=== PATIENT | male | born 1975 | race Caucasian/White ===

== ENCOUNTER → 2022-02-22 | Outpatient (CLI) | payer OTHER ==
--- NOTE | 2022-02-22 12:00 | US ---
EXAMINATION TYPE: US carotid duplex BILAT DATE OF EXAM: 02/22/2022 COMPARISON: NONE CLINICAL HISTORY: R09.89 SYMPTOMS AND SIGNS INV. no h/o stroke, bruit TECHNIQUE: Carotid duplex ultrasound examination. Indirect Doppler criteria was utilized. FINDINGS: EXAM MEASUREMENTS: RIGHT: Peak Systolic Velocity (PSV) cm/sec ----- Right CCA: 70.7 ----- Right ICA: 49.4 ----- Right ECA: 69.6 ICA/CCA ratio: 0.7 RIGHT: End Diastole cm/sec ----- Right CCA: 24.3 ----- Right ICA: 21.2 ----- Right ECA: 19.6 LEFT: Peak Systolic Velocity (PSV) cm/sec ----- Left CCA: 87.6 ----- Left ICA: 43.3 ----- Left ECA: 60.2 ICA/CCA ratio: 0.5 LEFT: End Diastole cm/sec ----- Left CCA: 28.2 ----- Left ICA: 17.3 ----- Left ECA: 16.6 VERTEBRALS (direction of flow): Right Vertebral: Antegrade Left Vertebral: Antegrade Rhythm: Normal SECURITIES UNDERWRITER NOTES: Mild homogeneous plaque with no significant stenosis seen IMPRESSION: No evidence for hemodynamically significant stenosis. Criteria for Assigning % of Stenosis / Diameter reduction (Estimation based on the indirect measurements of the internal carotid artery velocities (ICA PSV). 1. Normal (no stenosis)=ICA PSV < 125 cm/s: ratio < 2.0: ICA EDV<40 cm/s. 2. Less than 50% stenosis=ICA PSV < 125 cm/s: ratio < 2.0: ICA EDV<40 cm/s. 3. 50 to 69% stenosis=ICA PSV of 125 to 230 cm/s: ration 2.0 ? 4.0: ICA EDV 40-100 cm/s. 4. Greater than 70% stenosis to near occlusion= ICA PSV > 230 cm/s: ratio > 4.0: ICA EDV > 100 cm/s. 5. Near occlusion= ICA PSV velocities may be low or undetectable: variable ratio and ICA EDV. 6. Total occlusion=unable to detect flow.
[2022-02-22 19:39] LABS: ALT 30 U/L (10-49); AST 22 U/L (14-35); African American GFR (CKD) 126.5 (60.0-200.0); Albumin 4.7 g/dL (3.8-4.9); Albumin/Globulin Ratio 1.99 (1.60-3.17); Alkaline Phosphatase 98 U/L (41-126); BUN/Creat Ratio 16.07 Ratio (12.00-20.00); Blood Urea Nitrogen 12.5 mg/dL (9.0-27.0); Calcium 9.4 mg/dL (8.7-10.3); Carbon Dioxide 21.3 mmol/L (20.0-27.5); Chloride 102 mmol/L (96-109); Chol/HDL Ratio 3.45 Ratio; Globulin 2.3 g/dL (1.6-3.3); Glucose 91 mg/dL (70-110); LDL Cholesterol,Calculated 90.4 mg/dL (0.0-131.0); Non-African American GFR(CKD) 109.1 (60.0-200.0); Potassium 4.5 mmol/L (3.5-5.5); Sodium 137 mmol/L (135-145); VLDL Calculation 18.96 mg/dL (5.00-40.00)
[2022-02-22 19:52] LABS: Basophils # (A) 0.06 X 10*3/uL (0.00-0.10); Basophils % (A) 0.9 %; Eosinophils # (A) 0.11 X 10*3/uL (0.04-0.35); Eosinophils % (A) 1.7 %; HCT 42.4 % (39.6-50.0); HGB 14.8 g/dL (13.0-17.0); Immature Grans, Automated 0.3 %; Lymphocytes # (A) 2.36 X 10*3/uL (0.90-5.00); Lymphocytes % (A) 36.3 %; MCH 29.8 pg (27.0-32.0); MCHC 34.9 g/dL (32.0-37.0); MCV 85.3 fL (80.0-97.0); Mean Platelet Volume 10.7 fL (9.5-12.2); Monocytes % (A) 7.7 %; NRBC Per 100 WBC 0 /100 WBCS (0.0-0.0); Neutrophils # (A) 3.46 X 10*3/uL (1.80-7.70); Neutrophils % (A) 53.1 %; Platelet Count 238 X 10*3/uL (140-440); RBC 4.97 X 10*6/uL (4.40-5.60); RDW 12.5 % (11.5-14.5); WBC 6.51 X 10*3/uL (4.50-10.00)
== END | disposition home or self-care (01) ==
LOC: RADUSWWP 10:54
PROVIDERS: ATTEND Family Medicine
DX: R09.89 Other specified symptoms and signs involving the circulatory and respiratory systems (principal)
CPT/HCPCS: 80053; 80061; 82306; 83036; 83880; 84153; 84439; 84443; 85025; 93880

== ENCOUNTER → 2022-11-19 | Outpatient (CLI) | payer BC ==
[2022-11-19 23:03] LABS: HCT 42.1 % (39.6-50.0); HGB 14.3 d/dL (12.0-15.0); MCH 29.9 pg (27.0-32.0); MCV 87.9 FL (80.0-97.0); NRBC Per 100 WBC 0 X 10*3/uL (0.00-0.01); Platelet Count 217 X 10*3/uL (140-440); RBC 4.79 X 10*6/uL (4.40-5.60); RDW 12.2 % (11.5-14.5); WBC 6.06 X 10*3/uL (4.50-10.00)
[2022-11-19 23:10] LABS: Blood Urea Nitrogen 16.8 mg/dL (9.0-27.0); Carbon Dioxide 23.3 mmol/L (21.6-31.8); Chloride 104 mmol/L (96-109); Potassium 4.2 mmol/L (3.5-5.5); Sodium 138 mmol/L (135-145)
== END | disposition home or self-care (01) ==
LOC: LABWHC1 11:16
PROVIDERS: ATTEND Internal Medicine Interventional Cardiology
DX: Z01.812 Encounter for preprocedural laboratory examination (principal); R06.02 Shortness of breath
CPT/HCPCS: 36415; 80051; 82565; 84520; 85027

== ENCOUNTER 2022-12-07 07:32 | Day surgery (SDC) | payer BC, OTHER ==
[2022-12-02 14:53] VITALS: BMI 36.2
[~2022-12-07 07:32] MED LIST: ALPRAZolam 0.25 MG TAB PO PRN; ALPRAZolam 0.5 MG TAB PO PRN; ASPIRIN 325 MG TAB PO STA; NITROGLYCERIN SL TABS 0.4 MG TAB SUBLINGUAL PRN; SODIUM CHLORIDE 0.9% 1,000 ML in EMPTY BAG 1 BAG IV SCH
[2022-12-07 08:16] VITALS: RESP 18
[2022-12-07] MEDS ORDERED: fentaNYL (PF) 50 MCG/ML 2 ML AMP ONE (09:04)
[2022-12-07] MEDS ORDERED: VERAPAMIL 2.5 MG/ML 2 ML AMP ONE (09:04)
[2022-12-07] MEDS ORDERED: HEPARIN SODIUM 1,000 UN/ML (10ML VL) ONE (09:05)
[2022-12-07] MEDS ORDERED: fentaNYL (PF) 50 MCG/ML 2 ML AMP IVP ONE (09:54)
[2022-12-07] MEDS ORDERED: LIDOCAINE 1% INJ 10MG/ML (5 ML VIAL-PF) SQ ONE (09:55)
[2022-12-07] MEDS ORDERED: VERAPAMIL SYRINGE (5 MG/10 ML) INTRAARTER ONE (09:56)
[2022-12-07] MEDS ORDERED: MIDAZOLAM 2 MG/2 ML VIAL IVP ONE (09:56)
[2022-12-07] MEDS ORDERED: HEPARIN SODIUM 1,000 UN/ML (10ML VL) IVP ONE (10:07)
[2022-12-07] MEDS ORDERED: IOPAMIDOL-370 100ML BTL INJ ONE (10:16)
[2022-12-07] MEDS ORDERED: RX INFO: IV CONTRAST WAS GIVEN 1 EACH MISC MISCELLANE PRN (10:33)
--- NOTE | 2022-12-07 10:40 | P.CARDCATH ---
Date of Procedure: 12/07/22 Description of Procedure: Cardiac Catheterization: The patient is a 47-year-old male with known history of hypertension, hyperlipidemia, abnormal calcium score and abnormal MPI. Recommendations were made regarding cardiac catheterization, the risks and the complications were discussed with the patient who is in full understanding and agreement. Procedure Description: Patient was brought to slab inspector in fasting semi-sedated state after receiving Fentanyl and Benadryl achieiving moderate conscious sedated state. Using Xylocaine Anesthesia and Seldinger technique, a 6-Macanese sheath was introduced in the right radial artery . Subsequently, selective coronary angiography was performed using a 5-Macanese 3.5 bend left Alfonso and 5 bend right Alfonso catheter. Multiple views of the coronary artery including hemiaxial views were obtained. The 5-Macanese pigtail catheter was used to cross the aortic valve and LVEDP was calculated. Following that, catheter and sheath were removed. Hemostasis was obtained with deployment of TR band . There was no immediate complication. Patient was returned to room in stable condition. Of note, the patient received a total of 5000 units of intravenous heparin as well as intra-arterial verapamil. Findings: The aortic valve is calcified Left main: This is a large size vessel bifurcating into LAD and left circumflex, left main has no high-grade stenosis LAD: This is a large size vessel, reaching to the apex, giving rise to a large diagonal branch, the mid LAD has a 20% eccentric plaque with no high-grade stenosis Left circumflex: This is a nondominant vessel, large in caliber, giving rise to 3 obtuse marginal branch, the left circumflex has no obstructive disease RCA: This is a large dominant vessel, bifurcating into PDA and PLV. The proximal right coronary artery has 20-30% plaque no high-grade stenosis Left Ventriculogram: Not performed Hemodynamics: There was a 49 mmHg peak gradient across the aortic valve with a mean of 35 mmHg , LVEDP was 15-18 mmHg Conclusion: 1. Mild obstructive disease in the LAD and RCA 2. Moderate aortic stenosis 3. Calcified aortic valve 4. Right dominance Recommendations: The patient continue on medical therapy, he will undergo an echocardiogram to further evaluate his aortic valve, it is likely that he has a bicuspid aortic valve. The findings and the recommendations were discussed with the patient and the family and they were in full understanding and agreement. Duration of sedation is 27 minutes.
[2022-12-07] MEDS ORDERED: SODIUM CHLORIDE 0.9% 1,000 ML IV SCH (10:45)
[2022-12-07 13:29] VITALS: BP 109/65; PULSE 77
[2022-12-07] MEDS ORDERED: ATORVASTATIN 40 MG TAB PO SCH (21:00)
[2022-12-08] MEDS ORDERED: ASPIRIN 81 MG PO SCH (09:00)
[2022-12-08] MEDS ORDERED: ESCITALOPRAM 20 MG TAB PO SCH (09:00)
[2022-12-08] MEDS ORDERED: lisinopriL 10 MG TAB PO SCH (09:00)
== END 2022-12-07 13:55 | disposition home or self-care (01) ==
LOC: CATHCVL 07:32
PROVIDERS: ATTEND Internal Medicine Interventional Cardiology
DX: I25.10 Atherosclerotic heart disease of native coronary artery without angina pectoris (principal); I35.0 Nonrheumatic aortic (valve) stenosis; I10 Essential (primary) hypertension; E78.2 Mixed hyperlipidemia; G47.33 Obstructive sleep apnea (adult) (pediatric); I42.8 Other cardiomyopathies; Z79.82 Long term (current) use of aspirin; Z79.899 Other long term (current) drug therapy
CPT/HCPCS: 93458; C1769 ×2; C1894; J2250; J2001; J3010; J1644; Q9967

== ENCOUNTER 2023-12-04 13:47 | Inpatient (IN) | payer BC, OTHER ==
[2023-12-04 14:41] LABS: Basophils # (A) 0.1 k/uL (0-0.2); Basophils % (A) 1 %; Eosinophils # (A) 0.2 k/uL (0-0.7); Eosinophils % (A) 3 %; HCT 40.6 % (39.0-53.0); HGB 13.4 gm/dL (13.0-17.5); Lymphocytes # (A) 1.6 k/uL (1.0-4.8); Lymphocytes % (A) 25 %; MCH 29.6 pg (25.0-35.0); MCV 89.8 fL (80.0-100.0); Mean Platelet Volume 7.6; Monocytes # (A) 0.4 k/uL (0-1.0); Monocytes % (A) 6 %; Neutrophils % (A) 64 %; Platelet Count 197 k/uL (150-450); RBC 4.52 m/uL (4.30-5.90); RDW 13.6 % (11.5-15.5); WBC 6.3 k/uL (3.8-10.6)
[2023-12-04 14:55] LABS: ALT 51 U/L (4-49); AST 56 U/L (17-59); African American GFR (CKD) >90 (>60 ml/min/1.73 sqM); Alkaline Phosphatase 73 U/L (38-126); Anion Gap 7 mmol/L; Blood Urea Nitrogen 16 mg/dL (9-20); Carbon Dioxide 24 mmol/L (22-30); Chloride 106 mmol/L (98-107); Glucose 119 mg/dL (74-99); Magnesium 1.9 mg/dL (1.6-2.3); Non-African American GFR(CKD) >90 (>60 ml/min/1.73 sqM); Sodium 137 mmol/L (137-145); Total Bilirubin 0.8 mg/dL (0.2-1.3); Total Protein 6.4 g/dL (6.3-8.2)
--- NOTE | 2023-12-04 14:56 | XR ---
EXAMINATION TYPE: XR chest 2V DATE OF EXAM: 12/04/2023 2:39 PM CLINICAL INDICATION:Male, 48 years old with history of difficulty breathing; PHH COMPARISON: None TECHNIQUE: XR chest 2V Frontal and lateral views of the chest. FINDINGS: Lungs/Pleura: There is no evidence of pleural effusion, focal consolidation, or pneumothorax. Pulmonary vascularity: Unremarkable. Heart/mediastinum: Cardiomediastinal silhouette is unremarkable. Musculoskeletal: No acute osseous pathology. IMPRESSION: Low lung volumes with a generalized hazy appearance which could represent atelectasis.
[2023-12-04 15:02] LABS: NT-Pro-B-Type Natriuretic Pept 490 pg/mL
--- NOTE | 2023-12-04 15:12 | ED ---
General Adult HPI - General Chief complaint: Shortness of Breath Stated complaint: leg swelling,palpitations Time Seen by Provider: 12/04/23 14:52 Source: patient, family, RN notes reviewed Mode of arrival: ambulatory Limitations: no limitations - History of Present Illness Initial comments: Patient is a 48-year-old male present to the emergency department with leg edema and dyspnea. Symptoms have progressed over the past few weeks. Patient has orthopnea and exertional dyspnea. Patient does have some mild chest discomfort associated. No history of similar symptoms previously. Patient does have known cardiac history does see Dr. Lentz for this. - Related Data Home Medications Medication Instructions Recorded Confirmed Aspirin EC [Ecotrin Low Dose] 81 mg PO DAILY 04/06/22 12/07/22 Atorvastatin [Lipitor] 40 mg PO HS 04/06/22 12/07/22 Escitalopram [Lexapro] 20 mg PO DAILY 04/06/22 12/07/22 lisinopriL [Zestril] 10 mg PO DAILY 04/06/22 12/07/22 Allergies Allergy/AdvReac Type Severity Reaction Status Date / Time No Known Allergies Allergy Verified 12/04/23 14:12 Review of Systems ROS Statement: Those systems with pertinent positive or pertinent negative responses have been documented in the HPI. ROS Other: All systems not noted in ROS Statement are negative. Constitutional: Denies: fever Eyes: Denies: eye pain ENT: Denies: ear pain Respiratory: Reports: as per HPI Cardiovascular: Reports: as per HPI, chest pain, dyspnea on exertion, orthopnea, edema Endocrine: Reports: fatigue Gastrointestinal: Denies: abdominal pain Genitourinary: Denies: dysuria Musculoskeletal: Denies: back pain Past Medical History Past Medical History: Hyperlipidemia, Hypertension Additional Past Medical History / Comment(s): leaky heart valve, History of Any Multi-Drug Resistant Organisms: None Reported Past Surgical History: Heart Catheterization Past Anesthesia/Blood Transfusion Reactions: No Reported Reaction Past Psychological History: Anxiety Smoking Status: Never smoker Past Alcohol Use History: Occasional Past Drug Use History: None Reported - Past Family History Father Family Medical History: Cancer, Myocardial Infarction ([place]) General Exam Limitations: no limitations General appearance: alert, in no apparent distress Head exam: Present: normocephalic Eye exam: Present: normal appearance Neck exam: Present: normal inspection Respiratory exam: Present: normal lung sounds bilaterally Cardiovascular Exam: Present: regular rate, normal rhythm, systolic murmur Expanded Peripheral pulses: 2+: Radial (R), Radial (L), Dorsalis Pedis (R), Dorsalis Ped is (L) GI/Abdominal exam: Present: soft. Absent: tenderness Extremities exam: Present: pedal edema. Absent: calf tenderness Neurological exam: Present: alert Psychiatric exam: Present: normal affect, normal mood Skin exam: Present: normal color Course Vital Signs 12/04/23 12/04/23 12/04/23 14:08 15:06 19:04 Temperature 98.1 F Pulse Rate 72 72 Respiratory 18 18 18 Rate Blood Pressure 131/80 O2 Sat by Pulse 97 97 Oximetry EKG Findings - EKG Results: EKG: interpreted by ERMD (Left axis. Nonspecific T waves.), sinus rhythm, norm al QRS Medical Decision Making - Medical Decision Making Was pt. sent in by a medical professional or institution (, PA, HYDROGEOLOGIST, urgent care, hospital, or [facility]...) When possible be specific @ -No Did you speak to anyone other than the patient for history (EMS, parent, family, police, friend...)? What history was obtained from this source @ - is present helps provide history including previous cardiac history Did you review nursing and triage notes (agree or disagree)? Why? @ -I reviewed and agree with nursing and triage notes Were old charts reviewed (outside hosp., previous admission, EMS record, old EKG, old radiological studies, urgent care reports/EKG's, [facility] records)? Report findings @ -No old charts were reviewed Differential Diagnosis (chest pain, altered mental status, abdominal pain women, abdominal pain men, vaginal bleeding, weakness, fever, dyspnea, syncope, headache, dizziness, GI bleed, back pain, seizure, CVA, palpatations, mental health, musculoskeletal)? @ -Differential Chest Pain: Stable Angina, Unstable Angina, STEMI, NSTEMI Aortic Dissection, Pneumothorax, Musculoskeletal, Esophageal Spasm GERD, Cholecystitis, Pancreatitis, Zoster, this is not meant to be an all-inclusive list. EKG interpreted by me (3pts min.). @ -As above X-rays interpreted by me (1pt min.). @ -Chest x-ray shows no acute process CT interpreted by me (1pt min.). @ -CT scan of the chest reveals no acute abnormality U/S interpreted by me (1pt. min.). @ -None done What testing was considered but not performed or refused? (CT, X-rays, U/S, labs)? Why? @ -None What meds were considered but not given or refused? Why? @ -None Did you discuss the management of the patient with other professionals (pro fessionals i.e. , PA, HYDROGEOLOGIST, lab, RT, psych nurse, psych social worker, core fitter, teacher, staff air defense officer, continuous pillowcase cutter)? Give summary @ -Case was discussed with Dr. Garcia who will admit covering Dr. Nash Was smoking cessation discussed for >3mins.? @ -No Was critical care preformed (if so, how long)? @ -No Were there social determinants of health that impacted care today? How? (Homelessness, low income, unemployed, alcoholism, drug addiction, transportation, low edu. Level, literacy, decrease access to med. care, usp, rehab)? @ -No Was there de-escalation of care discussed even if they declined (Discuss DNR or withdrawal of care, Hospice)? DNR status @ -No What co-morbidities impacted this encounter? (DM, HTN, Smoking, COPD, CAD, Cancer, CVA, ARF, Chemo, Hep., AIDS, mental health diagnosis, sleep apnea, morbid obesity)? @ -None Was patient admitted / discharged? Hospital course, mention meds given and route, prescriptions, significant lab abnormalities, going to OR and other pertinent info. @ -Patient reevaluated and updated. Patient will be admitted with cardiac consult. Patient does feel somewhat better with Lasix. Admission orders written Undiagnosed new problem with uncertain prognosis? @ -No Drug Therapy requiring intensive monitoring for toxicity (Heparin, Nitro, In sulin, Cardizem)? @ -No Were any procedures done? @ -No Diagnosis/symptom? @ -Chest pain, edema Acute, or Chronic, or Acute on Chronic? @ -Acute, acute Uncomplicated (without systemic symptoms) or Complicated (systemic symptoms)? @ -Default Side effects of treatment? @ -No Exacerbation, Progression, or Severe Exacerbation? @ -No Poses a threat to life or bodily function? How? (Chest pain, [place], [place], pneumonia, PE, COPD, DKA, ARF, appy, cholecystitis, CVA, Diverticulitis, Homicidal, Suicidal, threat to staff... and all critical care pts) @ -Potential for threat for cardiac function - Lab Data Result diagrams: 12/04/23 14:23 12/04/23 14:23 Lab Results 12/04/23 12/04/23 12/04/23 Range/Units 14:23 14:23 14:23 WBC 6.3 (3.8-10.6) k/uL RBC 4.52 (4.30-5.90) m/uL Hgb 13.4 (13.0-17.5) gm/dL Hct 40.6 (39.0-53.0) % MCV 89.8 (80.0-100.0) fL MCH 29.6 (25.0-35.0) pg MCHC 33.0 (31.0-37.0) g/dL RDW 13.6 (11.5-15.5) % Plt Count 197 (150-450) k/uL MPV 7.6 Neutrophils % 64 % Lymphocytes % 25 % Monocytes % 6 % Eosinophils % 3 % Basophils % 1 % Neutrophils # 4.0 (1.3-7.7) k/uL Lymphocytes # 1.6 (1.0-4.8) k/uL Monocytes # 0.4 (0-1.0) k/uL Eosinophils # 0.2 (0-0.7) k/uL Basophils # 0.1 (0-0.2) k/uL PT 10.6 (10.0-12.5) sec INR 1.0 (<1.2) APTT 24.6 (22.0-30.0) sec D-Dimer (<0.60) mg/L FEU Sodium 137 (137-145) mmol/L Potassium 4.0 (3.5-5.1) mmol/L Chloride 106 (98-107) mmol/L Carbon Dioxide 24 (22-30) mmol/L Anion Gap 7 mmol/L BUN 16 (9-20) mg/dL Creatinine 0.79 (0.66-1.25) mg/dL Est GFR (CKD-EPI)AfAm >90 (>60 ml/min/1.73 sqM) Est GFR (CKD-EPI)NonAf >90 (>60 ml/min/1.73 sqM) Glucose 119 H (74-99) mg/dL Calcium 9.0 (8.4-10.2) mg/dL Magnesium 1.9 (1.6-2.3) mg/dL Total Bilirubin 0.8 (0.2-1.3) mg/dL AST 56 (17-59) U/L ALT 51 H (4-49) U/L Alkaline Phosphatase 73 (38-126) U/L Troponin I (0.000-0.034) ng/mL NT-Pro-B Natriuret Pep 490 pg/mL Total Protein 6.4 (6.3-8.2) g/dL Albumin 4.0 (3.5-5.0) g/dL 12/04/23 12/04/23 Range/Units 14:23 14:23 WBC (3.8-10.6) k/uL RBC (4.30-5.90) m/uL Hgb (13.0-17.5) gm/dL Hct (39.0-53.0) % MCV (80.0-100.0) fL MCH (25.0-35.0) pg MCHC (31.0-37.0) g/dL RDW (11.5-15.5) % Plt Count (150-450) k/uL MPV Neutrophils % % Lymphocytes % % Monocytes % % Eosinophils % % Basophils % % Neutrophils # (1.3-7.7) k/uL Lymphocytes # (1.0-4.8) k/uL Monocytes # (0-1.0) k/uL Eosinophils # (0-0.7) k/uL Basophils # (0-0.2) k/uL PT (10.0-12.5) sec INR (<1.2) APTT (22.0-30.0) sec D-Dimer 0.67 H (<0.60) mg/L FEU Sodium (137-145) mmol/L Potassium (3.5-5.1) mmol/L Chloride (98-107) mmol/L Carbon Dioxide (22-30) mmol/L Anion Gap mmol/L BUN (9-20) mg/dL Creatinine (0.66-1.25) mg/dL Est GFR (CKD-EPI)AfAm (>60 ml/min/1.73 sqM) Est GFR (CKD-EPI)NonAf (>60 ml/min/1.73 sqM) Glucose (74-99) mg/dL Calcium (8.4-10.2) mg/dL Magnesium (1.6-2.3) mg/dL Total Bilirubin (0.2-1.3) mg/dL AST (17-59) U/L ALT (4-49) U/L Alkaline Phosphatase (38-126) U/L Troponin I 0.037 H* (0.000-0.034) ng/mL NT-Pro-B Natriuret Pep pg/mL Total Protein (6.3-8.2) g/dL Albumin (3.5-5.0) g/dL Disposition Clinical Impression: Chest pain, Edema Disposition: ADMITTED IP TO THIS HOSP Is patient prescribed a controlled substance at d/c from ED?: No Referrals: Tone Borja MD [Primary Care Provider] - 1-2 days Time of Disposition: 19:48
[2023-12-04 15:26] LABS: Partial Thromboplastin Time 24.6 sec (22.0-30.0); Prothrombin Time 10.6 sec (10.0-12.5)
[2023-12-04] MEDS: FUROSEMIDE 10 MG/ML 4 ML VIAL IV STA (15:29)
[2023-12-04] MEDS: LORazepam 2 MG/ML INJ IV STA (18:27)
--- NOTE | 2023-12-04 19:43 | CT ---
CTA CHEST EXAMINATION TYPE: CT angio chest DATE OF EXAM: 12/04/2023 INDICATION: swelling to bilateral legs, increased dyspnea CT DLP: Combined dlp 2781 mGycm, Automated exposure control for dose reduction was used. CONTRAST: Patient injected with 190 mL of Isovue 370. COMPARISON: TECHNIQUE: CT of the chest is performed on a spiral scan at 2 mm thick sections. Study is performed with intravenous contrast timed for evaluation for pulmonary embolism. This will limit additional po rtions of the evaluation. 3-D MIP images reconstructed by the technologist are reviewed on the compu ter in the coronal and sagittal planes. FINDINGS: No persistent filling defects are evident to suggest an acute pulmonary embolism. No mediastinal or hilar adenopathy enlarged by CT criteria is evident. The ascending aorta diameter at the level of the main pulmonary artery is 3.9 cm. The main pulmonary artery diameter at the bifurcation is 3.3 cm. Lung windows are clear. Limited CT sections were through the upper abdomen. Upper abdomen appears unremarkable. IMPRESSION: 1. No acute pulmonary embolism. 2. No acute pulmonary process.
[2023-12-04] MEDS ORDERED: NITROGLYCERIN SL TABS 0.4 MG TAB SUBLINGUAL PRN (19:48)
--- NOTE | 2023-12-04 22:00 | P.HPIM ---
History of Present Illness H&P Date: 12/04/23 Chief Complaint: SOB and leg edema Patient is a 48-year-old male past medical history of hypertension and valvular abnormality presents to ER with complaint of shortness of breath and heart palpitation. Patient reports that he felt his heart was beating very fast associated with diaphoresis that started 1 to 2 hours before presenting to the ER. He also reports that he has worsening bilateral lower leg edema since 1 week. Patient reports that he has exertional dyspnea since 2 months which gets worse with physical activity such as walking and climbing 2-3 flights of stairs and resolves with rest. Patient also reports intermittent substernal chest "tightness" since 2 months with pain radiating between his both shoulders and to the left jaw. Patient underwent extensive cardiology assessment a year ago and was found to have valvular abnormality. Patient also resports pain in both calfs since yesterday. 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 Chest x-ray done in the ER shows low lung volumes with generalized hazy appearance which could represent atelectasis. Otherwise, no evidence of pleural effusion, focal consolidation or pneumothorax. CT angiogram of the chest done in the ER shows no acute pulmonary embolism or other acute pulmonary process. EKG shows heart rate of [address] deviation and moderate T wave abnormality in lead I, aVL, V5, V6. QTc is 419 ms. Vitals: Tmax 98.1 F, pulse rate 76, respiratory 20, blood pressure 141/84, O2 saturation 98% on room air. Review of systems: Pertinent positives and negatives as discussed in HPI, a complete review of systems was performed and all other systems are negative. 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 Mother has CAD status post stent; alive. Grandparents has history of coronary artery disease. Physical examination: Vital signs reviewed General: non toxic, no distress, appears at stated age, overweight Derm: no unusual rashes/lesions, warm Head: atraumatic, normocephalic, symmetric Eyes: EOMI, no lid lag, anicteric sclera, pupils equal round reactive to light ENT: Nose and ears atraumatic Neck: No cervical lymphadenopathy, trachea midline, supple, no JVP Mouth: no lip lesion, mucus membranes moist Cardiovascular: S1S2 reg, grade 3 diastolic murmur, positive dorsalis pedis pulse bilateral, bilateral lower extremity grade 2 pitting edema Lungs: CTA bilateral, no rhonchi, no rales, no accessory muscle use Abdominal: soft, nontender to palpation, no guarding Ext: muscle strength 5 out of 5 in all 4 extremities grossly, no gross muscle atrophy, no contractures, calf tenderness upon palpation bilaterally Neuro: CN II-XI grossly intact, no gross focal neuro deficits Psych: Alert, oriented, appropriate affect Assessment/Plan: 48-year-old male with past medical history of hypertension and valvular abnormality presents to the ER with worsening shortness of breath and heart palpitation associated with the mild chest discomfort, bilateral lower extremity edema. 1. Congestive heart failure Continue with Aspirin 325 mg po qd Consider Lasix if LE edema worsens Continues with nitroglycerine Sublingual tabs prn for chest pain Started on beta vazquez for anti-ischemic effect Continue monitoring O2 saturation Continue with cardiac monitoring Order echocardiogram to r/o structural valvular abnormalities Consult cardiology Continue with Tropnonin I series for trending Q3H 2. 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 Wells' Criteria: 3.0 points - moderate risk 3. Hyperglycemia Continue with low carbohydrate diet Continue monitoring serum glucose level Will consider starting him on sliding scale short acting insulin DVT prophylaxis: On IV Heparin Drip The patient is admitted with an anticipated more than 2 midnight stay for evaluation of CHF CODE STATUS: Full Discussed with: Patient Anticipated discharge place: Home Past Medical History Past Medical History: Hyperlipidemia, Hypertension Additional Past Medical History / Comment(s): leaky heart valve, History of Any Multi-Drug Resistant Organisms: None Reported Past Surgical History: Heart Catheterization Past Anesthesia/Blood Transfusion Reactions: No Reported Reaction Past Psychological History: Anxiety Smoking Status: Never smoker Past Alcohol Use History: Occasional Past Drug Use History: None Reported - Past Family History Father Family Medical History: Cancer, Myocardial Infarction ([place]) Medications and Allergies Home Medications Medication Instructions Recorded Confirmed Type Atorvastatin [Lipitor] 40 mg PO HS 04/06/22 12/04/23 History Escitalopram [Lexapro] 20 mg PO DAILY 04/06/22 12/04/23 History Ezetimibe [Zetia] 10 mg PO HS 12/04/23 12/04/23 History Losartan Potassium 50 mg PO DAILY 12/04/23 12/04/23 History Pantoprazole [Protonix] 40 mg PO DAILY PRN 12/04/23 12/04/23 History Allergies Allergy/AdvReac Type Severity Reaction Status Date / Time No Known Allergies Allergy Verified 12/04/23 20:06 Physical Exam Vitals: Vital Signs Temp Pulse Resp BP Pulse Ox 12/04/23 20:00 76 20 141/84 98 12/04/23 19:04 72 18 97 12/04/23 15:06 18 12/04/23 14:08 98.1 F 72 18 131/80 97 Intake and Output 12/04/23 12/04/23 12/04/23 06:59 14:59 22:59 Other: Weight 154.221 kg Results CBC & Chem 7: 12/04/23 22:28 12/04/23 14:23 Labs: Abnormal Lab Results - Last 24 Hours (Table) 12/04/23 12/04/23 12/04/23 Range/Units 14:23 14:23 14:23 D-Dimer 0.67 H (<0.60) mg/L FEU Glucose 119 H (74-99) mg/dL ALT 51 H (4-49) U/L Troponin I 0.037 H* (0.000-0.034) ng/mL Assessment and Plan Assessment: I have seen and evaluated the patient today 12/04/2023 I discussed the case with the resident and agree with the resident history of present illness and physical exam findings. Assessment and plan would be as follows 48-year-old male with hypertension hyperlipidemia coming in with few week history of progressive exertional dyspnea bilateral leg edema orthopnea and episodes of chest pain I discussed the case with ED doctor and accepted the admission for NSTEMI with possible underlying acute CHF with anticipated length of stay more than 2 midnights NSTEMI EKG showing T wave inversion in lead I and aVL with some degree of ST depression in aVL Troponins elevated 0.037, continue to trend Aspirin 325 mg daily Atorvastatin 40 mg nightly Heparin drip for ACS protocol Cardiology consult Supplemental oxygen as needed teletypesetter monitor Monitor vital signs Nitro as needed for chest pain Low-dose metoprolol 25 mg p.o. 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 daily
[2023-12-04] MEDS ORDERED: HEPARIN SODIUM 1,000 UN/ML (10ML VL) IV PRN (22:19)
[2023-12-04 22:42] LABS: Basophils # (A) 0.1 k/uL (0-0.2); Basophils % (A) 1 %; Eosinophils # (A) 0.2 k/uL (0-0.7); Eosinophils % (A) 3 %; HCT 38.8 % (39.0-53.0); HGB 13.3 gm/dL (13.0-17.5); Lymphocytes # (A) 1.7 k/uL (1.0-4.8); Lymphocytes % (A) 27 %; MCH 30.5 pg (25.0-35.0); MCHC 34.4 g/dL (31.0-37.0); MCV 88.5 fL (80.0-100.0); Mean Platelet Volume 8.9; Monocytes # (A) 0.4 k/uL (0-1.0); Monocytes % (A) 7 %; Neutrophils # (A) 3.8 k/uL (1.3-7.7); Neutrophils % (A) 60 %; Platelet Count 186 k/uL (150-450); RBC 4.38 m/uL (4.30-5.90); WBC 6.3 k/uL (3.8-10.6)
[2023-12-04 23:04] LABS: Partial Thromboplastin Time 24.6 sec (22.0-30.0); Prothrombin Time 10.9 sec (10.0-12.5)
[2023-12-04] MEDS: ASPIRIN 81 MG PO STA (23:49)
[2023-12-05] MEDS: NITROGLYCERIN OINT 1 INCH/GM PACKET TOPICAL SCH (00:04)
[2023-12-05] MEDS: HEPARIN SODIUM 1,000 UN/ML (10ML VL) IV ONE (01:00)
[2023-12-05 01:39] LABS: Basophils # (A) 0.1 k/uL (0-0.2); Basophils % (A) 1 %; Eosinophils # (A) 0.2 k/uL (0-0.7); Eosinophils % (A) 3 %; HCT 39.8 % (39.0-53.0); Lymphocytes % (A) 28 %; MCH 29.5 pg (25.0-35.0); MCHC 32.6 g/dL (31.0-37.0); MCV 90.7 fL (80.0-100.0); Mean Platelet Volume 8.1; Monocytes # (A) 0.5 k/uL (0-1.0); Monocytes % (A) 7 %; Neutrophils # (A) 4.1 k/uL (1.3-7.7); Neutrophils % (A) 59 %; Platelet Count 205 k/uL (150-450); RBC 4.39 m/uL (4.30-5.90); RDW 13.7 % (11.5-15.5)
--- NOTE | 2023-12-05 03:45 | US ---
EXAM: US Duplex Bilateral Lower Extremities Veins CLINICAL HISTORY: ITS.REASON US Reason: bilateral calf pain, SOB TECHNIQUE: Real-time duplex ultrasound scan of the bilateral lower extremity veins integrating B-mode two-dimensional vascular structure, Doppler spectral analysis, color flow Doppler imaging and compression. COMPARISON: No relevant prior studies available. FINDINGS: Right deep veins: Unremarkable. No DVT in the right common femoral, femoral, proximal deep femoral or popliteal veins. The veins demonstrate normal color flow, are normally compressible, with normal phasic flow and/or augmentation response. Right superficial veins: Unremarkable. No thrombus in the visualized right great saphenous vein. Left deep veins: Unremarkable. No DVT in the left common femoral, femoral, proximal deep femoral or popliteal veins. The veins demonstrate normal color flow, are normally compressible, with normal phasic flow and/or augmentation response. Left superficial veins: Unremarkable. No thrombus in the visualized left great saphenous vein. Soft tissues: No acute findings. No popliteal cyst. IMPRESSION: Normal bilateral lower extremity duplex venous ultrasound.
[2023-12-05] MEDS: HEPARIN SOD,PORK IN 0.45% NACL 25,000 UNIT in 0.45% NACL 1 250ML.BAG IV SCH (04:43)
[2023-12-05 05:00] LABS: INR 0.9 (<1.2); Partial Thromboplastin Time 23.1 sec (22.0-30.0); Prothrombin Time 10.4 sec (10.0-12.5)
[2023-12-05] MEDS: ATORVASTATIN 40 MG TAB PO SCH (08:03)
[2023-12-05] MEDS: FUROSEMIDE 10 MG/ML 4 ML VIAL IV SCH (08:03)
[2023-12-05] MEDS: PANTOPRAZOLE 40 MG TABLET PO SCH (08:03)
[2023-12-05] MEDS: METOPROLOL TARTRATE 25 MG TAB PO SCH ×2 (08:03→20:57)
[2023-12-05] MEDS: ASPIRIN 325 MG TAB PO SCH (08:03)
[2023-12-05] MEDS: ASPIRIN 81 MG PO SCH (08:12)
[2023-12-05 08:51] LABS: Chol/HDL Ratio 4.16 Ratio; LDL Cholesterol,Calculated 41.2 mg/dL (0.0-131.0)
[2023-12-05] MEDS: HEPARIN SODIUM,PORCINE 5,000 UNIT/ML 1 ML VIAL SQ SCH (09:09)
[2023-12-05] MEDS ORDERED: NITROGLYCERIN SL TABS 0.4 MG TAB SUBLINGUAL PRN (09:26)
[2023-12-05] MEDS ORDERED: ALPRAZolam 0.25 MG TAB PO PRN (09:26)
--- NOTE | 2023-12-05 10:05 | P.CRDCN ---
History of Present Illness History of present illness: HISTORY OF PRESENT ILLNESS: This is a 48-year-old male with a past medical history significant for nonobstructive CAD, bicuspid aortic valve, hypertension, hyperlipidemia, and obesity. Patient follows in the office with Dr. Lentz. We have been asked to see the patient in consultation for shortness of breath. Patient examined at the bedside in the emergency room. Patient states he has been having increased lower extremity edema for the past 2 months. He also reports he has been having shortness of breath over the past 2-3 weeks it has gotten worse over the past couple days along with associated chest pain. He states his insisted he come to the ER for further evaluation. The patient was started on IV Lasix and reports improvement in his shortness of breath this morning. He currently denies any chest pain or pressure. He is a non-smoker. He reports a family history of CAD in both his mother and his father. DIAGNOSTICS: - EKG reveals sinus mechanism with nonspecific ST-T wave changes - Chest xray low lung volumes with generalized hazy appearance which could repr esent atelectasis. - Chest CTA: Negative for pulmonary embolism. No acute pulmonary process. - Venous Doppler: Negative for DVT bilaterally - Laboratory data: WBC 7.0. Hemoglobin 13.0. Platelet count 205. D-dimer 0.67. Sodium 137. Potassium 4.0. BUN 16. Creatinine 0.79. Troponin 0.037. 0.047. 0.061. 0.058. - Current home cardiac medications include Lipitor 40 mg at night, Zetia 10 mg a t night, losartan 50 mg daily. - Most recent echocardiogram obtained in November 2022 revealed normal EF, bicuspid aortic valve, moderate to severe , mild TR, mild MR, aortic valve peak 59 mmHg and aortic valve mean 31 mmHg - Cardiac catheterization history: November 2022 revealing mild nonobstructive dis ease in the LAD and RCA, moderate aortic stenosis, calcified aortic valve, right dominant system. REVIEW OF SYSTEMS: At the time of my exam: CONSTITUTIONAL: Denies fever or chills. HEENT: Denies blurred vision, vision changes, or eye pain. Denies hemoptysis CARDIOVASCULAR: Denies chest pain. Denies orthopnea. Denies PND. Denies palpitations RESPIRATORY: Denies shortness of breath. GASTROINTESTINAL: Denies abdominal pain. Denies nausea or vomiting. HEMATOLOGIC: Denies bleeding disorders. GENITOURINARY: Denies any blood in urine. SKIN: Denies pruitis. Denies rash. PHYSICAL EXAM: VITAL SIGNS: Reviewed. GENERAL: Well-developed in no acute distress. HEENT: Head is normocephalic. Pupils are equal, round. Sclerae anicteric. Mucous membranes of the mouth are moist. Neck supple. No JVD or thyromegaly LUNGS: Respirations even and unlabored. Lungs essentially clear to auscultation bilaterally. HEART: Regular rate and rhythm. S1 and S2 heard. + systolic murmur ABDOMEN: Soft. Nondistended. Nontender. EXTREMITIES: Normal range of motion. No clubbing or cyanosis. Peripheral pulses intact. 1-2+ bilateral lower extremity edema NEUROLOGIC: Awake and alert. Oriented x 3. ASSESSMENT: New onset congestive heart failure with preserved EF Elevated troponins, flat, likely type II PR secondary to oxygen supply/demand mismatch Elevated d-dimer, CTA negative for pulmonary embolism History of bicuspid aortic valve with moderate to severe aortic stenosis Mild nonobstructive disease of LAD and RCA, per cardiac catheterization November 2022 Hypertension Hyperlipidemia Morbid obesity: BMI 43.7 Family history of CAD PLAN: Obtain 2D echo to assess cardiac structure and function Resume home cardiac medications Continue IV diuretics Daily weights, accurate intake and output, and monitoring of kidney function Discontinue IV heparin. Begin subcu heparin Patient to undergo ASIM and cardiac catheterization tomorrow with Dr. Lentz Further recommendations pending patient course Nurse practitioner note has been reviewed by physician. Signing provider agrees with the documented findings, assessment, and plan of care documented by PRODUCT CONTROL AND LOGISTICS ANALYST as a scribe. Past Medical History Past Medical History: Hyperlipidemia, Hypertension Additional Past Medical History / Comment(s): leaky heart valve, History of Any Multi-Drug Resistant Organisms: None Reported Past Surgical History: Heart Catheterization Past Anesthesia/Blood Transfusion Reactions: No Reported Reaction Past Psychological History: Anxiety Smoking Status: Never smoker Past Alcohol Use History: Occasional Past Drug Use History: None Reported - Past Family History Father Family Medical History: Cancer, Myocardial Infarction (PR) Medications and Allergies Home Medications Medication Instructions Recorded Confirmed Type Atorvastatin [Lipitor] 40 mg PO HS 04/06/22 12/04/23 History Escitalopram [Lexapro] 20 mg PO DAILY 04/06/22 12/04/23 History Ezetimibe [Zetia] 10 mg PO HS 12/04/23 12/04/23 History Losartan Potassium 50 mg PO DAILY 12/04/23 12/04/23 History Pantoprazole [Protonix] 40 mg PO DAILY PRN 12/04/23 12/04/23 History Allergies Allergy/AdvReac Type Severity Reaction Status Date / Time No Known Allergies Allergy Verified 12/04/23 20:06 Physical Exam Vitals: Vital Signs Temp Pulse Pulse Resp BP Pulse Ox 12/05/23 08:02 98.9 F 66 18 126/77 97 12/05/23 06:00 70 18 140/90 98 12/05/23 04:00 69 18 96 12/05/23 02:00 70 18 128/93 98 12/05/23 00:00 67 18 126/83 98 12/04/23 23:26 70 12/04/23 23:00 80 20 128/78 98 12/04/23 20:00 76 20 141/84 98 12/04/23 19:04 72 18 97 12/04/23 15:06 18 12/04/23 14:08 98.1 F 72 18 131/80 97 Results 12/05/23 01:04 12/04/23 14:23 Cardiac Enzymes 12/04/23 12/04/23 12/04/23 Range/Units 14:23 14:23 20:36 AST 56 (17-59) U/L Troponin I 0.037 H* 0.047 H* (0.000-0.034) ng/mL 12/05/23 12/05/23 Range/Units 01:04 04:32 AST (17-59) U/L Troponin I 0.061 H* 0.058 H* (0.000-0.034) ng/mL Coagulation 12/04/23 12/04/23 12/05/23 Range/Units 14:23 22:28 04:28 PT 10.6 10.9 10.4 (10.0-12.5) sec APTT 24.6 24.6 23.1 (22.0-30.0) sec CBC 12/04/23 12/04/23 12/05/23 Range/Units 14:23 22:28 01:04 WBC 6.3 6.3 7.0 (3.8-10.6) k/uL RBC 4.52 4.38 4.39 (4.30-5.90) m/uL Hgb 13.4 13.3 13.0 (13.0-17.5) gm/dL Hct 40.6 38.8 L 39.8 (39.0-53.0) % Plt Count 197 186 205 (150-450) k/uL Comprehensive Metabolic Panel 12/04/23 Range/Units 14:23 Sodium 137 (137-145) mmol/L Potassium 4.0 (3.5-5.1) mmol/L Chloride 106 (98-107) mmol/L Carbon Dioxide 24 (22-30) mmol/L BUN 16 (9-20) mg/dL Creatinine 0.79 (0.66-1.25) mg/dL Glucose 119 H (74-99) mg/dL Calcium 9.0 (8.4-10.2) mg/dL AST 56 (17-59) U/L ALT 51 H (4-49) U/L Alkaline Phosphatase 73 (38-126) U/L Total Protein 6.4 (6.3-8.2) g/dL Albumin 4.0 (3.5-5.0) g/dL Current Medications Generic Name Dose Route Start Last Admin Trade Name Freq PRN Reason Stop Dose Admin Aspirin 81 mg 12/05/23 09:00 12/05/23 08:12 Aspirin 81 Mg PO Not Given DAILY [facility] Atorvastatin Calcium 40 mg 12/05/23 09:00 12/05/23 08:03 Atorvastatin 40 Mg Tab PO 40 mg DAILY JERRY Administration Furosemide 40 mg 12/05/23 09:00 12/05/23 08:03 Furosemide 10 Mg/Ml 4 Ml Vial IV 40 mg DAILY [facility] Administration Heparin Sodium (Porcine) 0 unit 12/04/23 22:19 Heparin Sodium 1,000 Un/Ml (10ml Vl) IV PER PROTOCOL PRN Low PTT Protocol Heparin Sodium/Sodium Chloride 250 mls @ 10 mls/hr 12/04/23 22:30 12/05/23 04:43 25,000 unit/ Sodium Chloride IV 6.484 units/kg/hr .Q24H JERRY 10 mls/hr Administration Protocol 6.484 UNITS/KG/HR Metoprolol Tartrate 25 mg 12/05/23 09:00 12/05/23 08:03 Metoprolol Tartrate 25 Mg Tab PO 25 mg DAILY [facility] Administration Nitroglycerin 0.4 mg 12/04/23 19:48 Nitroglycerin Sl Tabs 0.4 Mg Tab SUBLINGUAL Q5M PRN Chest Pain Nitroglycerin 1 inch 12/05/23 00:00 12/05/23 07:08 Nitroglycerin Oint 1 Inch/Gm Packet TOPICAL Not Given Q6HR [facility] Pantoprazole Sodium 40 mg 12/05/23 07:30 12/05/23 08:03 Pantoprazole 40 Mg Tablet PO 40 mg [id number] [facility] Administration 12/05/23 01:04 12/04/23 14:23
--- NOTE | 2023-12-05 11:13 | P.PN ---
Subjective Progress Note Date: 12/05/23 No new complaints today. Swelling coming down in legs. Cardiology is planning ASIM and LHC. Echo pending. Gen: In NAD, non-toxic HEENT: normocephalic, atraumatic, hearing acuity is intant, mucous membranes moist CVS: perfusing all extremities well, bilateral pitting edema, Respiratory: symmetric chest expansion, no accessory muscle use, GI: soft, NTTP, ND, : no suprapubic tenderness, no CVA tenderness MSK/Derm: no rashes, cyanosis Neuro: CN II-XII intact, no motor weakness, Psych: cooperative, euthymic mood, judgment and insight is intact Hospital course: Patient is a 48-year-old male past medical history of hypertension and valvular abnormality presented to ER with complaint of shortness of breath and heart palpitation. Chest x-ray done in the ER shows low lung volumes with generalized hazy appearance which could represent atelectasis. CT angiogram of the chest done in the ER shows no acute pulmonary embolism or other acute pulmonary process. EKG shows heart rate of [address] deviation and moderate T wave abnormality in lead I, aVL, V5, V6. Assessment/Plan: 48-year-old male with past medical history of hypertension and valvular abnormality presents to the ER with worsening shortness of breath and heart palpitation associated with the mild chest discomfort, bilateral lower extremity edema. Acute Congestive heart failure, unspecified ejection fraction Non-obstructive CAD Aortic Stenosis, bicuspid valve, severe -ASA 81mg, atorvastatin 40mg daily -Continue Lasix 40mg IV daily, fluid restriction 2L/day -Nitroglycerine Sublingual tabs prn for chest pain -Metoprolol 25mg BID -Order echocardiogram to evaluate severity of -Consult cardiology -Plan is for ASIM/LHC tomorrow -Obtain TSH, Lipid Panel Hyperglycemia -Continue with low carbohydrate diet -Continue monitoring serum glucose level -obtain A1c DVT prophylaxis: On IV Heparin Drip, defer to cardiology, ACS ruled out in my opinion CODE STATUS: Full Discussed with: Patient Anticipated discharge place: Home Objective - Vital Signs Vital signs: Vital Signs Temp 98.7 F 12/05/23 10:05 Pulse 68 12/05/23 10:05 Resp 17 12/05/23 10:05 BP 110/77 12/05/23 10:05 Pulse Ox 98 12/05/23 10:05 FiO2 Intake & Output 07/08/24 07/09/24 07/09/24 18:59 06:59 18:59 Weight 154.221 kg - Labs CBC & Chem 7: 12/05/23 01:04 12/04/23 14:23 Labs: Abnormal Lab Results - Last 24 Hours (Table) 12/04/23 12/04/23 12/04/23 Range/Units 14:23 14:23 14:23 Hct (39.0-53.0) % D-Dimer 0.67 H (<0.60) mg/L FEU Glucose 119 H (74-99) mg/dL ALT 51 H (4-49) U/L Troponin I 0.037 H* (0.000-0.034) ng/mL Triglycerides (0.00-149.00) mg/dL VLDL Cholesterol, Calc (5.00-40.00) mg/dL HDL Cholesterol (40.00-60.00) mg/dL 12/04/23 12/04/23 12/05/23 Range/Units 20:36 22:28 01:04 Hct 38.8 L (39.0-53.0) % D-Dimer (<0.60) mg/L FEU Glucose (74-99) mg/dL ALT (4-49) U/L Troponin I 0.047 H* 0.061 H* (0.000-0.034) ng/mL Triglycerides (0.00-149.00) mg/dL VLDL Cholesterol, Calc (5.00-40.00) mg/dL HDL Cholesterol (40.00-60.00) mg/dL 12/05/23 12/05/23 Range/Units 04:28 04:32 Hct (39.0-53.0) % D-Dimer (<0.60) mg/L FEU Glucose (74-99) mg/dL ALT (4-49) U/L Troponin I 0.058 H* (0.000-0.034) ng/mL Triglycerides 375.00 H (0.00-149.00) mg/dL VLDL Cholesterol, Calc 75.00 H (5.00-40.00) mg/dL HDL Cholesterol 36.80 L (40.00-60.00) mg/dL
[2023-12-05] MEDS: ALPRAZolam 0.5 MG TAB PO PRN (20:57)
[2023-12-06] MEDS: SODIUM CHLORIDE 0.9% 1,000 ML in EMPTY BAG 1 BAG IV SCH (04:21)
[2023-12-06] MEDS: ASPIRIN 325 MG TAB PO ONE (06:04)
[2023-12-06] MEDS: ATORVASTATIN 80 MG TAB PO ONE (06:04)
[2023-12-06] MEDS ORDERED: HEPARIN SODIUM,PORCINE 10,000 UNIT in SODIUM CHLORIDE 0.9% 1,000 ML IRRIGATION PRN (07:00)
[2023-12-06] MEDS ORDERED: HEPARIN SODIUM,PORCINE (1 ML) 2,500 UNIT in SODIUM CHLORIDE 0.9% 250 ML IRRIGATION PRN (07:00)
--- NOTE | 2023-12-06 07:55 | CA ---
Transthoracic Echo Report Name: Sabino Bautista Age: 48 Gender: M : 1975 Exam Date: 12/05/2023 14:49 Exam Location: [facility] Ht (in): 74 Wt (lb): 340 Ordering Physician: Xavier Walker DO Attending/Referring Phys: Furniture Assembly Supervisor Pamela Llanos RDCS Procedure CPT: Indications: Chest Pain Cardiac Hx: Technical Quality: Very technically difficult study Contrast 1: Definity Total Dose (mL): 2 Contrast 2: Total Dose (mL): MEASUREMENTS (Male / Female) Normal Values 2D ECHO LVOT Diameter 2.4 cm LV Diastolic Volume MOD BP 178.2 cm??? 67 - 155 / 56 - 104 cm??? LV Systolic Volume MOD BP 68.2 cm??? 22 - 58 / 19 - 49 cm??? LV Ejection Fraction MOD BP 61.7 % >= 55 % LV Cardiac Index MOD BP 2385.6 cm???/min???m??? LV Diastolic Volume MOD 4C 201.0 cm??? LV Systolic Volume MOD 4C 66.9 cm??? LV Ejection Fraction MOD 4C 66.7 % LV Cardiac Index MOD 4C 2907.1 cm???/min???m??? LV Diastolic Length 4C 10.3 cm LV Systolic Length 4C 8.6 cm LV Diastolic Volume MOD 2C 153.7 cm??? LV Systolic Volume MOD 2C 66.1 cm??? LV Ejection Fraction MOD 2C 57.0 % LV Cardiac Index MOD 2C 1900.5 cm???/min???m??? LV Diastolic Length 2C 9.9 cm LV Systolic Length 2C 8.1 cm DOPPLER AV Peak Velocity 433.2 cm/s AV Peak Gradient 75.1 mmHg AV Mean Velocity 320.1 cm/s AV Mean Gradient 45.9 mmHg AV Velocity Time Integral 97.2 cm LVOT Peak Velocity 120.9 cm/s LVOT Peak Gradient 5.9 mmHg LVOT Velocity Time Integral 23.6 cm LVOT Stroke Volume 108.3 cm??? LVOT Stroke Volume Index 39.8 ml/m??? LVOT Cardiac Index 2348.6 cm???/min???m??? AV Area Cont Eq vti 1.1 cm??? AV Area Cont Eq pk 1.3 cm??? MV Area PHT 4.7 cm??? Mitral E Point Velocity 80.3 cm/s Mitral A Point Velocity 72.8 cm/s Mitral E to A Ratio 1.1 MV Deceleration Time 160.2 ms PV Peak Velocity 95.4 cm/s PV Peak Gradient 3.6 mmHg FINDINGS Left Ventricle Left ventricular ejection fraction is estimated at 60-65%. Mildly increased left ventricular diastolic volume. Mildly increased left ventricular systolic volume. Left ventricular wall thickness normal. No obvious regional wall motion abnormalities. Right Ventricle Right ventricle not well visualized. Unable to estimate the right ventricular systolic pressure. Right Atrium Right atrium not well visualized. Left Atrium Mildly increased left atrial area. Mitral Valve Structurally normal mitral valve. No mitral stenosis, regurgitation or prolapse. Aortic Valve Aortic valve not well visualized. Severe aortic stenosis with a mean gradient of 47mmHg. No aortic regurgitation. Tricuspid Valve Structurally normal tricuspid valve. No tricuspid stenosis, regurgitation or prolapse. Pulmonic Valve Pulmonic valve not well visualized. Pericardium No pericardial effusion. Aorta Aortic annulus normal. Ascending aorta not well visualized. CONCLUSIONS Left ventricular ejection fraction 60-65% Severe aortic stenosis with mean gradient 47 mmHg. No mitral regurgitation No pericardial effusion Previewed by: Dr. Bjorn Okeefe DO (Electronically Signed) Final Date: 06 December 2023 07:54
[2023-12-06] MEDS: DAPAGLIFLOZIN PROPANEDIOL 10 MG TABLET PO SCH (08:59)
[2023-12-06 09:45] LABS: Basophils # (A) 0.1 k/uL (0-0.2); Basophils % (A) 1 %; Eosinophils # (A) 0.2 k/uL (0-0.7); Eosinophils % (A) 3 %; HCT 41.5 % (39.0-53.0); HGB 13.5 gm/dL (13.0-17.5); Lymphocytes # (A) 1.3 k/uL (1.0-4.8); Lymphocytes % (A) 23 %; MCH 29.3 pg (25.0-35.0); MCHC 32.4 g/dL (31.0-37.0); MCV 90.5 fL (80.0-100.0); Mean Platelet Volume 8.1; Monocytes # (A) 0.4 k/uL (0-1.0); Monocytes % (A) 6 %; Neutrophils # (A) 3.6 k/uL (1.3-7.7); Neutrophils % (A) 64 %; Platelet Count 186 k/uL (150-450); RBC 4.59 m/uL (4.30-5.90); RDW 13.6 % (11.5-15.5); WBC 5.5 k/uL (3.8-10.6)
--- NOTE | 2023-12-06 09:45 | P.PN ---
Subjective Progress Note Date: 12/06/23 No new complaints today. Swelling coming down in legs. Cardiology is planning ASIM and LHC. Echo demonstrated findings of severe aortic stenosis with a gradient of 47 mmHg, preserved ejection fraction. Gen: In NAD, non-toxic HEENT: normocephalic, atraumatic, hearing acuity is intant, mucous membranes moist CVS: perfusing all extremities well, bilateral pitting edema, Respiratory: symmetric chest expansion, no accessory muscle use, GI: soft, NTTP, ND, : no suprapubic tenderness, no CVA tenderness MSK/Derm: no rashes, cyanosis Neuro: CN II-XII intact, no motor weakness, Psych: cooperative, euthymic mood, judgment and insight is intact Hospital course: Patient is a 48-year-old male past medical history of hypertension and valvular abnormality presented to ER with complaint of shortness of breath and heart palpitation. Chest x-ray done in the ER shows low lung volumes with generalized hazy appearance which could represent atelectasis. CT angiogram of the chest done in the ER shows no acute pulmonary embolism or other acute pulmonary process. EKG shows heart rate of [address] deviation and moderate T wave abnormality in lead I, aVL, V5, V6. Assessment/Plan: 48-year-old male with past medical history of hypertension and valvular abnormality presents to the ER with worsening shortness of breath and heart palpitation associated with the mild chest discomfort, bilateral lower extremity edema. Acute Congestive heart failure, unspecified ejection fraction Non-obstructive CAD Aortic Stenosis, bicuspid valve, severe -ASA 81mg, atorvastatin 40mg daily -Continue Lasix 40mg IV daily, fluid restriction 2L/day -Nitroglycerine Sublingual tabs prn for chest pain -Metoprolol 25mg BID -Order echocardiogram to evaluate severity of -Consult cardiology -Plan is for ASIM/LHC -Obtain TSH equals 1.17, Lipid Panel, reviewed Hyperglycemia -Continue with low carbohydrate diet -Continue monitoring serum glucose level -obtain A1c, pending DVT prophylaxis: Heparin subcu 3 times daily CODE STATUS: Full Discussed with: Patient Anticipated discharge place: Home Objective - Vital Signs Vital signs: Vital Signs Temp 98 F 12/06/23 00:00 Pulse 63 12/06/23 08:57 Resp 18 12/06/23 08:57 BP 119/81 12/06/23 08:57 Pulse Ox 97 12/06/23 08:57 FiO2 Intake & Output 12/05/23 12/06/23 12/06/23 18:59 06:59 18:59 Intake Total 1040 Output Total 200 Balance 840 Weight 154.5 kg Intake: Oral 1040 Output: Urine 200 Other: Voiding Method Toilet - Labs CBC & Chem 7: 12/05/23 01:04 12/04/23 14:23
[2023-12-06 09:56] LABS: African American GFR (CKD) >90 (>60 ml/min/1.73 sqM); Anion Gap 6 mmol/L; Blood Urea Nitrogen 21 mg/dL (9-20); Calcium 8.9 mg/dL (8.4-10.2); Carbon Dioxide 25 mmol/L (22-30); Chloride 106 mmol/L (98-107); Glucose 117 mg/dL (74-99); Magnesium 2.1 mg/dL (1.6-2.3); Non-African American GFR(CKD) >90 (>60 ml/min/1.73 sqM); Potassium 4.5 mmol/L (3.5-5.1); Sodium 137 mmol/L (137-145)
[2023-12-06] MEDS: MIDAZOLAM 2 MG/2 ML VIAL IVP ONE (12:17)
[2023-12-06] MEDS: fentaNYL (PF) 50 MCG/ML 2 ML AMP IVP ONE (12:17)
[2023-12-06] MEDS: BENZOCAINE SPRAY 1 CAN TOPICAL ONE (12:17)
--- NOTE | 2023-12-06 12:37 | P.PCN ---
Date of Procedure: 12/06/23 Description of Procedure: Indication: Aortic valve evaluation Procedure Description: After explaining the procedure to the patient, it's risk and complications, blood pressure, heart rate and O2 saturation were monitored. The throat was sprayed with Cetacaine. Patient received 2 mg intravenous Versed, 50 mcg intravenous fentanyl. The probe was introduced into the esophagus without difficulty. Images were obtained. Following that, the probe was removed. There was no immediate complication. Findings: Left atrial size is mildly dilated, left ventricle size and systolic function are normal. Evidence of left ventricular hypertrophy was noted. The aortic valve is heavily calcified appears to be bicuspid. By planimetry the valve area was measured at 1.1 cm. The mitral valve, tricuspid valve and pulmonic valve appears to be normal. Descending thoracic aorta appears to be normal. Contrast bubble study revealed no shunting across the interatrial septum. No pericardial fusion was noted. Doppler: Pulse wave and color Doppler were obtained, and revealed mild to moderate mitral and tricuspid regurgitation. The mean gradient across the aortic valve was 42 mmHg with a peak of 62 mmHg. There was no shunting across the interatrial septum. Conclusion: 1. Normal ventricle size and systolic function 2. Heavily calcified aortic valve, bicuspid with severe aortic stenosis and a mean gradient of 42 mmHg 3. Mild to moderate mitral and tricuspid regurgitation 4. No pericardial effusion 5. No shunting across the interatrial septum Duration of sedation 14 minutes
[2023-12-06] MEDS: LIDOCAINE 1% INJ 10MG/ML (20 ML MDV) SQ ONE (12:43)
[2023-12-06] MEDS: VERAPAMIL SYRINGE (5 MG/10 ML) INTRAARTER ONE (12:44)
[2023-12-06] MEDS: HEPARIN SODIUM 1,000 UN/ML (10ML VL) IVP ONE (12:54)
[2023-12-06] MEDS: SODIUM CHLORIDE 0.9% 1,000 ML IV ONE (12:54)
[2023-12-06] MEDS: IOPAMIDOL-370 100ML BTL INJ ONE (13:09)
[2023-12-06] MEDS ORDERED: RX INFO: IV CONTRAST WAS GIVEN 1 EACH MISC MISCELLANE PRN (13:24)
--- NOTE | 2023-12-06 13:31 | P.CARDCATH ---
Date of Procedure: 12/06/23 Description of Procedure: Cardiac Catheterization: The patient is a 48-year-old male with a known history of bicuspid aortic valve with prior history of moderate aortic stenosis who presented with symptoms of progressive dyspnea and evidence of CHF and elevation of the troponin. Recommendations were made regarding cardiac catheterization, the risks and the complications were discussed with the patient who is in full understanding and agreement. Procedure Description: Patient was brought to chemical laboratory scientist in fasting semi-sedated state after receiving Fentanyl and Benadryl achieiving moderate conscious sedated state. Using Xylocaine Anesthesia and modified Seldinger technique, a 6-Micronesian sheath was introduced in the right radial artery . Subsequently, selective coronary angiography was performed using a 5-Micronesian 3.5 bend left Alfonso and 5 bend right Alfonso catheter. Multiple views of the coronary artery including hemiaxial views were obtained. The left Alfonso catheter was used to cross the aortic valve and LVEDP was calculated. A 5 Micronesian pigtail was introduced and an PORTUGUESE view of the ascending aorta was performed. Following that, catheter and sheath were removed. Hemostasis was obtained with deployment of vascular band . There was no immediate complication. Patient was returned to room in stable condition. Of note, the patient received a total of 5000 units of intravenous heparin as well as intra-arterial verapamil. Findings: Fluoroscopy: Severe calcification of the aortic valve was noted Left main: This is a large size vessel, bifurcating into LAD and left circumflex, left main has no obstructive disease LAD: This is a large size vessel, reaching to the apex, giving rise to 2 diagonal branch. The LAD and its branches have no obstructive disease Left circumflex: This is a large nondominant vessel giving rise to 3 obtuse marginal branch. The left circumflex has mild intimal disease proximally with no high-grade stenosis RCA: This is a large dominant vessel, bifurcating to PDA and PLV. The right coronary artery in the proximal segment has 30 to 40% stenosis with no high- grade stenosis in the rest of the vessel Left Ventriculogram: Not performed. Aortogram: Performed in the PORTUGUESE view and revealed dilated ascending aorta with heavily calcified aortic valve and 1+ aortic regurgitation Hemodynamics: The peak gradient across aortic valve was 71 mmHg with a mean of 56 mmHg, LVEDP was 25-30 mmHg Conclusion: 1. Severe aortic stenosis with a mean gradient of 56 mmHg 2. Mild disease in the proximal RCA 3. Dilated ascending aorta 4. Elevated LVEDP Recommendations: I have recommended to proceed with surgical evaluation for aortic valve replacement in view of the symptoms and the findings. The findings and the recommendations were discussed with the patient and the family and they were in full understanding and agreement. Duration of sedation is 30 minutes.
--- NOTE | 2023-12-06 14:58 | P.GSCN ---
History of Present Illness Consult date: 12/06/23 Reason for Consult: Bicuspid symptomatic severe aortic valve stenosis Requesting physician: Henri Lentz History of present illness: This is a 48-year-old gentleman who follows outpatient with Dr. Oliver for internal medicine and Dr. Lentz for cardiology. He has a previous medical history of hypertension, hyperlipidemia, morbid obesity, obstructive sleep apnea without home CPAP use, lifelong non-smoker, and family history of premature coronary artery disease with father having myocardial infarction at 50 years old. He presented to [facility] emergency room with complaints of progressive shortness of breath over the last month, along with pain between his shoulder blades and lower extremity edema. He had a known history of bicuspid aortic valve stenosis and has been followed outpatient for quite some time. In the emergency room his chest x-ray unremarkable, CTA of the chest revealed no pulmonary embolism. EKG demonstrated sinus rhythm with T wave inversions in lead I, aVL. Lab work was unremarkable except AST of 51, and positive troponins 0.037 trending up to 0.061. This gentleman was admitted for evaluation and treatment with consultation placed to cardiology. Transthoracic echocardiogram was completed yesterday demonstrating normal left ventricular systolic function with EF 60 to 65%, severe aortic stenosis with peak/mean gradient 75/46 mmHg, and peak velocity 4.33 m/s. The patient was recommended to undergo heart catheterization and ASIM which was completed today by Dr. Lentz. ASIM revealed heavily calcified aortic valve which was bicuspid, valve area 1.1 cm with mean gradient 42 mmHg, and mild to moderate mitral and tricuspid regurgitation. Heart catheterization revealed no significant coronary artery disease, however the aortic valve was again noted to be heavily calcified, peak/mean gradient 71/56 mmHg. Due to these findings consultation was placed to Dr. Banks from cardiothoracic surgery for aortic valve replacement. Review of Systems Review of systems was completed and was negative except as noted - Cardiovascular Reports as per HPI, Reports chest pain, Reports dyspnea on exertion, Reports leg edema, Reports shortness of breath Past Medical History Past Medical History: Hyperlipidemia, Hypertension, Sleep Apnea/CPAP/BIPAP Additional Past Medical History / Comment(s): Bicuspid aortic stenosis; patient does not use home CPAP History of Any Multi-Drug Resistant Organisms: None Reported Past Surgical History: Heart Catheterization Past Anesthesia/Blood Transfusion Reactions: No Reported Reaction Past Psychological History: Anxiety Smoking Status: Never smoker Past Alcohol Use History: Occasional Past Drug Use History: None Reported - Past Family History Father Family Medical History: Cancer, Myocardial Infarction ([place]) Additional Family Medical History / Comment(s): Father had myocardial infarction at 50 years old Medications and Allergies Home Medications Medication Instructions Recorded Confirmed Type Atorvastatin [Lipitor] 40 mg PO HS 04/06/22 12/04/23 History Escitalopram [Lexapro] 20 mg PO DAILY 04/06/22 12/04/23 History Ezetimibe [Zetia] 10 mg PO HS 12/04/23 12/04/23 History Losartan Potassium 50 mg PO DAILY 12/04/23 12/04/23 History Pantoprazole [Protonix] 40 mg PO DAILY PRN 12/04/23 12/04/23 History Allergies Allergy/AdvReac Type Severity Reaction Status Date / Time No Known Allergies Allergy Verified 12/04/23 20:06 Surgical - Exam Vital Signs Temp Pulse Resp BP Pulse Ox 98.1 F 72 18 131/80 97 12/04/23 14:08 12/04/23 14:08 12/04/23 14:08 12/04/23 14:08 12/04/23 14:08 CONSTITUTIONAL: Awake and alert, appears comfortable, cooperative, well- developed, well-nourished, obese, no pain, no acute distress EYES: Pupils equal, round, reactive to light, normal ocular movement ENT: Moist mucous membranes without oral lesions present NECK: No masses, no bruits, trachea midline RESPIRATORY: Lungs sounds clear to auscultation bilaterally. Respirations even, nonlabored. Currently on room air with oxygen saturation 99%. Strong cough. No chest wall deformities. No clubbing or cyanosis present CARDIOVASCULAR: S1, present, barely audible S2, loud systolic murmur present. Regular rate and rhythm, sinus rhythm on telemetry. Palpable peripheral pulses bilaterally. Bilateral lower extremity edema present. No calf pain or tenderness noted. No significant lower extremity varicosities noted GASTROINTESTINAL: Abdomen soft, nontender, nondistended without masses or organomegaly noted. There is no rebound or guarding present. Active bowel sounds present 4 quadrants. GENITOURINARY: Deferred INTEGUMENTARY: Skin is warm and dry with evidence of good perfusion. NEUROLOGIC: Cranial nerves II through XII intact, normal coordination, no obvious motor or sensory deficits, speech is normal MUSKULOSKELETAL: Able to move all extremities, strength equal bilaterally, nor mal posture PSYCHIATRIC: Alert and oriented to person place and time, appropriate affect, intact judgment and insight CLINICAL FRAILTY SCORE 2 Results - Labs 12/06/23 09:03 12/06/23 09:03 Abnormal Lab Results - Last 24 Hours (Table) 12/06/23 Range/Units 09:03 BUN 21 H (9-20) mg/dL Glucose 117 H (74-99) mg/dL Diabetes panel 12/04/23 12/06/23 Range/Units 14:23 09:03 Sodium 137 (137-145) mmol/L Potassium 4.5 (3.5-5.1) mmol/L Chloride 106 (98-107) mmol/L Carbon Dioxide 25 (22-30) mmol/L BUN 21 H (9-20) mg/dL Creatinine 0.76 (0.66-1.25) mg/dL Glucose 117 H (74-99) mg/dL Hemoglobin A1c 5.5 (<=6.0) % Calcium 8.9 (8.4-10.2) mg/dL Calcium panel 12/06/23 Range/Units 09:03 Calcium 8.9 (8.4-10.2) mg/dL Pituitary panel 12/06/23 Range/Units 09:03 Sodium 137 (137-145) mmol/L Potassium 4.5 (3.5-5.1) mmol/L Chloride 106 (98-107) mmol/L Carbon Dioxide 25 (22-30) mmol/L BUN 21 H (9-20) mg/dL Creatinine 0.76 (0.66-1.25) mg/dL Glucose 117 H (74-99) mg/dL Calcium 8.9 (8.4-10.2) mg/dL Adrenal panel 12/06/23 Range/Units 09:03 Sodium 137 (137-145) mmol/L Potassium 4.5 (3.5-5.1) mmol/L Chloride 106 (98-107) mmol/L Carbon Dioxide 25 (22-30) mmol/L BUN 21 H (9-20) mg/dL Creatinine 0.76 (0.66-1.25) mg/dL Glucose 117 H (74-99) mg/dL Calcium 8.9 (8.4-10.2) mg/dL - Imaging Chest x-ray: report reviewed, image reviewed CT scan - chest: report reviewed, image reviewed EKG: image reviewed Additional studies: Heart catheterization and echocardiogram films reviewed Assessment and Plan Assessment: Known bicuspid aortic valve stenosis, progressed to severe and symptomatic History of hypertension Hyperlipidemia, treated, cholesterol 153, LDL 41, triglycerides 375 Morbid obesity Obstructive sleep apnea without home CPAP use Lifelong non-smoker Family history of premature coronary artery disease with father having myocardial infarction at 50 years old Plan: The patient was seen and examined sitting up at the bedside on the cardiac stepdown unit with multiple family members present. Chart/diagnostics reviewed. The case to be discussed in detail with Dr. Banks. The usual perioperative course of surgical aortic valve replacement was discussed, risks and benefits were reviewed, all questions were answered. Preoperative testing was initiated, once completed we will calculate STS risk score and discussed with the patient and his . 5 m walk test will be completed. More recommendations to follow once patient has been seen by Dr. Banks. Continue medical management per internal medicine, cardiology. Thank you Dr. Lentz for this consult. We look forward to working with you in the care of your patient. I have personally seen and examined the patient, performed the documentation and the assessment and plan as written. Number of minutes spent on the visit: 30. LYNDA Berrios
[2023-12-06] MEDS: SODIUM CHLORIDE 0.9% 1,000 ML IV SCH (15:18)
--- NOTE | 2023-12-06 15:36 | US ---
EXAMINATION TYPE: US carotid duplex BILAT DATE OF EXAM: 12/06/2023 COMPARISON: NONE CLINICAL INDICATION: Male, 48 years old with history of preop cardiac surgery; open heart TECHNIQUE: Carotid duplex ultrasound examination. Indirect Doppler criteria was utilized. FINDINGS: EXAM MEASUREMENTS: RIGHT: Peak Systolic Velocity (PSV) cm/sec ----- Right CCA: 66.1 ----- Right ICA: 77.4 ----- Right ECA: 69.3 ICA/CCA ratio: 1.2 RIGHT: End Diastole cm/sec ----- Right CCA: 12.8 ----- Right ICA: 27.3 ----- Right ECA: 11.1 LEFT: Peak Systolic Velocity (PSV) cm/sec ----- Left CCA: 85.4 ----- Left ICA: 87.1 ----- Left ECA: 38.6 ICA/CCA ratio: 1.0 LEFT: End Diastole cm/sec ----- Left CCA: 20.8 ----- Left ICA: 32.1 ----- Left ECA: 0 VERTEBRALS (direction of flow): Right Vertebral: Antegrade Left Vertebral: Antegrade Rhythm: Normal HUMID SYSTEM OPERATOR NOTES: No significant stenosis seen IMPRESSION: No hemodynamically significant internal carotid artery stenosis on either side. Criteria for Assigning % of Stenosis / Diameter reduction (Estimation based on the indirect measurements of the internal carotid artery velocities (ICA PSV). 1. Normal (no stenosis)=ICA PSV < 125 cm/s: ratio < 2.0: ICA EDV<40 cm/s. 2. Less than 50% stenosis=ICA PSV < 125 cm/s: ratio < 2.0: ICA EDV<40 cm/s. 3. 50 to 69% stenosis=ICA PSV of 125 to 230 cm/s: ration 2.0 ? 4.0: ICA EDV 40-100 cm/s. 4. Greater than 70% stenosis to near occlusion= ICA PSV > 230 cm/s: ratio > 4.0: ICA EDV > 100 cm/s. 5. Near occlusion= ICA PSV velocities may be low or undetectable: variable ratio and ICA EDV. 6. Total occlusion=unable to detect flow.
--- NOTE | 2023-12-06 16:00 | US ---
EXAMINATION TYPE: US vein mapping BIL DATE OF EXAM: 12/06/2023 3:16 PM COMPARISON: NONE CLINICAL INDICATION: Male, 48 years old with history of preop cardiac surgery; open heart SIDE PERFORMED: Bilateral TECHNIQUE: Lower extremity saphenous vein is examined and measured utilizing real time linear array sonography. Patient History: Smoker: No Heart Disease: No Previous DVT: No Vascular Surgery: No Discoloration: No Hypertension: Yes Diabetes: No Paralysis: No Varicosities: No Edema: Yes DUPLEX FINDINGS: Greater Saphenous: Color flow seen Lesser Saphenous: Color flow seen Measurements in mm: Right Greater Saphenous: Groin: 8.4 x 7.3 mm High Thigh: 3.6 x 3.8 mm Mid Thigh: 4.6 x 3.8 mm Above Knee: 5.0 x 3.8 mm Knee: 5.3 x 3.7 mm Below Knee: 4.7 x 3.7 mm Mid Calf: 3.7 x 2.3 mm At Ankle: 4.0 x 2.7 mm Left Greater Saphenous: Groin: 11.5 x 7.3 mm High Thigh: 5.8 x 3.2 mm Mid Thigh: 5.3 x 4.8 mm Above Knee: 3.9 x 4.2 mm Knee: 4.1 x 3.7 mm Below Knee: 5.7 x 4.2 mm Mid Calf: 3.5 x 2.7 mm At Ankle: 4.0 x 2.9 mm IMPRESSION: 1. Bilateral GSV measurements listed above. 2. Performing surgeon to determine viability as conduit.
[2023-12-07] MEDS: FUROSEMIDE 40 MG TAB PO SCH (08:48)
[2023-12-07 09:13] LABS: HCT 40.7 % (39.0-53.0); HGB 13.5 gm/dL (13.0-17.5); MCH 29.7 pg (25.0-35.0); MCHC 33.3 g/dL (31.0-37.0); MCV 89.2 fL (80.0-100.0); Mean Platelet Volume 8.7; Platelet Count 179 k/uL (150-450); RBC 4.56 m/uL (4.30-5.90); RDW 13.8 % (11.5-15.5); WBC 5.8 k/uL (3.8-10.6)
[2023-12-07 09:31] LABS: African American GFR (CKD) >90 (>60 ml/min/1.73 sqM); Anion Gap 8 mmol/L; Blood Urea Nitrogen 19 mg/dL (9-20); Carbon Dioxide 22 mmol/L (22-30); Chloride 107 mmol/L (98-107); Glucose 110 mg/dL (74-99); Non-African American GFR(CKD) >90 (>60 ml/min/1.73 sqM); Potassium 4.4 mmol/L (3.5-5.1); Sodium 137 mmol/L (137-145)
[2023-12-07 09:44] VITALS: BP 118/76; PULSE 68; RESP 20; TEMP 97.5
--- NOTE | 2023-12-07 09:58 | P.PN ---
Subjective Progress Note Date: 12/07/23 Principal diagnosis: Severe symptomatic bicuspid aortic valve stenosis. History of hypertension, hyperlipidemia, morbid obesity, obstructive sleep apnea without home CPAP use, lifelong non-smoker, family history of premature coronary artery disease with father having myocardial infarction at 50 years old The patient was seen and examined this morning sitting up in a chair on the cardiac stepdown unit eating breakfast in no acute distress. Remains in sinus rhythm, hemodynamically stable, currently on room air. He was seen yesterday by Dr. Banks who recommended surgical aortic valve replacement. Patient and his were in agreement. The patient does have a dental cleaning scheduled for this afternoon, we did give him a dental clearance letter to present to his de ntist. Once we have his dental clearance we will schedule the patient for SAVR in the next 1 to 2 weeks. STS risk score was calculated to be 1.45%, considered low risk and this was discussed with the patient. 5 m walk test was completed this morning, 4.43 sec, 4.17 sec, 4.17 sec. Patient is stable for discharge to home from our standpoint. Objective - Vital Signs Vital signs: Vital Signs Temp 97.7 F 12/07/23 04:00 Pulse 63 12/07/23 04:00 Resp 16 12/07/23 04:00 BP 115/69 12/07/23 04:00 Pulse Ox 97 12/07/23 04:00 FiO2 Intake & Output 12/06/23 12/07/23 12/07/23 18:59 06:59 18:59 Intake Total 218 Output Total 1100 1000 Balance -882 -1000 Weight 155.3 kg Intake: IV 100 Oral 118 Output: Urine 1100 1000 Other: Voiding Method Toilet Toilet # Voids 1 - Exam CONSTITUTIONAL: Appears comfortable, cooperative, no acute distress RESPIRATORY: Lungs sounds clear bilaterally. Respirations even, nonlabored. Currently on room air with oxygen saturation 97%. Able to achieve 3000 mL on incentive spirometry. Strong cough. CARDIOVASCULAR: S1, S2 present. Regular rate and rhythm, sinus rhythm on telemetry. Palpable peripheral pulses bilaterally. Trace lower extremity edema present. No calf pain or tenderness noted GASTROINTESTINAL: Abdomen soft, nontender, nondistended. Active bowel sounds present 4 quadrants. Tolerating diet GENITOURINARY: Continues to void INTEGUMENTARY: Skin is warm and dry NEUROLOGIC: Cranial nerves II through XII intact MUSKULOSKELETAL: Able to move all extremities, strength equal bilaterally, gait normal PSYCHIATRIC: Alert and oriented to person place and time, appropriate affect, intact judgment and insight - Labs CBC & Chem 7: 12/07/23 08:44 12/07/23 08:46 Labs: Abnormal Lab Results - Last 24 Hours (Table) 12/06/23 12/07/23 Range/Units 09:03 08:46 BUN 21 H (9-20) mg/dL Glucose 117 H 110 H (74-99) mg/dL - Imaging and Cardiology All preoperative films reviewed with Dr. Banks yesterday Assessment and Plan Assessment: Known bicuspid aortic valve stenosis, progressed to severe and symptomatic History of hypertension Hyperlipidemia, treated, cholesterol 153, LDL 41, triglycerides 375 Morbid obesity Obstructive sleep apnea without home CPAP use Lifelong non-smoker, preoperative FEV1 59% of predicted Family history of premature coronary artery disease with father having myocardia l infarction at 50 years old Plan: Patient is to obtain dental clearance, hopefully today at his dentist appointment. Once cleared we will schedule patient for surgical aortic valve replacement by Dr. Banks Continue current medication regimen Increase activity as tolerated Patient was given our contact information Patient is cleared for discharge from our standpoint
--- NOTE | 2023-12-07 12:50 | P.DS ---
Providers Date of admission: 12/04/23 19:51 Expected date of discharge: 12/07/23 Attending physician: Anibal Parks MD Consults: 12/04/23 19:48 Consult Physician Urgent Consulting Provider: Henri Lentz Consult Reason/Comments: Chest pain, edema Do you want consulting provider notified?: Yes 12/06/23 13:25 Consult Physician Routine Consulting Provider: Man Banks Consult Reason/Comments: avr Do you want consulting provider notified?: Yes Primary care physician: [place] Hospital Course: Patient is a 48-year-old male past medical history of hypertension and valvular abnormality presented to ER with complaint of shortness of breath and heart palpitation. Chest x-ray done in the ER shows low lung volumes with generalized hazy appearance which could represent atelectasis. CT angiogram of the chest done in the ER shows no acute pulmonary embolism or other acute pulmonary process. EKG shows heart rate of [address] deviation and moderate T wave ab normality in lead I, aVL, V5, V6. Troponins 0.037, 0.047, 0.061, 0.058. Started on Lasix IV and fluid restriction. Cardiology consulted, underwent Echo which showed EF 60-65% with severe mean gradient 47 mmHg. Underwent cath which showed mild RCA disease. CT surgery consulted, recommended following up with dental appointment on 12/06 for clearance with plans for AV replacement to be scheduled in the near future. 12/06 Patient was seen and examined. Breathing improved. No dizziness, chest pain or palpitations. Plans for discharge home today. Prescriptions sent for ASA, Farxiga, Lasix and Metoprolol. Patient advised to be non exertional until he can undergo his surgery with CT surgery. He will need to follow up with his PCP for further workup regarding his sleep apnea and obtaining a CPAP. Discussed with patient and at bedside. General: non toxic, no distress, appears at stated age Derm: warm, dry Head: atraumatic, normocephalic, symmetric Eyes: EOMI, no lid lag, anicteric sclera Mouth: no lip lesion, mucus membranes moist Cardiovascular: S1S2 reg, systolic murmur Ext: no gross muscle atrophy, no edema, no contractures Neuro: no focal neuro deficits Psych: Alert, oriented, appropriate affect Discharge Diagnosis: Acute Congestive heart failure Non-obstructive CAD Aortic Stenosis, bicuspid valve, severe Hyperglycemia Obstructive sleep apnea This complex discharge took 35 minutes to complete. Patient Condition at Discharge: Stable Plan - Discharge Summary New Discharge Prescriptions: New Aspirin 81 mg PO DAILY #30 tab Dapagliflozin Propanediol [Farxiga] 10 mg PO DAILY #30 tab Furosemide [Lasix] 40 mg PO DAILY #30 tab Metoprolol Tartrate [Lopressor] 25 mg PO BID #60 tab Continue Atorvastatin [Lipitor] 40 mg PO HS Escitalopram [Lexapro] 20 mg PO DAILY Pantoprazole [Protonix] 40 mg PO DAILY PRN PRN Reason: Heartburn Ezetimibe [Zetia] 10 mg PO HS Discontinued Losartan Potassium 50 mg PO DAILY Discharge Medication List Atorvastatin [Lipitor] 40 mg PO HS 04/06/22 [History] Escitalopram [Lexapro] 20 mg PO DAILY 04/06/22 [History] Ezetimibe [Zetia] 10 mg PO HS 12/04/23 [History] Pantoprazole [Protonix] 40 mg PO DAILY PRN 12/04/23 [History] Aspirin 81 mg PO DAILY #30 tab 12/07/23 [Rx] Dapagliflozin Propanediol [Farxiga] 10 mg PO DAILY #30 tab 12/07/23 [Rx] Furosemide [Lasix] 40 mg PO DAILY #30 tab 12/07/23 [Rx] Metoprolol Tartrate [Lopressor] 25 mg PO BID #60 tab 12/07/23 [Rx] Follow up Appointment(s)/Referral(s): Man Banks MD [STAFF PHYSICIAN] - As Needed (We will schedule for surgery after patient obtains dental clearance, patient has dental appointment 12/07/23) Tone Borja MD [Primary Care Provider] - 12/12/23 11:00 am Patient Instructions/Handouts: *Surgery [facility] - After Heart Catheterization - [facility] Instructions Discharge Disposition: HOME SELF-CARE
--- NOTE | 2023-12-07 13:34 | P.PN ---
Subjective HISTORY OF PRESENT ILLNESS: This is a 48-year-old male with a past medical history significant for nonobstructive CAD, bicuspid aortic valve, hypertension, hyperlipidemia, and obesity. Patient follows in the office with Dr. Lentz. We have been asked to see the patient in consultation for shortness of breath. Patient examined at the bedside in the emergency room. Patient states he has been having increased lower extremity edema for the past 2 months. He also reports he has been having shortness of breath over the past 2-3 weeks it has gotten worse over the past couple days along with associated chest pain. He states his insisted he come to the ER for further evaluation. The patient was started on IV Lasix and reports improvement in his shortness of breath this morning. He currently denies any chest pain or pressure. He is a non-smoker. He reports a family history of CAD in both his mother and his father. DIAGNOSTICS: - EKG reveals sinus mechanism with nonspecific ST-T wave changes - Chest xray low lung volumes with generalized hazy appearance which could represent atelectasis. - Chest CTA: Negative for pulmonary embolism. No acute pulmonary process. - Venous Doppler: Negative for DVT bilaterally - Laboratory data: WBC 7.0. Hemoglobin 13.0. Platelet count 205. D-dimer 0.67. Sodium 137. Potassium 4.0. BUN 16. Creatinine 0.79. Troponin 0.037. 0.047. 0.061. 0.058. - Current home cardiac medications include Lipitor 40 mg at night, Zetia 10 mg at night, losartan 50 mg daily. - Most recent echocardiogram obtained in November 2022 revealed normal EF, bicuspid aortic valve, moderate to severe , mild TR, mild MR, aortic valve peak 59 mmHg and aortic valve mean 31 mmHg - Cardiac catheterization history: November 2022 revealing mild nonobstructive disease in the LAD and RCA, moderate aortic stenosis, calcified aortic valve, right dominant system. 12/07/2023 Patient is status post cardiac catheterization revealing mild disease in the proximal RCA, dilated ascending aorta, elevated LVEDP, and severe aortic stenosis with a mean gradient of 56 mmHg. He also underwent ASIM revealing mild to moderate mitral and tricuspid regurgitation and heavily calcified aortic valve, bicuspid with severe aortic stenosis. Patient was evaluated by CT surgery with plans to return back next week for aortic valve replacement. Patient currently denies chest pain or pressure. He denies shortness of breath. Vital signs are stable. PHYSICAL EXAM: VITAL SIGNS: Reviewed. GENERAL: Well-developed in no acute distress. HEENT: Head is normocephalic. Pupils are equal, round. Sclerae anicteric. Mucous membranes of the mouth are moist. Neck supple. No JVD or thyromegaly LUNGS: Respirations even and unlabored. Lungs essentially clear to auscultation bilaterally. HEART: Regular rate and rhythm. S1 and S2 heard. + systolic murmur ABDOMEN: Soft. Nondistended. Nontender. EXTREMITIES: Normal range of motion. No clubbing or cyanosis. Peripheral pulses intact. Trace LE edema. NEUROLOGIC: Awake and alert. Oriented x 3. ASSESSMENT: New onset congestive heart failure with preserved EF Elevated troponins, flat, likely type II NE secondary to oxygen supply/demand mismatch Elevated d-dimer, CTA negative for pulmonary embolism Bicuspid aortic valve with severe aortic stenosis Mild nonobstructive disease of LAD and RCA, per cardiac catheterization November 2022 Hypertension Hyperlipidemia Morbid obesity: BMI 43.7 Family history of CAD PLAN: Continue current cardiac medications Patient may be discharged home today as he has a dentist appointment this afternoon for dental clearance Patient will return back in 1-2 weeks for aortic valve replacement with CT surgery Nurse practitioner note has been reviewed by physician. Signing provider agrees with the documented findings, assessment, and plan of care documented by [employer] DERRICK[employer]GER as a scribe. Objective - Vital Signs Vital signs: Vital Signs Temp 97.5 F L 12/07/23 08:00 Pulse 68 12/07/23 08:00 Resp 20 12/07/23 08:00 BP 118/76 12/07/23 08:00 Pulse Ox 99 12/07/23 08:00 FiO2 Intake & Output 12/06/23 12/07/23 12/07/23 18:59 06:59 18:59 Intake Total 218 Output Total 1100 1000 Balance -882 -1000 Weight 155.3 kg Intake: IV 100 Oral 118 Output: Urine 1100 1000 Other: Voiding Method Toilet Toilet # Voids 1 - Labs CBC & Chem 7: 12/07/23 08:44 12/07/23 08:46 Labs: Abnormal Lab Results - Last 24 Hours (Table) 12/07/23 Range/Units 08:46 Glucose 110 H (74-99) mg/dL
[2023-12-07 15:32] LABS: Hepatitis A Antibody IgM Nonreactive (Nonreactive); Hepatitis B Core IgM Nonreactive (Nonreactive); Hepatitis B Surface Antigen Nonreactive (Nonreactive); Hepatitis C IgG Antibody Nonreactive (Nonreactive)
== END 2023-12-07 11:22 | disposition home or self-care (01) | DRG 280 ==
LOC: EC 13:47 → 3SCARD 19:50 → OBSVTOIN 19:51 → 3SCARD 20:46
PROVIDERS: ADMIT Student in an Organized Health Care Education/Training Program; ATTEND Student in an Organized Health Care Education/Training Program
PROC: B3101ZZ Fluoroscopy of Thoracic Aorta using Low Osmolar Contrast (ICD-10-PCS; 2023-12-06)
PROC: B246ZZ4 Ultrasonography of Right and Left Heart, Transesophageal (ICD-10-PCS; principal; 2023-12-06 12:00)
PROC: 4A023N7 Measurement of Cardiac Sampling and Pressure, Left Heart, Percutaneous Approach (ICD-10-PCS; principal; 2023-12-06 12:00)
PROC: B2111ZZ Fluoroscopy of Multiple Coronary Arteries using Low Osmolar Contrast (ICD-10-PCS; 2023-12-06 12:00)
DX: I11.0 Hypertensive heart disease with heart failure (principal); I71.00 Dissection of unspecified site of aorta; I21.A1 Myocardial infarction type 2; Z68.41 Body mass index [BMI] 40.0-44.9, adult; Q23.1 Congenital insufficiency of aortic valve; I25.10 Atherosclerotic heart disease of native coronary artery without angina pectoris; I50.30 Unspecified diastolic (congestive) heart failure; E66.01 Morbid (severe) obesity due to excess calories; E78.5 Hyperlipidemia, unspecified; F41.9 Anxiety disorder, unspecified; G47.33 Obstructive sleep apnea (adult) (pediatric); K21.9 Gastro-esophageal reflux disease without esophagitis; Z79.82 Long term (current) use of aspirin; Z79.899 Other long term (current) drug therapy; Z82.49 Family history of ischemic heart disease and other diseases of the circulatory system; Z95.2 Presence of prosthetic heart valve
CPT/HCPCS: 36415; 71046; 71275; 80048; 80053; 80061; 80074; 83036; 83735; 83880; 84443; 84484; 85025; 85027; 85379; 85610; 85730; 87070; 93005; 93306; 93312; 93320; 93325; 93458; 93567; 93880; 93970; 94150; 96365; 96366; 96372; 96375; 96376; 99285

== ENCOUNTER 2023-12-14 05:37 | Inpatient (IN) | payer OTHER ==
[~2023-12-14 05:37] MED LIST changes: -ALPRAZolam 0.25 MG TAB PO PRN; -ALPRAZolam 0.5 MG TAB PO PRN; -ASPIRIN 325 MG TAB PO STA; -NITROGLYCERIN SL TABS 0.4 MG TAB SUBLINGUAL PRN; -SODIUM CHLORIDE 0.9% 1,000 ML in EMPTY BAG 1 BAG IV SCH; +ceFAZolin 3 GM in SODIUM CHLORIDE 0.9% 100 ML IVPB PRN
[2023-12-14] MEDS ORDERED: HYDROmorphone 0.5 MG/0.5 ML SYRINGE IVP PRN (05:41)
[2023-12-14] MEDS ORDERED: LIDOCAINE 1% (10MG/ML) FOR IV START INTRADERMA PRN (05:41)
[2023-12-14] MEDS: IV FLUID CONTINUATION 1,000 ML IV ONE (05:51)
[2023-12-14 06:08] LABS: Glucose,Whole Blood 124 mg/dL (70-110)
[2023-12-14] MEDS: METOPROLOL TARTRATE 12.5 MG TAB PO ONE (06:26)
[2023-12-14] MEDS: ATORVASTATIN 10 MG TAB PO ONE (06:26)
[2023-12-14] MEDS: LACTATED RINGERS 1,000 ML IV SCH (06:28)
[2023-12-14] MEDS ORDERED: fentaNYL (PF) 50 MCG/ML 50 ML VIAL ONE (07:10)
[2023-12-14] MEDS ORDERED: WATER FOR INJECTION, STERILE 10 ML VIAL IV ONE (07:10)
[2023-12-14] MEDS ORDERED: PHENYLEPHRINE 10 MG/ML VIAL ONE (07:10)
[2023-12-14] MEDS ORDERED: MIDAZOLAM HCL 10 MG/10 ML VIAL ONE (07:10)
[2023-12-14] MEDS ORDERED: PROPOFOL 10 MG/ML 20 ML VIAL IV ONE (07:10)
[2023-12-14] MEDS ORDERED: VECURONIUM 10 MG VIAL IV ONE (07:10)
[2023-12-14] MEDS ORDERED: PROTAMINE SULFATE 10 MG/ML 25 ML VIAL IV ONE (07:10)
[2023-12-14 08:38] LABS: ABG Base Excess 0.3 mmol/L; ABG Glucose Whole Blood 120 mg/dL (75-99); ABG HCO3 26 mmol/L (21-25); ABG Hematocrit 38 % (34.0-46.0); ABG Ionized Calcium 4.7 mg/dL (4.5-5.3); ABG Lactic Acid Whole Blood 1.6 mmol/L (0.5-1.6); ABG Oxygen Saturation 99.4 % (94-97); ABG PCO2 45 mmHg (35-45); ABG PH 7.37 (7.35-7.45); ABG PO2 347 mmHg (83-108); ABG Potassium Whole Blood 4.5 mmol/L (3.4-4.5); ABG Sodium Whole Blood 139 mmol/L (135-146); ABG TCO2 24 mmol/L (19-24)
[2023-12-14] MEDS: ceFAZolin 1,000 MG in SODIUM CHLORIDE 0.9% 1,000 ML IRRIGATION ONE (09:19)
[2023-12-14] MEDS: SODIUM CHLORIDE 0.9% 500 ML 500 ML with HEPARIN SODIUM,PORCINE (1 ML) 5,000 UNIT IV ONE (09:19)
[2023-12-14 09:21] LABS: ABG Base Excess -0.3 mmol/L; ABG Glucose Whole Blood 131 mg/dL (75-99); ABG HCO3 24 mmol/L (21-25); ABG Hematocrit 38 % (34.0-46.0); ABG Ionized Calcium 4.6 mg/dL (4.5-5.3); ABG Lactic Acid Whole Blood 1.6 mmol/L (0.5-1.6); ABG Oxygen Saturation 99.3 % (94-97); ABG PCO2 35 mmHg (35-45); ABG PH 7.44 (7.35-7.45); ABG PO2 292 mmHg (83-108); ABG Potassium Whole Blood 4.3 mmol/L (3.4-4.5); ABG Sodium Whole Blood 139 mmol/L (135-146); ABG TCO2 21 mmol/L (19-24)
--- NOTE | 2023-12-14 09:21 | P.ANPRN ---
Procedure Note - Anesthesia - Invasive Line Right Arterial Line Time Out Performed: Yes Date of Procedure: 12/14/23 Time of Procedure: 07:10 Location of Patient: PreOp Preparation: Sterile Prep Arterial Line Location: Radial Ultrasound Used: No Needle Guage: 20 Narrative: Invasive line placement per sterile protocol utilized. Line by AGRICULTURAL RESEARCHER Right Central Line Time Out Performed: Yes Date of Procedure: 12/14/23 Time of Procedure: 07:15 Location of Patient: PreOp Preparation: Sterile Prep, Sterile Dressing Central Line Location: Internal Jugular Ultrasound Used: Yes Purpose - Visualization and Identification of Vasculature: Yes Needle Guage: 18 Image Stored and Saved: Yes Narrative: Invasive line placement per sterile protocol utilized. Seldinger technique w/ u/s guidance Right Premium Yaritza Time Out Performed: Yes Date of Procedure: 12/14/23 Time of Procedure: 07:30 Location of Patient: PreOp Preparation: Sterile Prep, Sterile Dressing Ultrasound Used: No Narrative: Ports flushed and balloon tested. Line advanced until RV and then PA waveforms obtained. Balloon deflated and line secured at 45 cm
[2023-12-14 09:55] LABS: ABG Base Excess -2.4 mmol/L; ABG Glucose Whole Blood 143 mg/dL (75-99); ABG HCO3 23 mmol/L (21-25); ABG Hematocrit 32 % (34.0-46.0); ABG Ionized Calcium 3.9 mg/dL (4.5-5.3); ABG Oxygen Saturation >99.4 % (94-97); ABG PCO2 40 mmHg (35-45); ABG PH 7.36 (7.35-7.45); ABG PO2 415 mmHg (83-108); ABG Potassium Whole Blood 4.4 mmol/L (3.4-4.5); ABG Sodium Whole Blood 135 mmol/L (135-146)
[2023-12-14 10:30] LABS: ABG Base Excess -3.4 mmol/L; ABG Glucose Whole Blood 144 mg/dL (75-99); ABG HCO3 25 mmol/L (21-25); ABG Hematocrit 33 % (34.0-46.0); ABG Ionized Calcium 4.6 mg/dL (4.5-5.3); ABG Oxygen Saturation 98.8 % (94-97); ABG PCO2 59 mmHg (35-45); ABG PH 7.23 (7.35-7.45); ABG PO2 210 mmHg (83-108); ABG Potassium Whole Blood 4.5 mmol/L (3.4-4.5); ABG Sodium Whole Blood 138 mmol/L (135-146); ABG TCO2 24 mmol/L (19-24)
[2023-12-14 10:55] LABS: ABG Glucose Whole Blood 166 mg/dL (75-99); ABG HCO3 25 mmol/L (21-25); ABG Hematocrit 32 % (34.0-46.0); ABG Ionized Calcium 4.6 mg/dL (4.5-5.3); ABG Lactic Acid Whole Blood 1.9 mmol/L (0.5-1.6); ABG Oxygen Saturation 99.2 % (94-97); ABG PCO2 66 mmHg (35-45); ABG PO2 372 mmHg (83-108); ABG Potassium Whole Blood 4.8 mmol/L (3.4-4.5); ABG Sodium Whole Blood 138 mmol/L (135-146); ABG TCO2 24 mmol/L (19-24)
[2023-12-14 11:10] LABS: ABG Glucose Whole Blood 157 mg/dL (75-99); ABG HCO3 24 mmol/L (21-25); ABG Hematocrit 31 % (34.0-46.0); ABG Ionized Calcium 4.5 mg/dL (4.5-5.3); ABG Oxygen Saturation 99.2 % (94-97); ABG PCO2 59 mmHg (35-45); ABG PH 7.22 (7.35-7.45); ABG PO2 360 mmHg (83-108); ABG Potassium Whole Blood 4.8 mmol/L (3.4-4.5); ABG Sodium Whole Blood 138 mmol/L (135-146); ABG TCO2 23 mmol/L (19-24)
[2023-12-14 11:28] LABS: ABG Base Excess -3.5 mmol/L; ABG Glucose Whole Blood 142 mg/dL (75-99); ABG HCO3 24 mmol/L (21-25); ABG Hematocrit 31 % (34.0-46.0); ABG Ionized Calcium 4.4 mg/dL (4.5-5.3); ABG Oxygen Saturation 99.4 % (94-97); ABG PCO2 52 mmHg (35-45); ABG PH 7.27 (7.35-7.45); ABG PO2 368 mmHg (83-108); ABG Potassium Whole Blood 4.5 mmol/L (3.4-4.5); ABG Sodium Whole Blood 138 mmol/L (135-146); ABG TCO2 23 mmol/L (19-24)
[2023-12-14 11:38] LABS: ABG Base Excess -3.2 mmol/L; ABG Glucose Whole Blood 137 mg/dL (75-99); ABG HCO3 24 mmol/L (21-25); ABG Hematocrit 31 % (34.0-46.0); ABG Ionized Calcium 4.4 mg/dL (4.5-5.3); ABG Oxygen Saturation 99.2 % (94-97); ABG PCO2 53 mmHg (35-45); ABG PH 7.27 (7.35-7.45); ABG PO2 290 mmHg (83-108); ABG Potassium Whole Blood 4.6 mmol/L (3.4-4.5); ABG Sodium Whole Blood 138 mmol/L (135-146); ABG TCO2 23 mmol/L (19-24)
[2023-12-14 12:05] LABS: ABG Base Excess -2.9 mmol/L; ABG Glucose Whole Blood 128 mg/dL (75-99); ABG HCO3 23 mmol/L (21-25); ABG Hematocrit 30 % (34.0-46.0); ABG Ionized Calcium 4.3 mg/dL (4.5-5.3); ABG Oxygen Saturation >99.4 % (94-97); ABG PCO2 41 mmHg (35-45); ABG PH 7.35 (7.35-7.45); ABG Potassium Whole Blood 4.9 mmol/L (3.4-4.5); ABG Sodium Whole Blood 138 mmol/L (135-146)
[2023-12-14 12:45] LABS: ABG HCO3 23 mmol/L (21-25); ABG PCO2 41 mmHg (35-45); ABG PH 7.36 (7.35-7.45); ABG PO2 269 mmHg (83-108); ABG TCO2 22 mmol/L (19-24)
[2023-12-14 12:45] LABS: ABG PH 7.19 (7.35-7.45)
[2023-12-14 12:46] LABS: ABG Base Excess -2.4 mmol/L; ABG Glucose Whole Blood 122 mg/dL (75-99); ABG Hematocrit 32 % (34.0-46.0); ABG Ionized Calcium 4.6 mg/dL (4.5-5.3); ABG Potassium Whole Blood 4.7 mmol/L (3.4-4.5); ABG Sodium Whole Blood 138 mmol/L (135-146)
[2023-12-14 12:47] LABS: ABG Lactic Acid Whole Blood 2.8 mmol/L (0.5-1.6); ABG PO2 >420 mmHg (83-108)
[2023-12-14 12:53] LABS: ABG Lactic Acid Whole Blood 2.2 mmol/L (0.5-1.6)
--- NOTE | 2023-12-14 13:29 | P.OP ---
Date of Procedure: 12/14/23 Preoperative Diagnosis: Severe symptomatic bicuspid aortic stenosis Postoperative Diagnosis: Same Procedure(s) Performed: Aortic valve replacement with 25 mm On-X mechanical valve, root enlargement with Hemashield patch (Manougian), ligate left atrial appendage with 35mm AtriCure clip. Implants: 25 mm On-X valve, 35 mm AtriCure clip Anesthesia: GETA Surgeon: Man Banks Card Writer Hand #1: Noah Cartagena Estimated Blood Loss (ml): 250 Pathology: other (Aortic valve) Condition: stable Disposition: ICU Indications for Procedure: 48-year-old male who is morbidly obese with severe aortic stenosis of a congenitally bicuspid aortic valve. Operative Findings: Heavily calcified bicuspid valve with fusion of the left and right cusps. Initially we only able to place a 23 sizer and we performed a [place]ougian root enlargement which allows us to put a 25 sizer in. Despite this, when we placed the valve we really could not seated completely in the noncoronary side and had to tilt the valve slightly in order to get it to seal. Completion ASIM demonstrated trivial paravalvular leak, good function of the valve with both leaflets moving well without any obstruction, mild gradient across the aortic valve with excellent cardiac output. Description of Procedure: Patient was brought to the operating room and placed supine on the operating table. Preoperative monitoring lines have been placed in the preop holding area. Anterior torso bilateral lower extremities were sterilely prepped and draped following induction of general anesthesia and placement of a ASIM probe. Midline sternotomy was performed. Both pleural spaces were opened. Bilateral 32 Portuguese chest tubes were placed in the pleural spaces. Pericardium was opened in the midline the heart was exposed with pericardial sutures. Patient was systemically heparinized and cannulated for cardiopulmonary bypass with a 8 mm soft flow cannula in the distal ascending aorta, two-stage venous cannula through the right atrial appendage into the inferior vena cava, antegrade and retrograde cardioplegia lines were placed in standard fashion. Patient was placed on cardiopulmonary bypass and stabilized. Pursestring suture was placed in the right superior pulmonary vein. 35 mm AtriCure clip was placed at the base of the left atrial appendage. The aorta was crossclamped and the heart was arrested with cold crystalloid antegrade cardioplegia followed by retrograde cardioplegia. Intermittent doses of cardioplegia were given at appropriate intervals throughout the case. The aorta was opened transversely and it ex tended down toward the noncoronary cusp. Aortic valve was visualized and excised. The annulus was decalcified. Copious irrigation was performed during this process. 3 valve sutures were placed at the commissures with the pledgets on the ventricular side. The annulus was sized. It sized to a 23. This was felt to be too small. It was decided to enlarge the root with a [place] root enlargement. Incision was carried down through the noncoronary sinus of Valsalva onto the anterior leaflet of the mitral valve. Left atrium was not entered. Patch of Hemashield was brought up onto the field and appropriately fashioned and sewn in place with 5-0 Prolene suture. Circumferential valve sutures were now placed. The annulus was resized and a 25 mm On-X valve was brought up onto the field. Valve sutures were placed through the sewing ring of the valve. We were able to seat the valve on the left and right coronary cusp with really had difficulty seeding it on the noncoronary side. Valve sutures were tied and then we placed additional sutures through the sewing ring of the valve and out through the cusp and the aorta and the noncoronary cusp to assure hemostasis across the annulus. Again, copious irrigation was performed during the seating of the valve. Once the valve was seated it was examined. Both leaflets was noted to the open and close well. Coronary ostia were clearly free of any obstruction. We then completed the closure using a portion of patch as well as running 4-0 Prolene suture. This was reinforced with some CoSeal. Left atrial vent was removed. The patient was placed in Trendelenburg and the cross- clamp was removed. Retrograde cardioplegia line was removed. Atrial and ventricular pacing wires were placed and the patient was initially paced but ret urned to a normal sinus rhythm and was just placed on a backup pacer prior to from cardiopulmonary bypass. Aorta was de-aired through the aortic vent as well as through the apex of the left ventricle with a 16-gauge Angiocath. De-airing was monitored on ASIM. Aortic vent line was removed and the site reinforced with a 4 oh pledgeted Prolene suture. Patient was weaned from cardiopulmonary bypass without the use of inotropic support. Hemodynamics were excellent. The valve was examined under ASIM with findings as noted above. Heparin was reversed with protamine. Patient was decannulated in standard fashion. Aortic cannulation site was reinforced with a 4 oh pledgeted suture in the venous cannulation site was reinforced with silk tie. Once good hemostasis had been assured throughout, mediastinum was drained with 236 Portuguese chest tubes. It was irrigated with antibiotic solution. Sternum was closed with 4 sternal wires and 3 plates. Fascia was closed with a 0 Ethibond. Subcutaneous and subcuticular layers were closed with layers of Vicryl suture. Dry sterile dressings were applied and the patient was transferred to the ICU in stable condition. No blood products and no inotropic support was required.
[2023-12-14] MEDS ORDERED: AMIODARONE 450 MG in DEXTROSE 5% IN WATER 250 ML IV PRN (13:36)
[2023-12-14] MEDS ORDERED: METOCLOPRAMIDE 5 MG/ML 2 ML VIAL IVP PRN (13:36)
[2023-12-14] MEDS ORDERED: AMIODARONE 360 MG in DEXTROSE 5% IN WATER 200 ML IV PRN (13:36)
[2023-12-14] MEDS ORDERED: DEXTROSE 50% SYRINGE 50 ML IVP PRN ×2 (13:36)
[2023-12-14] MEDS ORDERED: BENZOCAINE/MENTHOL LOZENG 1 EACH LOZENGE MUCOUS MEM PRN (13:36)
[2023-12-14] MEDS ORDERED: IPRATROPIUM-ALBUTEROL 3 ML NEB INHALATION PRN (13:36)
[2023-12-14] MEDS ORDERED: Potassium Replacement Protocol 1 EACH MISC MISCELLANE PRN (13:36)
[2023-12-14] MEDS ORDERED: CALCIUM GLUCONATE IN NACL 2 GM in SALINE 1 100ML.BAG IVPB PRN (13:36)
[2023-12-14] MEDS ORDERED: DEXTROSE 5% IN WATER 100 ML with AMIODARONE 150 MG IV PRN (13:36)
[2023-12-14] MEDS ORDERED: ONDANSETRON 4 MG/2 ML VIAL IVP PRN (13:36)
[2023-12-14] MEDS ORDERED: Magnesium Replacement Protocol 1 EACH MISC MISCELLANE PRN (13:36)
--- NOTE | 2023-12-14 13:53 | P.ANPRN ---
Procedure Note - Anesthesia - ASIM Intraop Pre Bypass ASIM Intraop - Anesthesia Indication: Aortic stenosis Date of Procedure: 12/14/23 Pre-operative Diagnosis: Post-operative Diagnosis: Same Surgeon: Man Banks Left Ventricle: EF 60% Ejection Fraction: Normal Regional Wall Motion Abnormalities: None Left Ventricle Hypertrophy: Yes R. Ventricle Function: Normal Anatomy: Other (Bicuspid w/ R & L fusion) Aortic Stenosis: Severe (Peak 67 mmHg, Mean 45 mmHg) Aortic Regurgitation: None Mitral Stenosis: None Mitral Regurgitation: Trace Tricuspid Stenosis: None Tricuspid Regurgitation: None Pulmonic Stenosis: None Pulmonic Regurgitation: None R. Atrial Dilation: No R. Atrial PFO: No L. Atrial Dilation: No Aortic Dissection: No Aortic Calcification: None Plural Effusion: None - ASIM Intraop Post Bypass ASIM Intraop Post Bypass Procedure Performed: AVR Left Ventricle: 40 Regional Wall Motion Abnormalities: None R. Ventricle Function: Hypokinesis Mild Aortic Valve: 25 mm Biologic AV Peak 31 mmHg, Mean 14 mmHg. Mild perivalvular leak at LCC Mitral Valve: Moderate MR Tricuspid: Unchanged Pulmonic: Unchanged Aortic Dissection: No
[2023-12-14 14:04] LABS: Glucose,Whole Blood 111 mg/dL (70-110)
--- NOTE | 2023-12-14 14:16 | P.CNPUL ---
History of Present Illness Consult date: 12/14/23 Requesting physician: Man Banks Reason for consult: other Chief complaint: Ventilator management. History of present illness: Pulmonary/critical care consult dated December 14, 2023. 48-year-old male with history of bicuspid aortic valve and aortic stenosis. The patient is postop day #0, status post aortic valve replacement. The patient also had a root enlargement procedure. The patient is back in the intensive care unit, in room 266. He remains on the ventilator. Current ventilator settings of volume assist-control, rate 16, tidal volume 500, FiO2 100%, PEEP of 10. Cardiac output is 7.3 and index is 2.7. The patient has a right-sided chest tube and 2 mediastinal chest tubes. Pacer wires are noted. The patient is on propofol at 25 mcg/kg/min and nitroglycerin at 5 mcg/min. The patient is also getting saline at 50 cc an hour. Blood gases have not yet been done. Chest x-ray has not yet been done. The patient has a history of hyperlipidemia, hypertension, and sleep apnea syndrome. He is a lifelong non-smoker. Labs today include a blood gas, in the operating room with a pO2 of 269, pCO2 of 41, pH of 7.36. Blood glucose is 111. Review of Systems REVIEW OF SYSTEMS: Review of systems cannot be obtained. CONSTITUTIONAL: [Negative.] NEUROLOGIC: [ Negative.] HEENT: [ Negative.] CARDIAC: [Negative.] PULMONARY: [Negative.] GI: [Negative.] : [Negative.] RHEUMATOLOGIC: [ Negative.] IMMUNOLOGIC: [ Negative.] ENDOCRINE: [Negative. ] DERMATOLOGIC: [Negative.] Past Medical History Past Medical History: Heart Failure, GERD/Reflux, Hyperlipidemia, Hypertension, Sleep Apnea/CPAP/BIPAP Additional Past Medical History / Comment(s): Bicuspid aortic stenosis; patient does not use home CPAP,covid infection x2(2020,2022) History of Any Multi-Drug Resistant Organisms: None Reported Past Surgical History: Heart Catheterization Past Anesthesia/Blood Transfusion Reactions: No Reported Reaction Additional Past Anesthesia/Blood Transfusion Reaction / Comment(s): no hx blood transfusion Smoking Status: Never smoker - Past Family History Father Family Medical History: Cancer, Myocardial Infarction ([place]) Additional Family Medical History / Comment(s): Father had myocardial infarction at 50 years old Medications and Allergies Home Medications Medication Instructions Recorded Confirmed Type Atorvastatin [Lipitor] 40 mg PO HS 04/06/22 12/14/23 History Escitalopram [Lexapro] 20 mg PO DAILY 04/06/22 12/14/23 History Ezetimibe [Zetia] 10 mg PO HS 12/04/23 12/14/23 History Pantoprazole [Protonix] 40 mg PO DAILY PRN 12/04/23 12/14/23 History Aspirin 81 mg PO DAILY #30 tab 12/07/23 12/14/23 Rx Dapagliflozin Propanediol [Farxiga] 10 mg PO DAILY #30 tab 12/07/23 12/14/23 Rx Furosemide [Lasix] 40 mg PO DAILY #30 tab 12/07/23 12/14/23 Rx Metoprolol Tartrate [Lopressor] 25 mg PO BID #60 tab 12/07/23 12/14/23 Rx Allergies Allergy/AdvReac Type Severity Reaction Status Date / Time No Known Allergies Allergy Verified 12/14/23 05:52 Physical Exam Osteopathic Statement: *. No significant issues noted on an osteopathic structural exam other than those noted in the History and Physical/Consult. Vitals: Vital Signs Temp Pulse Resp BP BP Pulse Ox FiO2 12/14/23 13:59 100 12/14/23 13:58 100 12/14/23 05:56 98.1 F 63 16 122/68 111/61 96 Intake and Output 12/13/23 12/14/23 12/14/23 22:59 06:59 14:59 Intake Total 100 2 Output Total 3000 Balance 100 -2998 Intake: IV 100 2 Output: Urine 500 Estimated Blood Loss 2500 Other: Weight 151.8 kg No acute distress, seated, with an orally placed endotracheal tube. HEENT examination is grossly unremarkable. Neck supple. Full range of motion. No adenopathy thyromegaly or neck vein distention. Cardiovascular examination reveals regular rhythm rate. S1-S2 normal. No S3 or S4. No discernible murmur noted. Heart rate is 63 bpm. Heart sounds are distant. Lungs reveal clear breath sounds. Breath sounds are equal bilaterally. No adventitious lung sounds including wheezes rhonchi or crackles. Saturations are 100% on the ventilator. Abdomen soft, but obese. No bowel sounds. No masses. Extremities are intact. No cyanosis clubbing or edema. Skin is without rash or lesion. Neurologic examination cannot be evaluated at this time. Results - Laboratory Findings ABG ABG pH 7.36 (7.35-7.45) 12/14/23 12:48 ABG pCO2 41 mmHg (35-45) 12/14/23 12:48 ABG pO2 269 mmHg (83-108) H 12/14/23 12:48 ABG O2 Saturation 99.0 % (94-97) H 12/14/23 12:48 Abnormal lab findings: Abnormal Labs 12/12/23 12/14/23 12/14/23 11:49 06:07 08:41 ABG pH ABG pCO2 ABG pO2 347 H ABG HCO3 26 H ABG O2 Saturation 99.4 H ABG Hematocrit ABG Potassium ABG Ionized Calcium ABG Glucose 120 H ABG Lactic Acid Hemoglobin 12.4 L POC Glucose (mg/dL) 124 H Arterial Blood Potassium Arterial Blood Glucose 120 H Crossmatch See Detail 12/14/23 12/14/23 12/14/23 09:24 09:57 10:32 ABG pH 7.23 L ABG pCO2 59 H ABG pO2 292 H 415 H 210 H ABG HCO3 ABG O2 Saturation 99.3 H >99.4 H 98.8 H ABG Hematocrit 32 L 33 L ABG Potassium ABG Ionized Calcium 3.9 L ABG Glucose 131 H 143 H 144 H ABG Lactic Acid 2.0 H 2.0 H Hemoglobin 12.3 L 10.5 L 10.7 L POC Glucose (mg/dL) Arterial Blood Potassium Arterial Blood Glucose 131 H 143 H 144 H Crossmatch 12/14/23 12/14/23 12/14/23 10:57 11:12 11:31 ABG pH 7.19 L* 7.22 L 7.27 L ABG pCO2 66 H 59 H 52 H ABG pO2 372 H 360 H 368 H ABG HCO3 ABG O2 Saturation 99.2 H 99.2 H 99.4 H ABG Hematocrit 32 L 31 L 31 L ABG Potassium 4.8 H 4.8 H ABG Ionized Calcium 4.4 L ABG Glucose 166 H 157 H 142 H ABG Lactic Acid 1.9 H 2.0 H 2.0 H Hemoglobin 10.4 L 10.2 L 10.1 L POC Glucose (mg/dL) Arterial Blood Potassium 4.8 H 4.8 H Arterial Blood Glucose 166 H 157 H 142 H Crossmatch 12/14/23 12/14/23 12/14/23 11:41 12:07 12:48 ABG pH 7.27 L ABG pCO2 53 H ABG pO2 290 H >420 H 269 H ABG HCO3 ABG O2 Saturation 99.2 H >99.4 H 99.0 H ABG Hematocrit 31 L 30 L 32 L ABG Potassium 4.6 H 4.9 H 4.7 H ABG Ionized Calcium 4.4 L 4.3 L ABG Glucose 137 H 128 H 122 H ABG Lactic Acid 2.0 H 2.8 H* 2.2 H* Hemoglobin 10.0 L 9.7 L 10.6 L POC Glucose (mg/dL) Arterial Blood Potassium 4.6 H 4.9 H 4.7 H Arterial Blood Glucose 137 H 128 H 122 H Crossmatch 12/14/23 14:03 ABG pH ABG pCO2 ABG pO2 ABG HCO3 ABG O2 Saturation ABG Hematocrit ABG Potassium ABG Ionized Calcium ABG Glucose ABG Lactic Acid Hemoglobin POC Glucose (mg/dL) 111 H Arterial Blood Potassium Arterial Blood Glucose Crossmatch Assessment and Plan Assessment: Postop day #0, status post aortic valve replacement, for severe aortic stenosis, secondary to bicuspid aortic valve. Routine postoperative ventilator management. Hypertension. Hyperlipidemia. Obstructive sleep apnea syndrome. Obesity. Plan: Plan dated December 14, 2023. The patient is seen in the intensive care unit, room 266. The patient is currently on the mechanical ventilator. Chest x-ray blood gases have not yet been done. The patient is on volume assist-control, rate 16, tidal volume 500, FiO2 100%, and PEEP of 10. The patient is getting propofol at 25 mcg/kg/min, nitroglycerin at 5 mcg/min, and saline at 50 cc an hour. As mentioned, we will await the chest x-ray and blood gases. Additional recommendations and suggestions are forthcoming. Time with Patient: Greater than 30
[2023-12-14 14:21] LABS: ABG Base Excess -3.2 mmol/L; ABG HCO3 23 mmol/L (21-25); ABG Oxygen Saturation 100.4 % (94-97); ABG PCO2 47 mmHg (35-45); ABG PO2 311 mmHg (83-108); ABG TCO2 25 mmol/L (19-24); Allen Test Performed? Yes
[2023-12-14 14:27] LABS: Basophils % (A) 1 %; Eosinophils % (A) 0 %; HCT 37.1 % (39.0-53.0); HGB 12.4 gm/dL (13.0-17.5); Lymphocytes % (A) 11 %; MCH 30.3 pg (25.0-35.0); MCHC 33.6 g/dL (31.0-37.0); MCV 90.1 fL (80.0-100.0); Mean Platelet Volume 8.3; Monocytes # (A) 0.8 k/uL (0-1.0); Monocytes % (A) 9 %; Neutrophils # (A) 6.8 k/uL (1.3-7.7); Neutrophils % (A) 78 %; Platelet Count 147 k/uL (150-450); RBC 4.11 m/uL (4.30-5.90); RDW 13.4 % (11.5-15.5); WBC 8.7 k/uL (3.8-10.6)
[2023-12-14] MEDS: CLEVIDIPINE BUTYRATE 25 MG in EMPTY BAG 1 BAG IV SCH (14:30)
[2023-12-14 14:35] LABS: INR 1.2 (<1.2); Prothrombin Time 12.6 sec (10.0-12.5)
--- NOTE | 2023-12-14 14:45 | XR ---
EXAMINATION TYPE: XR chest 1V portable DATE OF EXAM: 12/14/2023 Comparison: 12/04/2023 Clinical History: 48-year-old male Post Operative Cardiac Surgery Findings: Median sternotomy wires. Right IJ [place] catheter tip at the distal aspect of the main pulmonary o utflow tract. ET tube tip at the level of the medial clavicular heads. There is motion limiting visua lization of the NG tube. Bilateral chest tubes in place. No appreciable pneumothorax allowing for exa m limitations. This is an excretory view further limiting assessment. Interstitial and hazy densities are present. No sizable pleural effusion seen. Heart mildly enlarged. Impression: 1. Limited due to expiratory exposure. Hazy interstitial densities likely due to the low lung volumes . There may be some underlying pulmonary vascular congestion. 2. Motion limits visualization of the NG tube.
[2023-12-14 14:46] LABS: Ionized Calcium 4.5 mg/dL (4.5-5.3)
[2023-12-14 14:59] LABS: ALT 35 U/L (4-49); AST 46 U/L (17-59); African American GFR (CKD) >90 (>60 ml/min/1.73 sqM); Alkaline Phosphatase 57 U/L (38-126); Anion Gap 4 mmol/L; Blood Urea Nitrogen 16 mg/dL (9-20); Calcium 7.7 mg/dL (8.4-10.2); Carbon Dioxide 22 mmol/L (22-30); Chloride 111 mmol/L (98-107); Glucose 107 mg/dL (74-99); Magnesium 3.2 mg/dL (1.6-2.3); Non-African American GFR(CKD) >90 (>60 ml/min/1.73 sqM); Sodium 137 mmol/L (137-145); Total Bilirubin 0.8 mg/dL (0.2-1.3); Total Protein 4.8 g/dL (6.3-8.2)
[2023-12-14 15:02] LABS: Glucose,Whole Blood 124 mg/dL (70-110)
[2023-12-14] MEDS: INSULIN REGULAR 100 UNIT in SODIUM CHLORIDE 0.9% 100 ML IV SCH (15:02)
[2023-12-14] MEDS: NITROGLYCERIN-D5W PMX 50 MG in DEXTROSE/WATER 1 250ML.BAG IV SCH (15:12)
[2023-12-14] MEDS: SODIUM CHLORIDE 0.9% 1,000 ML IV SCH (15:12)
[2023-12-14] MEDS: ceFAZolin 1,000 MG in SODIUM CHLORIDE 0.9% IRRIGATIO 1,000 ML IRRIGATION ONE (15:16)
[2023-12-14] MEDS: ALBUMIN HUMAN 25% 50 ML IV ONE (15:17)
[2023-12-14] MEDS: CARDIOPLEGIC SOLN (K+ 16 MEQ/L 1,000 ML with SODIUM BICARB (1 MEQ/ML) 20 ML, LIDOCAINE ... PERFUSION ONE (15:17)
[2023-12-14] MEDS: ALBUMIN HUMAN 5% 500 ML IVPB ONE (15:17)
[2023-12-14] MEDS: DEXMEDETOMIDINE/0.9% NACL(PMX) 400 MCG in EMPTY BAG 1 BAG IV SCH (15:42)
[2023-12-14 16:01] LABS: Glucose,Whole Blood 142 mg/dL (70-110)
[2023-12-14 16:38] LABS: ABG Base Excess -5.3 mmol/L; ABG HCO3 23 mmol/L (21-25); ABG Oxygen Saturation 95.4 % (94-97); ABG PCO2 56 mmHg (35-45); ABG PH 7.22 (7.35-7.45); ABG PO2 86 mmHg (83-108); ABG TCO2 25 mmol/L (19-24); Allen Test Performed? Yes
[2023-12-14 16:48] LABS: Basophils % (A) 0 %; Eosinophils % (A) 0 %; HCT 41.1 % (39.0-53.0); HGB 13.8 gm/dL (13.0-17.5); Lymphocytes # (A) 0.9 k/uL (1.0-4.8); Lymphocytes % (A) 7 %; MCH 30.6 pg (25.0-35.0); MCHC 33.6 g/dL (31.0-37.0); Mean Platelet Volume 7.7; Monocytes # (A) 0.9 k/uL (0-1.0); Monocytes % (A) 7 %; Neutrophils # (A) 9.9 k/uL (1.3-7.7); Neutrophils % (A) 84 %; Platelet Count 208 k/uL (150-450); RBC 4.52 m/uL (4.30-5.90); RDW 13.6 % (11.5-15.5); WBC 11.8 k/uL (3.8-10.6)
[2023-12-14] MEDS: IPRATROPIUM-ALBUTEROL 3 ML NEB INHALATION SCH ×2 (16:54→20:57)
[2023-12-14 17:03] LABS: Glucose,Whole Blood 145 mg/dL (70-110)
[2023-12-14] MEDS: ceFAZolin 3 GM in SODIUM CHLORIDE 0.9% 100 ML IVPB SCH (17:07)
[2023-12-14] MEDS: HEPARIN SODIUM,PORCINE 5,000 UNIT/ML 1 ML VIAL SQ SCH (17:28)
[2023-12-14] MEDS: ACETAMINOPHEN IV (For NPO) 1,000 MG in EMPTY BAG 1 BAG IVPB SCH (17:28)
[2023-12-14] MEDS: ALBUMIN HUMAN 5% 250 ML in EMPTY BAG 1 BAG IVPB PRN (17:29)
[2023-12-14 18:06] LABS: Glucose,Whole Blood 142 mg/dL (70-110)
[2023-12-14] MEDS: MAGNESIUM SULFATE 16.24 MEQ in EMPTY SYRINGE 1 SYR IV ONE (18:23)
[2023-12-14] MEDS: LACTATED RINGERS 1,000 ML IV ONE (18:23)
[2023-12-14] MEDS: HEPARIN SODIUM,PORCINE (1 ML) 5,000 UNIT in SODIUM CHLORIDE 0.9% 500 ML 500 ML IV ONE (18:23)
[2023-12-14] MEDS: INSULIN REGULAR 100 UNIT in SODIUM CHLORIDE 0.9% 100 ML IV ONE (18:23)
[2023-12-14] MEDS: CLEVIDIPINE BUTYRATE 25 MG in EMPTY BAG 1 BAG IV ONE (18:23)
[2023-12-14] MEDS: NITROGLYCERIN-D5W PMX 50 MG in DEXTROSE/WATER 1 250ML.BAG IV ONE (18:24)
[2023-12-14] MEDS: NOREPINEPHRINE 4 MG in SODIUM CHLORIDE 0.9% 250 ML IV ONE (18:24)
[2023-12-14] MEDS: propofoL 1,000 MG/100 ML VIAL IV ONE (18:24)
[2023-12-14] MEDS: PHENYLEPHRINE 40 MG in SODIUM CHLORIDE 0.9% 250 ML IV ONE (18:24)
[2023-12-14] MEDS: PROTAMINE SULFATE 250 MG in EMPTY BAG 1 BAG IV ONE (18:24)
[2023-12-14] MEDS: SODIUM CHLORIDE 0.9% 1,000 ML IV ONE (18:24)
[2023-12-14] MEDS: TRANEXAMIC ACID 2,000 MG in SODIUM CHLORIDE 0.9% 80 ML IV ONE (18:25)
[2023-12-14] MEDS: fentaNYL (PF) 50 MCG/ML 2 ML AMP IVP PRN (18:41)
[2023-12-14 19:02] LABS: Glucose,Whole Blood 138 mg/dL (70-110)
[2023-12-14 20:03] LABS: Glucose,Whole Blood 129 mg/dL (70-110)
[2023-12-14 20:11] LABS: Basophils % (A) 0 %; Eosinophils % (A) 0 %; HCT 39.1 % (39.0-53.0); Lymphocytes # (A) 0.4 k/uL (1.0-4.8); Lymphocytes % (A) 5 %; MCH 30.2 pg (25.0-35.0); MCHC 33.3 g/dL (31.0-37.0); MCV 90.6 fL (80.0-100.0); Mean Platelet Volume 8.5; Monocytes # (A) 0.7 k/uL (0-1.0); Monocytes % (A) 8 %; Neutrophils # (A) 7.8 k/uL (1.3-7.7); Neutrophils % (A) 87 %; Platelet Count 173 k/uL (150-450); RBC 4.31 m/uL (4.30-5.90); RDW 13.5 % (11.5-15.5)
[2023-12-14] MEDS: SENNOSIDES-DOCUSATE SODIUM 1 EACH TAB PO SCH (20:58)
[2023-12-14 21:06] LABS: Glucose,Whole Blood 137 mg/dL (70-110)
[2023-12-14 22:00] LABS: Glucose,Whole Blood 133 mg/dL (70-110)
[2023-12-14 22:57] LABS: Glucose,Whole Blood 137 mg/dL (70-110)
[2023-12-14 23:54] LABS: Glucose,Whole Blood 136 mg/dL (70-110)
[2023-12-15 00:58] LABS: Glucose,Whole Blood 140 mg/dL (70-110)
[2023-12-15 02:02] LABS: Glucose,Whole Blood 147 mg/dL (70-110)
[2023-12-15] MEDS: hydrALAZINE HCL 20 MG/ML 1 ML VIAL IVP PRN (02:52)
[2023-12-15 03:15] LABS: Glucose,Whole Blood 153 mg/dL (70-110)
[2023-12-15 03:58] LABS: Glucose,Whole Blood 158 mg/dL (70-110)
[2023-12-15 04:21] LABS: Basophils % (A) 0 %; Eosinophils % (A) 0 %; HCT 36.6 % (39.0-53.0); HGB 12.1 gm/dL (13.0-17.5); Lymphocytes # (A) 0.5 k/uL (1.0-4.8); Lymphocytes % (A) 6 %; MCH 29.8 pg (25.0-35.0); MCHC 33.1 g/dL (31.0-37.0); MCV 90.3 fL (80.0-100.0); Mean Platelet Volume 8.5; Monocytes # (A) 0.7 k/uL (0-1.0); Monocytes % (A) 8 %; Neutrophils # (A) 7.4 k/uL (1.3-7.7); Neutrophils % (A) 84 %; Platelet Count 177 k/uL (150-450); RBC 4.05 m/uL (4.30-5.90); RDW 13.6 % (11.5-15.5); WBC 8.8 k/uL (3.8-10.6)
--- NOTE | 2023-12-15 04:24 | P.CONS ---
History of Present Illness - Reason for Consult Consult date: 12/15/23 - History of Present Illness Patient is a 48-year-old male with a PMH of bicuspid aortic valve with aortic stenosis, hypertension, hyperlipidemia, ELKE, heart failure with preserved ejection fraction, who was admitted for scheduled aortic valve replacement with root enlargement procedure. The patient underwent the procedure yesterday and was seen postoperatively in the ICU. He reported minimal chest achiness at the time of interview but otherwise felt well and had no additional complaints. Denied experiencing fever, chills, cough, nausea, vomiting, abdominal pain, sore throat, or diarrhea. Review of systems: Pertinent positives and negatives as discussed in HPI, a complete review of systems was performed and all other systems are negative. Physical examination: Vital signs reviewed General: non toxic, no distress, appears at stated age, normal weight Derm: no unusual rashes/lesions, warm Head: atraumatic, normocephalic, symmetric Eyes: EOMI, no lid lag, anicteric sclera, pupils equal round reactive to light ENT: Nose and ears atraumatic Neck: No cervical lymphadenopathy, trachea midline, supple Mouth: no lip lesion, mucus membranes moist Cardiovascular: S1S2 reg, no murmur, positive dorsalis pedis pulse bilateral, no edema, chest binder in place with sternotomy dressing clean and dry Lungs: CTA bilateral, no rhonchi, no rales, no accessory muscle use Abdominal: soft, nontender to palpation, no guarding Ext: Strength grossly intact and equal in all extremities, no gross muscle atrophy, no contractures, Neuro: CN II-XI grossly intact, no gross focal neuro deficits Psych: Alert, oriented, appropriate affect Assessment: Status post aortic valve replacement with root enlargement Chronic conditions: Hypertension, hyperlipidemia, obstructive sleep apnea Imaging: Postoperative chest x-ray revealed findings of possible pulmonary vascular congestion. Data Review: Laboratory evaluation was reviewed with WBC count 9.0, hemoglobin 13.0, sodium 137, potassium 5.0, chloride 111, BUN 16, creatinine 0.76. Plan: Resume patient's home Lipitor, Lexapro, and Zetia Continue patient on Protonix IV 40 mg daily Patient currently on amiodarone, Precedex, nitroglycerin, and insulin infusions Defer pain control, resumption of aspirin home dose, and DVT prophylaxis to the primary surgery service Past Medical History Past Medical History: Heart Failure, GERD/Reflux, Hyperlipidemia, Hypertension, Sleep Apnea/CPAP/BIPAP Additional Past Medical History / Comment(s): Bicuspid aortic stenosis; patient does not use home CPAP,covid infection x2(2020,2022) History of Any Multi-Drug Resistant Organisms: None Reported Past Surgical History: Heart Catheterization Past Anesthesia/Blood Transfusion Reactions: No Reported Reaction Additional Past Anesthesia/Blood Transfusion Reaction / Comm: no hx blood transfusion Smoking Status: Never smoker - Past Family History Father Family Medical History: Cancer, Myocardial Infarction ([place]) Additional Family Medical History / Comment(s): Father had myocardial infarction at 50 years old Medications and Allergies Home Medications Medication Instructions Recorded Confirmed Type Atorvastatin [Lipitor] 40 mg PO HS 04/06/22 12/14/23 History Escitalopram [Lexapro] 20 mg PO DAILY 04/06/22 12/14/23 History Ezetimibe [Zetia] 10 mg PO HS 12/04/23 12/14/23 History Pantoprazole [Protonix] 40 mg PO DAILY PRN 12/04/23 12/14/23 History Aspirin 81 mg PO DAILY #30 tab 12/07/23 12/14/23 Rx Dapagliflozin Propanediol [Farxiga] 10 mg PO DAILY #30 tab 12/07/23 12/14/23 Rx Furosemide [Lasix] 40 mg PO DAILY #30 tab 12/07/23 12/14/23 Rx Metoprolol Tartrate [Lopressor] 25 mg PO BID #60 tab 12/07/23 12/14/23 Rx Allergies Allergy/AdvReac Type Severity Reaction Status Date / Time No Known Allergies Allergy Verified 12/14/23 05:52 Physical Exam Vitals: Vital Signs Temp Pulse Pulse Resp BP BP BP 12/15/23 03:15 82 22 12/15/23 03:00 94 16 12/15/23 02:45 75 26 H 12/15/23 02:30 73 25 H 12/15/23 02:15 74 12/15/23 02:00 73 12/15/23 01:45 73 12/15/23 01:30 72 12/15/23 01:15 74 18 12/15/23 01:00 68 12/15/23 00:45 79 19 12/15/23 00:30 74 12/15/23 00:15 75 12/15/23 00:00 73 19 12/14/23 23:45 73 18 12/14/23 23:30 74 12 12/14/23 23:15 73 20 12/14/23 23:00 74 20 12/14/23 22:45 74 20 12/14/23 22:30 73 23 12/14/23 22:15 72 21 12/14/23 22:00 74 23 12/14/23 21:45 74 19 12/14/23 21:30 74 19 12/14/23 21:15 70 17 12/14/23 21:04 68 18 12/14/23 21:00 63 17 12/14/23 20:58 64 18 12/14/23 20:45 72 12 12/14/23 20:30 78 16 12/14/23 20:15 76 23 12/14/23 20:00 72 25 H 12/14/23 19:45 71 14 12/14/23 19:30 72 22 12/14/23 19:15 74 17 12/14/23 19:00 78 21 122/96 12/14/23 18:45 75 26 H 12/14/23 18:30 74 24 12/14/23 18:15 70 22 106/72 12/14/23 18:00 79 21 106/72 12/14/23 17:45 66 19 12/14/23 17:30 67 20 12/14/23 17:15 71 13 100/54 12/14/23 17:06 68 12/14/23 17:00 70 28 H 12/14/23 16:58 73 12/14/23 16:47 12/14/23 16:45 73 13 12/14/23 16:30 79 13 12/14/23 16:15 72 12 12/14/23 16:12 12/14/23 16:10 12/14/23 16:00 78 20 12/14/23 15:45 78 19 12/14/23 15:30 78 17 12/14/23 15:15 76 19 12/14/23 15:00 75 18 119/65 12/14/23 14:45 79 16 12/14/23 14:30 75 16 12/14/23 14:22 12/14/23 14:15 69 16 12/14/23 14:00 68 18 12/14/23 13:59 12/14/23 13:58 12/14/23 13:54 71 16 12/14/23 05:56 98.1 F 63 16 122/68 111/61 Pulse Ox FiO2 12/15/23 03:15 95 12/15/23 03:00 97 12/15/23 02:45 95 12/15/23 02:30 96 12/15/23 02:15 97 12/15/23 02:00 96 12/15/23 01:45 96 12/15/23 01:30 94 L 12/15/23 01:15 95 12/15/23 01:00 97 12/15/23 00:45 95 12/15/23 00:30 95 12/15/23 00:15 95 12/15/23 00:00 94 L 12/14/23 23:45 95 12/14/23 23:30 96 12/14/23 23:15 96 12/14/23 23:00 95 12/14/23 22:45 96 12/14/23 22:30 96 12/14/23 22:15 95 12/14/23 22:00 96 12/14/23 21:45 95 12/14/23 21:30 95 12/14/23 21:15 94 L 12/14/23 21:04 12/14/23 21:00 95 12/14/23 20:58 12/14/23 20:45 95 12/14/23 20:30 95 12/14/23 20:15 96 12/14/23 20:00 96 12/14/23 19:45 97 12/14/23 19:30 96 12/14/23 19:15 93 L 12/14/23 19:00 95 12/14/23 18:45 97 12/14/23 18:30 95 12/14/23 18:15 95 12/14/23 18:00 93 L 4 12/14/23 17:45 91 L 12/14/23 17:30 93 L 12/14/23 17:15 93 L 12/14/23 17:06 12/14/23 17:00 98 12/14/23 16:58 12/14/23 16:47 95 12/14/23 16:45 95 12/14/23 16:30 93 L 12/14/23 16:15 98 50 12/14/23 16:12 50 12/14/23 16:10 40 12/14/23 16:00 99 60 12/14/23 15:45 97 12/14/23 15:30 96 12/14/23 15:15 100 12/14/23 15:00 100 60 12/14/23 14:45 100 12/14/23 14:30 100 12/14/23 14:22 60 12/14/23 14:15 100 100 12/14/23 14:00 12/14/23 13:59 100 12/14/23 13:58 100 12/14/23 13:54 12/14/23 05:56 96 Intake and Output 12/14/23 12/14/23 12/15/23 14:59 22:59 06:59 Intake Total 81 1794.110 356.309 Output Total 3183 1085 527 Balance -3102 709.110 -170.691 Intake: IV 81 1711 326 ACETAMINOPHEN IV (For NPO 100 ) 1,000 mg In Empty Bag 1 bag @ 400 mls/hr IVPB Q6HR [facility] Rx#:[id number] Albumin Human 5% 250 ml 750 In Empty Bag 1 bag @ 250 mls/hr IVPB Q1HR PRN Rx#: [id number] CO/CI 20 230 90 Pressure Bags 9 81 36 Sodium Chloride 0.9% 1, 50 450 200 000 ml @ 50 mls/hr IV . Q20H [facility] Rx#:[id number] ceFAZolin 3 gm In Sodium 100 Chloride 0.9% 100 ml @ 100 mls/hr IVPB Q8HR [facility] Rx#:[id number] Intake, IV Titration 83.110 30.309 Amount Clevidipine Butyrate 25 2.5 mg In Empty Bag 1 bag @ 1 MG/HR 2 mls/hr IV .Q24H [facility] Rx#:[id number] Dexmedetomidine/0.9% NaCl 20.177 (Pmx) 400 mcg In Empty Bag 1 bag @ Titrate IV . Q0M [facility] Rx#:[id number] Insulin Regular 100 unit 13.375 18.609 In Sodium Chloride 0.9% 100 ml @ Per Protocol IV .Q0M [facility] Rx#:[id number] Nitroglycerin-D5w Pmx 50 11.7 mg In Dextrose/Water 1 250ml.bag @ 5 MCG/MIN 1.5 mls/hr IV .Q24H [facility] Rx#: [id number] propofoL 1,000 mg In 47.058 Empty Bag 1 bag @ Titrate IV .Q0M [facility] Rx#: [id number] Output: Chest Tube Drainage 58 330 222 Chest Tube Left 0 68 31 Chest Tube Mediastinal 58 232 160 Chest Tube Right 0 30 31 Urine 625 755 305 Estimated Blood Loss 2500 Other: Voiding Method Indwelling Catheter Indwelling Catheter ABP, PAP, CO, CI - Last 8 Hours Arterial Blood Pressure 156/61 Arterial Blood Pressure 169/66 Arterial Blood Pressure 161/62 Arterial Blood Pressure 154/58 Arterial Blood Pressure 146/60 Arterial Blood Pressure 136/60 Arterial Blood Pressure 147/56 Arterial Blood Pressure 141/58 Arterial Blood Pressure 125/58 Arterial Blood Pressure 123/57 Arterial Blood Pressure 148/59 Arterial Blood Pressure 147/57 Arterial Blood Pressure 145/55 Arterial Blood Pressure 136/56 Arterial Blood Pressure 133/57 Arterial Blood Pressure 141/56 Arterial Blood Pressure 145/58 Arterial Blood Pressure 152/60 Arterial Blood Pressure 143/59 Arterial Blood Pressure 132/55 Arterial Blood Pressure 132/55 Arterial Blood Pressure 137/60 Arterial Blood Pressure 119/54 Arterial Blood Pressure 116/54 Arterial Blood Pressure 107/53 Arterial Blood Pressure 108/52 Arterial Blood Pressure 110/56 Arterial Blood Pressure 106/55 Arterial Blood Pressure 102/61 Arterial Blood Pressure 122/59 Pulmonary Artery Pressure 43/21 Pulmonary Artery Pressure 57/24 Pulmonary Artery Pressure 31/17 Pulmonary Artery Pressure 37/11 Pulmonary Artery Pressure 41/9 Pulmonary Artery Pressure 34/18 Pulmonary Artery Pressure 36/8 Pulmonary Artery Pressure 32/16 Pulmonary Artery Pressure 36/18 Pulmonary Artery Pressure 30/15 Pulmonary Artery Pressure 33/16 Pulmonary Artery Pressure 35/13 Pulmonary Artery Pressure 32/11 Pulmonary Artery Pressure 36/13 Pulmonary Artery Pressure 36/14 Pulmonary Artery Pressure 37/19 Pulmonary Artery Pressure 35/14 Pulmonary Artery Pressure 42/15 Pulmonary Artery Pressure 32/13 Pulmonary Artery Pressure 37/16 Pulmonary Artery Pressure 35/18 Pulmonary Artery Pressure 33/12 Pulmonary Artery Pressure 30/13 Pulmonary Artery Pressure 30/12 Pulmonary Artery Pressure 23/9 Pulmonary Artery Pressure 27/14 Pulmonary Artery Pressure 25/12 Pulmonary Artery Pressure 38/9 Pulmonary Artery Pressure 49/10 Cardiac Output 7.9 Cardiac Output 7.9 Cardiac Output 7.9 Cardiac Output 7.9 Cardiac Output 5.6 Cardiac Output 6.7 Cardiac Output 7.7 Cardiac Output 5.8 Cardiac Output 5.2 Cardiac Output 5.2 Cardiac Output 6.0 Cardiac Index 2.9 Cardiac Index 2.9 Cardiac Index 2.9 Cardiac Index 2.9 Cardiac Index 2.1 Cardiac Index 2.5 Cardiac Index 2.8 Cardiac Index 2.1 Cardiac Index 1.9 Cardiac Index 1.9 Cardiac Index 2.2 Results CBC & Chem 7: 12/15/23 04:00 12/14/23 14:00 Labs: Abnormal Lab Results - Last 24 Hours (Table) 12/12/23 12/14/23 12/14/23 Range/Units 11:49 06:07 08:41 WBC (3.8-10.6) k/uL RBC (4.30-5.90) m/uL Hgb (13.0-17.5) gm/dL Hct (39.0-53.0) % Plt Count (150-450) k/uL Neutrophils # (1.3-7.7) k/uL Lymphocytes # (1.0-4.8) k/uL PT (10.0-12.5) sec INR (<1.2) ABG pH (7.35-7.45) ABG pCO2 (35-45) mmHg ABG pO2 347 H (83-108) mmHg ABG HCO3 26 H (21-25) mmol/L ABG Total CO2 (19-24) mmol/L ABG O2 Saturation 99.4 H (94-97) % ABG Hematocrit (34.0-46.0) % ABG Potassium (3.4-4.5) mmol/L ABG Ionized Calcium (4.5-5.3) mg/dL ABG Glucose 120 H (75-99) mg/dL ABG Lactic Acid (0.5-1.6) mmol/L Hemoglobin 12.4 L (13.0-17.5) gm/dL Chloride (98-107) mmol/L Glucose (74-99) mg/dL POC Glucose (mg/dL) 124 H (70-110) mg/dL Calcium (8.4-10.2) mg/dL Magnesium (1.6-2.3) mg/dL Total Protein (6.3-8.2) g/dL Albumin (3.5-5.0) g/dL Arterial Blood Potassium (3.4-4.5) mmol/L Arterial Blood Glucose 120 H (75-99) mg/dL Crossmatch See Detail 12/14/23 12/14/23 12/14/23 Range/Units 09:24 09:57 10:32 WBC (3.8-10.6) k/uL RBC (4.30-5.90) m/uL Hgb (13.0-17.5) gm/dL Hct (39.0-53.0) % Plt Count (150-450) k/uL Neutrophils # (1.3-7.7) k/uL Lymphocytes # (1.0-4.8) k/uL PT (10.0-12.5) sec INR (<1.2) ABG pH 7.23 L (7.35-7.45) ABG pCO2 59 H (35-45) mmHg ABG pO2 292 H 415 H 210 H (83-108) mmHg ABG HCO3 (21-25) mmol/L ABG Total CO2 (19-24) mmol/L ABG O2 Saturation 99.3 H >99.4 H 98.8 H (94-97) % ABG Hematocrit 32 L 33 L (34.0-46.0) % ABG Potassium (3.4-4.5) mmol/L ABG Ionized Calcium 3.9 L (4.5-5.3) mg/dL ABG Glucose 131 H 143 H 144 H (75-99) mg/dL ABG Lactic Acid 2.0 H 2.0 H (0.5-1.6) mmol/L Hemoglobin 12.3 L 10.5 L 10.7 L (13.0-17.5) gm/dL Chloride (98-107) mmol/L Glucose (74-99) mg/dL POC Glucose (mg/dL) (70-110) mg/dL Calcium (8.4-10.2) mg/dL Magnesium (1.6-2.3) mg/dL Total Protein (6.3-8.2) g/dL Albumin (3.5-5.0) g/dL Arterial Blood Potassium (3.4-4.5) mmol/L Arterial Blood Glucose 131 H 143 H 144 H (75-99) mg/dL Crossmatch 12/14/23 12/14/23 12/14/23 Range/Units 10:57 11:12 11:31 WBC (3.8-10.6) k/uL RBC (4.30-5.90) m/uL Hgb (13.0-17.5) gm/dL Hct (39.0-53.0) % Plt Count (150-450) k/uL Neutrophils # (1.3-7.7) k/uL Lymphocytes # (1.0-4.8) k/uL PT (10.0-12.5) sec INR (<1.2) ABG pH 7.19 L* 7.22 L 7.27 L (7.35-7.45) ABG pCO2 66 H 59 H 52 H (35-45) mmHg ABG pO2 372 H 360 H 368 H (83-108) mmHg ABG HCO3 (21-25) mmol/L ABG Total CO2 (19-24) mmol/L ABG O2 Saturation 99.2 H 99.2 H 99.4 H (94-97) % ABG Hematocrit 32 L 31 L 31 L (34.0-46.0) % ABG Potassium 4.8 H 4.8 H (3.4-4.5) mmol/L ABG Ionized Calcium 4.4 L (4.5-5.3) mg/dL ABG Glucose 166 H 157 H 142 H (75-99) mg/dL ABG Lactic Acid 1.9 H 2.0 H 2.0 H (0.5-1.6) mmol/L Hemoglobin 10.4 L 10.2 L 10.1 L (13.0-17.5) gm/dL Chloride (98-107) mmol/L Glucose (74-99) mg/dL POC Glucose (mg/dL) (70-110) mg/dL Calcium (8.4-10.2) mg/dL Magnesium (1.6-2.3) mg/dL Total Protein (6.3-8.2) g/dL Albumin (3.5-5.0) g/dL Arterial Blood Potassium 4.8 H 4.8 H (3.4-4.5) mmol/L Arterial Blood Glucose 166 H 157 H 142 H (75-99) mg/dL Crossmatch 12/14/23 12/14/23 12/14/23 Range/Units 11:41 12:07 12:48 WBC (3.8-10.6) k/uL RBC (4.30-5.90) m/uL Hgb (13.0-17.5) gm/dL Hct (39.0-53.0) % Plt Count (150-450) k/uL Neutrophils # (1.3-7.7) k/uL Lymphocytes # (1.0-4.8) k/uL PT (10.0-12.5) sec INR (<1.2) ABG pH 7.27 L (7.35-7.45) ABG pCO2 53 H (35-45) mmHg ABG pO2 290 H >420 H 269 H (83-108) mmHg ABG HCO3 (21-25) mmol/L ABG Total CO2 (19-24) mmol/L ABG O2 Saturation 99.2 H >99.4 H 99.0 H (94-97) % ABG Hematocrit 31 L 30 L 32 L (34.0-46.0) % ABG Potassium 4.6 H 4.9 H 4.7 H (3.4-4.5) mmol/L ABG Ionized Calcium 4.4 L 4.3 L (4.5-5.3) mg/dL ABG Glucose 137 H 128 H 122 H (75-99) mg/dL ABG Lactic Acid 2.0 H 2.8 H* 2.2 H* (0.5-1.6) mmol/L Hemoglobin 10.0 L 9.7 L 10.6 L (13.0-17.5) gm/dL Chloride (98-107) mmol/L Glucose (74-99) mg/dL POC Glucose (mg/dL) (70-110) mg/dL Calcium (8.4-10.2) mg/dL Magnesium (1.6-2.3) mg/dL Total Protein (6.3-8.2) g/dL Albumin (3.5-5.0) g/dL Arterial Blood Potassium 4.6 H 4.9 H 4.7 H (3.4-4.5) mmol/L Arterial Blood Glucose 137 H 128 H 122 H (75-99) mg/dL Crossmatch 12/14/23 12/14/23 12/14/23 Range/Units 14:00 14:00 14:00 WBC (3.8-10.6) k/uL RBC 4.11 L (4.30-5.90) m/uL Hgb 12.4 L (13.0-17.5) gm/dL Hct 37.1 L (39.0-53.0) % Plt Count 147 L (150-450) k/uL Neutrophils # (1.3-7.7) k/uL Lymphocytes # (1.0-4.8) k/uL PT 12.6 H (10.0-12.5) sec INR 1.2 H (<1.2) ABG pH (7.35-7.45) ABG pCO2 (35-45) mmHg ABG pO2 (83-108) mmHg ABG HCO3 (21-25) mmol/L ABG Total CO2 (19-24) mmol/L ABG O2 Saturation (94-97) % ABG Hematocrit (34.0-46.0) % ABG Potassium (3.4-4.5) mmol/L ABG Ionized Calcium (4.5-5.3) mg/dL ABG Glucose (75-99) mg/dL ABG Lactic Acid (0.5-1.6) mmol/L Hemoglobin (13.0-17.5) gm/dL Chloride 111 H (98-107) mmol/L Glucose 107 H (74-99) mg/dL POC Glucose (mg/dL) (70-110) mg/dL Calcium 7.7 L (8.4-10.2) mg/dL Magnesium 3.2 H (1.6-2.3) mg/dL Total Protein 4.8 L (6.3-8.2) g/dL Albumin 3.0 L (3.5-5.0) g/dL Arterial Blood Potassium (3.4-4.5) mmol/L Arterial Blood Glucose (75-99) mg/dL Crossmatch 12/14/23 12/14/23 12/14/23 Range/Units 14:03 14:13 15:01 WBC (3.8-10.6) k/uL RBC (4.30-5.90) m/uL Hgb (13.0-17.5) gm/dL Hct (39.0-53.0) % Plt Count (150-450) k/uL Neutrophils # (1.3-7.7) k/uL Lymphocytes # (1.0-4.8) k/uL PT (10.0-12.5) sec INR (<1.2) ABG pH 7.30 L (7.35-7.45) ABG pCO2 47 H (35-45) mmHg ABG pO2 311 H (83-108) mmHg ABG HCO3 (21-25) mmol/L ABG Total CO2 25 H (19-24) mmol/L ABG O2 Saturation 100.4 H (94-97) % ABG Hematocrit (34.0-46.0) % ABG Potassium (3.4-4.5) mmol/L ABG Ionized Calcium (4.5-5.3) mg/dL ABG Glucose (75-99) mg/dL ABG Lactic Acid (0.5-1.6) mmol/L Hemoglobin (13.0-17.5) gm/dL Chloride (98-107) mmol/L Glucose (74-99) mg/dL POC Glucose (mg/dL) 111 H 124 H (70-110) mg/dL Calcium (8.4-10.2) mg/dL Magnesium (1.6-2.3) mg/dL Total Protein (6.3-8.2) g/dL Albumin (3.5-5.0) g/dL Arterial Blood Potassium (3.4-4.5) mmol/L Arterial Blood Glucose (75-99) mg/dL Crossmatch 12/14/23 12/14/23 12/14/23 Range/Units 15:59 16:36 16:45 WBC 11.8 H (3.8-10.6) k/uL RBC (4.30-5.90) m/uL Hgb (13.0-17.5) gm/dL Hct (39.0-53.0) % Plt Count (150-450) k/uL Neutrophils # 9.9 H (1.3-7.7) k/uL Lymphocytes # 0.9 L (1.0-4.8) k/uL PT (10.0-12.5) sec INR (<1.2) ABG pH 7.22 L (7.35-7.45) ABG pCO2 56 H (35-45) mmHg ABG pO2 (83-108) mmHg ABG HCO3 (21-25) mmol/L ABG Total CO2 25 H (19-24) mmol/L ABG O2 Saturation (94-97) % ABG Hematocrit (34.0-46.0) % ABG Potassium (3.4-4.5) mmol/L ABG Ionized Calcium (4.5-5.3) mg/dL ABG Glucose (75-99) mg/dL ABG Lactic Acid (0.5-1.6) mmol/L Hemoglobin (13.0-17.5) gm/dL Chloride (98-107) mmol/L Glucose (74-99) mg/dL POC Glucose (mg/dL) 142 H (70-110) mg/dL Calcium (8.4-10.2) mg/dL Magnesium (1.6-2.3) mg/dL Total Protein (6.3-8.2) g/dL Albumin (3.5-5.0) g/dL Arterial Blood Potassium (3.4-4.5) mmol/L Arterial Blood Glucose (75-99) mg/dL Crossmatch 12/14/23 12/14/23 12/14/23 Range/Units 17:01 18:05 19:01 WBC (3.8-10.6) k/uL RBC (4.30-5.90) m/uL Hgb (13.0-17.5) gm/dL Hct (39.0-53.0) % Plt Count (150-450) k/uL Neutrophils # (1.3-7.7) k/uL Lymphocytes # (1.0-4.8) k/uL PT (10.0-12.5) sec INR (<1.2) ABG pH (7.35-7.45) ABG pCO2 (35-45) mmHg ABG pO2 (83-108) mmHg ABG HCO3 (21-25) mmol/L ABG Total CO2 (19-24) mmol/L ABG O2 Saturation (94-97) % ABG Hematocrit (34.0-46.0) % ABG Potassium (3.4-4.5) mmol/L ABG Ionized Calcium (4.5-5.3) mg/dL ABG Glucose (75-99) mg/dL ABG Lactic Acid (0.5-1.6) mmol/L Hemoglobin (13.0-17.5) gm/dL Chloride (98-107) mmol/L Glucose (74-99) mg/dL POC Glucose (mg/dL) 145 H 142 H 138 H (70-110) mg/dL Calcium (8.4-10.2) mg/dL Magnesium (1.6-2.3) mg/dL Total Protein (6.3-8.2) g/dL Albumin (3.5-5.0) g/dL Arterial Blood Potassium (3.4-4.5) mmol/L Arterial Blood Glucose (75-99) mg/dL Crossmatch 12/14/23 12/14/23 12/14/23 Range/Units 20:00 20:01 21:05 WBC (3.8-10.6) k/uL RBC (4.30-5.90) m/uL Hgb (13.0-17.5) gm/dL Hct (39.0-53.0) % Plt Count (150-450) k/uL Neutrophils # 7.8 H (1.3-7.7) k/uL Lymphocytes # 0.4 L (1.0-4.8) k/uL PT (10.0-12.5) sec INR (<1.2) ABG pH (7.35-7.45) ABG pCO2 (35-45) mmHg ABG pO2 (83-108) mmHg ABG HCO3 (21-25) mmol/L ABG Total CO2 (19-24) mmol/L ABG O2 Saturation (94-97) % ABG Hematocrit (34.0-46.0) % ABG Potassium (3.4-4.5) mmol/L ABG Ionized Calcium (4.5-5.3) mg/dL ABG Glucose (75-99) mg/dL ABG Lactic Acid (0.5-1.6) mmol/L Hemoglobin (13.0-17.5) gm/dL Chloride (98-107) mmol/L Glucose (74-99) mg/dL POC Glucose (mg/dL) 129 H 137 H (70-110) mg/dL Calcium (8.4-10.2) mg/dL Magnesium (1.6-2.3) mg/dL Total Protein (6.3-8.2) g/dL Albumin (3.5-5.0) g/dL Arterial Blood Potassium (3.4-4.5) mmol/L Arterial Blood Glucose (75-99) mg/dL Crossmatch 12/14/23 12/14/23 12/14/23 Range/Units 21:58 22:56 23:53 WBC (3.8-10.6) k/uL RBC (4.30-5.90) m/uL Hgb (13.0-17.5) gm/dL Hct (39.0-53.0) % Plt Count (150-450) k/uL Neutrophils # (1.3-7.7) k/uL Lymphocytes # (1.0-4.8) k/uL PT (10.0-12.5) sec INR (<1.2) ABG pH (7.35-7.45) ABG pCO2 (35-45) mmHg ABG pO2 (83-108) mmHg ABG HCO3 (21-25) mmol/L ABG Total CO2 (19-24) mmol/L ABG O2 Saturation (94-97) % ABG Hematocrit (34.0-46.0) % ABG Potassium (3.4-4.5) mmol/L ABG Ionized Calcium (4.5-5.3) mg/dL ABG Glucose (75-99) mg/dL ABG Lactic Acid (0.5-1.6) mmol/L Hemoglobin (13.0-17.5) gm/dL Chloride (98-107) mmol/L Glucose (74-99) mg/dL POC Glucose (mg/dL) 133 H 137 H 136 H (70-110) mg/dL Calcium (8.4-10.2) mg/dL Magnesium (1.6-2.3) mg/dL Total Protein (6.3-8.2) g/dL Albumin (3.5-5.0) g/dL Arterial Blood Potassium (3.4-4.5) mmol/L Arterial Blood Glucose (75-99) mg/dL Crossmatch 12/15/23 12/15/23 12/15/23 Range/Units 00:57 01:59 03:13 WBC (3.8-10.6) k/uL RBC (4.30-5.90) m/uL Hgb (13.0-17.5) gm/dL Hct (39.0-53.0) % Plt Count (150-450) k/uL Neutrophils # (1.3-7.7) k/uL Lymphocytes # (1.0-4.8) k/uL PT (10.0-12.5) sec INR (<1.2) ABG pH (7.35-7.45) ABG pCO2 (35-45) mmHg ABG pO2 (83-108) mmHg ABG HCO3 (21-25) mmol/L ABG Total CO2 (19-24) mmol/L ABG O2 Saturation (94-97) % ABG Hematocrit (34.0-46.0) % ABG Potassium (3.4-4.5) mmol/L ABG Ionized Calcium (4.5-5.3) mg/dL ABG Glucose (75-99) mg/dL ABG Lactic Acid (0.5-1.6) mmol/L Hemoglobin (13.0-17.5) gm/dL Chloride (98-107) mmol/L Glucose (74-99) mg/dL POC Glucose (mg/dL) 140 H 147 H 153 H (70-110) mg/dL Calcium (8.4-10.2) mg/dL Magnesium (1.6-2.3) mg/dL Total Protein (6.3-8.2) g/dL Albumin (3.5-5.0) g/dL Arterial Blood Potassium (3.4-4.5) mmol/L Arterial Blood Glucose (75-99) mg/dL Crossmatch 12/15/23 Range/Units 03:57 WBC (3.8-10.6) k/uL RBC (4.30-5.90) m/uL Hgb (13.0-17.5) gm/dL Hct (39.0-53.0) % Plt Count (150-450) k/uL Neutrophils # (1.3-7.7) k/uL Lymphocytes # (1.0-4.8) k/uL PT (10.0-12.5) sec INR (<1.2) ABG pH (7.35-7.45) ABG pCO2 (35-45) mmHg ABG pO2 (83-108) mmHg ABG HCO3 (21-25) mmol/L ABG Total CO2 (19-24) mmol/L ABG O2 Saturation (94-97) % ABG Hematocrit (34.0-46.0) % ABG Potassium (3.4-4.5) mmol/L ABG Ionized Calcium (4.5-5.3) mg/dL ABG Glucose (75-99) mg/dL ABG Lactic Acid (0.5-1.6) mmol/L Hemoglobin (13.0-17.5) gm/dL Chloride (98-107) mmol/L Glucose (74-99) mg/dL POC Glucose (mg/dL) 158 H (70-110) mg/dL Calcium (8.4-10.2) mg/dL Magnesium (1.6-2.3) mg/dL Total Protein (6.3-8.2) g/dL Albumin (3.5-5.0) g/dL Arterial Blood Potassium (3.4-4.5) mmol/L Arterial Blood Glucose (75-99) mg/dL Crossmatch
[2023-12-15 04:51] LABS: Ionized Calcium 4.5 mg/dL (4.5-5.3)
[2023-12-15 04:59] LABS: ALT 33 U/L (4-49); AST 63 U/L (17-59); African American GFR (CKD) >90 (>60 ml/min/1.73 sqM); Albumin 3.8 g/dL (3.5-5.0); Alkaline Phosphatase 52 U/L (38-126); Anion Gap 8 mmol/L; Blood Urea Nitrogen 19 mg/dL (9-20); Carbon Dioxide 19 mmol/L (22-30); Chloride 109 mmol/L (98-107); Glucose 146 mg/dL (74-99); Magnesium 2.4 mg/dL (1.6-2.3); Non-African American GFR(CKD) >90 (>60 ml/min/1.73 sqM); Potassium 4.3 mmol/L (3.5-5.1); Sodium 136 mmol/L (137-145); Total Bilirubin 0.6 mg/dL (0.2-1.3); Total Protein 5.5 g/dL (6.3-8.2)
[2023-12-15 05:04] LABS: Glucose,Whole Blood 141 mg/dL (70-110)
[2023-12-15 06:04] LABS: Glucose,Whole Blood 154 mg/dL (70-110)
[2023-12-15 06:53] LABS: Glucose,Whole Blood 169 mg/dL (70-110)
[2023-12-15 08:08] LABS: Glucose,Whole Blood 145 mg/dL (70-110)
[2023-12-15] MEDS: KETOROLAC 15 MG/ML 1 ML VIAL IVP SCH (08:16)
[2023-12-15] MEDS: ASPIRIN 325 MG TAB PO SCH (08:19)
[2023-12-15] MEDS: METOPROLOL TARTRATE 25 MG TAB PO SCH (08:19)
[2023-12-15] MEDS: PANTOPRAZOLE 40 MG/10 ML VIAL IVP SCH (08:19)
[2023-12-15] MEDS: ESCITALOPRAM 20 MG TAB PO SCH (08:19)
--- NOTE | 2023-12-15 08:38 | XR ---
EXAMINATION TYPE: XR chest 1V portable DATE OF EXAM: 12/15/2023 4:47 AM CLINICAL INDICATION:Male, 48 years old with history of Post Operative Cardiac Surgery; [facility] COMPARISON: Chest radiographs from 12/14/2023 TECHNIQUE: XR chest 1V portable Frontal view of the chest. FINDINGS: Lungs/Pleura: Low lung volumes are present. There is no evidence of pleural effusion, focal consolida tion, or pneumothorax. Pulmonary vascularity: Unremarkable. Heart/mediastinum: Cardiomediastinal silhouette is enlarged and stable. Atherosclerotic calcificatio ns are seen in the aorta. Musculoskeletal: No acute osseous pathology. Other findings: None Lines/Tubes: Bilateral thoracotomy tubes are present without evidence of pneumothorax. IMPRESSION: 1. Low lung volumes with possible atelectasis versus pulmonary edema. Attention follow-up imaging. 2. Thoracotomy tubes without evidence for pneumothorax.
[2023-12-15] MEDS ORDERED: bisacodyL 10 MG SUPP RECTAL PRN (09:00)
[2023-12-15] MEDS ORDERED: METOPROLOL TARTRATE 12.5 MG TAB PO SCH (09:00)
[2023-12-15 09:19] LABS: Glucose,Whole Blood 159 mg/dL (70-110)
--- NOTE | 2023-12-15 09:49 | P.CRDCN ---
History of Present Illness Consult date: 12/15/23 Consult reason: known to you History of present illness: patient is a 48-year-old male who follows in the office with Dr. Lentz. The patient has a history of bicuspid aortic valve and therefore underwent aortic valve replacement yesterday with Dr. Banks. Overall procedure was unremarkable. Patient was brought back to the ICU and successfully weaned of all drips. He was extubated and is now up sitting in the recliner chair. DIAGNOSTICS: Chest x-ray shows low lung volumes with possible atelectasis versus pulmonary edema. Thoracotomy tubes without evidence of pneumothorax lab data: WBC 8.8, hemoglobin 12.1, hematocrit 36.6, sodium 136, potassium 4.3, BUN 19, creatinine 0.72, magnesium 2.4, AST 63, ALT 33 telemetry: Sinus rhythm overnight. No arrhythmias REVIEW OF SYSTEMS: No fever or chills. No cough or expectoration. No diapho resis. Patient denies headache, dizziness, blurred vision, double vision. Patient denies any stomach discomfort. No nausea, vomiting. No hematochezia. No hematemesis. Denies any black stools or blood in his stools. Denies dysuria or hematuria. No muscle weakness or numbness. positive for sternal chest discomfort. No difficulty breathing. No dizziness or lightheadedness upon standing PHYSICAL EXAMINATION: This is a 48-year-old obese male in no apparent distress at the time of my examination. HEENT: Head is atraumatic, normocephalic. Pupils are equal, round. There is no jugular venous distention. No carotid bruit is heard. CHEST EXAMINATION: Lungs are clear to auscultation. No chest wall tenderness is noted on palpation or with deep breathing. HEART EXAMINATION: Heart regular rate and rhythm. S1, S2 heard. No murmurs, gallops or rub.heart hugger in place. ABDOMEN: Soft, nontender. Bowel sounds are heard. No organomegaly noted. EXTREMITIES: 2+ peripheral pulses with no evidence of peripheral edema and no calf tenderness noted. bilateral compression socks NEUROLOGIC EXAMINATION: Patient is awake, alert and oriented x3. FINAL ASSESSMENT AND PLAN: bicuspid aortic valve with severe aortic stenosis Status post On-X mechanical valve replacement Hypertension Hyperlipidemia Obstructive sleep apnea Obesity, BMI 44 PLAN: continue supportive treatment Aggressive pulmonary hygiene and early ambulation Further recommendations to be based on clinical course I am dictating on behalf of Dr Thaddeus Peraza's history/physical and assessment/plan. Past Medical History Past Medical History: Heart Failure, GERD/Reflux, Hyperlipidemia, Hypertension, Sleep Apnea/CPAP/BIPAP Additional Past Medical History / Comment(s): Bicuspid aortic stenosis; patient does not use home CPAP,covid infection x2(2020,2022) History of Any Multi-Drug Resistant Organisms: None Reported Past Surgical History: Heart Catheterization Past Anesthesia/Blood Transfusion Reactions: No Reported Reaction Additional Past Anesthesia/Blood Transfusion Reaction / Comment(s): no hx blood transfusion Smoking Status: Never smoker - Past Family History Father Family Medical History: Cancer, Myocardial Infarction ([place]) Additional Family Medical History / Comment(s): Father had myocardial infarction at 50 years old Medications and Allergies Home Medications Medication Instructions Recorded Confirmed Type Atorvastatin [Lipitor] 40 mg PO HS 04/06/22 12/14/23 History Escitalopram [Lexapro] 20 mg PO DAILY 04/06/22 12/14/23 History Ezetimibe [Zetia] 10 mg PO HS 12/04/23 12/14/23 History Pantoprazole [Protonix] 40 mg PO DAILY PRN 12/04/23 12/14/23 History Aspirin 81 mg PO DAILY #30 tab 12/07/23 12/14/23 Rx Dapagliflozin Propanediol [Farxiga] 10 mg PO DAILY #30 tab 12/07/23 12/14/23 Rx Furosemide [Lasix] 40 mg PO DAILY #30 tab 12/07/23 12/14/23 Rx Metoprolol Tartrate [Lopressor] 25 mg PO BID #60 tab 12/07/23 12/14/23 Rx Allergies Allergy/AdvReac Type Severity Reaction Status Date / Time No Known Allergies Allergy Verified 12/14/23 05:52 Physical Exam Vitals: Vital Signs Pulse Resp BP Pulse Ox FiO2 12/15/23 09:31 86 12/15/23 09:23 95 12/15/23 09:21 84 12/15/23 07:00 87 22 94 L 12/15/23 06:45 87 24 93 L 12/15/23 06:30 84 24 95 12/15/23 06:15 85 20 94 L 12/15/23 06:00 87 20 93 L 12/15/23 05:45 91 13 94 L 12/15/23 05:30 88 15 95 12/15/23 05:15 84 33 H 95 12/15/23 05:00 78 26 H 94 L 12/15/23 04:45 80 12 94 L 12/15/23 04:30 80 27 H 94 L 12/15/23 04:15 80 22 94 L 12/15/23 04:00 80 24 95 12/15/23 03:45 79 24 94 L 12/15/23 03:30 80 24 94 L 12/15/23 03:15 82 22 95 12/15/23 03:00 94 16 97 12/15/23 02:45 75 26 H 95 12/15/23 02:30 73 25 H 96 12/15/23 02:15 74 21 97 12/15/23 02:00 73 22 96 12/15/23 01:45 73 24 96 12/15/23 01:30 72 22 94 L 12/15/23 01:15 74 18 95 12/15/23 01:00 68 19 97 12/15/23 00:45 79 19 95 12/15/23 00:30 74 18 95 12/15/23 00:15 75 19 95 12/15/23 00:00 73 19 94 L 12/14/23 23:45 73 18 95 12/14/23 23:30 74 12 96 12/14/23 23:15 73 20 96 12/14/23 23:00 74 20 95 12/14/23 22:45 74 20 96 12/14/23 22:30 73 23 96 12/14/23 22:15 72 21 95 12/14/23 22:00 74 23 96 12/14/23 21:45 74 19 95 12/14/23 21:30 74 19 95 12/14/23 21:15 70 17 94 L 12/14/23 21:04 68 18 12/14/23 21:00 63 17 95 12/14/23 20:58 64 18 12/14/23 20:45 72 12 95 12/14/23 20:30 78 16 95 12/14/23 20:15 76 23 96 12/14/23 20:00 72 25 H 96 12/14/23 19:45 71 14 97 12/14/23 19:30 72 22 96 12/14/23 19:15 74 17 93 L 12/14/23 19:00 78 21 122/96 95 12/14/23 18:45 75 26 H 97 12/14/23 18:30 74 24 95 12/14/23 18:15 70 22 106/72 95 12/14/23 18:00 79 21 106/72 93 L 4 12/14/23 17:45 66 19 91 L 12/14/23 17:30 67 20 93 L 12/14/23 17:15 71 13 100/54 93 L 12/14/23 17:06 68 12/14/23 17:00 70 28 H 98 12/14/23 16:58 73 12/14/23 16:47 95 12/14/23 16:45 73 13 95 12/14/23 16:30 79 13 93 L 12/14/23 16:15 72 12 98 50 12/14/23 16:12 50 12/14/23 16:10 40 12/14/23 16:00 78 20 99 60 12/14/23 15:45 78 19 97 12/14/23 15:30 78 17 96 12/14/23 15:15 76 19 100 12/14/23 15:00 75 18 119/65 100 60 12/14/23 14:45 79 16 100 12/14/23 14:30 75 16 100 12/14/23 14:22 60 12/14/23 14:15 69 16 100 100 12/14/23 14:00 68 18 12/14/23 13:59 100 12/14/23 13:58 100 12/14/23 13:54 71 16 Intake and Output 12/14/23 12/15/23 12/15/23 22:59 06:59 14:59 Intake Total 1794.110 580.538 104.445 Output Total 1085 897 105 Balance 709.110 -316.462 -0.555 Intake: IV 1711 533 89 ACETAMINOPHEN IV (For NPO 100 ) 1,000 mg In Empty Bag 1 bag @ 400 mls/hr IVPB Q6HR JERRY Rx#:[id number] Albumin Human 5% 250 ml 750 In Empty Bag 1 bag @ 250 mls/hr IVPB Q1HR PRN Rx#: [id number] CO/CI 230 120 30 Pressure Bags 81 63 9 Sodium Chloride 0.9% 1, 450 350 50 000 ml @ 20 mls/hr IV . Q24H JERRY Rx#:[id number] ceFAZolin 3 gm In Sodium 100 Chloride 0.9% 100 ml @ 100 mls/hr IVPB Q8HR JERRY Rx#:[id number] Intake, IV Titration 83.110 47.538 15.445 Amount Clevidipine Butyrate 25 2.5 mg In Empty Bag 1 bag @ 1 MG/HR 2 mls/hr IV .Q24H JERRY Rx#:[id number] Dexmedetomidine/0.9% NaCl 20.177 (Pmx) 400 mcg In Empty Bag 1 bag @ Titrate IV . Q0M JERRY Rx#:[id number] Insulin Regular 100 unit 13.375 35.838 15.445 In Sodium Chloride 0.9% 100 ml @ Per Protocol IV .Q0M JERRY Rx#:[id number] Nitroglycerin-D5w Pmx 50 11.7 mg In Dextrose/Water 1 250ml.bag @ 5 MCG/MIN 1.5 mls/hr IV .Q24H JERRY Rx#: [id number] propofoL 1,000 mg In 47.058 Empty Bag 1 bag @ Titrate IV .Q0M JERRY Rx#: [id number] Output: Chest Tube Drainage 330 407 45 Chest Tube Left 68 71 10 Chest Tube Mediastinal 232 270 30 Chest Tube Right 30 66 5 Urine 755 490 60 Other: Voiding Method Indwelling Catheter Indwelling Catheter Weight 155.7 kg ABP, PAP, CO, CI - Last 8 Hours Arterial Blood Pressure 114/53 Arterial Blood Pressure 153/53 Arterial Blood Pressure 154/56 Arterial Blood Pressure 148/52 Arterial Blood Pressure 140/51 Arterial Blood Pressure 134/74 Arterial Blood Pressure 159/54 Arterial Blood Pressure 151/54 Arterial Blood Pressure 154/51 Arterial Blood Pressure 130/52 Arterial Blood Pressure 150/52 Arterial Blood Pressure 143/51 Arterial Blood Pressure 146/50 Arterial Blood Pressure 138/52 Arterial Blood Pressure 143/54 Arterial Blood Pressure 156/61 Arterial Blood Pressure 169/66 Arterial Blood Pressure 161/62 Arterial Blood Pressure 154/58 Arterial Blood Pressure 146/60 Arterial Blood Pressure 136/60 Pulmonary Artery Pressure 27/6 Pulmonary Artery Pressure 31/9 Pulmonary Artery Pressure 32/8 Pulmonary Artery Pressure 23/9 Pulmonary Artery Pressure 28/6 Pulmonary Artery Pressure 55/25 Pulmonary Artery Pressure 29/6 Pulmonary Artery Pressure 31/16 Pulmonary Artery Pressure 30/12 Pulmonary Artery Pressure 32/14 Pulmonary Artery Pressure 30/10 Pulmonary Artery Pressure 29/9 Pulmonary Artery Pressure 31/12 Pulmonary Artery Pressure 34/13 Pulmonary Artery Pressure 36/12 Pulmonary Artery Pressure 43/21 Pulmonary Artery Pressure 57/24 Pulmonary Artery Pressure 31/17 Pulmonary Artery Pressure 37/11 Pulmonary Artery Pressure 41/9 Pulmonary Artery Pressure 34/18 Cardiac Output 7.2 Cardiac Output 9 Cardiac Output 7.9 Cardiac Output 7.9 Cardiac Output 7.9 Cardiac Output 7.9 Cardiac Index 2.7 Cardiac Index 3.3 Cardiac Index 2.9 Cardiac Index 2.9 Cardiac Index 2.9 Cardiac Index 2.9 Results 12/15/23 04:00 12/15/23 04:00 Cardiac Enzymes 12/14/23 12/15/23 Range/Units 14:00 04:00 AST 46 63 H (17-59) U/L Coagulation 12/14/23 Range/Units 14:00 PT 12.6 H (10.0-12.5) sec APTT 26.0 (22.0-30.0) sec CBC 12/14/23 12/14/23 12/14/23 Range/Units 14:00 16:45 20:00 WBC 8.7 11.8 H 9.0 (3.8-10.6) k/uL RBC 4.11 L 4.52 4.31 (4.30-5.90) m/uL Hgb 12.4 L 13.8 13.0 (13.0-17.5) gm/dL Hct 37.1 L 41.1 39.1 (39.0-53.0) % Plt Count 147 L 208 173 (150-450) k/uL 12/15/23 Range/Units 04:00 WBC 8.8 (3.8-10.6) k/uL RBC 4.05 L (4.30-5.90) m/uL Hgb 12.1 L (13.0-17.5) gm/dL Hct 36.6 L (39.0-53.0) % Plt Count 177 (150-450) k/uL Comprehensive Metabolic Panel 12/14/23 12/15/23 Range/Units 14:00 04:00 Sodium 137 136 L (137-145) mmol/L Potassium 5.0 4.3 (3.5-5.1) mmol/L Chloride 111 H 109 H (98-107) mmol/L Carbon Dioxide 22 19 L (22-30) mmol/L BUN 16 19 (9-20) mg/dL Creatinine 0.76 0.72 (0.66-1.25) mg/dL Glucose 107 H 146 H (74-99) mg/dL Calcium 7.7 L 8.0 L (8.4-10.2) mg/dL AST 46 63 H (17-59) U/L ALT 35 33 (4-49) U/L Alkaline Phosphatase 57 52 (38-126) U/L Total Protein 4.8 L 5.5 L (6.3-8.2) g/dL Albumin 3.0 L 3.8 (3.5-5.0) g/dL Current Medications Generic Name Dose Route Start Last Admin Trade Name Freq PRN Reason Stop Dose Admin Acetaminophen 1,000 mg 12/15/23 07:09 Acetaminophen Tab 500 Mg Tab PO Q6HR PRN Fever and/ or Pain Albuterol/Ipratropium 3 ml 12/14/23 13:36 Ipratropium-Albuterol 3 Ml Neb INHALATION RT-Q2H PRN Shortness Of Breath Or Wheezing Albuterol/Ipratropium 3 ml 12/14/23 20:00 12/15/23 09:20 Ipratropium-Albuterol 3 Ml Neb INHALATION 3 ml RT-QID JERRY Administration Aspirin 325 mg 12/15/23 09:00 12/15/23 08:19 Aspirin 325 Mg Tab PO 325 mg DAILY JERRY Administration Atorvastatin Calcium 40 mg 12/15/23 21:00 Atorvastatin 40 Mg Tab PO HS JERRY Benzocaine/Menthol 1 each 12/14/23 13:36 Benzocaine/Menthol Lozeng 1 Each Lozenge MUCOUS MEM Q2H PRN Sore Throat Bisacodyl 10 mg 12/15/23 09:00 Bisacodyl 10 Mg Supp RECTAL DAILY PRN Constipation Dextrose/Water 25 ml 12/14/23 13:36 Dextrose 50% Syringe 50 Ml IVP PER PROTOCOL PRN Hypoglycemia Protocol Dextrose/Water 50 ml 12/14/23 13:36 Dextrose 50% Syringe 50 Ml IVP PER PROTOCOL PRN Hypoglycemia Protocol Ezetimibe 10 mg 12/15/23 21:00 Ezetimibe 10 Mg Tab PO HS [facility] Escitalopram Oxalate 20 mg 12/15/23 09:00 12/15/23 08:19 Escitalopram 20 Mg Tab PO 20 mg DAILY JERRY Administration Fentanyl Citrate 25 mcg 12/14/23 18:20 12/15/23 06:21 Fentanyl (Pf) 50 Mcg/Ml 2 Ml Amp IVP 25 mcg Q4HR PRN Administration Severe Breakthrough Pain Heparin Sodium (Porcine) 5,000 unit 12/14/23 16:00 12/15/23 08:19 Heparin Sodium,Porcine 5,000 Unit/Ml 1 Ml Vial SQ 5,000 unit Q8HR JERRY Administration Hydralazine HCl 10 mg 12/14/23 13:36 12/15/23 02:52 Hydralazine Hcl 20 Mg/Ml 1 Ml Vial IVP 10 mg Q1H PRN Administration Blood Pressure - High Clevidipine 25 mg/ IV Solution 50 mls @ 2 mls/hr 12/14/23 13:36 12/14/23 15:45 IV 0 mg/hr .Q24H JERRY 0 mls/hr Titration Protocol 1 MG/HR Amiodarone HCl 150 mg/ 103 mls @ 618 mls/hr 12/14/23 13:36 Dextrose/Water IV .Q10M PRN A.FIB/FLUTTER Protocol Amiodarone HCl 360 mg/ 207.2 mls @ 34.533 mls/hr 12/14/23 13:36 Dextrose/Water IV .Q6H PRN A.FIB/FLUTTER Protocol 1 MG/MIN Amiodarone HCl 450 mg/ 250 mls @ 16.667 mls/hr 12/14/23 13:36 Dextrose/Water IV .Q15H PRN A.FIB/FLUTTER Protocol 0.5 MG/MIN Albumin Human 250 ml/ IV 250 mls @ 250 mls/hr 12/14/23 13:36 12/14/23 21:59 Solution IVPB 12/16/23 13:35 250 mls/hr Q1HR PRN Administration For Volume Protocol Calcium Gluconate/Sodium 100 mls @ 100 mls/hr 12/14/23 13:36 Chloride 2 gm/ IV Solution IVPB 12/21/23 13:35 ONCE PRN Ionized Calcium less than 4.4 Insulin Human Regular 100 unit 101 mls @ 0 mls/hr 12/14/23 13:36 12/15/23 09:19 / Sodium Chloride IV 6 units/hr .Q0M JERRY 6.06 mls/hr Titration Protocol Per Protocol Sodium Chloride 1,000 mls @ 20 mls/hr 12/14/23 13:36 12/14/23 15:12 Saline 0.9% IV 50 mls/hr .Q24H JERRY Administration Ketorolac Tromethamine 15 mg 12/15/23 07:15 12/15/23 08:16 Ketorolac 15 Mg/Ml 1 Ml Vial IVP 12/20/23 07:08 15 mg Q6HR JERRY Administration Magnesium Hydroxide 2,400 mg 12/15/23 09:00 Magnesium Hydroxide 2,400 Mg/30 Ml Cup PO BID PRN Constipation Metoclopramide HCl 10 mg 12/14/23 13:36 Metoclopramide 5 Mg/Ml 2 Ml Vial IVP Q4H PRN Nausea And Vomiting Metoprolol Tartrate 25 mg 12/15/23 09:00 12/15/23 08:19 Metoprolol Tartrate 25 Mg Tab PO 25 mg BID JERRY Administration Miscellaneous Information 1 each 12/14/23 13:36 Potassium Replacement Protocol 1 Each Misc MISCELLANE DAILY PRN Per Protocol Protocol Miscellaneous Information 1 each 12/14/23 13:36 Magnesium Replacement Protocol 1 Each Misc MISCELLANE DAILY PRN Per Protocol Protocol Ondansetron HCl 4 mg 12/14/23 13:36 Ondansetron 4 Mg/2 Ml Vial IVP Q6HR PRN Nausea And Vomiting Oxycodone HCl 5 mg 12/14/23 13:36 Oxycodone Hcl 5 Mg Tab PO Q4HR PRN Moderate Pain (Scale 4 to 6) Oxycodone HCl 10 mg 12/14/23 13:36 12/15/23 05:00 Oxycodone Hcl 5 Mg Tab PO 10 mg Q4HR PRN Administration Severe Pain (Scale 7 to 10) Pantoprazole Sodium 40 mg 12/15/23 09:00 12/15/23 08:19 Pantoprazole 40 Mg/10 Ml Vial IVP 12/15/23 10:00 40 mg DAILY JERRY Administration Pantoprazole Sodium 40 mg 12/16/23 07:30 Pantoprazole 40 Mg Tablet PO [id number] JERRY Senna/Docusate Sodium 2 each 12/14/23 21:00 12/14/23 20:58 Sennosides-Docusate Sodium 1 Each Tab PO 2 each HS JERRY Administration Sodium Chloride 10 ml 12/14/23 21:00 12/14/23 20:59 Sodium Chloride 0.9% Flush 10 Ml Syringe IV 10 ml BID JERRY Administration Intake and Output 12/14/23 12/15/23 12/15/23 22:59 06:59 14:59 Intake Total 1794.110 580.538 104.445 Output Total 1085 897 105 Balance 709.110 -316.462 -0.555 Intake: IV 1711 533 89 ACETAMINOPHEN IV (For NPO 100 ) 1,000 mg In Empty Bag 1 bag @ 400 mls/hr IVPB Q6HR JERRY Rx#:[id number] Albumin Human 5% 250 ml 750 In Empty Bag 1 bag @ 250 mls/hr IVPB Q1HR PRN Rx#: [id number] CO/CI 230 120 30 Pressure Bags 81 63 9 Sodium Chloride 0.9% 1, 450 350 50 000 ml @ 20 mls/hr IV . Q24H JERRY Rx#:[id number] ceFAZolin 3 gm In Sodium 100 Chloride 0.9% 100 ml @ 100 mls/hr IVPB Q8HR JERRY Rx#:[id number] Intake, IV Titration 83.110 47.538 15.445 Amount Clevidipine Butyrate 25 2.5 mg In Empty Bag 1 bag @ 1 MG/HR 2 mls/hr IV .Q24H JERRY Rx#:[id number] Dexmedetomidine/0.9% NaCl 20.177 (Pmx) 400 mcg In Empty Bag 1 bag @ Titrate IV . Q0M JERRY Rx#:[id number] Insulin Regular 100 unit 13.375 35.838 15.445 In Sodium Chloride 0.9% 100 ml @ Per Protocol IV .Q0M JERRY Rx#:[id number] Nitroglycerin-D5w Pmx 50 11.7 mg In Dextrose/Water 1 250ml.bag @ 5 MCG/MIN 1.5 mls/hr IV .Q24H JERRY Rx#: [id number] propofoL 1,000 mg In 47.058 Empty Bag 1 bag @ Titrate IV .Q0M JERRY Rx#: [id number] Output: Chest Tube Drainage 330 407 45 Chest Tube Left 68 71 10 Chest Tube Mediastinal 232 270 30 Chest Tube Right 30 66 5 Urine 755 490 60 Other: Voiding Method Indwelling Catheter Indwelling Catheter Weight 155.7 kg 12/15/23 04:00 12/15/23 04:00
--- NOTE | 2023-12-15 10:20 | P.PN ---
Subjective Progress Note Date: 12/15/23 Principal diagnosis: Severe symptomatic bicuspid aortic stenosis. History of hypertension, hyperlipidemia, morbid obesity, obstructive sleep apnea without home CPAP use, moderate restrictive lung disease, lifelong non-smoker, family history of premature coronary artery disease with father having myocardial infarction at 50 years old POD #1 Aortic valve replacement with 25 mm On-X mechanical valve, root enlargement with Hemashield patch ([place]), ligate left atrial appendage with 35mm AtriCure clip The patient was seen and examined sitting up in a recliner in the intensive care unit in no acute distress.He was successfully extubated yesterday 16:47. Remains in sinus rhythm, hemodynamically stable on no inotropes or pressors. Currently on 4 L nasal cannula with oxygen saturation in the mid 90s. Able to achieve 1000 mL on his incentive spirometry. Does complain of expected post surgical pain which is controlled on current medication regimen. Right internal jugular Cas[place]/Cordis, right radial arterial line, mediastinal/right/left pleural chest tubes all remaining. No other new concerns. Objective - Vital Signs Vital signs: Vital Signs Temp 98.1 F 12/14/23 05:56 Pulse 86 12/15/23 09:31 Resp 22 12/15/23 07:00 BP 122/96 12/14/23 19:00 Pulse Ox 95 12/15/23 09:23 FiO2 4 12/14/23 18:00 Intake & Output 12/14/23 12/15/23 12/15/23 18:59 06:59 18:59 Intake Total 277.199 3163.721 409.445 Output Total 3756 1409 340 Balance -2785.073 75.721 69.445 Weight 155.7 kg Intake: IV 897 1428 274 ACETAMINOPHEN IV (For NPO 100 ) 1,000 mg In Empty Bag 1 bag @ 400 mls/hr IVPB Q6HR JERRY Rx#:[id number] Albumin Human 5% 250 ml 250 500 In Empty Bag 1 bag @ 250 mls/hr IVPB Q1HR PRN Rx#: [id number] CO/CI 150 220 30 Pressure Bags 45 108 24 Sodium Chloride 0.9% 1, 250 600 120 000 ml @ 20 mls/hr IV . Q24H JERRY Rx#:[id number] ceFAZolin 3 gm In Sodium 100 100 Chloride 0.9% 100 ml @ 100 mls/hr IVPB Q8HR JERRY Rx#:[id number] Intake, IV Titration 73.927 56.721 15.445 Amount Clevidipine Butyrate 25 2.5 mg In Empty Bag 1 bag @ 1 MG/HR 2 mls/hr IV .Q24H JERRY Rx#:[id number] Dexmedetomidine/0.9% NaCl 20.177 (Pmx) 400 mcg In Empty Bag 1 bag @ Titrate IV . Q0M JERRY Rx#:[id number] Insulin Regular 100 unit 4.192 45.021 15.445 In Sodium Chloride 0.9% 100 ml @ Per Protocol IV .Q0M JERRY Rx#:[id number] Nitroglycerin-D5w Pmx 50 11.7 mg In Dextrose/Water 1 250ml.bag @ 5 MCG/MIN 1.5 mls/hr IV .Q24H JERRY Rx#: [id number] propofoL 1,000 mg In 47.058 Empty Bag 1 bag @ Titrate IV .Q0M JERRY Rx#: [id number] Oral 120 Output: Chest Tube Drainage 261 534 105 Chest Tube Left 43 96 30 Chest Tube Mediastinal 192 368 70 Chest Tube Right 26 70 5 Urine 995 875 235 Estimated Blood Loss 2500 Other: Voiding Method Indwelling Catheter Indwelling Catheter ABP, PAP, CO, CI - Last Documented Arterial Blood Pressure 114/53 Pulmonary Artery Pressure 27/6 Cardiac Output 7.2 Cardiac Index 2.7 - Exam CONSTITUTIONAL: Appears comfortable, cooperative, no acute distress RESPIRATORY: Lungs sounds diminished bilaterally. Respirations even, nonlabored. Currently on 4 L nasal cannula with oxygen saturation 96%. Able to achieve 1000 mL on incentive spirometry. Strong cough. CARDIOVASCULAR: S1, S2 present. Regular rate and rhythm, sinus rhythm on telemetry. Sternum stable. Palpable peripheral pulses bilaterally. Trace generalized edema present. No calf pain or tenderness noted. Heart hugger in place with patient demonstrating appropriate use. Antiembolism stockings, SCDs present. GASTROINTESTINAL: Abdomen soft, nontender, nondistended, obese. Hypoactive bowel sounds present 4 quadrants. Tolerating clear liquids. Denies flatus GENITOURINARY: Goncalves present draining clear, yellow urine. Output overnight 50-85 mL per hour INTEGUMENTARY: Skin is warm and dry with evidence of good perfusion. Anterior chest incision well approximated and covered with dry intact dressing NEUROLOGIC: Cranial nerves II through XII intact MUSKULOSKELETAL: Able to move all extremities, strength equal bilaterally, gait normal PSYCHIATRIC: Alert and oriented to person place and time, appropriate affect, intact judgment and insight INVASIVE LINES AND TUBES: Mediastinal/left/right pleural chest tubes present and connected to wall suction, no air leaks present. Mediastinal tube with 290 mL serosanguineous drainage overnight, 600 mL since surgery. Left pleural chest tube with 80 mL serosanguineous drainage overnight, 150 mL since surgery. Right pleural chest tube with 66 mL serosanguineous drainage overnight, 100 mL since surgery. A/V epicardial pacemaker wires present, connected to generator, backup rate 50 bpm. Right internal jugular Cas[place]/Cordis, right radial arterial line present. Last CO/CI 7.2/2.7, PA 25/6, CVP 7. - Allied health notes Allied health notes reviewed: nursing - Labs CBC & Chem 7: 12/15/23 04:00 12/15/23 04:00 Labs: Abnormal Lab Results - Last 24 Hours (Table) 12/12/23 12/14/23 12/14/23 Range/Units 11:49 08:41 09:24 WBC (3.8-10.6) k/uL RBC (4.30-5.90) m/uL Hgb (13.0-17.5) gm/dL Hct (39.0-53.0) % Plt Count (150-450) k/uL Neutrophils # (1.3-7.7) k/uL Lymphocytes # (1.0-4.8) k/uL PT (10.0-12.5) sec INR (<1.2) ABG pH (7.35-7.45) ABG pCO2 (35-45) mmHg ABG pO2 347 H 292 H (83-108) mmHg ABG HCO3 26 H (21-25) mmol/L ABG Total CO2 (19-24) mmol/L ABG O2 Saturation 99.4 H 99.3 H (94-97) % ABG Hematocrit (34.0-46.0) % ABG Potassium (3.4-4.5) mmol/L ABG Ionized Calcium (4.5-5.3) mg/dL ABG Glucose 120 H 131 H (75-99) mg/dL ABG Lactic Acid (0.5-1.6) mmol/L Hemoglobin 12.4 L 12.3 L (13.0-17.5) gm/dL Sodium (137-145) mmol/L Chloride (98-107) mmol/L Carbon Dioxide (22-30) mmol/L Glucose (74-99) mg/dL POC Glucose (mg/dL) (70-110) mg/dL Calcium (8.4-10.2) mg/dL Magnesium (1.6-2.3) mg/dL AST (17-59) U/L Total Protein (6.3-8.2) g/dL Albumin (3.5-5.0) g/dL Arterial Blood Potassium (3.4-4.5) mmol/L Arterial Blood Glucose 120 H 131 H (75-99) mg/dL Crossmatch See Detail 12/14/23 12/14/23 12/14/23 Range/Units 09:57 10:32 10:57 WBC (3.8-10.6) k/uL RBC (4.30-5.90) m/uL Hgb (13.0-17.5) gm/dL Hct (39.0-53.0) % Plt Count (150-450) k/uL Neutrophils # (1.3-7.7) k/uL Lymphocytes # (1.0-4.8) k/uL PT (10.0-12.5) sec INR (<1.2) ABG pH 7.23 L 7.19 L* (7.35-7.45) ABG pCO2 59 H 66 H (35-45) mmHg ABG pO2 415 H 210 H 372 H (83-108) mmHg ABG HCO3 (21-25) mmol/L ABG Total CO2 (19-24) mmol/L ABG O2 Saturation >99.4 H 98.8 H 99.2 H (94-97) % ABG Hematocrit 32 L 33 L 32 L (34.0-46.0) % ABG Potassium 4.8 H (3.4-4.5) mmol/L ABG Ionized Calcium 3.9 L (4.5-5.3) mg/dL ABG Glucose 143 H 144 H 166 H (75-99) mg/dL ABG Lactic Acid 2.0 H 2.0 H 1.9 H (0.5-1.6) mmol/L Hemoglobin 10.5 L 10.7 L 10.4 L (13.0-17.5) gm/dL Sodium (137-145) mmol/L Chloride (98-107) mmol/L Carbon Dioxide (22-30) mmol/L Glucose (74-99) mg/dL POC Glucose (mg/dL) (70-110) mg/dL Calcium (8.4-10.2) mg/dL Magnesium (1.6-2.3) mg/dL AST (17-59) U/L Total Protein (6.3-8.2) g/dL Albumin (3.5-5.0) g/dL Arterial Blood Potassium 4.8 H (3.4-4.5) mmol/L Arterial Blood Glucose 143 H 144 H 166 H (75-99) mg/dL Crossmatch 12/14/23 12/14/23 12/14/23 Range/Units 11:12 11:31 11:41 WBC (3.8-10.6) k/uL RBC (4.30-5.90) m/uL Hgb (13.0-17.5) gm/dL Hct (39.0-53.0) % Plt Count (150-450) k/uL Neutrophils # (1.3-7.7) k/uL Lymphocytes # (1.0-4.8) k/uL PT (10.0-12.5) sec INR (<1.2) ABG pH 7.22 L 7.27 L 7.27 L (7.35-7.45) ABG pCO2 59 H 52 H 53 H (35-45) mmHg ABG pO2 360 H 368 H 290 H (83-108) mmHg ABG HCO3 (21-25) mmol/L ABG Total CO2 (19-24) mmol/L ABG O2 Saturation 99.2 H 99.4 H 99.2 H (94-97) % ABG Hematocrit 31 L 31 L 31 L (34.0-46.0) % ABG Potassium 4.8 H 4.6 H (3.4-4.5) mmol/L ABG Ionized Calcium 4.4 L 4.4 L (4.5-5.3) mg/dL ABG Glucose 157 H 142 H 137 H (75-99) mg/dL ABG Lactic Acid 2.0 H 2.0 H 2.0 H (0.5-1.6) mmol/L Hemoglobin 10.2 L 10.1 L 10.0 L (13.0-17.5) gm/dL Sodium (137-145) mmol/L Chloride (98-107) mmol/L Carbon Dioxide (22-30) mmol/L Glucose (74-99) mg/dL POC Glucose (mg/dL) (70-110) mg/dL Calcium (8.4-10.2) mg/dL Magnesium (1.6-2.3) mg/dL AST (17-59) U/L Total Protein (6.3-8.2) g/dL Albumin (3.5-5.0) g/dL Arterial Blood Potassium 4.8 H 4.6 H (3.4-4.5) mmol/L Arterial Blood Glucose 157 H 142 H 137 H (75-99) mg/dL Crossmatch 12/14/23 12/14/23 12/14/23 Range/Units 12:07 12:48 14:00 WBC (3.8-10.6) k/uL RBC 4.11 L (4.30-5.90) m/uL Hgb 12.4 L (13.0-17.5) gm/dL Hct 37.1 L (39.0-53.0) % Plt Count 147 L (150-450) k/uL Neutrophils # (1.3-7.7) k/uL Lymphocytes # (1.0-4.8) k/uL PT (10.0-12.5) sec INR (<1.2) ABG pH (7.35-7.45) ABG pCO2 (35-45) mmHg ABG pO2 >420 H 269 H (83-108) mmHg ABG HCO3 (21-25) mmol/L ABG Total CO2 (19-24) mmol/L ABG O2 Saturation >99.4 H 99.0 H (94-97) % ABG Hematocrit 30 L 32 L (34.0-46.0) % ABG Potassium 4.9 H 4.7 H (3.4-4.5) mmol/L ABG Ionized Calcium 4.3 L (4.5-5.3) mg/dL ABG Glucose 128 H 122 H (75-99) mg/dL ABG Lactic Acid 2.8 H* 2.2 H* (0.5-1.6) mmol/L Hemoglobin 9.7 L 10.6 L (13.0-17.5) gm/dL Sodium (137-145) mmol/L Chloride (98-107) mmol/L Carbon Dioxide (22-30) mmol/L Glucose (74-99) mg/dL POC Glucose (mg/dL) (70-110) mg/dL Calcium (8.4-10.2) mg/dL Magnesium (1.6-2.3) mg/dL AST (17-59) U/L Total Protein (6.3-8.2) g/dL Albumin (3.5-5.0) g/dL Arterial Blood Potassium 4.9 H 4.7 H (3.4-4.5) mmol/L Arterial Blood Glucose 128 H 122 H (75-99) mg/dL Crossmatch 12/14/23 12/14/23 12/14/23 Range/Units 14:00 14:00 14:03 WBC (3.8-10.6) k/uL RBC (4.30-5.90) m/uL Hgb (13.0-17.5) gm/dL Hct (39.0-53.0) % Plt Count (150-450) k/uL Neutrophils # (1.3-7.7) k/uL Lymphocytes # (1.0-4.8) k/uL PT 12.6 H (10.0-12.5) sec INR 1.2 H (<1.2) ABG pH (7.35-7.45) ABG pCO2 (35-45) mmHg ABG pO2 (83-108) mmHg ABG HCO3 (21-25) mmol/L ABG Total CO2 (19-24) mmol/L ABG O2 Saturation (94-97) % ABG Hematocrit (34.0-46.0) % ABG Potassium (3.4-4.5) mmol/L ABG Ionized Calcium (4.5-5.3) mg/dL ABG Glucose (75-99) mg/dL ABG Lactic Acid (0.5-1.6) mmol/L Hemoglobin (13.0-17.5) gm/dL Sodium (137-145) mmol/L Chloride 111 H (98-107) mmol/L Carbon Dioxide (22-30) mmol/L Glucose 107 H (74-99) mg/dL POC Glucose (mg/dL) 111 H (70-110) mg/dL Calcium 7.7 L (8.4-10.2) mg/dL Magnesium 3.2 H (1.6-2.3) mg/dL AST (17-59) U/L Total Protein 4.8 L (6.3-8.2) g/dL Albumin 3.0 L (3.5-5.0) g/dL Arterial Blood Potassium (3.4-4.5) mmol/L Arterial Blood Glucose (75-99) mg/dL Crossmatch 12/14/23 12/14/23 12/14/23 Range/Units 14:13 15:01 15:59 WBC (3.8-10.6) k/uL RBC (4.30-5.90) m/uL Hgb (13.0-17.5) gm/dL Hct (39.0-53.0) % Plt Count (150-450) k/uL Neutrophils # (1.3-7.7) k/uL Lymphocytes # (1.0-4.8) k/uL PT (10.0-12.5) sec INR (<1.2) ABG pH 7.30 L (7.35-7.45) ABG pCO2 47 H (35-45) mmHg ABG pO2 311 H (83-108) mmHg ABG HCO3 (21-25) mmol/L ABG Total CO2 25 H (19-24) mmol/L ABG O2 Saturation 100.4 H (94-97) % ABG Hematocrit (34.0-46.0) % ABG Potassium (3.4-4.5) mmol/L ABG Ionized Calcium (4.5-5.3) mg/dL ABG Glucose (75-99) mg/dL ABG Lactic Acid (0.5-1.6) mmol/L Hemoglobin (13.0-17.5) gm/dL Sodium (137-145) mmol/L Chloride (98-107) mmol/L Carbon Dioxide (22-30) mmol/L Glucose (74-99) mg/dL POC Glucose (mg/dL) 124 H 142 H (70-110) mg/dL Calcium (8.4-10.2) mg/dL Magnesium (1.6-2.3) mg/dL AST (17-59) U/L Total Protein (6.3-8.2) g/dL Albumin (3.5-5.0) g/dL Arterial Blood Potassium (3.4-4.5) mmol/L Arterial Blood Glucose (75-99) mg/dL Crossmatch 12/14/23 12/14/23 12/14/23 Range/Units 16:36 16:45 17:01 WBC 11.8 H (3.8-10.6) k/uL RBC (4.30-5.90) m/uL Hgb (13.0-17.5) gm/dL Hct (39.0-53.0) % Plt Count (150-450) k/uL Neutrophils # 9.9 H (1.3-7.7) k/uL Lymphocytes # 0.9 L (1.0-4.8) k/uL PT (10.0-12.5) sec INR (<1.2) ABG pH 7.22 L (7.35-7.45) ABG pCO2 56 H (35-45) mmHg ABG pO2 (83-108) mmHg ABG HCO3 (21-25) mmol/L ABG Total CO2 25 H (19-24) mmol/L ABG O2 Saturation (94-97) % ABG Hematocrit (34.0-46.0) % ABG Potassium (3.4-4.5) mmol/L ABG Ionized Calcium (4.5-5.3) mg/dL ABG Glucose (75-99) mg/dL ABG Lactic Acid (0.5-1.6) mmol/L Hemoglobin (13.0-17.5) gm/dL Sodium (137-145) mmol/L Chloride (98-107) mmol/L Carbon Dioxide (22-30) mmol/L Glucose (74-99) mg/dL POC Glucose (mg/dL) 145 H (70-110) mg/dL Calcium (8.4-10.2) mg/dL Magnesium (1.6-2.3) mg/dL AST (17-59) U/L Total Protein (6.3-8.2) g/dL Albumin (3.5-5.0) g/dL Arterial Blood Potassium (3.4-4.5) mmol/L Arterial Blood Glucose (75-99) mg/dL Crossmatch 12/14/23 12/14/23 12/14/23 Range/Units 18:05 19:01 20:00 WBC (3.8-10.6) k/uL RBC (4.30-5.90) m/uL Hgb (13.0-17.5) gm/dL Hct (39.0-53.0) % Plt Count (150-450) k/uL Neutrophils # 7.8 H (1.3-7.7) k/uL Lymphocytes # 0.4 L (1.0-4.8) k/uL PT (10.0-12.5) sec INR (<1.2) ABG pH (7.35-7.45) ABG pCO2 (35-45) mmHg ABG pO2 (83-108) mmHg ABG HCO3 (21-25) mmol/L ABG Total CO2 (19-24) mmol/L ABG O2 Saturation (94-97) % ABG Hematocrit (34.0-46.0) % ABG Potassium (3.4-4.5) mmol/L ABG Ionized Calcium (4.5-5.3) mg/dL ABG Glucose (75-99) mg/dL ABG Lactic Acid (0.5-1.6) mmol/L Hemoglobin (13.0-17.5) gm/dL Sodium (137-145) mmol/L Chloride (98-107) mmol/L Carbon Dioxide (22-30) mmol/L Glucose (74-99) mg/dL POC Glucose (mg/dL) 142 H 138 H (70-110) mg/dL Calcium (8.4-10.2) mg/dL Magnesium (1.6-2.3) mg/dL AST (17-59) U/L Total Protein (6.3-8.2) g/dL Albumin (3.5-5.0) g/dL Arterial Blood Potassium (3.4-4.5) mmol/L Arterial Blood Glucose (75-99) mg/dL Crossmatch 12/14/23 12/14/23 12/14/23 Range/Units 20:01 21:05 21:58 WBC (3.8-10.6) k/uL RBC (4.30-5.90) m/uL Hgb (13.0-17.5) gm/dL Hct (39.0-53.0) % Plt Count (150-450) k/uL Neutrophils # (1.3-7.7) k/uL Lymphocytes # (1.0-4.8) k/uL PT (10.0-12.5) sec INR (<1.2) ABG pH (7.35-7.45) ABG pCO2 (35-45) mmHg ABG pO2 (83-108) mmHg ABG HCO3 (21-25) mmol/L ABG Total CO2 (19-24) mmol/L ABG O2 Saturation (94-97) % ABG Hematocrit (34.0-46.0) % ABG Potassium (3.4-4.5) mmol/L ABG Ionized Calcium (4.5-5.3) mg/dL ABG Glucose (75-99) mg/dL ABG Lactic Acid (0.5-1.6) mmol/L Hemoglobin (13.0-17.5) gm/dL Sodium (137-145) mmol/L Chloride (98-107) mmol/L Carbon Dioxide (22-30) mmol/L Glucose (74-99) mg/dL POC Glucose (mg/dL) 129 H 137 H 133 H (70-110) mg/dL Calcium (8.4-10.2) mg/dL Magnesium (1.6-2.3) mg/dL AST (17-59) U/L Total Protein (6.3-8.2) g/dL Albumin (3.5-5.0) g/dL Arterial Blood Potassium (3.4-4.5) mmol/L Arterial Blood Glucose (75-99) mg/dL Crossmatch 12/14/23 12/14/23 12/15/23 Range/Units 22:56 23:53 00:57 WBC (3.8-10.6) k/uL RBC (4.30-5.90) m/uL Hgb (13.0-17.5) gm/dL Hct (39.0-53.0) % Plt Count (150-450) k/uL Neutrophils # (1.3-7.7) k/uL Lymphocytes # (1.0-4.8) k/uL PT (10.0-12.5) sec INR (<1.2) ABG pH (7.35-7.45) ABG pCO2 (35-45) mmHg ABG pO2 (83-108) mmHg ABG HCO3 (21-25) mmol/L ABG Total CO2 (19-24) mmol/L ABG O2 Saturation (94-97) % ABG Hematocrit (34.0-46.0) % ABG Potassium (3.4-4.5) mmol/L ABG Ionized Calcium (4.5-5.3) mg/dL ABG Glucose (75-99) mg/dL ABG Lactic Acid (0.5-1.6) mmol/L Hemoglobin (13.0-17.5) gm/dL Sodium (137-145) mmol/L Chloride (98-107) mmol/L Carbon Dioxide (22-30) mmol/L Glucose (74-99) mg/dL POC Glucose (mg/dL) 137 H 136 H 140 H (70-110) mg/dL Calcium (8.4-10.2) mg/dL Magnesium (1.6-2.3) mg/dL AST (17-59) U/L Total Protein (6.3-8.2) g/dL Albumin (3.5-5.0) g/dL Arterial Blood Potassium (3.4-4.5) mmol/L Arterial Blood Glucose (75-99) mg/dL Crossmatch 12/15/23 12/15/23 12/15/23 Range/Units 01:59 03:13 03:57 WBC (3.8-10.6) k/uL RBC (4.30-5.90) m/uL Hgb (13.0-17.5) gm/dL Hct (39.0-53.0) % Plt Count (150-450) k/uL Neutrophils # (1.3-7.7) k/uL Lymphocytes # (1.0-4.8) k/uL PT (10.0-12.5) sec INR (<1.2) ABG pH (7.35-7.45) ABG pCO2 (35-45) mmHg ABG pO2 (83-108) mmHg ABG HCO3 (21-25) mmol/L ABG Total CO2 (19-24) mmol/L ABG O2 Saturation (94-97) % ABG Hematocrit (34.0-46.0) % ABG Potassium (3.4-4.5) mmol/L ABG Ionized Calcium (4.5-5.3) mg/dL ABG Glucose (75-99) mg/dL ABG Lactic Acid (0.5-1.6) mmol/L Hemoglobin (13.0-17.5) gm/dL Sodium (137-145) mmol/L Chloride (98-107) mmol/L Carbon Dioxide (22-30) mmol/L Glucose (74-99) mg/dL POC Glucose (mg/dL) 147 H 153 H 158 H (70-110) mg/dL Calcium (8.4-10.2) mg/dL Magnesium (1.6-2.3) mg/dL AST (17-59) U/L Total Protein (6.3-8.2) g/dL Albumin (3.5-5.0) g/dL Arterial Blood Potassium (3.4-4.5) mmol/L Arterial Blood Glucose (75-99) mg/dL Crossmatch 12/15/23 12/15/23 12/15/23 Range/Units 04:00 04:00 05:03 WBC (3.8-10.6) k/uL RBC 4.05 L (4.30-5.90) m/uL Hgb 12.1 L (13.0-17.5) gm/dL Hct 36.6 L (39.0-53.0) % Plt Count (150-450) k/uL Neutrophils # (1.3-7.7) k/uL Lymphocytes # 0.5 L (1.0-4.8) k/uL PT (10.0-12.5) sec INR (<1.2) ABG pH (7.35-7.45) ABG pCO2 (35-45) mmHg ABG pO2 (83-108) mmHg ABG HCO3 (21-25) mmol/L ABG Total CO2 (19-24) mmol/L ABG O2 Saturation (94-97) % ABG Hematocrit (34.0-46.0) % ABG Potassium (3.4-4.5) mmol/L ABG Ionized Calcium (4.5-5.3) mg/dL ABG Glucose (75-99) mg/dL ABG Lactic Acid (0.5-1.6) mmol/L Hemoglobin (13.0-17.5) gm/dL Sodium 136 L (137-145) mmol/L Chloride 109 H (98-107) mmol/L Carbon Dioxide 19 L (22-30) mmol/L Glucose 146 H (74-99) mg/dL POC Glucose (mg/dL) 141 H (70-110) mg/dL Calcium 8.0 L (8.4-10.2) mg/dL Magnesium 2.4 H (1.6-2.3) mg/dL AST 63 H (17-59) U/L Total Protein 5.5 L (6.3-8.2) g/dL Albumin (3.5-5.0) g/dL Arterial Blood Potassium (3.4-4.5) mmol/L Arterial Blood Glucose (75-99) mg/dL Crossmatch 12/15/23 12/15/23 12/15/23 Range/Units 06:03 06:52 08:07 WBC (3.8-10.6) k/uL RBC (4.30-5.90) m/uL Hgb (13.0-17.5) gm/dL Hct (39.0-53.0) % Plt Count (150-450) k/uL Neutrophils # (1.3-7.7) k/uL Lymphocytes # (1.0-4.8) k/uL PT (10.0-12.5) sec INR (<1.2) ABG pH (7.35-7.45) ABG pCO2 (35-45) mmHg ABG pO2 (83-108) mmHg ABG HCO3 (21-25) mmol/L ABG Total CO2 (19-24) mmol/L ABG O2 Saturation (94-97) % ABG Hematocrit (34.0-46.0) % ABG Potassium (3.4-4.5) mmol/L ABG Ionized Calcium (4.5-5.3) mg/dL ABG Glucose (75-99) mg/dL ABG Lactic Acid (0.5-1.6) mmol/L Hemoglobin (13.0-17.5) gm/dL Sodium (137-145) mmol/L Chloride (98-107) mmol/L Carbon Dioxide (22-30) mmol/L Glucose (74-99) mg/dL POC Glucose (mg/dL) 154 H 169 H 145 H (70-110) mg/dL Calcium (8.4-10.2) mg/dL Magnesium (1.6-2.3) mg/dL AST (17-59) U/L Total Protein (6.3-8.2) g/dL Albumin (3.5-5.0) g/dL Arterial Blood Potassium (3.4-4.5) mmol/L Arterial Blood Glucose (75-99) mg/dL Crossmatch 12/15/23 Range/Units 09:18 WBC (3.8-10.6) k/uL RBC (4.30-5.90) m/uL Hgb (13.0-17.5) gm/dL Hct (39.0-53.0) % Plt Count (150-450) k/uL Neutrophils # (1.3-7.7) k/uL Lymphocytes # (1.0-4.8) k/uL PT (10.0-12.5) sec INR (<1.2) ABG pH (7.35-7.45) ABG pCO2 (35-45) mmHg ABG pO2 (83-108) mmHg ABG HCO3 (21-25) mmol/L ABG Total CO2 (19-24) mmol/L ABG O2 Saturation (94-97) % ABG Hematocrit (34.0-46.0) % ABG Potassium (3.4-4.5) mmol/L ABG Ionized Calcium (4.5-5.3) mg/dL ABG Glucose (75-99) mg/dL ABG Lactic Acid (0.5-1.6) mmol/L Hemoglobin (13.0-17.5) gm/dL Sodium (137-145) mmol/L Chloride (98-107) mmol/L Carbon Dioxide (22-30) mmol/L Glucose (74-99) mg/dL POC Glucose (mg/dL) 159 H (70-110) mg/dL Calcium (8.4-10.2) mg/dL Magnesium (1.6-2.3) mg/dL AST (17-59) U/L Total Protein (6.3-8.2) g/dL Albumin (3.5-5.0) g/dL Arterial Blood Potassium (3.4-4.5) mmol/L Arterial Blood Glucose (75-99) mg/dL Crossmatch - Imaging and Cardiology Chest x-ray: report reviewed, image reviewed Assessment and Plan Assessment: Severe symptomatic bicuspid aortic stenosis, status post mechanical aortic valve replacement History of hypertension Hyperlipidemia, treated, cholesterol 153, LDL 41, triglycerides 375 Morbid obesity Obstructive sleep apnea without home CPAP use Moderate restrictive lung disease, preoperative FEV1 59% of predicted Lifelong non-smoker Family history of premature coronary artery disease with father having myocardial infarction at 50 years old Plan: Continue to maximize medical therapy with aspirin, statin, beta vazquez. Will increase beta vazquez therapy as tolerated Wean O2 as tolerated, encourage incentive spirometry use 10 times every hour while awake, bronchodilators per pulmonology Increase activity, ambulate as tolerated. PT/OT/cardiac rehab consulted Will monitor daily labs and x-rays. Electrolyte replacement per protocol GI/DVT prophylaxis Insulin management per internal medicine, patient should remain on IV insulin for 48 hours and then may transition to subcutaneous per protocol. Patient is not diabetic, preoperative hemoglobin A1c 5.5% Pain control per current medication regimen, Toradol added for better pain control Discontinue [place]. Connect Cordis to continuous CVP monitoring Will discontinue right and left pleural chest tubes, continue mediastinal chest tube another 24 hours, monitor output Continue Goncalves catheter for another 24 hours, continue to monitor and record strict accurate intake and output Daily weights More recommendations to follow based on patient's progress
[2023-12-15 10:45] LABS: Glucose,Whole Blood 152 mg/dL (70-110)
[2023-12-15 11:07] VITALS: BMI 44.0
--- NOTE | 2023-12-15 11:52 | P.PN ---
Subjective Progress Note Date: 12/15/23 Principal diagnosis: Aortic stenosis. Pulmonary/critical care consult dated December 14, 2023. 48-year-old male with history of bicuspid aortic valve and aortic stenosis. The patient is postop day #0, status post aortic valve replacement. The patient also had a root enlargement procedure. The patient is back in the intensive care unit, in room 266. He remains on the ventilator. Current ventilator settings of volume assist-control, rate 16, tidal volume 500, FiO2 100%, PEEP of 10. Cardiac output is 7.3 and index is 2.7. The patient has a right-sided chest tube and 2 mediastinal chest tubes. Pacer wires are noted. The patient is on propofol at 25 mcg/kg/min and nitroglycerin at 5 mcg/min. The patient is also getting saline at 50 cc an hour. Blood gases have not yet been done. Chest x-ray has not yet been done. The patient has a history of hyperlipidemia, hypertension, and sleep apnea syndrome. He is a lifelong non-smoker. Labs today include a blood gas, in the operating room with a pO2 of 269, pCO2 of 41, pH of 7.36. Blood glucose is 111. Progress note dated 12/15/2023. 48-year-old male postop day #1, status post aortic valve replacement for aortic stenosis secondary to bicuspid aortic valve. The patient is seen today in room 266. The patient is doing well. He is on 4 L of oxygen. Is getting saline at 30 mL an hour, and an insulin drip at 5.5 units an hour. He has no specific complaints, and continues to work on incentive spirometer.Current labs include a white count 8.8, hemoglobin 12.1, hematocrit 36.6, normal platelet count. Sodiu m 136, potassium 4.3, chlorides 109, CO2 19, BUN 19, creatinine 0.72. Calcium is 8. Magnesium 2.4 AST 63.Chest x-ray showed low lung volumes, bibasilar atelectasis. Objective - Vital Signs Vital signs: Vital Signs Temp 99.9 F H 12/15/23 08:00 Pulse 79 12/15/23 11:00 Resp 20 12/15/23 11:00 BP 122/96 12/14/23 19:00 Pulse Ox 95 12/15/23 11:00 FiO2 4 12/14/23 18:00 Intake & Output 12/14/23 12/15/23 12/15/23 18:59 06:59 18:59 Intake Total 377.606 9995.721 461.445 Output Total 3756 1409 475 Balance -2785.073 75.721 -13.555 Weight 155.7 kg 155.7 kg Intake: IV 897 1428 326 ACETAMINOPHEN IV (For NPO 100 ) 1,000 mg In Empty Bag 1 bag @ 400 mls/hr IVPB Q6HR JERRY Rx#:[id number] Albumin Human 5% 250 ml 250 500 In Empty Bag 1 bag @ 250 mls/hr IVPB Q1HR PRN Rx#: [id number] CO/CI 150 220 30 Pressure Bags 45 108 36 Sodium Chloride 0.9% 1, 250 600 160 000 ml @ 20 mls/hr IV . Q24H JERRY Rx#:[id number] ceFAZolin 3 gm In Sodium 100 100 Chloride 0.9% 100 ml @ 100 mls/hr IVPB Q8HR JERRY Rx#:[id number] Intake, IV Titration 73.927 56.721 15.445 Amount Clevidipine Butyrate 25 2.5 mg In Empty Bag 1 bag @ 1 MG/HR 2 mls/hr IV .Q24H JERRY Rx#:[id number] Dexmedetomidine/0.9% NaCl 20.177 (Pmx) 400 mcg In Empty Bag 1 bag @ Titrate IV . Q0M JERRY Rx#:[id number] Insulin Regular 100 unit 4.192 45.021 15.445 In Sodium Chloride 0.9% 100 ml @ Per Protocol IV .Q0M JERRY Rx#:[id number] Nitroglycerin-D5w Pmx 50 11.7 mg In Dextrose/Water 1 250ml.bag @ 5 MCG/MIN 1.5 mls/hr IV .Q24H JERRY Rx#: [id number] propofoL 1,000 mg In 47.058 Empty Bag 1 bag @ Titrate IV .Q0M JERRY Rx#: [id number] Oral 120 Output: Chest Tube Drainage 261 534 165 Chest Tube Left 43 96 40 Chest Tube Mediastinal 192 368 100 Chest Tube Right 26 70 25 Urine 995 875 310 Estimated Blood Loss 2500 Other: Voiding Method Indwelling Catheter Indwelling Catheter ABP, PAP, CO, CI - Last Documented Arterial Blood Pressure 116/47 Pulmonary Artery Pressure 21/3 Cardiac Output 7.2 Cardiac Index 2.7 - Exam No acute distress, oriented 3. Currently on 4 L. HEENT examination is grossly unremarkable. Mucous membranes are moist. No oral lesions. Neck supple. Full range of motion. No adenopathy thyromegaly or neck vein distention. Cardiovascular examination reveals regular rhythm rate. S1-S2 normal. No S3 or S4. No discernible murmur noted. Lungs reveal scattered bilateral rhonchi. No wheezes or crackles. Breath sounds are equal bilaterally. Abdomen soft bowel sounds are heard. No masses or tenderness. Extremities are intact. No cyanosis clubbing or edema. Skin is without rash or lesion. Neurologic examination is brief but nonfocal. - Labs CBC & Chem 7: 12/15/23 04:00 12/15/23 04:00 Labs: Abnormal Lab Results - Last 24 Hours (Table) 12/12/23 12/14/23 12/14/23 Range/Units 11:49 08:41 09:24 WBC (3.8-10.6) k/uL RBC (4.30-5.90) m/uL Hgb (13.0-17.5) gm/dL Hct (39.0-53.0) % Plt Count (150-450) k/uL Neutrophils # (1.3-7.7) k/uL Lymphocytes # (1.0-4.8) k/uL PT (10.0-12.5) sec INR (<1.2) ABG pH (7.35-7.45) ABG pCO2 (35-45) mmHg ABG pO2 347 H 292 H (83-108) mmHg ABG HCO3 26 H (21-25) mmol/L ABG Total CO2 (19-24) mmol/L ABG O2 Saturation 99.4 H 99.3 H (94-97) % ABG Hematocrit (34.0-46.0) % ABG Potassium (3.4-4.5) mmol/L ABG Ionized Calcium (4.5-5.3) mg/dL ABG Glucose 120 H 131 H (75-99) mg/dL ABG Lactic Acid (0.5-1.6) mmol/L Hemoglobin 12.4 L 12.3 L (13.0-17.5) gm/dL Sodium (137-145) mmol/L Chloride (98-107) mmol/L Carbon Dioxide (22-30) mmol/L Glucose (74-99) mg/dL POC Glucose (mg/dL) (70-110) mg/dL Calcium (8.4-10.2) mg/dL Magnesium (1.6-2.3) mg/dL AST (17-59) U/L Total Protein (6.3-8.2) g/dL Albumin (3.5-5.0) g/dL Arterial Blood Potassium (3.4-4.5) mmol/L Arterial Blood Glucose 120 H 131 H (75-99) mg/dL Crossmatch See Detail 12/14/23 12/14/23 12/14/23 Range/Units 09:57 10:32 10:57 WBC (3.8-10.6) k/uL RBC (4.30-5.90) m/uL Hgb (13.0-17.5) gm/dL Hct (39.0-53.0) % Plt Count (150-450) k/uL Neutrophils # (1.3-7.7) k/uL Lymphocytes # (1.0-4.8) k/uL PT (10.0-12.5) sec INR (<1.2) ABG pH 7.23 L 7.19 L* (7.35-7.45) ABG pCO2 59 H 66 H (35-45) mmHg ABG pO2 415 H 210 H 372 H (83-108) mmHg ABG HCO3 (21-25) mmol/L ABG Total CO2 (19-24) mmol/L ABG O2 Saturation >99.4 H 98.8 H 99.2 H (94-97) % ABG Hematocrit 32 L 33 L 32 L (34.0-46.0) % ABG Potassium 4.8 H (3.4-4.5) mmol/L ABG Ionized Calcium 3.9 L (4.5-5.3) mg/dL ABG Glucose 143 H 144 H 166 H (75-99) mg/dL ABG Lactic Acid 2.0 H 2.0 H 1.9 H (0.5-1.6) mmol/L Hemoglobin 10.5 L 10.7 L 10.4 L (13.0-17.5) gm/dL Sodium (137-145) mmol/L Chloride (98-107) mmol/L Carbon Dioxide (22-30) mmol/L Glucose (74-99) mg/dL POC Glucose (mg/dL) (70-110) mg/dL Calcium (8.4-10.2) mg/dL Magnesium (1.6-2.3) mg/dL AST (17-59) U/L Total Protein (6.3-8.2) g/dL Albumin (3.5-5.0) g/dL Arterial Blood Potassium 4.8 H (3.4-4.5) mmol/L Arterial Blood Glucose 143 H 144 H 166 H (75-99) mg/dL Crossmatch 12/14/23 12/14/23 12/14/23 Range/Units 11:12 11:31 11:41 WBC (3.8-10.6) k/uL RBC (4.30-5.90) m/uL Hgb (13.0-17.5) gm/dL Hct (39.0-53.0) % Plt Count (150-450) k/uL Neutrophils # (1.3-7.7) k/uL Lymphocytes # (1.0-4.8) k/uL PT (10.0-12.5) sec INR (<1.2) ABG pH 7.22 L 7.27 L 7.27 L (7.35-7.45) ABG pCO2 59 H 52 H 53 H (35-45) mmHg ABG pO2 360 H 368 H 290 H (83-108) mmHg ABG HCO3 (21-25) mmol/L ABG Total CO2 (19-24) mmol/L ABG O2 Saturation 99.2 H 99.4 H 99.2 H (94-97) % ABG Hematocrit 31 L 31 L 31 L (34.0-46.0) % ABG Potassium 4.8 H 4.6 H (3.4-4.5) mmol/L ABG Ionized Calcium 4.4 L 4.4 L (4.5-5.3) mg/dL ABG Glucose 157 H 142 H 137 H (75-99) mg/dL ABG Lactic Acid 2.0 H 2.0 H 2.0 H (0.5-1.6) mmol/L Hemoglobin 10.2 L 10.1 L 10.0 L (13.0-17.5) gm/dL Sodium (137-145) mmol/L Chloride (98-107) mmol/L Carbon Dioxide (22-30) mmol/L Glucose (74-99) mg/dL POC Glucose (mg/dL) (70-110) mg/dL Calcium (8.4-10.2) mg/dL Magnesium (1.6-2.3) mg/dL AST (17-59) U/L Total Protein (6.3-8.2) g/dL Albumin (3.5-5.0) g/dL Arterial Blood Potassium 4.8 H 4.6 H (3.4-4.5) mmol/L Arterial Blood Glucose 157 H 142 H 137 H (75-99) mg/dL Crossmatch 12/14/23 12/14/23 12/14/23 Range/Units 12:07 12:48 14:00 WBC (3.8-10.6) k/uL RBC 4.11 L (4.30-5.90) m/uL Hgb 12.4 L (13.0-17.5) gm/dL Hct 37.1 L (39.0-53.0) % Plt Count 147 L (150-450) k/uL Neutrophils # (1.3-7.7) k/uL Lymphocytes # (1.0-4.8) k/uL PT (10.0-12.5) sec INR (<1.2) ABG pH (7.35-7.45) ABG pCO2 (35-45) mmHg ABG pO2 >420 H 269 H (83-108) mmHg ABG HCO3 (21-25) mmol/L ABG Total CO2 (19-24) mmol/L ABG O2 Saturation >99.4 H 99.0 H (94-97) % ABG Hematocrit 30 L 32 L (34.0-46.0) % ABG Potassium 4.9 H 4.7 H (3.4-4.5) mmol/L ABG Ionized Calcium 4.3 L (4.5-5.3) mg/dL ABG Glucose 128 H 122 H (75-99) mg/dL ABG Lactic Acid 2.8 H* 2.2 H* (0.5-1.6) mmol/L Hemoglobin 9.7 L 10.6 L (13.0-17.5) gm/dL Sodium (137-145) mmol/L Chloride (98-107) mmol/L Carbon Dioxide (22-30) mmol/L Glucose (74-99) mg/dL POC Glucose (mg/dL) (70-110) mg/dL Calcium (8.4-10.2) mg/dL Magnesium (1.6-2.3) mg/dL AST (17-59) U/L Total Protein (6.3-8.2) g/dL Albumin (3.5-5.0) g/dL Arterial Blood Potassium 4.9 H 4.7 H (3.4-4.5) mmol/L Arterial Blood Glucose 128 H 122 H (75-99) mg/dL Crossmatch 12/14/23 12/14/23 12/14/23 Range/Units 14:00 14:00 14:03 WBC (3.8-10.6) k/uL RBC (4.30-5.90) m/uL Hgb (13.0-17.5) gm/dL Hct (39.0-53.0) % Plt Count (150-450) k/uL Neutrophils # (1.3-7.7) k/uL Lymphocytes # (1.0-4.8) k/uL PT 12.6 H (10.0-12.5) sec INR 1.2 H (<1.2) ABG pH (7.35-7.45) ABG pCO2 (35-45) mmHg ABG pO2 (83-108) mmHg ABG HCO3 (21-25) mmol/L ABG Total CO2 (19-24) mmol/L ABG O2 Saturation (94-97) % ABG Hematocrit (34.0-46.0) % ABG Potassium (3.4-4.5) mmol/L ABG Ionized Calcium (4.5-5.3) mg/dL ABG Glucose (75-99) mg/dL ABG Lactic Acid (0.5-1.6) mmol/L Hemoglobin (13.0-17.5) gm/dL Sodium (137-145) mmol/L Chloride 111 H (98-107) mmol/L Carbon Dioxide (22-30) mmol/L Glucose 107 H (74-99) mg/dL POC Glucose (mg/dL) 111 H (70-110) mg/dL Calcium 7.7 L (8.4-10.2) mg/dL Magnesium 3.2 H (1.6-2.3) mg/dL AST (17-59) U/L Total Protein 4.8 L (6.3-8.2) g/dL Albumin 3.0 L (3.5-5.0) g/dL Arterial Blood Potassium (3.4-4.5) mmol/L Arterial Blood Glucose (75-99) mg/dL Crossmatch 12/14/23 12/14/23 12/14/23 Range/Units 14:13 15:01 15:59 WBC (3.8-10.6) k/uL RBC (4.30-5.90) m/uL Hgb (13.0-17.5) gm/dL Hct (39.0-53.0) % Plt Count (150-450) k/uL Neutrophils # (1.3-7.7) k/uL Lymphocytes # (1.0-4.8) k/uL PT (10.0-12.5) sec INR (<1.2) ABG pH 7.30 L (7.35-7.45) ABG pCO2 47 H (35-45) mmHg ABG pO2 311 H (83-108) mmHg ABG HCO3 (21-25) mmol/L ABG Total CO2 25 H (19-24) mmol/L ABG O2 Saturation 100.4 H (94-97) % ABG Hematocrit (34.0-46.0) % ABG Potassium (3.4-4.5) mmol/L ABG Ionized Calcium (4.5-5.3) mg/dL ABG Glucose (75-99) mg/dL ABG Lactic Acid (0.5-1.6) mmol/L Hemoglobin (13.0-17.5) gm/dL Sodium (137-145) mmol/L Chloride (98-107) mmol/L Carbon Dioxide (22-30) mmol/L Glucose (74-99) mg/dL POC Glucose (mg/dL) 124 H 142 H (70-110) mg/dL Calcium (8.4-10.2) mg/dL Magnesium (1.6-2.3) mg/dL AST (17-59) U/L Total Protein (6.3-8.2) g/dL Albumin (3.5-5.0) g/dL Arterial Blood Potassium (3.4-4.5) mmol/L Arterial Blood Glucose (75-99) mg/dL Crossmatch 12/14/23 12/14/23 12/14/23 Range/Units 16:36 16:45 17:01 WBC 11.8 H (3.8-10.6) k/uL RBC (4.30-5.90) m/uL Hgb (13.0-17.5) gm/dL Hct (39.0-53.0) % Plt Count (150-450) k/uL Neutrophils # 9.9 H (1.3-7.7) k/uL Lymphocytes # 0.9 L (1.0-4.8) k/uL PT (10.0-12.5) sec INR (<1.2) ABG pH 7.22 L (7.35-7.45) ABG pCO2 56 H (35-45) mmHg ABG pO2 (83-108) mmHg ABG HCO3 (21-25) mmol/L ABG Total CO2 25 H (19-24) mmol/L ABG O2 Saturation (94-97) % ABG Hematocrit (34.0-46.0) % ABG Potassium (3.4-4.5) mmol/L ABG Ionized Calcium (4.5-5.3) mg/dL ABG Glucose (75-99) mg/dL ABG Lactic Acid (0.5-1.6) mmol/L Hemoglobin (13.0-17.5) gm/dL Sodium (137-145) mmol/L Chloride (98-107) mmol/L Carbon Dioxide (22-30) mmol/L Glucose (74-99) mg/dL POC Glucose (mg/dL) 145 H (70-110) mg/dL Calcium (8.4-10.2) mg/dL Magnesium (1.6-2.3) mg/dL AST (17-59) U/L Total Protein (6.3-8.2) g/dL Albumin (3.5-5.0) g/dL Arterial Blood Potassium (3.4-4.5) mmol/L Arterial Blood Glucose (75-99) mg/dL Crossmatch 12/14/23 12/14/23 12/14/23 Range/Units 18:05 19:01 20:00 WBC (3.8-10.6) k/uL RBC (4.30-5.90) m/uL Hgb (13.0-17.5) gm/dL Hct (39.0-53.0) % Plt Count (150-450) k/uL Neutrophils # 7.8 H (1.3-7.7) k/uL Lymphocytes # 0.4 L (1.0-4.8) k/uL PT (10.0-12.5) sec INR (<1.2) ABG pH (7.35-7.45) ABG pCO2 (35-45) mmHg ABG pO2 (83-108) mmHg ABG HCO3 (21-25) mmol/L ABG Total CO2 (19-24) mmol/L ABG O2 Saturation (94-97) % ABG Hematocrit (34.0-46.0) % ABG Potassium (3.4-4.5) mmol/L ABG Ionized Calcium (4.5-5.3) mg/dL ABG Glucose (75-99) mg/dL ABG Lactic Acid (0.5-1.6) mmol/L Hemoglobin (13.0-17.5) gm/dL Sodium (137-145) mmol/L Chloride (98-107) mmol/L Carbon Dioxide (22-30) mmol/L Glucose (74-99) mg/dL POC Glucose (mg/dL) 142 H 138 H (70-110) mg/dL Calcium (8.4-10.2) mg/dL Magnesium (1.6-2.3) mg/dL AST (17-59) U/L Total Protein (6.3-8.2) g/dL Albumin (3.5-5.0) g/dL Arterial Blood Potassium (3.4-4.5) mmol/L Arterial Blood Glucose (75-99) mg/dL Crossmatch 12/14/23 12/14/23 12/14/23 Range/Units 20:01 21:05 21:58 WBC (3.8-10.6) k/uL RBC (4.30-5.90) m/uL Hgb (13.0-17.5) gm/dL Hct (39.0-53.0) % Plt Count (150-450) k/uL Neutrophils # (1.3-7.7) k/uL Lymphocytes # (1.0-4.8) k/uL PT (10.0-12.5) sec INR (<1.2) ABG pH (7.35-7.45) ABG pCO2 (35-45) mmHg ABG pO2 (83-108) mmHg ABG HCO3 (21-25) mmol/L ABG Total CO2 (19-24) mmol/L ABG O2 Saturation (94-97) % ABG Hematocrit (34.0-46.0) % ABG Potassium (3.4-4.5) mmol/L ABG Ionized Calcium (4.5-5.3) mg/dL ABG Glucose (75-99) mg/dL ABG Lactic Acid (0.5-1.6) mmol/L Hemoglobin (13.0-17.5) gm/dL Sodium (137-145) mmol/L Chloride (98-107) mmol/L Carbon Dioxide (22-30) mmol/L Glucose (74-99) mg/dL POC Glucose (mg/dL) 129 H 137 H 133 H (70-110) mg/dL Calcium (8.4-10.2) mg/dL Magnesium (1.6-2.3) mg/dL AST (17-59) U/L Total Protein (6.3-8.2) g/dL Albumin (3.5-5.0) g/dL Arterial Blood Potassium (3.4-4.5) mmol/L Arterial Blood Glucose (75-99) mg/dL Crossmatch 12/14/23 12/14/23 12/15/23 Range/Units 22:56 23:53 00:57 WBC (3.8-10.6) k/uL RBC (4.30-5.90) m/uL Hgb (13.0-17.5) gm/dL Hct (39.0-53.0) % Plt Count (150-450) k/uL Neutrophils # (1.3-7.7) k/uL Lymphocytes # (1.0-4.8) k/uL PT (10.0-12.5) sec INR (<1.2) ABG pH (7.35-7.45) ABG pCO2 (35-45) mmHg ABG pO2 (83-108) mmHg ABG HCO3 (21-25) mmol/L ABG Total CO2 (19-24) mmol/L ABG O2 Saturation (94-97) % ABG Hematocrit (34.0-46.0) % ABG Potassium (3.4-4.5) mmol/L ABG Ionized Calcium (4.5-5.3) mg/dL ABG Glucose (75-99) mg/dL ABG Lactic Acid (0.5-1.6) mmol/L Hemoglobin (13.0-17.5) gm/dL Sodium (137-145) mmol/L Chloride (98-107) mmol/L Carbon Dioxide (22-30) mmol/L Glucose (74-99) mg/dL POC Glucose (mg/dL) 137 H 136 H 140 H (70-110) mg/dL Calcium (8.4-10.2) mg/dL Magnesium (1.6-2.3) mg/dL AST (17-59) U/L Total Protein (6.3-8.2) g/dL Albumin (3.5-5.0) g/dL Arterial Blood Potassium (3.4-4.5) mmol/L Arterial Blood Glucose (75-99) mg/dL Crossmatch 12/15/23 12/15/23 12/15/23 Range/Units 01:59 03:13 03:57 WBC (3.8-10.6) k/uL RBC (4.30-5.90) m/uL Hgb (13.0-17.5) gm/dL Hct (39.0-53.0) % Plt Count (150-450) k/uL Neutrophils # (1.3-7.7) k/uL Lymphocytes # (1.0-4.8) k/uL PT (10.0-12.5) sec INR (<1.2) ABG pH (7.35-7.45) ABG pCO2 (35-45) mmHg ABG pO2 (83-108) mmHg ABG HCO3 (21-25) mmol/L ABG Total CO2 (19-24) mmol/L ABG O2 Saturation (94-97) % ABG Hematocrit (34.0-46.0) % ABG Potassium (3.4-4.5) mmol/L ABG Ionized Calcium (4.5-5.3) mg/dL ABG Glucose (75-99) mg/dL ABG Lactic Acid (0.5-1.6) mmol/L Hemoglobin (13.0-17.5) gm/dL Sodium (137-145) mmol/L Chloride (98-107) mmol/L Carbon Dioxide (22-30) mmol/L Glucose (74-99) mg/dL POC Glucose (mg/dL) 147 H 153 H 158 H (70-110) mg/dL Calcium (8.4-10.2) mg/dL Magnesium (1.6-2.3) mg/dL AST (17-59) U/L Total Protein (6.3-8.2) g/dL Albumin (3.5-5.0) g/dL Arterial Blood Potassium (3.4-4.5) mmol/L Arterial Blood Glucose (75-99) mg/dL Crossmatch 12/15/23 12/15/23 12/15/23 Range/Units 04:00 04:00 05:03 WBC (3.8-10.6) k/uL RBC 4.05 L (4.30-5.90) m/uL Hgb 12.1 L (13.0-17.5) gm/dL Hct 36.6 L (39.0-53.0) % Plt Count (150-450) k/uL Neutrophils # (1.3-7.7) k/uL Lymphocytes # 0.5 L (1.0-4.8) k/uL PT (10.0-12.5) sec INR (<1.2) ABG pH (7.35-7.45) ABG pCO2 (35-45) mmHg ABG pO2 (83-108) mmHg ABG HCO3 (21-25) mmol/L ABG Total CO2 (19-24) mmol/L ABG O2 Saturation (94-97) % ABG Hematocrit (34.0-46.0) % ABG Potassium (3.4-4.5) mmol/L ABG Ionized Calcium (4.5-5.3) mg/dL ABG Glucose (75-99) mg/dL ABG Lactic Acid (0.5-1.6) mmol/L Hemoglobin (13.0-17.5) gm/dL Sodium 136 L (137-145) mmol/L Chloride 109 H (98-107) mmol/L Carbon Dioxide 19 L (22-30) mmol/L Glucose 146 H (74-99) mg/dL POC Glucose (mg/dL) 141 H (70-110) mg/dL Calcium 8.0 L (8.4-10.2) mg/dL Magnesium 2.4 H (1.6-2.3) mg/dL AST 63 H (17-59) U/L Total Protein 5.5 L (6.3-8.2) g/dL Albumin (3.5-5.0) g/dL Arterial Blood Potassium (3.4-4.5) mmol/L Arterial Blood Glucose (75-99) mg/dL Crossmatch 12/15/23 12/15/23 12/15/23 Range/Units 06:03 06:52 08:07 WBC (3.8-10.6) k/uL RBC (4.30-5.90) m/uL Hgb (13.0-17.5) gm/dL Hct (39.0-53.0) % Plt Count (150-450) k/uL Neutrophils # (1.3-7.7) k/uL Lymphocytes # (1.0-4.8) k/uL PT (10.0-12.5) sec INR (<1.2) ABG pH (7.35-7.45) ABG pCO2 (35-45) mmHg ABG pO2 (83-108) mmHg ABG HCO3 (21-25) mmol/L ABG Total CO2 (19-24) mmol/L ABG O2 Saturation (94-97) % ABG Hematocrit (34.0-46.0) % ABG Potassium (3.4-4.5) mmol/L ABG Ionized Calcium (4.5-5.3) mg/dL ABG Glucose (75-99) mg/dL ABG Lactic Acid (0.5-1.6) mmol/L Hemoglobin (13.0-17.5) gm/dL Sodium (137-145) mmol/L Chloride (98-107) mmol/L Carbon Dioxide (22-30) mmol/L Glucose (74-99) mg/dL POC Glucose (mg/dL) 154 H 169 H 145 H (70-110) mg/dL Calcium (8.4-10.2) mg/dL Magnesium (1.6-2.3) mg/dL AST (17-59) U/L Total Protein (6.3-8.2) g/dL Albumin (3.5-5.0) g/dL Arterial Blood Potassium (3.4-4.5) mmol/L Arterial Blood Glucose (75-99) mg/dL Crossmatch 12/15/23 12/15/23 Range/Units 09:18 10:43 WBC (3.8-10.6) k/uL RBC (4.30-5.90) m/uL Hgb (13.0-17.5) gm/dL Hct (39.0-53.0) % Plt Count (150-450) k/uL Neutrophils # (1.3-7.7) k/uL Lymphocytes # (1.0-4.8) k/uL PT (10.0-12.5) sec INR (<1.2) ABG pH (7.35-7.45) ABG pCO2 (35-45) mmHg ABG pO2 (83-108) mmHg ABG HCO3 (21-25) mmol/L ABG Total CO2 (19-24) mmol/L ABG O2 Saturation (94-97) % ABG Hematocrit (34.0-46.0) % ABG Potassium (3.4-4.5) mmol/L ABG Ionized Calcium (4.5-5.3) mg/dL ABG Glucose (75-99) mg/dL ABG Lactic Acid (0.5-1.6) mmol/L Hemoglobin (13.0-17.5) gm/dL Sodium (137-145) mmol/L Chloride (98-107) mmol/L Carbon Dioxide (22-30) mmol/L Glucose (74-99) mg/dL POC Glucose (mg/dL) 159 H 152 H (70-110) mg/dL Calcium (8.4-10.2) mg/dL Magnesium (1.6-2.3) mg/dL AST (17-59) U/L Total Protein (6.3-8.2) g/dL Albumin (3.5-5.0) g/dL Arterial Blood Potassium (3.4-4.5) mmol/L Arterial Blood Glucose (75-99) mg/dL Crossmatch Assessment and Plan Assessment: Postop day #1, status post aortic valve replacement, for severe aortic stenosis, secondary to bicuspid aortic valve. Routine postoperative ventilator management. Hypertension. Hyperlipidemia. Obstructive sleep apnea syndrome. Obesity. Plan: Plan dated December 14, 2023. The patient is seen in the intensive care unit, room 266. The patient is currently on the mechanical ventilator. Chest x-ray blood gases have not yet been done. The patient is on volume assist-control, rate 16, tidal volume 500, FiO2 100%, and PEEP of 10. The patient is getting propofol at 25 mcg/kg/min, nitroglycerin at 5 mcg/min, and saline at 50 cc an hour. As mentioned, we will await the chest x-ray and blood gases. Additional recommendations and suggestions are forthcoming. Plan dated 12/15/2023. The patient is seen in the intensive care unit, room 266. The patient is currently doing well. The patient's currently on 4 L of oxygen. Is getting saline at 30 mL an hour. Is on an insulin drip of 5.5 units an hour. He is status post aortic valve replacement for aortic stenosis secondary to bicuspid aortic valve. I encouraged the patient continued to improve, cough, clear secretions. We also encourage the patient to continue to using his incentive spirometer, every hour while awake. Time with Patient: Greater than 30
[2023-12-15 12:02] LABS: Glucose,Whole Blood 129 mg/dL (70-110)
[2023-12-15 13:14] LABS: Glucose,Whole Blood 168 mg/dL (70-110)
[2023-12-15 14:19] LABS: Glucose,Whole Blood 134 mg/dL (70-110)
[2023-12-15 15:26] LABS: Glucose,Whole Blood 117 mg/dL (70-110)
[2023-12-15 16:35] LABS: Glucose,Whole Blood 110 mg/dL (70-110)
[2023-12-15 18:10] LABS: Glucose,Whole Blood 171 mg/dL (70-110)
[2023-12-15 19:10] LABS: Glucose,Whole Blood 153 mg/dL (70-110)
[2023-12-15 20:32] LABS: Glucose,Whole Blood 147 mg/dL (70-110)
[2023-12-15] MEDS: ATORVASTATIN 40 MG TAB PO SCH (20:35)
[2023-12-15] MEDS: EZETIMIBE 10 MG TAB PO SCH (20:36)
[2023-12-15 21:12] LABS: Glucose,Whole Blood 123 mg/dL (70-110)
[2023-12-15 22:13] LABS: Glucose,Whole Blood 138 mg/dL (70-110)
[2023-12-15 23:17] LABS: Glucose,Whole Blood 132 mg/dL (70-110)
[2023-12-16 00:05] LABS: Glucose,Whole Blood 110 mg/dL (70-110)
[2023-12-16 01:06] LABS: Glucose,Whole Blood 129 mg/dL (70-110)
[2023-12-16 02:13] LABS: Glucose,Whole Blood 124 mg/dL (70-110)
[2023-12-16 03:00] LABS: Glucose,Whole Blood 130 mg/dL (70-110)
[2023-12-16 04:06] LABS: Glucose,Whole Blood 166 mg/dL (70-110)
[2023-12-16 04:52] LABS: Glucose,Whole Blood 148 mg/dL (70-110)
[2023-12-16 05:03] LABS: Basophils % (A) 0 %; Eosinophils % (A) 0 %; HCT 31.7 % (39.0-53.0); HGB 10.7 gm/dL (13.0-17.5); Lymphocytes % (A) 11 %; MCH 30.9 pg (25.0-35.0); MCHC 33.8 g/dL (31.0-37.0); MCV 91.4 fL (80.0-100.0); Mean Platelet Volume 9.5; Monocytes # (A) 0.8 k/uL (0-1.0); Monocytes % (A) 8 %; Neutrophils # (A) 7.9 k/uL (1.3-7.7); Neutrophils % (A) 79 %; Platelet Count 130 k/uL (150-450); RBC 3.47 m/uL (4.30-5.90); WBC 9.9 k/uL (3.8-10.6)
[2023-12-16 05:23] LABS: Ionized Calcium 4.7 mg/dL (4.5-5.3)
[2023-12-16 05:32] LABS: ALT 25 U/L (4-49); AST 45 U/L (17-59); African American GFR (CKD) >90 (>60 ml/min/1.73 sqM); Albumin 3.2 g/dL (3.5-5.0); Alkaline Phosphatase 43 U/L (38-126); Anion Gap 5 mmol/L; Blood Urea Nitrogen 22 mg/dL (9-20); Calcium 8.2 mg/dL (8.4-10.2); Carbon Dioxide 22 mmol/L (22-30); Chloride 107 mmol/L (98-107); Glucose 136 mg/dL (74-99); Non-African American GFR(CKD) >90 (>60 ml/min/1.73 sqM); Potassium 4.1 mmol/L (3.5-5.1); Sodium 134 mmol/L (137-145); Total Bilirubin 0.7 mg/dL (0.2-1.3); Total Protein 5.1 g/dL (6.3-8.2)
[2023-12-16 06:07] LABS: Glucose,Whole Blood 117 mg/dL (70-110)
[2023-12-16] MEDS: PANTOPRAZOLE 40 MG TABLET PO SCH (06:34)
[2023-12-16 06:53] LABS: Glucose,Whole Blood 137 mg/dL (70-110)
--- NOTE | 2023-12-16 07:30 | XR ---
EXAMINATION TYPE: XR chest 1V portable DATE OF EXAM: 12/16/2023 5:22 AM CLINICAL INDICATION:Male, 48 years old with history of Post Operative Cardiac Surgery; [facility] COMPARISON: Chest radiograph from one day prior. TECHNIQUE: XR chest 1V portable Frontal view of the chest. FINDINGS: Lungs/Pleura: There is no evidence of pleural effusion, focal consolidation, or pneumothorax. Pulmonary vascularity: Unremarkable. Heart/mediastinum: Cardiomediastinal silhouette is unremarkable. Musculoskeletal: No acute osseous pathology. IMPRESSION: Low lung volumes and underpenetration with a generalized hazy appearance which could represent atelec tasis versus pulmonary edema correlate with serum BNP.
--- NOTE | 2023-12-16 08:51 | P.PN ---
Subjective Progress Note Date: 12/16/23 Principal diagnosis: Severe symptomatic bicuspid aortic stenosis. History of hypertension, hyperlipidemia, morbid obesity, obstructive sleep apnea without home CPAP use, moderate restrictive lung disease, lifelong non-smoker, family history of premature coronary artery disease with father having myocardial infarction at 50 years old POD #2 Aortic valve replacement with 25 mm On-X mechanical valve, root enlargement with Hemashield patch ([place]), ligate left atrial appendage with 35mm AtriCure clip The patient was seen and examined sitting up in a recliner in the intensive care unit in no acute distress. Remains in sinus rhythm, hemodynamically stable on no inotropes or pressors. Currently on room air with oxygen saturation in the mid 90s. Able to achieve 1750 mL on his incentive spirometry. Does complain of expected post surgical pain which is controlled on current medication regimen. Right internal jugular cordis, right radial arterial line, mediastinal chest tube remains. Patient has been ambulatory in the hallway without difficulty. No other new concerns. Objective - Vital Signs Vital signs: Vital Signs Temp 99.2 F 12/16/23 04:00 Pulse 74 12/16/23 08:04 Resp 15 12/16/23 07:00 BP 120/48 12/16/23 00:00 Pulse Ox 98 12/16/23 07:51 FiO2 4 12/14/23 18:00 Intake & Output 12/15/23 12/16/23 12/16/23 18:59 06:59 18:59 Intake Total 1279.787 404.467 Output Total 840 640 Balance 439.787 -235.533 Weight 155.7 kg 163.6 kg Intake: IV 508 338 CO/CI 30 Pressure Bags 78 78 Sodium Chloride 0.9% 1, 300 260 000 ml @ 20 mls/hr IV . Q24H [facility] Rx#:[id number] ceFAZolin 3 gm In Sodium 100 Chloride 0.9% 100 ml @ 100 mls/hr IVPB Q8HR [facility] Rx#:[id number] Intake, IV Titration 51.787 66.467 Amount Insulin Regular 100 unit 51.787 66.467 In Sodium Chloride 0.9% 100 ml @ Per Protocol IV .Q0M [facility] Rx#:[id number] Oral 720 Blood Product 0 Output: Chest Tube Drainage 285 150 Chest Tube Left 40 Chest Tube Mediastinal 220 150 Chest Tube Right 25 Urine 555 490 Other: Voiding Method Indwelling Catheter Indwelling Catheter ABP, PAP, CO, CI - Last Documented Arterial Blood Pressure 114/51 Pulmonary Artery Pressure 21/3 Cardiac Output 7.2 Cardiac Index 2.7 - Exam CONSTITUTIONAL: Appears comfortable, cooperative, no acute distress RESPIRATORY: Lungs sounds diminished bilaterally. Respirations even, nonlabored. Currently on room air with oxygen saturation 94%. Able to achieve 1750 mL on incentive spirometry. Strong cough. CARDIOVASCULAR: S1, S2 present. Regular rate and rhythm, sinus rhythm on telemetry. Sternum stable. Palpable peripheral pulses bilaterally. Trace generalized edema present. No calf pain or tenderness noted. Heart hugger in place with patient demonstrating appropriate use. Antiembolism stockings, SCDs present. GASTROINTESTINAL: Abdomen soft, nontender, nondistended. Active bowel sounds present 4 quadrants. Tolerating diet. Positive flatus GENITOURINARY: Goncalves present draining clear, yellow urine. Output overnight 15-75 mL per hour, 1045 mL in the last 24 hours INTEGUMENTARY: Skin is warm and dry with evidence of good perfusion. Anterior chest incision well approximated and covered with dry intact dressing NEUROLOGIC: Cranial nerves II through XII intact MUSKULOSKELETAL: Able to move all extremities, strength equal bilaterally, gait normal PSYCHIATRIC: Alert and oriented to person place and time, appropriate affect, intact judgment and insight INVASIVE LINES AND TUBES: Mediastinal chest tube present and connected to wall suction, no air leaks present. Mediastinal tube with 100 mL serosanguineous drainage overnight, 350 mL in the last 24 hours. A/V epicardial pacemaker wires present, connected to generator, backup rate 50 bpm. Right internal jugular Cordis, right radial arterial line present - Allied health notes Allied health notes reviewed: nursing - Labs CBC & Chem 7: 12/16/23 04:50 12/16/23 04:50 Labs: Abnormal Lab Results - Last 24 Hours (Table) 12/15/23 12/15/23 12/15/23 Range/Units 09:18 10:43 12:01 RBC (4.30-5.90) m/uL Hgb (13.0-17.5) gm/dL Hct (39.0-53.0) % Plt Count (150-450) k/uL Neutrophils # (1.3-7.7) k/uL Sodium (137-145) mmol/L BUN (9-20) mg/dL Glucose (74-99) mg/dL POC Glucose (mg/dL) 159 H 152 H 129 H (70-110) mg/dL Calcium (8.4-10.2) mg/dL Total Protein (6.3-8.2) g/dL Albumin (3.5-5.0) g/dL 12/15/23 12/15/23 12/15/23 Range/Units 13:13 14:18 15:24 RBC (4.30-5.90) m/uL Hgb (13.0-17.5) gm/dL Hct (39.0-53.0) % Plt Count (150-450) k/uL Neutrophils # (1.3-7.7) k/uL Sodium (137-145) mmol/L BUN (9-20) mg/dL Glucose (74-99) mg/dL POC Glucose (mg/dL) 168 H 134 H 117 H (70-110) mg/dL Calcium (8.4-10.2) mg/dL Total Protein (6.3-8.2) g/dL Albumin (3.5-5.0) g/dL 12/15/23 12/15/23 12/15/23 Range/Units 18:08 19:08 20:31 RBC (4.30-5.90) m/uL Hgb (13.0-17.5) gm/dL Hct (39.0-53.0) % Plt Count (150-450) k/uL Neutrophils # (1.3-7.7) k/uL Sodium (137-145) mmol/L BUN (9-20) mg/dL Glucose (74-99) mg/dL POC Glucose (mg/dL) 171 H 153 H 147 H (70-110) mg/dL Calcium (8.4-10.2) mg/dL Total Protein (6.3-8.2) g/dL Albumin (3.5-5.0) g/dL 12/15/23 12/15/23 12/15/23 Range/Units 21:11 22:12 23:16 RBC (4.30-5.90) m/uL Hgb (13.0-17.5) gm/dL Hct (39.0-53.0) % Plt Count (150-450) k/uL Neutrophils # (1.3-7.7) k/uL Sodium (137-145) mmol/L BUN (9-20) mg/dL Glucose (74-99) mg/dL POC Glucose (mg/dL) 123 H 138 H 132 H (70-110) mg/dL Calcium (8.4-10.2) mg/dL Total Protein (6.3-8.2) g/dL Albumin (3.5-5.0) g/dL 12/16/23 12/16/23 12/16/23 Range/Units 01:04 02:11 02:59 RBC (4.30-5.90) m/uL Hgb (13.0-17.5) gm/dL Hct (39.0-53.0) % Plt Count (150-450) k/uL Neutrophils # (1.3-7.7) k/uL Sodium (137-145) mmol/L BUN (9-20) mg/dL Glucose (74-99) mg/dL POC Glucose (mg/dL) 129 H 124 H 130 H (70-110) mg/dL Calcium (8.4-10.2) mg/dL Total Protein (6.3-8.2) g/dL Albumin (3.5-5.0) g/dL 12/16/23 12/16/23 12/16/23 Range/Units 04:04 04:50 04:50 RBC 3.47 L (4.30-5.90) m/uL Hgb 10.7 L (13.0-17.5) gm/dL Hct 31.7 L (39.0-53.0) % Plt Count 130 L (150-450) k/uL Neutrophils # 7.9 H (1.3-7.7) k/uL Sodium 134 L (137-145) mmol/L BUN 22 H (9-20) mg/dL Glucose 136 H (74-99) mg/dL POC Glucose (mg/dL) 166 H (70-110) mg/dL Calcium 8.2 L (8.4-10.2) mg/dL Total Protein 5.1 L (6.3-8.2) g/dL Albumin 3.2 L (3.5-5.0) g/dL 12/16/23 12/16/23 12/16/23 Range/Units 04:51 06:06 06:52 RBC (4.30-5.90) m/uL Hgb (13.0-17.5) gm/dL Hct (39.0-53.0) % Plt Count (150-450) k/uL Neutrophils # (1.3-7.7) k/uL Sodium (137-145) mmol/L BUN (9-20) mg/dL Glucose (74-99) mg/dL POC Glucose (mg/dL) 148 H 117 H 137 H (70-110) mg/dL Calcium (8.4-10.2) mg/dL Total Protein (6.3-8.2) g/dL Albumin (3.5-5.0) g/dL - Imaging and Cardiology Chest x-ray: report reviewed, image reviewed Assessment and Plan Assessment: Severe symptomatic bicuspid aortic stenosis, status post mechanical aortic valve replacement History of hypertension Hyperlipidemia, treated, cholesterol 153, LDL 41, triglycerides 375 Morbid obesity Obstructive sleep apnea without home CPAP use Moderate restrictive lung disease, preoperative FEV1 59% of predicted Lifelong non-smoker Family history of premature coronary artery disease with father having myocardial infarction at 50 years old Plan: Continue to maximize medical therapy with aspirin, statin, beta vazquez. Will increase beta vazquez therapy as tolerated Encourage incentive spirometry use 10 times every hour while awake, bronchodilators per pulmonology Increase activity, ambulate as tolerated. PT/OT/cardiac rehab consulted Will monitor daily labs and x-rays. Electrolyte replacement per protocol GI/DVT prophylaxis Insulin management per internal medicine. Patient is not diabetic, preoperative hemoglobin A1c 5.5% Pain control per current medication regimen Discontinue cordis, arterial line Likely will continue mediastinal chest tube another 24 hours, placed to waterseal, monitor output Discontinue Goncalves catheter, may bladder scan and straight cath for greater than 300 mL residual Continue to monitor and record strict accurate intake and output Daily weights Epicardial pacemaker wires discontinued without incident, patient to remain on bedrest for 1 hour post wire removal Likely will place transfer orders for 3 S. cardiac stepdown unit today, may transfer when bed available Will start Coumadin after all lines and tubes have been discontinued. Therapeutic dosing with On-X valve is INR 2.5-3 for the first 3 months, then 1.8-2 thereafter More recommendations to follow based on patient's progress
[2023-12-16 08:58] LABS: Glucose,Whole Blood 204 mg/dL (70-110)
[2023-12-16 09:12] LABS: INR 1.1 (<1.2); Prothrombin Time 11.7 sec (10.0-12.5)
[2023-12-16] MEDS ORDERED: DEXTROSE 50% SYRINGE 50 ML IVP PRN ×2 (10:33)
[2023-12-16 10:39] LABS: Glucose,Whole Blood 133 mg/dL (70-110)
[2023-12-16] MEDS: FUROSEMIDE 10 MG/ML 2 ML VIAL IV ONE (10:43)
[2023-12-16] MEDS: INSULIN DETEMIR (LEVEMIR) 100 UNIT/ML SYR SQ SCH (11:19)
--- NOTE | 2023-12-16 11:26 | P.PN ---
Subjective Progress Note Date: 12/16/23 Principal diagnosis: Aortic stenosis. Pulmonary/critical care consult dated December 14, 2023. 48-year-old male with history of bicuspid aortic valve and aortic stenosis. The patient is postop day #0, status post aortic valve replacement. The patient also had a root enlargement procedure. The patient is back in the intensive care unit, in room 266. He remains on the ventilator. Current ventilator settings of volume assist-control, rate 16, tidal volume 500, FiO2 100%, PEEP of 10. Cardiac output is 7.3 and index is 2.7. The patient has a right-sided chest tube and 2 mediastinal chest tubes. Pacer wires are noted. The patient is on propofol at 25 mcg/kg/min and nitroglycerin at 5 mcg/min. The patient is also getting saline at 50 cc an hour. Blood gases have not yet been done. Chest x-ray has not yet been done. The patient has a history of hyperlipidemia, hypertension, and sleep apnea syndrome. He is a lifelong non-smoker. Labs today include a blood gas, in the operating room with a pO2 of 269, pCO2 of 41, pH of 7.36. Blood glucose is 111. Progress note dated 12/15/2023. 48-year-old male postop day #1, status post aortic valve replacement for aortic stenosis secondary to bicuspid aortic valve. The patient is seen today in room 266. The patient is doing well. He is on 4 L of oxygen. Is getting saline at 30 mL an hour, and an insulin drip at 5.5 units an hour. He has no specific complaints, and continues to work on incentive spirometer.Current labs include a white count 8.8, hemoglobin 12.1, hematocrit 36.6, normal platelet count. Sodiu m 136, potassium 4.3, chlorides 109, CO2 19, BUN 19, creatinine 0.72. Calcium is 8. Magnesium 2.4 AST 63.Chest x-ray showed low lung volumes, bibasilar atelectasis. Progress note dated December 16, 2023. 48-year-old male postop day #2, status post aortic valve replacement. The patient had a bicuspid aortic valve with aortic stenosis. Currently, the patient is on room air. He is getting saline at 20 cc an hour. He is on an insulin drip at 5 units an hour. Clinically he is doing very well. White count 9.9, hemoglobin 10.7, hematocrit 31.7, platelet count 130,000. Sodium 134, potassium 4.1, chlorides 107, CO2 22, BUN 22, creatinine 0.69. Glucose 133. Calcium 8.2. Albumin 3.2. Chest x-ray shows low lung volumes, and some bibasilar atelectasis. Objective - Vital Signs Vital signs: Vital Signs Temp 98.4 F 12/16/23 08:00 Pulse 70 12/16/23 11:20 Resp 22 12/16/23 11:00 BP 114/63 12/16/23 11:00 Pulse Ox 93 L 12/16/23 11:00 FiO2 4 12/14/23 18:00 Intake & Output 12/15/23 12/16/23 12/16/23 18:59 06:59 18:59 Intake Total 1279.787 404.467 448.353 Output Total 840 640 140 Balance 439.787 -235.533 308.353 Weight 155.7 kg 163.6 kg Intake: IV 508 338 78 CO/CI 30 Pressure Bags 78 78 18 Sodium Chloride 0.9% 1, 300 260 60 000 ml @ 20 mls/hr IV . Q24H [facility] Rx#:[id number] ceFAZolin 3 gm In Sodium 100 Chloride 0.9% 100 ml @ 100 mls/hr IVPB Q8HR [facility] Rx#:[id number] Intake, IV Titration 51.787 66.467 10.353 Amount Insulin Regular 100 unit 51.787 66.467 10.353 In Sodium Chloride 0.9% 100 ml @ Per Protocol IV .Q0M [facility] Rx#:[id number] Oral 720 360 Blood Product 0 Output: Chest Tube Drainage 285 150 30 Chest Tube Left 40 Chest Tube Mediastinal 220 150 30 Chest Tube Right 25 Urine 555 490 110 Other: Voiding Method Indwelling Catheter Indwelling Catheter Indwelling Catheter ABP, PAP, CO, CI - Last Documented Arterial Blood Pressure 120/55 Pulmonary Artery Pressure 21/3 Cardiac Output 7.2 Cardiac Index 2.7 - Exam No acute distress, oriented 3. Currently on room air. HEENT examination is grossly unremarkable. Mucous membranes are moist. No oral lesions. Neck supple. Full range of motion. No adenopathy thyromegaly or neck vein distention. Cardiovascular examination reveals regular rhythm rate. S1-S2 normal. No S3 or S4. No discernible murmur noted. Heart rate 70 bpm. Lungs reveal scattered bilateral rhonchi. No wheezes or crackles. Breath sounds are equal bilaterally. Saturations are 93 to 95% on room air. Abdomen soft bowel sounds are heard. No masses or tenderness. Extremities are intact. No cyanosis clubbing or edema. Skin is without rash or lesion. Neurologic examination is brief but nonfocal. - Labs CBC & Chem 7: 12/16/23 04:50 12/16/23 04:50 Labs: Abnormal Lab Results - Last 24 Hours (Table) 12/15/23 12/15/23 12/15/23 Range/Units 12:01 13:13 14:18 RBC (4.30-5.90) m/uL Hgb (13.0-17.5) gm/dL Hct (39.0-53.0) % Plt Count (150-450) k/uL Neutrophils # (1.3-7.7) k/uL Sodium (137-145) mmol/L BUN (9-20) mg/dL Glucose (74-99) mg/dL POC Glucose (mg/dL) 129 H 168 H 134 H (70-110) mg/dL Calcium (8.4-10.2) mg/dL Total Protein (6.3-8.2) g/dL Albumin (3.5-5.0) g/dL 12/15/23 12/15/23 12/15/23 Range/Units 15:24 18:08 19:08 RBC (4.30-5.90) m/uL Hgb (13.0-17.5) gm/dL Hct (39.0-53.0) % Plt Count (150-450) k/uL Neutrophils # (1.3-7.7) k/uL Sodium (137-145) mmol/L BUN (9-20) mg/dL Glucose (74-99) mg/dL POC Glucose (mg/dL) 117 H 171 H 153 H (70-110) mg/dL Calcium (8.4-10.2) mg/dL Total Protein (6.3-8.2) g/dL Albumin (3.5-5.0) g/dL 12/15/23 12/15/23 12/15/23 Range/Units 20:31 21:11 22:12 RBC (4.30-5.90) m/uL Hgb (13.0-17.5) gm/dL Hct (39.0-53.0) % Plt Count (150-450) k/uL Neutrophils # (1.3-7.7) k/uL Sodium (137-145) mmol/L BUN (9-20) mg/dL Glucose (74-99) mg/dL POC Glucose (mg/dL) 147 H 123 H 138 H (70-110) mg/dL Calcium (8.4-10.2) mg/dL Total Protein (6.3-8.2) g/dL Albumin (3.5-5.0) g/dL 12/15/23 12/16/23 12/16/23 Range/Units 23:16 01:04 02:11 RBC (4.30-5.90) m/uL Hgb (13.0-17.5) gm/dL Hct (39.0-53.0) % Plt Count (150-450) k/uL Neutrophils # (1.3-7.7) k/uL Sodium (137-145) mmol/L BUN (9-20) mg/dL Glucose (74-99) mg/dL POC Glucose (mg/dL) 132 H 129 H 124 H (70-110) mg/dL Calcium (8.4-10.2) mg/dL Total Protein (6.3-8.2) g/dL Albumin (3.5-5.0) g/dL 12/16/23 12/16/23 12/16/23 Range/Units 02:59 04:04 04:50 RBC 3.47 L (4.30-5.90) m/uL Hgb 10.7 L (13.0-17.5) gm/dL Hct 31.7 L (39.0-53.0) % Plt Count 130 L (150-450) k/uL Neutrophils # 7.9 H (1.3-7.7) k/uL Sodium (137-145) mmol/L BUN (9-20) mg/dL Glucose (74-99) mg/dL POC Glucose (mg/dL) 130 H 166 H (70-110) mg/dL Calcium (8.4-10.2) mg/dL Total Protein (6.3-8.2) g/dL Albumin (3.5-5.0) g/dL 12/16/23 12/16/23 12/16/23 Range/Units 04:50 04:51 06:06 RBC (4.30-5.90) m/uL Hgb (13.0-17.5) gm/dL Hct (39.0-53.0) % Plt Count (150-450) k/uL Neutrophils # (1.3-7.7) k/uL Sodium 134 L (137-145) mmol/L BUN 22 H (9-20) mg/dL Glucose 136 H (74-99) mg/dL POC Glucose (mg/dL) 148 H 117 H (70-110) mg/dL Calcium 8.2 L (8.4-10.2) mg/dL Total Protein 5.1 L (6.3-8.2) g/dL Albumin 3.2 L (3.5-5.0) g/dL 12/16/23 12/16/23 12/16/23 Range/Units 06:52 08:56 10:38 RBC (4.30-5.90) m/uL Hgb (13.0-17.5) gm/dL Hct (39.0-53.0) % Plt Count (150-450) k/uL Neutrophils # (1.3-7.7) k/uL Sodium (137-145) mmol/L BUN (9-20) mg/dL Glucose (74-99) mg/dL POC Glucose (mg/dL) 137 H 204 H 133 H (70-110) mg/dL Calcium (8.4-10.2) mg/dL Total Protein (6.3-8.2) g/dL Albumin (3.5-5.0) g/dL Assessment and Plan Assessment: Postop day #2, status post aortic valve replacement, for severe aortic stenosis, secondary to bicuspid aortic valve. Routine postoperative ventilator management. Hypertension. Hyperlipidemia. Obstructive sleep apnea syndrome. Obesity. Plan: Plan dated December 14, 2023. The patient is seen in the intensive care unit, room 266. The patient is currently on the mechanical ventilator. Chest x-ray blood gases have not yet been done. The patient is on volume assist-control, rate 16, tidal volume 500, FiO2 100%, and PEEP of 10. The patient is getting propofol at 25 mcg/kg/min, nitroglycerin at 5 mcg/min, and saline at 50 cc an hour. As mentioned, we will await the chest x-ray and blood gases. Additional recommendations and suggestions are forthcoming. Plan dated 12/15/2023. The patient is seen in the intensive care unit, room 266. The patient is currently doing well. The patient's currently on 4 L of oxygen. Is getting saline at 30 mL an hour. Is on an insulin drip of 5.5 units an hour. He is status post aortic valve replacement for aortic stenosis secondary to bicuspid aortic valve. I encouraged the patient continued to improve, cough, clear secretions. We also encourage the patient to continue to using his incentive spirometer, every hour while awake. Plan dated December 16, 2023. The patient appears to be doing very well. Currently, the patient just on room air. The patient is getting saline at 20 cc an hour, and an insulin drip at 5 units an hour. He denies any shortness of breath, cough, wheezing, chest tightness, or phlegm production. He also denies any chest pain or pressure. The patient is hoping for quick discharge. I have encouraged the patient to deep breathe, cough, clear secretions. We want the patient to continue doing the incentive spirometer, every hour while awake. We will continue to follow make recommendations along the way. Time with Patient: Less than 30
[2023-12-16 11:32] LABS: Glucose,Whole Blood 166 mg/dL (70-110)
[2023-12-16] MEDS: INSULIN ASPART (NovoLOG) 100 UNIT/ML VIAL SQ SCH (11:47)
--- NOTE | 2023-12-16 12:22 | P.PN ---
Subjective Progress Note Date: 12/16/23 the patient is a 48-year-old male with past medical history of bicuspid aortic valve status post mechanical valve replacement. Patient has done well postoperatively. He has been weaned of all drips. Jaun and Valente are DC'd. Chest tube removal will be completed later today. He was interviewed and examined resting in the recliner chair. He denies any dizziness when standing up to ambulate. He has some mild discomfort in his sternum. No difficulty breathing. GENERAL: Well-appearing, well-nourished and in no acute distress. NECK: Supple without JVD or thyromegaly. LUNGS: Breath sounds clear to auscultation bilaterally. Respiration equal and unlabored. No wheezes, rales or rhonchi. HEART: Regular rate and rhythm without murmurs, rubs or gallops. S1 and S2 heard.Heart Hugger. EXTREMITIES: Normal range of motion, no edema. No clubbing or cyanosis. Peripheral pulses intact and strong.compression socks in place TELEMETRY: sinus rhythm overnight IMPRESSION: bicuspid aortic valve with severe aortic stenosis Status post On-X mechanical valve replacement Hypertension Hyperlipidemia Obstructive sleep apnea Obesity, BMI 44 PLAN: start anticoagulation when cleared by CV surgery Continue supportive treatment Further recommendations based on clinical course I am dictating on behalf of Dr Thaddeus Peraza's history/physical and assessment/plan. Objective - Vital Signs Vital signs: Vital Signs Temp 98.4 F 12/16/23 08:00 Pulse 72 12/16/23 11:32 Resp 22 12/16/23 11:00 BP 114/63 12/16/23 11:00 Pulse Ox 94 L 12/16/23 11:16 FiO2 4 12/14/23 18:00 Intake & Output 12/15/23 12/16/23 12/16/23 18:59 06:59 18:59 Intake Total 1279.787 404.467 448.353 Output Total 840 640 140 Balance 439.787 -235.533 308.353 Weight 155.7 kg 163.6 kg Intake: IV 508 338 78 CO/CI 30 Pressure Bags 78 78 18 Sodium Chloride 0.9% 1, 300 260 60 000 ml @ 20 mls/hr IV . Q24H [facility] Rx#:[id number] ceFAZolin 3 gm In Sodium 100 Chloride 0.9% 100 ml @ 100 mls/hr IVPB Q8HR [facility] Rx#:[id number] Intake, IV Titration 51.787 66.467 10.353 Amount Insulin Regular 100 unit 51.787 66.467 10.353 In Sodium Chloride 0.9% 100 ml @ Per Protocol IV .Q0M [facility] Rx#:[id number] Oral 720 360 Blood Product 0 Output: Chest Tube Drainage 285 150 30 Chest Tube Left 40 Chest Tube Mediastinal 220 150 30 Chest Tube Right 25 Urine 555 490 110 Other: Voiding Method Indwelling Catheter Indwelling Catheter Indwelling Catheter ABP, PAP, CO, CI - Last Documented Arterial Blood Pressure 120/55 Pulmonary Artery Pressure 21/3 Cardiac Output 7.2 Cardiac Index 2.7 - Labs CBC & Chem 7: 12/16/23 04:50 12/16/23 04:50 Labs: Abnormal Lab Results - Last 24 Hours (Table) 12/15/23 12/15/23 12/15/23 Range/Units 13:13 14:18 15:24 RBC (4.30-5.90) m/uL Hgb (13.0-17.5) gm/dL Hct (39.0-53.0) % Plt Count (150-450) k/uL Neutrophils # (1.3-7.7) k/uL Sodium (137-145) mmol/L BUN (9-20) mg/dL Glucose (74-99) mg/dL POC Glucose (mg/dL) 168 H 134 H 117 H (70-110) mg/dL Calcium (8.4-10.2) mg/dL Total Protein (6.3-8.2) g/dL Albumin (3.5-5.0) g/dL 12/15/23 12/15/23 12/15/23 Range/Units 18:08 19:08 20:31 RBC (4.30-5.90) m/uL Hgb (13.0-17.5) gm/dL Hct (39.0-53.0) % Plt Count (150-450) k/uL Neutrophils # (1.3-7.7) k/uL Sodium (137-145) mmol/L BUN (9-20) mg/dL Glucose (74-99) mg/dL POC Glucose (mg/dL) 171 H 153 H 147 H (70-110) mg/dL Calcium (8.4-10.2) mg/dL Total Protein (6.3-8.2) g/dL Albumin (3.5-5.0) g/dL 12/15/23 12/15/23 12/15/23 Range/Units 21:11 22:12 23:16 RBC (4.30-5.90) m/uL Hgb (13.0-17.5) gm/dL Hct (39.0-53.0) % Plt Count (150-450) k/uL Neutrophils # (1.3-7.7) k/uL Sodium (137-145) mmol/L BUN (9-20) mg/dL Glucose (74-99) mg/dL POC Glucose (mg/dL) 123 H 138 H 132 H (70-110) mg/dL Calcium (8.4-10.2) mg/dL Total Protein (6.3-8.2) g/dL Albumin (3.5-5.0) g/dL 12/16/23 12/16/23 12/16/23 Range/Units 01:04 02:11 02:59 RBC (4.30-5.90) m/uL Hgb (13.0-17.5) gm/dL Hct (39.0-53.0) % Plt Count (150-450) k/uL Neutrophils # (1.3-7.7) k/uL Sodium (137-145) mmol/L BUN (9-20) mg/dL Glucose (74-99) mg/dL POC Glucose (mg/dL) 129 H 124 H 130 H (70-110) mg/dL Calcium (8.4-10.2) mg/dL Total Protein (6.3-8.2) g/dL Albumin (3.5-5.0) g/dL 12/16/23 12/16/23 12/16/23 Range/Units 04:04 04:50 04:50 RBC 3.47 L (4.30-5.90) m/uL Hgb 10.7 L (13.0-17.5) gm/dL Hct 31.7 L (39.0-53.0) % Plt Count 130 L (150-450) k/uL Neutrophils # 7.9 H (1.3-7.7) k/uL Sodium 134 L (137-145) mmol/L BUN 22 H (9-20) mg/dL Glucose 136 H (74-99) mg/dL POC Glucose (mg/dL) 166 H (70-110) mg/dL Calcium 8.2 L (8.4-10.2) mg/dL Total Protein 5.1 L (6.3-8.2) g/dL Albumin 3.2 L (3.5-5.0) g/dL 12/16/23 12/16/23 12/16/23 Range/Units 04:51 06:06 06:52 RBC (4.30-5.90) m/uL Hgb (13.0-17.5) gm/dL Hct (39.0-53.0) % Plt Count (150-450) k/uL Neutrophils # (1.3-7.7) k/uL Sodium (137-145) mmol/L BUN (9-20) mg/dL Glucose (74-99) mg/dL POC Glucose (mg/dL) 148 H 117 H 137 H (70-110) mg/dL Calcium (8.4-10.2) mg/dL Total Protein (6.3-8.2) g/dL Albumin (3.5-5.0) g/dL 12/16/23 12/16/23 12/16/23 Range/Units 08:56 10:38 11:30 RBC (4.30-5.90) m/uL Hgb (13.0-17.5) gm/dL Hct (39.0-53.0) % Plt Count (150-450) k/uL Neutrophils # (1.3-7.7) k/uL Sodium (137-145) mmol/L BUN (9-20) mg/dL Glucose (74-99) mg/dL POC Glucose (mg/dL) 204 H 133 H 166 H (70-110) mg/dL Calcium (8.4-10.2) mg/dL Total Protein (6.3-8.2) g/dL Albumin (3.5-5.0) g/dL
--- NOTE | 2023-12-16 12:48 | P.PN ---
Subjective Progress Note Date: 12/16/23 Subjective: Patient seen and examined at bedside. No acute events overnight. Ambulating with some assistance. Goncalves catheter and [address]. Tolerating oral diet. Pertinent positives and negatives as discussed above, a complete review of systems was performed and all other systems are negative. Vitals Signs Reviewed. General: Nontoxic, no distress, appears at stated age, morbidly obese Derm: Warm, dry, chest wall dressing clean, dry, intact, chest tube in place Head: Atraumatic, normocephalic, symmetric Eyes: EOMI, no lid lag, anicteric sclera Mouth: No lip lesion, mucus membranes moist Cardiovascular: S1S2 reg, no murmur Lungs: CTA bilateral, no rhonchi, no rales, no accessory muscle use Abdominal: Soft, nontender to palpation, no guarding, no appreciable o rganomegaly Ext: No gross muscle atrophy, no edema, no contractures Neuro: CN II-XI grossly intact, no focal neuro deficits Psych: Alert, oriented, appropriate affect Data Reviewed Today: Pertinent Labs: WBC 9.9, hemoglobin 10.7, platelet 130, sodium 134, bicarb 22, creatinine 0.69, blood sugars range between 1 30-1 66 Imaging: Chest x-ray independently interpreted, poor inspiratory effort, card iomegaly, postoperative changes noted, interstitial opacities Assessment and Plan: Severe symptomatic bicuspid aortic stenosis, status post mechanical aortic valve replacement Hypertension Dyslipidemia Pulmonary edema ELKE Hyperglycemia, A1c 5.5 Mild normocytic anemia, anticipated outcome of surgery Mild thrombocytopenia, anticipated outcome of surgery Mild hyponatremia -Cardiothoracic surgery note reviewed, continue aspirin 81 mg, atorvastatin 40 mg, metoprolol 25 mg twice daily, ezetimibe 10 mg nightly, given 20 mg IV Lasix once, started on Coumadin, INR goal 2.5-3, continue mediastinal chest tube for another 24 hours, discontinue Goncalves catheter -Pain control per cardiothoracic surgery -Insulin drip discontinued -Started on Levemir 30 units daily, sliding scale insulin, monitor for hypo glycemia -May need to come down on Levemir as hyperglycemia likely from acute stress from surgery -Pulmonology note reviewed, continue current therapy -Cardiology note reviewed, continue current therapy -Repeat CBC and CMP tomorrow Thank you for allowing us to participate in the care of this pleasant patient. Do not hesitate to contact us with questions. Someone can be reached from the [facility] hospitalist group all hours of the day at [phone] or via perfect serve. Objective - Vital Signs Vital signs: Vital Signs Temp 99 F 12/16/23 12:00 Pulse 74 12/16/23 12:00 Resp 20 12/16/23 12:00 BP 120/76 12/16/23 12:00 Pulse Ox 94 L 12/16/23 12:00 FiO2 4 12/14/23 18:00 Intake & Output 12/15/23 12/16/23 12/16/23 18:59 06:59 18:59 Intake Total 1279.787 404.467 568.353 Output Total 840 640 415 Balance 439.787 -235.533 153.353 Weight 155.7 kg 163.6 kg Intake: IV 508 338 78 CO/CI 30 Pressure Bags 78 78 18 Sodium Chloride 0.9% 1, 300 260 60 000 ml @ 20 mls/hr IV . Q24H JERRY Rx#:[id number] ceFAZolin 3 gm In Sodium 100 Chloride 0.9% 100 ml @ 100 mls/hr IVPB Q8HR JERRY Rx#:[id number] Intake, IV Titration 51.787 66.467 10.353 Amount Insulin Regular 100 unit 51.787 66.467 10.353 In Sodium Chloride 0.9% 100 ml @ Per Protocol IV .Q0M JERRY Rx#:[id number] Oral 720 480 Blood Product 0 Output: Chest Tube Drainage 285 150 30 Chest Tube Left 40 Chest Tube Mediastinal 220 150 30 Chest Tube Right 25 Urine 555 490 385 Other: Voiding Method Indwelling Catheter Indwelling Catheter Indwelling Catheter ABP, PAP, CO, CI - Last Documented Arterial Blood Pressure 120/55 Pulmonary Artery Pressure 21/3 Cardiac Output 7.2 Cardiac Index 2.7 - Labs CBC & Chem 7: 12/16/23 04:50 12/16/23 04:50 Labs: Abnormal Lab Results - Last 24 Hours (Table) 12/15/23 12/15/23 12/15/23 Range/Units 13:13 14:18 15:24 RBC (4.30-5.90) m/uL Hgb (13.0-17.5) gm/dL Hct (39.0-53.0) % Plt Count (150-450) k/uL Neutrophils # (1.3-7.7) k/uL Sodium (137-145) mmol/L BUN (9-20) mg/dL Glucose (74-99) mg/dL POC Glucose (mg/dL) 168 H 134 H 117 H (70-110) mg/dL Calcium (8.4-10.2) mg/dL Total Protein (6.3-8.2) g/dL Albumin (3.5-5.0) g/dL 12/15/23 12/15/23 12/15/23 Range/Units 18:08 19:08 20:31 RBC (4.30-5.90) m/uL Hgb (13.0-17.5) gm/dL Hct (39.0-53.0) % Plt Count (150-450) k/uL Neutrophils # (1.3-7.7) k/uL Sodium (137-145) mmol/L BUN (9-20) mg/dL Glucose (74-99) mg/dL POC Glucose (mg/dL) 171 H 153 H 147 H (70-110) mg/dL Calcium (8.4-10.2) mg/dL Total Protein (6.3-8.2) g/dL Albumin (3.5-5.0) g/dL 12/15/23 12/15/23 12/15/23 Range/Units 21:11 22:12 23:16 RBC (4.30-5.90) m/uL Hgb (13.0-17.5) gm/dL Hct (39.0-53.0) % Plt Count (150-450) k/uL Neutrophils # (1.3-7.7) k/uL Sodium (137-145) mmol/L BUN (9-20) mg/dL Glucose (74-99) mg/dL POC Glucose (mg/dL) 123 H 138 H 132 H (70-110) mg/dL Calcium (8.4-10.2) mg/dL Total Protein (6.3-8.2) g/dL Albumin (3.5-5.0) g/dL 12/16/23 12/16/23 12/16/23 Range/Units 01:04 02:11 02:59 RBC (4.30-5.90) m/uL Hgb (13.0-17.5) gm/dL Hct (39.0-53.0) % Plt Count (150-450) k/uL Neutrophils # (1.3-7.7) k/uL Sodium (137-145) mmol/L BUN (9-20) mg/dL Glucose (74-99) mg/dL POC Glucose (mg/dL) 129 H 124 H 130 H (70-110) mg/dL Calcium (8.4-10.2) mg/dL Total Protein (6.3-8.2) g/dL Albumin (3.5-5.0) g/dL 12/16/23 12/16/23 12/16/23 Range/Units 04:04 04:50 04:50 RBC 3.47 L (4.30-5.90) m/uL Hgb 10.7 L (13.0-17.5) gm/dL Hct 31.7 L (39.0-53.0) % Plt Count 130 L (150-450) k/uL Neutrophils # 7.9 H (1.3-7.7) k/uL Sodium 134 L (137-145) mmol/L BUN 22 H (9-20) mg/dL Glucose 136 H (74-99) mg/dL POC Glucose (mg/dL) 166 H (70-110) mg/dL Calcium 8.2 L (8.4-10.2) mg/dL Total Protein 5.1 L (6.3-8.2) g/dL Albumin 3.2 L (3.5-5.0) g/dL 12/16/23 12/16/23 12/16/23 Range/Units 04:51 06:06 06:52 RBC (4.30-5.90) m/uL Hgb (13.0-17.5) gm/dL Hct (39.0-53.0) % Plt Count (150-450) k/uL Neutrophils # (1.3-7.7) k/uL Sodium (137-145) mmol/L BUN (9-20) mg/dL Glucose (74-99) mg/dL POC Glucose (mg/dL) 148 H 117 H 137 H (70-110) mg/dL Calcium (8.4-10.2) mg/dL Total Protein (6.3-8.2) g/dL Albumin (3.5-5.0) g/dL 12/16/23 12/16/23 12/16/23 Range/Units 08:56 10:38 11:30 RBC (4.30-5.90) m/uL Hgb (13.0-17.5) gm/dL Hct (39.0-53.0) % Plt Count (150-450) k/uL Neutrophils # (1.3-7.7) k/uL Sodium (137-145) mmol/L BUN (9-20) mg/dL Glucose (74-99) mg/dL POC Glucose (mg/dL) 204 H 133 H 166 H (70-110) mg/dL Calcium (8.4-10.2) mg/dL Total Protein (6.3-8.2) g/dL Albumin (3.5-5.0) g/dL
[2023-12-16 16:31] LABS: Glucose,Whole Blood 149 mg/dL (70-110)
[2023-12-16] MEDS: WARFARIN 7.5 MG TAB PO ONE (17:04)
[2023-12-16 20:23] LABS: Glucose,Whole Blood 159 mg/dL (70-110)
[2023-12-17 06:00] LABS: Glucose,Whole Blood 110 mg/dL (70-110)
[2023-12-17 06:09] LABS: Basophils # (A) 0.1 k/uL (0-0.2); Basophils % (A) 1 %; Eosinophils # (A) 0.2 k/uL (0-0.7); Eosinophils % (A) 2 %; HCT 31.4 % (39.0-53.0); HGB 10.4 gm/dL (13.0-17.5); Lymphocytes # (A) 1.5 k/uL (1.0-4.8); Lymphocytes % (A) 19 %; MCH 29.7 pg (25.0-35.0); MCHC 33.2 g/dL (31.0-37.0); MCV 89.3 fL (80.0-100.0); Mean Platelet Volume 7.8; Monocytes # (A) 0.6 k/uL (0-1.0); Monocytes % (A) 8 %; Neutrophils # (A) 5.3 k/uL (1.3-7.7); Neutrophils % (A) 68 %; Platelet Count 166 k/uL (150-450); RBC 3.52 m/uL (4.30-5.90); RDW 13.5 % (11.5-15.5); WBC 7.8 k/uL (3.8-10.6)
[2023-12-17 06:20] LABS: Prothrombin Time 11.1 sec (10.0-12.5)
[2023-12-17 06:22] LABS: ALT 31 U/L (4-49); AST 40 U/L (17-59); African American GFR (CKD) >90 (>60 ml/min/1.73 sqM); Albumin 3.2 g/dL (3.5-5.0); Alkaline Phosphatase 49 U/L (38-126); Anion Gap 4 mmol/L; Blood Urea Nitrogen 23 mg/dL (9-20); Calcium 8.4 mg/dL (8.4-10.2); Carbon Dioxide 26 mmol/L (22-30); Chloride 105 mmol/L (98-107); Glucose 118 mg/dL (74-99); Non-African American GFR(CKD) >90 (>60 ml/min/1.73 sqM); Potassium 4.1 mmol/L (3.5-5.1); Sodium 135 mmol/L (137-145); Total Bilirubin 0.6 mg/dL (0.2-1.3); Total Protein 5.5 g/dL (6.3-8.2)
--- NOTE | 2023-12-17 07:18 | XR ---
EXAMINATION TYPE: XR chest 2V DATE OF EXAM: 12/17/2023 6:17 AM CLINICAL INDICATION:Male, 48 years old with history of post cardiac surgery; COMPARISON: Chest radiographs from 12/16/2023 TECHNIQUE: XR chest 2V Frontal view of the chest. FINDINGS: Lungs/Pleura: There is no evidence of pleural effusion, focal consolidation, or pneumothorax. Pulmonary vascularity: Unremarkable. Heart/mediastinum: Cardiomediastinal silhouette is enlarged and stable. Atherosclerotic calcificatio ns are seen in the aorta. Left atrial appendage occlusion device is present. Musculoskeletal: No acute osseous pathology. Midline sternotomy wires are noted. IMPRESSION: Low lung volumes and underpenetration with a generalized hazy appearance which could represent atelec tasis versus pulmonary edema correlate with serum BNP.
[2023-12-17] MEDS: ASPIRIN 81 MG PO SCH (07:31)
--- NOTE | 2023-12-17 07:40 | P.PN ---
Subjective Progress Note Date: 12/17/23 Principal diagnosis: Severe symptomatic bicuspid aortic stenosis. History of hypertension, hyperlipidemia, morbid obesity, obstructive sleep apnea without home CPAP use, moderate restrictive lung disease, lifelong non-smoker, family history of premature coronary artery disease with father having myocardial infarction at 50 years old POD #3 Aortic valve replacement with 25 mm On-X mechanical valve, root enlargement with Hemashield patch ([place]), ligate left atrial appendage with 35mm AtriCure clip The patient was seen and examined sitting up in a recliner on the cardiac stepdown unit in no acute distress. Remains in sinus rhythm, hemodynamically stable. Currently on room air with oxygen saturation in the mid 90s. Able to achieve 1750 mL on his incentive spirometry. Does complain of expected post surgical soreness which is controlled on current medication regimen. Mediastinal chest tube remains to waterseal. Patient has been ambulatory in the hallway without difficulty. Coumadin started yesterday. No other new concerns. Objective - Vital Signs Vital signs: Vital Signs Temp 98.1 F 12/17/23 04:00 Pulse 67 12/17/23 04:00 Resp 20 12/17/23 04:00 BP 110/67 12/17/23 04:00 Pulse Ox 94 L 12/17/23 04:00 FiO2 4 12/14/23 18:00 Intake & Output 12/16/23 12/17/23 12/17/23 18:59 06:59 18:59 Intake Total 686.353 Output Total 565 985 Balance 121.353 -985 Intake: IV 78 Pressure Bags 18 Sodium Chloride 0.9% 1, 60 000 ml @ 20 mls/hr IV . Q24H JERRY Rx#:[id number] Intake, IV Titration 10.353 Amount Insulin Regular 100 unit 10.353 In Sodium Chloride 0.9% 100 ml @ Per Protocol IV .Q0M JERRY Rx#:[id number] Oral 598 Output: Chest Tube Drainage 70 60 Chest Tube Mediastinal 70 60 Urine 495 925 Other: Voiding Method Urinal Urinal ABP, PAP, CO, CI - Last Documented Arterial Blood Pressure 120/55 Pulmonary Artery Pressure 21/3 Cardiac Output 7.2 Cardiac Index 2.7 - Exam CONSTITUTIONAL: Appears comfortable, cooperative, no acute distress RESPIRATORY: Lungs sounds diminished bilaterally. Respirations even, nonlabored. Currently on room air with oxygen saturation 94%. Able to achieve 1750 mL on incentive spirometry. Strong cough. CARDIOVASCULAR: S1, S2 present. Regular rate and rhythm, sinus rhythm on telemetry. Sternum stable. Palpable peripheral pulses bilaterally. Trace generalized edema present. No calf pain or tenderness noted. Heart hugger in place with patient demonstrating appropriate use. Antiembolism stockings, SCDs present. GASTROINTESTINAL: Abdomen soft, nontender, nondistended. Active bowel sounds present 4 quadrants. Tolerating diet. Positive flatus GENITOURINARY: Continues to void clear, yellow urine. Output 1420 mL in the l ast 24 hours INTEGUMENTARY: Skin is warm and dry with evidence of good perfusion. Anterior chest incision well approximated and covered with dry intact dressing NEUROLOGIC: Cranial nerves II through XII intact MUSKULOSKELETAL: Able to move all extremities, strength equal bilaterally, gait normal PSYCHIATRIC: Alert and oriented to person place and time, appropriate affect, intact judgment and insight INVASIVE LINES AND TUBES: Mediastinal chest tube present to waterseal, no air leaks present, 40 mL serosanguineous drainage overnight, 200 mL in the last 24 hours - Allied health notes Allied health notes reviewed: nursing - Labs CBC & Chem 7: 12/17/23 05:44 12/17/23 05:44 Labs: Abnormal Lab Results - Last 24 Hours (Table) 12/16/23 12/16/23 12/16/23 Range/Units 08:56 10:38 11:30 RBC (4.30-5.90) m/uL Hgb (13.0-17.5) gm/dL Hct (39.0-53.0) % Sodium (137-145) mmol/L BUN (9-20) mg/dL Glucose (74-99) mg/dL POC Glucose (mg/dL) 204 H 133 H 166 H (70-110) mg/dL Total Protein (6.3-8.2) g/dL Albumin (3.5-5.0) g/dL 12/16/23 12/16/23 12/17/23 Range/Units 16:28 20:22 05:44 RBC 3.52 L (4.30-5.90) m/uL Hgb 10.4 L (13.0-17.5) gm/dL Hct 31.4 L (39.0-53.0) % Sodium (137-145) mmol/L BUN (9-20) mg/dL Glucose (74-99) mg/dL POC Glucose (mg/dL) 149 H 159 H (70-110) mg/dL Total Protein (6.3-8.2) g/dL Albumin (3.5-5.0) g/dL 12/17/23 Range/Units 05:44 RBC (4.30-5.90) m/uL Hgb (13.0-17.5) gm/dL Hct (39.0-53.0) % Sodium 135 L (137-145) mmol/L BUN 23 H (9-20) mg/dL Glucose 118 H (74-99) mg/dL POC Glucose (mg/dL) (70-110) mg/dL Total Protein 5.5 L (6.3-8.2) g/dL Albumin 3.2 L (3.5-5.0) g/dL - Imaging and Cardiology Chest x-ray: report reviewed, image reviewed Assessment and Plan Assessment: Severe symptomatic bicuspid aortic stenosis, status post mechanical aortic valve replacement History of hypertension Hyperlipidemia, treated, cholesterol 153, LDL 41, triglycerides 375 Morbid obesity Obstructive sleep apnea without home CPAP use Moderate restrictive lung disease, preoperative FEV1 59% of predicted Lifelong non-smoker Family history of premature coronary artery disease with father having myocardia l infarction at 50 years old Plan: Continue to maximize medical therapy with low-dose aspirin, statin, beta vazquez. Will increase beta vazquez therapy as tolerated Encourage incentive spirometry use 10 times every hour while awake, bronchodilators per pulmonology Increase activity, ambulate as tolerated. PT/OT/cardiac rehab consulted Will monitor daily labs and x-rays. Electrolyte replacement per protocol GI/DVT prophylaxis Insulin management per internal medicine. Patient is not diabetic, preoperative hemoglobin A1c 5.5% Pain control per current medication regimen Likely will discontinue mediastinal chest tube Continue to monitor and record strict accurate intake and output Daily weights Continue Coumadin, therapeutic dosing with On-X valve is INR 2-3 for the first 3 months, then 1.5-2 thereafter Will discharge to home with home care once INR is therapeutic, we will continue to dose Coumadin until patient follows up with Dr. Lentz in the office More recommendations to follow based on patient's progress
--- NOTE | 2023-12-17 08:24 | P.PN ---
Subjective Progress Note Date: 12/17/23 Principal diagnosis: Aortic stenosis. Pulmonary/critical care consult dated December 14, 2023. 48-year-old male with history of bicuspid aortic valve and aortic stenosis. The patient is postop day #0, status post aortic valve replacement. The patient also had a root enlargement procedure. The patient is back in the intensive care unit, in room 266. He remains on the ventilator. Current ventilator settings of volume assist-control, rate 16, tidal volume 500, FiO2 100%, PEEP of 10. Cardiac output is 7.3 and index is 2.7. The patient has a right-sided chest tube and 2 mediastinal chest tubes. Pacer wires are noted. The patient is on propofol at 25 mcg/kg/min and nitroglycerin at 5 mcg/min. The patient is also getting saline at 50 cc an hour. Blood gases have not yet been done. Chest x-ray has not yet been done. The patient has a history of hyperlipidemia, hypertension, and sleep apnea syndrome. He is a lifelong non-smoker. Labs today include a blood gas, in the operating room with a pO2 of 269, pCO2 of 41, pH of 7.36. Blood glucose is 111. Progress note dated 12/15/2023. 48-year-old male postop day #1, status post aortic valve replacement for aortic stenosis secondary to bicuspid aortic valve. The patient is seen today in room 266. The patient is doing well. He is on 4 L of oxygen. Is getting saline at 30 mL an hour, and an insulin drip at 5.5 units an hour. He has no specific complaints, and continues to work on incentive spirometer.Current labs include a white count 8.8, hemoglobin 12.1, hematocrit 36.6, normal platelet count. Sodiu m 136, potassium 4.3, chlorides 109, CO2 19, BUN 19, creatinine 0.72. Calcium is 8. Magnesium 2.4 AST 63.Chest x-ray showed low lung volumes, bibasilar atelectasis. Progress note dated December 16, 2023. 48-year-old male postop day #2, status post aortic valve replacement. The patient had a bicuspid aortic valve with aortic stenosis. Currently, the patient is on room air. He is getting saline at 20 cc an hour. He is on an insulin drip at 5 units an hour. Clinically he is doing very well. White count 9.9, hemoglobin 10.7, hematocrit 31.7, platelet count 130,000. Sodium 134, potassium 4.1, chlorides 107, CO2 22, BUN 22, creatinine 0.69. Glucose 133. Calcium 8.2. Albumin 3.2. Chest x-ray shows low lung volumes, and some bibasilar atelectasis. Progress note dated December 17, 2023. 48-year-old male postop day #3, status post aortic valve replacement, for aortic stenosis, secondary to bicuspid aortic valve. The patient is seen today in room 381. He is on room air. No IV fluids. Clinically, the patient looks well and feels well. Current labs include a white count 7.8, hemoglobin 10.4, hematocrit 31.4, and a normal platelet count. Sodium 135, potassium 4.1, chlorides 105, C O2 26, BUN 23, and creatinine 0.78. Chest x-ray shows some generalized haziness and atelectasis, with low lung volumes. Objective - Vital Signs Vital signs: Vital Signs Temp 98.1 F 12/17/23 04:00 Pulse 76 12/17/23 08:10 Resp 20 12/17/23 04:00 BP 110/67 12/17/23 04:00 Pulse Ox 97 12/17/23 08:00 FiO2 4 12/14/23 18:00 Intake & Output 12/16/23 12/17/23 12/17/23 18:59 06:59 18:59 Intake Total 686.353 358 Output Total 565 985 Balance 121.353 -985 358 Weight 158 kg Intake: IV 78 Pressure Bags 18 Sodium Chloride 0.9% 1, 60 000 ml @ 20 mls/hr IV . Q24H JERRY Rx#:[id number] Intake, IV Titration 10.353 Amount Insulin Regular 100 unit 10.353 In Sodium Chloride 0.9% 100 ml @ Per Protocol IV .Q0M JERRY Rx#:[id number] Oral 598 358 Output: Chest Tube Drainage 70 60 Chest Tube Mediastinal 70 60 Urine 495 925 Other: Voiding Method Urinal Urinal ABP, PAP, CO, CI - Last Documented Arterial Blood Pressure 120/55 Pulmonary Artery Pressure 21/3 Cardiac Output 7.2 Cardiac Index 2.7 - Exam No acute distress, oriented 3. Currently on room air. HEENT examination is grossly unremarkable. Mucous membranes are moist. No oral lesions. Neck supple. Full range of motion. No adenopathy thyromegaly or neck vein distention. Cardiovascular examination reveals regular rhythm rate. S1-S2 normal. No S3 or S4. No discernible murmur noted. Heart rate 76 bpm. Lungs reveal scattered bilateral rhonchi. No wheezes or crackles. Breath sounds are equal bilaterally. Saturations are 97% on room air. Abdomen soft bowel sounds are heard. No masses or tenderness. Extremities are intact. No cyanosis clubbing or edema. Skin is without rash or lesion. Neurologic examination is brief but nonfocal. - Labs CBC & Chem 7: 12/17/23 05:44 12/17/23 05:44 Labs: Abnormal Lab Results - Last 24 Hours (Table) 12/16/23 12/16/23 12/16/23 Range/Units 08:56 10:38 11:30 RBC (4.30-5.90) m/uL Hgb (13.0-17.5) gm/dL Hct (39.0-53.0) % Sodium (137-145) mmol/L BUN (9-20) mg/dL Glucose (74-99) mg/dL POC Glucose (mg/dL) 204 H 133 H 166 H (70-110) mg/dL Total Protein (6.3-8.2) g/dL Albumin (3.5-5.0) g/dL 12/16/23 12/16/23 12/17/23 Range/Units 16:28 20:22 05:44 RBC 3.52 L (4.30-5.90) m/uL Hgb 10.4 L (13.0-17.5) gm/dL Hct 31.4 L (39.0-53.0) % Sodium (137-145) mmol/L BUN (9-20) mg/dL Glucose (74-99) mg/dL POC Glucose (mg/dL) 149 H 159 H (70-110) mg/dL Total Protein (6.3-8.2) g/dL Albumin (3.5-5.0) g/dL 12/17/23 Range/Units 05:44 RBC (4.30-5.90) m/uL Hgb (13.0-17.5) gm/dL Hct (39.0-53.0) % Sodium 135 L (137-145) mmol/L BUN 23 H (9-20) mg/dL Glucose 118 H (74-99) mg/dL POC Glucose (mg/dL) (70-110) mg/dL Total Protein 5.5 L (6.3-8.2) g/dL Albumin 3.2 L (3.5-5.0) g/dL Assessment and Plan Assessment: Postop day #3, status post aortic valve replacement, for severe aortic stenosis, secondary to bicuspid aortic valve. Routine postoperative ventilator management. Hypertension. Hyperlipidemia. Obstructive sleep apnea syndrome. Obesity. Plan: Plan dated December 14, 2023. The patient is seen in the intensive care unit, room 266. The patient is curr ently on the mechanical ventilator. Chest x-ray blood gases have not yet been done. The patient is on volume assist-control, rate 16, tidal volume 500, FiO2 100%, and PEEP of 10. The patient is getting propofol at 25 mcg/kg/min, nitroglycerin at 5 mcg/min, and saline at 50 cc an hour. As mentioned, we will await the chest x-ray and blood gases. Additional recommendations and suggestions are forthcoming. Plan dated 12/15/2023. The patient is seen in the intensive care unit, room 266. The patient is currently doing well. The patient's currently on 4 L of oxygen. Is getting saline at 30 mL an hour. Is on an insulin drip of 5.5 units an hour. He is status post aortic valve replacement for aortic stenosis secondary to bicuspid aortic valve. I encouraged the patient continued to improve, cough, clear secretions. We also encourage the patient to continue to using his incentive spirometer, every hour while awake. Plan dated December 16, 2023. The patient appears to be doing very well. Currently, the patient just on room air. The patient is getting saline at 20 cc an hour, and an insulin drip at 5 units an hour. He denies any shortness of breath, cough, wheezing, chest tight ness, or phlegm production. He also denies any chest pain or pressure. The patient is hoping for quick discharge. I have encouraged the patient to deep breathe, cough, clear secretions. We want the patient to continue doing the incentive spirometer, every hour while awake. We will continue to follow make recommendations along the way. Plan dated December 17, 2023. The patient appears to be doing much better. He is on no oxygen. No IV fluids. He is postop day #3. Labs, x-rays, medications are all reviewed. We encourage him to continue to deep breathe, cough, clear secretions, and encouraged him to use the incentive spirometer, every hour while awake. No additional recommendations at this time. Time with Patient: Less than 30
[2023-12-17] MEDS: ASPIRIN 325 MG TAB PO ONE (10:34)
[2023-12-17] MEDS: CALCIUM CHLORIDE 100 MG/ML 10 ML SYRINGE IV ONE (10:35)
[2023-12-17] MEDS: HEPARIN SODIUM 1,000 UN/ML (10ML VL) IV ONE (10:35)
[2023-12-17] MEDS: NITROGLYCERIN-D5W PMX 25 MG/250 ML BTL IV ONE (10:35)
[2023-12-17] MEDS: NITROGLYCERIN SL TABS 0.4 MG TAB SUBLINGUAL ONE (10:35)
[2023-12-17] MEDS: CHLORHEXIDINE GLUCONATE 15 ML CUP MUCOUS MEM ONE (10:35)
[2023-12-17] MEDS: MANNITOL 25% 12.5 GM/50 ML VIAL IV ONE (10:35)
[2023-12-17] MEDS: PROTAMINE SULFATE 10 MG/ML 25 ML VIAL IV ONE (10:36)
[2023-12-17] MEDS: SODIUM BICARB 8.4% 50 ML SYR (1 MEQ/ML) IV ONE (10:36)
[2023-12-17] MEDS: PHENYLEPHRINE 10 MG/ML VIAL IV ONE (10:36)
[2023-12-17] MEDS: MUPIROCIN 2% OINT 22 GM TUBE NASAL ONE (10:36)
--- NOTE | 2023-12-17 10:57 | P.PN ---
Subjective Progress Note Date: 12/17/23 Subjective: Patient seen and examined at bedside. No acute events overnight. Ambulating with some assistance. Goncalves catheter and chest tubes discontinued. Tolerating oral diet. Pertinent positives and negatives as discussed above, a complete review of systems was performed and all other systems are negative. Vitals Signs Reviewed. General: Nontoxic, no distress, appears at stated age, morbidly obese Derm: Warm, dry, chest wall incision clean, dry, intact, Head: Atraumatic, normocephalic, symmetric Eyes: EOMI, no lid lag, anicteric sclera Mouth: No lip lesion, mucus membranes moist Cardiovascular: S1S2 reg, no murmur Lungs: CTA bilateral, no rhonchi, no rales, no accessory muscle use Abdominal: Soft, nontender to palpation, no guarding, no appreciable organomegaly Ext: No gross muscle atrophy, no edema, no contractures Neuro: CN II-XI grossly intact, no focal neuro deficits Psych: Alert, oriented, appropriate affect Data Reviewed Today: Pertinent Labs: WBC 7.8, hemoglobin 10.4, sodium 135, creatinine 0.78, blood sugars range between 1 10-1 59 Imaging: Chest x-ray independently interpreted, poor inspiratory effort, cardiomegaly, postoperative changes noted, interstitial opacities improved, no obvious pneumothorax Assessment and Plan: Severe symptomatic bicuspid aortic stenosis, status post mechanical aortic valve replacement Hypertension Dyslipidemia Pulmonary edema ELKE Hyperglycemia, A1c 5.5 Mild normocytic anemia, anticipated outcome of surgery Mild thrombocytopenia, anticipated outcome of surgery, resolved Mild hyponatremia, resolving -Cardiothoracic surgery note reviewed, continue aspirin 81 mg, atorvastatin 40 mg, metoprolol 25 mg twice daily, ezetimibe 10 mg nightly, given 20 mg IV Lasix once, started on Coumadin, INR goal 2.5-3, likely discharge home tomorrow with home care -Pain control per cardiothoracic surgery -Levemir discontinued, sliding scale insulin, monitor for hypoglycemia -hyperglycemia likely from acute stress from surgery, does not need any antidiabetic medications at the time of discharge, outpatient follow-up with PCP -Pulmonology note reviewed, continue current therapy, encourage IS -Cardiology also following -Repeat CBC and BMP tomorrow Thank you for allowing us to participate in the care of this pleasant patient. Do not hesitate to contact us with questions. Someone can be reached from the [facility] hospitalist group all hours of the day at [phone] or via perfect serve. Objective - Vital Signs Vital signs: Vital Signs Temp 98.4 F 12/17/23 08:00 Pulse 76 12/17/23 08:10 Resp 20 12/17/23 08:00 BP 122/71 12/17/23 08:00 Pulse Ox 96 12/17/23 08:00 FiO2 4 12/14/23 18:00 Intake & Output 12/16/23 12/17/23 12/17/23 18:59 06:59 18:59 Intake Total 686.353 358 Output Total 565 985 80 Balance 121.353 -985 278 Weight 158 kg Intake: IV 78 Pressure Bags 18 Sodium Chloride 0.9% 1, 60 000 ml @ 20 mls/hr IV . Q24H JERRY Rx#:[id number] Intake, IV Titration 10.353 Amount Insulin Regular 100 unit 10.353 In Sodium Chloride 0.9% 100 ml @ Per Protocol IV .Q0M JERRY Rx#:[id number] Oral 598 358 Output: Chest Tube Drainage 70 60 80 Chest Tube Mediastinal 70 60 80 Urine 495 925 Other: Voiding Method Urinal Urinal Urinal ABP, PAP, CO, CI - Last Documented Arterial Blood Pressure 120/55 Pulmonary Artery Pressure 21/3 Cardiac Output 7.2 Cardiac Index 2.7 - Labs CBC & Chem 7: 12/17/23 05:44 12/17/23 05:44 Labs: Abnormal Lab Results - Last 24 Hours (Table) 12/16/23 12/16/23 12/16/23 Range/Units 11:30 16:28 20:22 RBC (4.30-5.90) m/uL Hgb (13.0-17.5) gm/dL Hct (39.0-53.0) % Sodium (137-145) mmol/L BUN (9-20) mg/dL Glucose (74-99) mg/dL POC Glucose (mg/dL) 166 H 149 H 159 H (70-110) mg/dL Total Protein (6.3-8.2) g/dL Albumin (3.5-5.0) g/dL 12/17/23 12/17/23 Range/Units 05:44 05:44 RBC 3.52 L (4.30-5.90) m/uL Hgb 10.4 L (13.0-17.5) gm/dL Hct 31.4 L (39.0-53.0) % Sodium 135 L (137-145) mmol/L BUN 23 H (9-20) mg/dL Glucose 118 H (74-99) mg/dL POC Glucose (mg/dL) (70-110) mg/dL Total Protein 5.5 L (6.3-8.2) g/dL Albumin 3.2 L (3.5-5.0) g/dL
--- NOTE | 2023-12-17 11:17 | P.PN ---
Subjective HISTORY OF PRESENT ILLNESS: Patient is status post aortic valve replacement with On-X mechanical valve. Postop day #3. Patient examined this morning. He is sitting up in the chair. Patient currently denies any chest pain or pressure. Denies any shortness of breath. Chest tube was discontinued this morning. Patient has been up ambulating in the hallway without difficulty. Telemetry reveals sinus mechanism. Vital signs are stable. PHYSICAL EXAM: VITAL SIGNS: Reviewed. GENERAL: Well-developed in no acute distress. NECK: Supple. No JVD or thyromegaly LUNGS: Respirations even and unlabored. Lungs essentially clear to auscultation bilaterally. HEART: Regular rate and rhythm. S1 and S2 heard. EXTREMITIES: Normal range of motion. No clubbing or cyanosis. Peripheral pulses intact. No lower extremity edema ASSESSMENT: Severe bicuspid aortic stenosis, status post mechanical aortic valve replacement with On-X valve Hypertension Hyperlipidemia Obstructive sleep apnea without CPAP use Morbid obesity: BMI 44.7 PLAN: Continue postoperative management per CT surgery Continue Coumadin. Monitor INR. Encourage use of incentive spirometer Increase activity as tolerated Continue telemetry monitoring Further recommendations pending patient course Nurse practitioner note has been reviewed by physician. Signing provider agrees with the documented findings, assessment, and plan of care documented by POLICY AND PLANNING MANAGER as a scribe. Objective - Vital Signs Vital signs: Vital Signs Temp 98.4 F 12/17/23 08:00 Pulse 76 12/17/23 08:10 Resp 20 12/17/23 08:00 BP 122/71 12/17/23 08:00 Pulse Ox 96 12/17/23 08:00 FiO2 4 12/14/23 18:00 Intake & Output 12/16/23 12/17/23 12/17/23 18:59 06:59 18:59 Intake Total 686.353 358 Output Total 565 985 80 Balance 121.353 -985 278 Weight 158 kg Intake: IV 78 Pressure Bags 18 Sodium Chloride 0.9% 1, 60 000 ml @ 20 mls/hr IV . Q24H JERRY Rx#:[id number] Intake, IV Titration 10.353 Amount Insulin Regular 100 unit 10.353 In Sodium Chloride 0.9% 100 ml @ Per Protocol IV .Q0M JERRY Rx#:[id number] Oral 598 358 Output: Chest Tube Drainage 70 60 80 Chest Tube Mediastinal 70 60 80 Urine 495 925 Other: Voiding Method Urinal Urinal Urinal ABP, PAP, CO, CI - Last Documented Arterial Blood Pressure 120/55 Pulmonary Artery Pressure 21/3 Cardiac Output 7.2 Cardiac Index 2.7 - Labs CBC & Chem 7: 12/17/23 05:44 12/17/23 05:44 Labs: Abnormal Lab Results - Last 24 Hours (Table) 12/16/23 12/16/23 12/16/23 Range/Units 11:30 16:28 20:22 RBC (4.30-5.90) m/uL Hgb (13.0-17.5) gm/dL Hct (39.0-53.0) % Sodium (137-145) mmol/L BUN (9-20) mg/dL Glucose (74-99) mg/dL POC Glucose (mg/dL) 166 H 149 H 159 H (70-110) mg/dL Total Protein (6.3-8.2) g/dL Albumin (3.5-5.0) g/dL 12/17/23 12/17/23 Range/Units 05:44 05:44 RBC 3.52 L (4.30-5.90) m/uL Hgb 10.4 L (13.0-17.5) gm/dL Hct 31.4 L (39.0-53.0) % Sodium 135 L (137-145) mmol/L BUN 23 H (9-20) mg/dL Glucose 118 H (74-99) mg/dL POC Glucose (mg/dL) (70-110) mg/dL Total Protein 5.5 L (6.3-8.2) g/dL Albumin 3.2 L (3.5-5.0) g/dL
[2023-12-17 11:31] LABS: Glucose,Whole Blood 138 mg/dL (70-110)
[2023-12-17 16:45] LABS: Glucose,Whole Blood 127 mg/dL (70-110)
[2023-12-17] MEDS: WARFARIN 7.5 MG TAB PO ONE (17:08)
[2023-12-17 19:53] LABS: Glucose,Whole Blood 133 mg/dL (70-110)
[2023-12-18] MEDS: MAGNESIUM HYDROXIDE 2,400 MG/30 ML CUP PO PRN (00:27)
[2023-12-18 05:52] LABS: Glucose,Whole Blood 141 mg/dL (70-110)
[2023-12-18] MEDS ORDERED: INSULIN DETEMIR (LEVEMIR) 100 UNIT/ML SYR SQ SCH (07:00)
--- NOTE | 2023-12-18 07:49 | XR ---
EXAMINATION TYPE: XR chest 2V DATE OF EXAM: 12/18/2023 COMPARISON: 12/17/2019 TECHNIQUE: PA and lateral views submitted. HISTORY: Postop FINDINGS: The heart is enlarged and there is median sternotomy changes. Bibasilar consolidation noted with smal l left pleural effusion. No sizable pneumothorax.. Osseous structures demonstrate hypertrophic and de generative changes of the spine. IMPRESSION: 1. Stable bilateral lower lobe atelectasis or infiltrate with small left pleural effusion.
[2023-12-18 08:10] LABS: HGB 10.4 gm/dL (13.0-17.5); Hypochromasia Slight; MCH 29.2 pg (25.0-35.0); MCHC 32.4 g/dL (31.0-37.0); MCV 90.3 fL (80.0-100.0); Mean Platelet Volume 8.1; Platelet Count 209 k/uL (150-450); RBC 3.55 m/uL (4.30-5.90); RDW 13.6 % (11.5-15.5); WBC 5.9 k/uL (3.8-10.6)
[2023-12-18 08:15] LABS: Prothrombin Time 10.9 sec (10.0-12.5)
[2023-12-18] MEDS: FUROSEMIDE 10 MG/ML 2 ML VIAL IV ONE (08:28)
--- NOTE | 2023-12-18 08:28 | P.PN ---
Subjective Progress Note Date: 12/18/23 Principal diagnosis: Severe symptomatic bicuspid aortic stenosis. History of hypertension, hyperlipidemia, morbid obesity, obstructive sleep apnea without home CPAP use, moderate restrictive lung disease, lifelong non-smoker, family history of premature coronary artery disease with father having myocardial infarction at 50 years old POD #4 Aortic valve replacement with 25 mm On-X mechanical valve, root enlargement with Hemashield patch ([place]), ligate left atrial appendage with 35mm AtriCure clip The patient was seen and examined sitting up in a recliner on the cardiac stepdown unit in no acute distress. Remains in sinus rhythm, hemodynamically stable. Currently on room air with oxygen saturation in the mid 90s. Able to achieve 2000 mL on his incentive spirometry. Does complain of expected post surgical soreness which is controlled on current medication regimen. Patient has been ambulatory in the hallway without difficulty. Coumadin continues to be dosed daily, goal INR 2-3 for the first 3 months, then 1.5-2 thereafter. Patient is anxious to go home, understands need to wait until INR is therapeutic. No other new concerns. Objective - Vital Signs Vital signs: Vital Signs Temp 98.5 F 12/18/23 08:08 Pulse 76 12/18/23 08:08 Resp 18 12/18/23 08:08 BP 145/72 12/18/23 08:08 Pulse Ox 94 L 12/18/23 08:08 FiO2 4 12/14/23 18:00 Intake & Output 12/17/23 12/18/23 12/18/23 18:59 06:59 18:59 Intake Total 1074 0 Output Total 980 Balance 94 0 Weight 160.6 kg Intake: Oral 1074 0 Output: Chest Tube Drainage 80 Chest Tube Mediastinal 80 Urine 900 Other: Voiding Method Urinal Urinal # Voids 2 ABP, PAP, CO, CI - Last Documented Arterial Blood Pressure 120/55 Pulmonary Artery Pressure 21/3 Cardiac Output 7.2 Cardiac Index 2.7 - Exam CONSTITUTIONAL: Appears comfortable, cooperative, no acute distress RESPIRATORY: Lungs sounds diminished bilaterally. Respirations even, nonlabored. Currently on room air with oxygen saturation 94%. Able to achieve 2000 mL on incentive spirometry. Strong cough. CARDIOVASCULAR: S1, S2 present. Regular rate and rhythm, sinus rhythm on telemetry. Sternum stable. Palpable peripheral pulses bilaterally. Bilateral lower extremity edema present. No calf pain or tenderness noted. Heart hugger in place with patient demonstrating appropriate use. Antiembolism stockings, SCDs present. GASTROINTESTINAL: Abdomen soft, nontender, nondistended. Active bowel sounds present 4 quadrants. Tolerating diet. Positive small bowel movement this morning per patient GENITOURINARY: Continues to void clear, yellow urine INTEGUMENTARY: Skin is warm and dry with evidence of good perfusion. Anterior chest incision well approximated NEUROLOGIC: Cranial nerves II through XII intact MUSKULOSKELETAL: Able to move all extremities, strength equal bilaterally, gait normal PSYCHIATRIC: Alert and oriented to person place and time, appropriate affect, intact judgment and insight - Allied health notes Allied health notes reviewed: nursing - Labs CBC & Chem 7: 12/18/23 07:07 12/17/23 05:44 Labs: Abnormal Lab Results - Last 24 Hours (Table) 12/17/23 12/17/23 12/17/23 Range/Units 11:24 16:43 19:52 RBC (4.30-5.90) m/uL Hgb (13.0-17.5) gm/dL Hct (39.0-53.0) % POC Glucose (mg/dL) 138 H 127 H 133 H (70-110) mg/dL 12/18/23 12/18/23 Range/Units 05:51 07:07 RBC 3.55 L (4.30-5.90) m/uL Hgb 10.4 L (13.0-17.5) gm/dL Hct 32.0 L (39.0-53.0) % POC Glucose (mg/dL) 141 H (70-110) mg/dL - Imaging and Cardiology Chest x-ray: report reviewed, image reviewed Assessment and Plan Assessment: Severe symptomatic bicuspid aortic stenosis, status post mechanical aortic valve replacement History of hypertension Hyperlipidemia, treated, cholesterol 153, LDL 41, triglycerides 375 Morbid obesity Obstructive sleep apnea without home CPAP use Moderate restrictive lung disease, preoperative FEV1 59% of predicted Lifelong non-smoker Family history of premature coronary artery disease with father having myocardial infarction at 50 years old Plan: Continue to maximize medical therapy with low-dose aspirin, statin, beta vazquez. Will increase beta vazquez therapy as tolerated Encourage incentive spirometry use 10 times every hour while awake, bronchodilators per pulmonology Increase activity, ambulate as tolerated. PT/OT/cardiac rehab consulted Will monitor daily labs and x-rays. Electrolyte replacement per protocol GI/DVT prophylaxis Insulin management per internal medicine. Patient is not diabetic, preoperative hemoglobin A1c 5.5% Pain control per current medication regimen Continue to monitor and record strict accurate intake and output Daily weights Shower today and daily Continue Coumadin, therapeutic dosing with On-X valve is INR 2-3 for the first 3 months, then 1.5-2 thereafter Will discharge to home with home care once INR is therapeutic, we will continue to dose Coumadin until patient follows up with Dr. Lentz in the office More recommendations to follow based on patient's progress
[2023-12-18 08:34] LABS: African American GFR (CKD) >90 (>60 ml/min/1.73 sqM); Anion Gap 8 mmol/L; Blood Urea Nitrogen 22 mg/dL (9-20); Carbon Dioxide 26 mmol/L (22-30); Chloride 105 mmol/L (98-107); Glucose 127 mg/dL (74-99); Magnesium 2.1 mg/dL (1.6-2.3); Non-African American GFR(CKD) >90 (>60 ml/min/1.73 sqM); Potassium 4.1 mmol/L (3.5-5.1); Sodium 139 mmol/L (137-145)
--- NOTE | 2023-12-18 08:52 | P.PN ---
Subjective Progress Note Date: 12/18/23 The patient is a pleasant 48-year-old gentleman who was diagnosed with severe symptomatic aortic stenosis and underwent aortic valve replacement using On-X valve December 18, 2023 The patient was seen and evaluated this morning he is doing well. He is asymptomatic and hemodynamically stable. He is on aspirin as well as Coumadin. The examination is remarkable for regular rhythm with mechanical second heart sounds and clear breathing sounds bilaterally and no edema was noted in the lower extremities Assessment Severe symptomatic aortic stenosis Status post AVR Multiple comorbid conditions Plan Continue the current medical regimen including aspirin and oral anticoagulation with Coumadin Follow-up with the patient Objective - Vital Signs Vital signs: Vital Signs Temp 98.5 F 12/18/23 08:08 Pulse 76 12/18/23 08:08 Resp 18 12/18/23 08:08 BP 145/72 12/18/23 08:08 Pulse Ox 94 L 12/18/23 08:08 FiO2 4 12/14/23 18:00 Intake & Output 12/17/23 12/18/23 12/18/23 18:59 06:59 18:59 Intake Total 1074 0 110 Output Total 980 Balance 94 0 110 Weight 160.6 kg Intake: Oral 1074 0 110 Output: Chest Tube Drainage 80 Chest Tube Mediastinal 80 Urine 900 Other: Voiding Method Urinal Urinal # Voids 2 ABP, PAP, CO, CI - Last Documented Arterial Blood Pressure 120/55 Pulmonary Artery Pressure 21/3 Cardiac Output 7.2 Cardiac Index 2.7 - Labs CBC & Chem 7: 12/18/23 07:07 12/18/23 07:07 Labs: Abnormal Lab Results - Last 24 Hours (Table) 12/17/23 12/17/23 12/17/23 Range/Units 11:24 16:43 19:52 RBC (4.30-5.90) m/uL Hgb (13.0-17.5) gm/dL Hct (39.0-53.0) % BUN (9-20) mg/dL Glucose (74-99) mg/dL POC Glucose (mg/dL) 138 H 127 H 133 H (70-110) mg/dL 12/18/23 12/18/23 12/18/23 Range/Units 05:51 07:07 07:07 RBC 3.55 L (4.30-5.90) m/uL Hgb 10.4 L (13.0-17.5) gm/dL Hct 32.0 L (39.0-53.0) % BUN 22 H (9-20) mg/dL Glucose 127 H (74-99) mg/dL POC Glucose (mg/dL) 141 H (70-110) mg/dL
--- NOTE | 2023-12-18 08:58 | P.PN ---
Subjective Progress Note Date: 12/18/23 Subjective: Patient seen and examined at bedside. No acute events overnight. Ambulating well, tolerating oral diet. Pertinent positives and negatives as discussed above, a complete review of s ystems was performed and all other systems are negative. Vitals Signs Reviewed. General: Nontoxic, no distress, appears at stated age, morbidly obese Derm: Warm, dry, chest wall incision clean, dry, intact, Head: Atraumatic, normocephalic, symmetric Eyes: EOMI, no lid lag, anicteric sclera Mouth: No lip lesion, mucus membranes moist Cardiovascular: S1S2 reg, no murmur Lungs: CTA bilateral, no rhonchi, no rales, no accessory muscle use Abdominal: Soft, nontender to palpation, no guarding, no appreciable organomegaly Ext: No gross muscle atrophy, no edema, no contractures Neuro: CN II-XI grossly intact, no focal neuro deficits Psych: Alert, oriented, appropriate affect Data Reviewed Today: Pertinent Labs: WBC 5.9, hemoglobin 10.4, INR 1, creatinine 0.77, blood sugars range between 1 27-1 41, magnesium 2.1 Imaging: Chest x-ray independently interpreted, poor inspiratory effort, cardio megaly, postoperative changes noted, interstitial opacities improved Assessment and Plan: Severe symptomatic bicuspid aortic stenosis, status post mechanical aortic valve replacement Hypertension Dyslipidemia Pulmonary edema ELKE Hyperglycemia, A1c 5.5 Mild normocytic anemia, anticipated outcome of surgery Mild thrombocytopenia, anticipated outcome of surgery, resolved Mild hyponatremia, resolving -Cardiothoracic surgery note reviewed, continue aspirin 81 mg, atorvastatin 40 mg, metoprolol 25 mg twice daily, ezetimibe 10 mg nightly, given 20 mg IV Lasix once, continue on Coumadin, INR goal 2.5-3, likely discharge home tomorrow with home care once INR therapeutic -Pain control per cardiothoracic surgery -Continue sliding scale insulin, monitor for hypoglycemia -hyperglycemia likely from acute stress from surgery, does not need any antidiabetic medications at the time of discharge, outpatient follow-up with PCP -Pulmonology following, continue current therapy, encourage IS -Cardiology note reviewed, continue current therapy -Repeat CBC and BMP tomorrow Thank you for allowing us to participate in the care of this pleasant patient. Do not hesitate to contact us with questions. Someone can be reached from the [facility] hospitalist group all hours of the day at [phone] or via perfect serve. Objective - Vital Signs Vital signs: Vital Signs Temp 98.5 F 12/18/23 08:08 Pulse 76 12/18/23 08:08 Resp 18 12/18/23 08:08 BP 145/72 12/18/23 08:08 Pulse Ox 94 L 12/18/23 08:08 FiO2 4 12/14/23 18:00 Intake & Output 12/17/23 12/18/23 12/18/23 18:59 06:59 18:59 Intake Total 1074 0 110 Output Total 980 Balance 94 0 110 Weight 160.6 kg Intake: Oral 1074 0 110 Output: Chest Tube Drainage 80 Chest Tube Mediastinal 80 Urine 900 Other: Voiding Method Urinal Urinal # Voids 2 ABP, PAP, CO, CI - Last Documented Arterial Blood Pressure 120/55 Pulmonary Artery Pressure 21/3 Cardiac Output 7.2 Cardiac Index 2.7 - Labs CBC & Chem 7: 12/18/23 07:07 12/18/23 07:07 Labs: Abnormal Lab Results - Last 24 Hours (Table) 12/17/23 12/17/23 12/17/23 Range/Units 11:24 16:43 19:52 RBC (4.30-5.90) m/uL Hgb (13.0-17.5) gm/dL Hct (39.0-53.0) % BUN (9-20) mg/dL Glucose (74-99) mg/dL POC Glucose (mg/dL) 138 H 127 H 133 H (70-110) mg/dL 12/18/23 12/18/23 12/18/23 Range/Units 05:51 07:07 07:07 RBC 3.55 L (4.30-5.90) m/uL Hgb 10.4 L (13.0-17.5) gm/dL Hct 32.0 L (39.0-53.0) % BUN 22 H (9-20) mg/dL Glucose 127 H (74-99) mg/dL POC Glucose (mg/dL) 141 H (70-110) mg/dL
[2023-12-18 11:17] LABS: Glucose,Whole Blood 120 mg/dL (70-110)
--- NOTE | 2023-12-18 11:53 | P.PN ---
Subjective Progress Note Date: 12/18/23 Pulmonary/critical care consult dated December 14, 2023. 48-year-old male with history of bicuspid aortic valve and aortic stenosis. The patient is postop day #0, status post aortic valve replacement. The patient also had a root enlargement procedure. The patient is back in the intensive care unit, in room 266. He remains on the ventilator. Current ventilator settings of volume assist-control, rate 16, tidal volume 500, FiO2 100%, PEEP of 10. Cardiac output is 7.3 and index is 2.7. The patient has a right-sided chest tube and 2 mediastinal chest tubes. Pacer wires are noted. The patient is on propofol at 25 mcg/kg/min and nitroglycerin at 5 mcg/min. The patient is also getting saline at 50 cc an hour. Blood gases have not yet been done. Chest x-ray has not yet been done. The patient has a history of hyperlipidemia, hypertension, and sleep apnea syndrome. He is a lifelong non-smoker. Labs today include a blood gas, in the operating room with a pO2 of 269, pCO2 of 41, pH of 7.36. Blood glucose is 111. Progress note dated 12/15/2023. 48-year-old male postop day #1, status post aortic valve replacement for aortic stenosis secondary to bicuspid aortic valve. The patient is seen today in room 266. The patient is doing well. He is on 4 L of oxygen. Is getting saline at 30 mL an hour, and an insulin drip at 5.5 units an hour. He has no specific complaints, and continues to work on incentive spirometer.Current labs include a white count 8.8, hemoglobin 12.1, hematocrit 36.6, normal platelet count. Sodium 136, potassium 4.3, chlorides 109, CO2 19, BUN 19, creatinine 0.72. Calcium is 8. Magnesium 2.4 AST 63.Chest x-ray showed low lung volumes, bibasilar atelectasis. Progress note dated December 16, 2023. 48-year-old male postop day #2, status post aortic valve replacement. The patient had a bicuspid aortic valve with aortic stenosis. Currently, the patient is on room air. He is getting saline at 20 cc an hour. He is on an insulin drip at 5 units an hour. Clinically he is doing very well. White count 9.9, hemoglobin 10.7, hematocrit 31.7, platelet count 130,000. Sodium 134, potassium 4.1, chlorides 107, CO2 22, BUN 22, creatinine 0.69. Glucose 133. Calcium 8.2. Albumin 3.2. Chest x-ray shows low lung volumes, and some bibasilar atelectasis. Progress note dated December 17, 2023. 48-year-old male postop day #3, status post aortic valve replacement, for aortic stenosis, secondary to bicuspid aortic valve. The patient is seen today in room 381. He is on room air. No IV fluids. Clinically, the patient looks well and feels well. Current labs include a white count 7.8, hemoglobin 10.4, hematocrit 31.4, and a normal platelet count. Sodium 135, potassium 4.1, chlorides 105, CO2 26, BUN 23, and creatinine 0.78. Chest x-ray shows some generalized haziness and atelectasis, with low lung volumes. The patient is seen today December 18, 2023 in follow-up on the selective care unit. Postoperative day #4 following it aortic valve replacement. He is currently sitting up in a chair. Awake and alert in no acute distress. He is maintaining good O2 saturations in the 90s on room air. He is working well with the incentive spirometer. Chest x-ray reveals stable bilateral lower lobe atelectasis. No IV fluids. White count 5.9. Hemoglobin 10.4. Platelets 209. Sodium 139. Potassium 4.1. Bicarb 26. BUN 22. Creatinine 0.77. Glucose 127. He remains on bronchodilators. Heparin for DVT prophylaxis. Anticoagulated with warfarin. INR 1.0. Objective - Vital Signs Vital signs: Vital Signs Temp 98.5 F 12/18/23 08:08 Pulse 70 12/18/23 11:43 Resp 18 12/18/23 11:43 BP 131/78 12/18/23 11:43 Pulse Ox 94 L 12/18/23 11:43 FiO2 4 12/14/23 18:00 Intake & Output 12/17/23 12/18/23 12/18/23 18:59 06:59 18:59 Intake Total 1074 0 110 Output Total 980 Balance 94 0 110 Weight 160.6 kg Intake: Oral 1074 0 110 Output: Chest Tube Drainage 80 Chest Tube Mediastinal 80 Urine 900 Other: Voiding Method Urinal Urinal Urinal # Voids 2 ABP, PAP, CO, CI - Last Documented Arterial Blood Pressure 120/55 Pulmonary Artery Pressure 21/3 Cardiac Output 7.2 Cardiac Index 2.7 - Exam GENERAL EXAM: Alert, active, pleasant 48-year-old gentleman, up in a chair, on room air, fairly comfortable in no apparent distress. HEAD: Normocephalic. EYES: Normal reaction of pupils, equal size. NOSE: Clear with pink turbinates. THROAT: No erythema or exudates. NECK: No masses, no JVD. CHEST: No chest wall deformity. Sternum stable. Heart hugger in place. LUNGS: Equal air entry with no crackles, wheeze, rhonchi or dullness. CVS: S1 and S2 normal with no audible murmur, regular rhythm. ABDOMEN: No hepatosplenomegaly, normal bowel sounds, no guarding or rigidity. SPINE: No scoliosis or deformity SKIN: No rashes CENTRAL NERVOUS SYSTEM: No focal deficits, tone is normal in all 4 extremities. EXTREMITIES: There is no peripheral edema. No clubbing, no cyanosis. Peripheral pulses are intact. - Labs CBC & Chem 7: 12/18/23 07:07 12/18/23 07:07 Labs: Abnormal Lab Results - Last 24 Hours (Table) 12/17/23 12/17/23 12/18/23 Range/Units 16:43 19:52 05:51 RBC (4.30-5.90) m/uL Hgb (13.0-17.5) gm/dL Hct (39.0-53.0) % BUN (9-20) mg/dL Glucose (74-99) mg/dL POC Glucose (mg/dL) 127 H 133 H 141 H (70-110) mg/dL 12/18/23 12/18/23 12/18/23 Range/Units 07:07 07:07 11:15 RBC 3.55 L (4.30-5.90) m/uL Hgb 10.4 L (13.0-17.5) gm/dL Hct 32.0 L (39.0-53.0) % BUN 22 H (9-20) mg/dL Glucose 127 H (74-99) mg/dL POC Glucose (mg/dL) 120 H (70-110) mg/dL Assessment and Plan Assessment: Postop day #4, status post aortic valve replacement, for severe aortic stenosis, secondary to bicuspid aortic valve. Routine postoperative ventilator management. Hypertension. Hyperlipidemia. Obstructive sleep apnea syndrome. Obesity. Plan: The patient was seen and evaluated Chest x-ray, labs and medications reviewed Currently stable and on room air Working well with the incentive spirometer Home once cleared by CT services I have personally seen and examined the patient, performed the documentation and the assessment and plan as written. Number of minutes spent on the visit: 10.
[2023-12-18 16:23] LABS: Glucose,Whole Blood 103 mg/dL (70-110)
[2023-12-18] MEDS: WARFARIN 10 MG TAB PO ONE (18:00)
[2023-12-18 19:53] LABS: Glucose,Whole Blood 131 mg/dL (70-110)
[2023-12-19 06:30] LABS: Glucose,Whole Blood 105 mg/dL (70-110)
[2023-12-19] MEDS ORDERED: FUROSEMIDE 10 MG/ML 2 ML VIAL IV ONE (07:30)
--- NOTE | 2023-12-19 07:31 | XR ---
EXAMINATION TYPE: XR chest 2V DATE OF EXAM: 12/19/2023 COMPARISON: 12/18/2023 TECHNIQUE: PA and lateral views submitted. HISTORY: Postcardiac surgery FINDINGS: The heart is enlarged and there is median sternotomy changes. Bibasilar consolidation noted with smal l left pleural effusion. No sizable pneumothorax.. Osseous structures demonstrate hypertrophic and de generative changes of the spine. IMPRESSION: 1. Stable bilateral lower lobe atelectasis or infiltrate with small left pleural effusion.
[2023-12-19 07:46] LABS: HCT 29.3 % (39.0-53.0); HGB 9.6 gm/dL (13.0-17.5); MCH 29.1 pg (25.0-35.0); MCHC 32.9 g/dL (31.0-37.0); MCV 88.4 fL (80.0-100.0); Mean Platelet Volume 8.1; Platelet Count 242 k/uL (150-450); RBC 3.31 m/uL (4.30-5.90); RDW 13.4 % (11.5-15.5); WBC 6.4 k/uL (3.8-10.6)
--- NOTE | 2023-12-19 07:58 | P.PN ---
Subjective Progress Note Date: 12/19/23 Principal diagnosis: Severe symptomatic bicuspid aortic stenosis. History of hypertension, hyperlipidemia, morbid obesity, obstructive sleep apnea without home CPAP use, moderate restrictive lung disease, lifelong non-smoker, family history of premature coronary artery disease with father having myocardial infarction at 50 years old POD #5 Aortic valve replacement with 25 mm On-X mechanical valve, root enlargement with Hemashield patch ([place]), ligate left atrial appendage with 35mm AtriCure clip The patient was seen and examined sitting up in a recliner on the cardiac stepdown unit in no acute distress. Remains in sinus rhythm, hemodynamically stable. Currently on room air with oxygen saturation in the high 90s. Able to achieve 2000 mL on his incentive spirometry. Does complain of expected post surgical soreness which is controlled on current medication regimen. Patient has been ambulatory in the hallway without difficulty, showering daily. Coumadin continues to be dosed daily, goal INR 2-3 for the first 3 months, then 1.5-2 thereafter. Patient is anxious to go home, understands need to wait until INR is therapeutic. No other new concerns. Objective - Vital Signs Vital signs: Vital Signs Temp 98.2 F 12/18/23 20:00 Pulse 70 12/19/23 04:00 Resp 18 12/19/23 04:00 BP 131/66 12/19/23 04:00 Pulse Ox 98 12/19/23 04:00 FiO2 4 12/14/23 18:00 Intake & Output 12/18/23 12/19/23 12/19/23 18:59 06:59 18:59 Intake Total 450 780 Output Total 700 Balance -250 780 Weight 166.4 kg Intake: Oral 450 780 Output: Urine 700 Other: Voiding Method Urinal Toilet Urinal ABP, PAP, CO, CI - Last Documented Arterial Blood Pressure 120/55 Pulmonary Artery Pressure 21/3 Cardiac Output 7.2 Cardiac Index 2.7 - Exam CONSTITUTIONAL: Appears comfortable, cooperative, no acute distress RESPIRATORY: Lungs sounds diminished bilaterally. Respirations even, no nlabored. Currently on room air with oxygen saturation 98%. Able to achieve 2000 mL on incentive spirometry. Strong cough. CARDIOVASCULAR: S1, S2 present. Regular rate and rhythm, sinus rhythm on telemetry. Sternum stable. Palpable peripheral pulses bilaterally. Bilateral lower extremity edema present. No calf pain or tenderness noted. Heart hugger in place with patient demonstrating appropriate use. Antiembolism stockings, SCDs present. GASTROINTESTINAL: Abdomen soft, nontender, nondistended. Active bowel sounds present 4 quadrants. Tolerating diet. Positive small bowel movement yesterday morning per patient GENITOURINARY: Continues to void clear, yellow urine INTEGUMENTARY: Skin is warm and dry with evidence of good perfusion. Anterior chest incision well approximated NEUROLOGIC: Cranial nerves II through XII intact MUSKULOSKELETAL: Able to move all extremities, strength equal bilaterally, gait normal PSYCHIATRIC: Alert and oriented to person place and time, appropriate affect, intact judgment and insight - Allied health notes Allied health notes reviewed: nursing - Labs CBC & Chem 7: 12/19/23 07:36 12/18/23 07:07 Labs: Abnormal Lab Results - Last 24 Hours (Table) 12/18/23 12/18/23 12/18/23 Range/Units 07:07 07:07 11:15 RBC 3.55 L (4.30-5.90) m/uL Hgb 10.4 L (13.0-17.5) gm/dL Hct 32.0 L (39.0-53.0) % BUN 22 H (9-20) mg/dL Glucose 127 H (74-99) mg/dL POC Glucose (mg/dL) 120 H (70-110) mg/dL 12/18/23 12/19/23 Range/Units 19:45 07:36 RBC 3.31 L (4.30-5.90) m/uL Hgb 9.6 L (13.0-17.5) gm/dL Hct 29.3 L (39.0-53.0) % BUN (9-20) mg/dL Glucose (74-99) mg/dL POC Glucose (mg/dL) 131 H (70-110) mg/dL - Imaging and Cardiology Chest x-ray: report reviewed, image reviewed Assessment and Plan Assessment: Severe symptomatic bicuspid aortic stenosis, status post mechanical aortic valve replacement History of hypertension Hyperlipidemia, treated, cholesterol 153, LDL 41, triglycerides 375 Morbid obesity Obstructive sleep apnea without home CPAP use Moderate restrictive lung disease, preoperative FEV1 59% of predicted Lifelong non-smoker Family history of premature coronary artery disease with father having myocardial infarction at 50 years old Plan: Continue to maximize medical therapy with low-dose aspirin, statin, beta vazquez. Will increase beta vazquez therapy as tolerated Encourage incentive spirometry use 10 times every hour while awake, bronchodilators per pulmonology Increase activity, ambulate as tolerated. PT/OT/cardiac rehab consulted Will monitor daily labs and x-rays. Electrolyte replacement per protocol. IV lasix ordered GI/DVT prophylaxis Insulin management per internal medicine. Patient is not diabetic, preoperative hemoglobin A1c 5.5% Pain control per current medication regimen Continue to monitor and record strict accurate intake and output Daily weights Shower today and daily Continue Coumadin, therapeutic dosing with On-X valve is INR 2-3 for the first 3 months, then 1.5-2 thereafter Will discharge to home with home care once INR is therapeutic, we will continue to dose Coumadin until patient follows up with Dr. Lentz in the office More recommendations to follow based on patient's progress
[2023-12-19 08:06] LABS: INR 1.2 (<1.2); Prothrombin Time 12.6 sec (10.0-12.5)
[2023-12-19 08:48] LABS: African American GFR (CKD) >90 (>60 ml/min/1.73 sqM); Anion Gap 4 mmol/L; Blood Urea Nitrogen 18 mg/dL (9-20); Calcium 8.9 mg/dL (8.4-10.2); Carbon Dioxide 24 mmol/L (22-30); Chloride 108 mmol/L (98-107); Glucose 118 mg/dL (74-99); Non-African American GFR(CKD) >90 (>60 ml/min/1.73 sqM); Potassium 4.6 mmol/L (3.5-5.1); Sodium 136 mmol/L (137-145)
[2023-12-19] MEDS: FUROSEMIDE 10 MG/ML 4 ML VIAL IV ONE (08:48)
[2023-12-19] MEDS: ENOXAPARIN 80 MG/0.8 ML SYRINGE SQ SCH (08:49)
--- NOTE | 2023-12-19 11:32 | P.PN ---
Subjective Progress Note Date: 12/19/23 Pulmonary/critical care consult dated December 14, 2023. 48-year-old male with history of bicuspid aortic valve and aortic stenosis. The patient is postop day #0, status post aortic valve replacement. The patient also had a root enlargement procedure. The patient is back in the intensive care unit, in room 266. He remains on the ventilator. Current ventilator settings of volume assist-control, rate 16, tidal volume 500, FiO2 100%, PEEP of 10. Cardiac output is 7.3 and index is 2.7. The patient has a right-sided chest tube and 2 mediastinal chest tubes. Pacer wires are noted. The patient is on propofol at 25 mcg/kg/min and nitroglycerin at 5 mcg/min. The patient is also getting saline at 50 cc an hour. Blood gases have not yet been done. Chest x-ray has not yet been done. The patient has a history of hyperlipidemia, hypertension, and sleep apnea syndrome. He is a lifelong non-smoker. Labs today include a blood gas, in the operating room with a pO2 of 269, pCO2 of 41, pH of 7.36. Blood glucose is 111. Progress note dated 12/15/2023. 48-year-old male postop day #1, status post aortic valve replacement for aortic stenosis secondary to bicuspid aortic valve. The patient is seen today in room 266. The patient is doing well. He is on 4 L of oxygen. Is getting saline at 30 mL an hour, and an insulin drip at 5.5 units an hour. He has no specific complaints, and continues to work on incentive spirometer.Current labs include a white count 8.8, hemoglobin 12.1, hematocrit 36.6, normal platelet count. Sodium 136, potassium 4.3, chlorides 109, CO2 19, BUN 19, creatinine 0.72. Calcium is 8. Magnesium 2.4 AST 63.Chest x-ray showed low lung volumes, bibasilar atelectasis. Progress note dated December 16, 2023. 48-year-old male postop day #2, status post aortic valve replacement. The patient had a bicuspid aortic valve with aortic stenosis. Currently, the patient is on room air. He is getting saline at 20 cc an hour. He is on an insulin drip at 5 units an hour. Clinically he is doing very well. White count 9.9, hemoglobin 10.7, hematocrit 31.7, platelet count 130,000. Sodium 134, potassium 4.1, chlorides 107, CO2 22, BUN 22, creatinine 0.69. Glucose 133. Calcium 8.2. Albumin 3.2. Chest x-ray shows low lung volumes, and some bibasilar atelectasis. Progress note dated December 17, 2023. 48-year-old male postop day #3, status post aortic valve replacement, for aortic stenosis, secondary to bicuspid aortic valve. The patient is seen today in room 381. He is on room air. No IV fluids. Clinically, the patient looks well and feels well. Current labs include a white count 7.8, hemoglobin 10.4, hematocrit 31.4, and a normal platelet count. Sodium 135, potassium 4.1, chlorides 105, CO2 26, BUN 23, and creatinine 0.78. Chest x-ray shows some generalized haziness and atelectasis, with low lung volumes. The patient is seen today December 18, 2023 in follow-up on the selective care unit. Postoperative day #4 following it aortic valve replacement. He is currently sitting up in a chair. Awake and alert in no acute distress. He is maintaining good O2 saturations in the 90s on room air. He is working well with the incentive spirometer. Chest x-ray reveals stable bilateral lower lobe atelectasis. No IV fluids. White count 5.9. Hemoglobin 10.4. Platelets 209. Sodium 139. Potassium 4.1. Bicarb 26. BUN 22. Creatinine 0.77. Glucose 127. He remains on bronchodilators. Heparin for DVT prophylaxis. Anticoagulated with warfarin. INR 1.0. The patient is seen today December 19, 2023 in follow-up on the selective care unit. Postoperative day #5. He is awake and alert in no acute distress. Sitting up in a chair at the bedside. He denies any worsening shortness of breath, cough or congestion. He is maintaining good O2 saturations in the 90s on room air. Chest x-ray reveals stable bilateral lower lobe atelectasis. He continues to work well with the incentive spirometer. He is currently on Lovenox 80 mg every 12 hours. The plan is to transition to warfarin. Current INR 1.2. White count 6.4. Hemoglobin 9.6. Platelets 242. Sodium 136. Potassium 4.6. Bicarb 24. BUN 18. Creatinine 0.65. Glucose 118. Objective - Vital Signs Vital signs: Vital Signs Temp 98.2 F 12/19/23 10:53 Pulse 75 12/19/23 10:55 Resp 18 12/19/23 10:55 BP 126/80 12/19/23 10:53 Pulse Ox 96 12/19/23 10:53 FiO2 4 12/14/23 18:00 Intake & Output 12/18/23 12/19/23 12/19/23 18:59 06:59 18:59 Intake Total 450 780 Output Total 700 Balance -250 780 Weight 166.4 kg Intake: Oral 450 780 Output: Urine 700 Other: Voiding Method Urinal Toilet Toilet Urinal Urinal ABP, PAP, CO, CI - Last Documented Arterial Blood Pressure 120/55 Pulmonary Artery Pressure 21/3 Cardiac Output 7.2 Cardiac Index 2.7 - Exam GENERAL EXAM: Alert, pleasant 48-year-old gentleman, up in a chair, on room air, comfortable in no apparent distress. HEAD: Normocephalic. EYES: Normal reaction of pupils, equal size. NOSE: Clear with pink turbinates. THROAT: No erythema or exudates. NECK: No masses, no JVD. CHEST: No chest wall deformity. Sternum stable. Heart hugger in place. LUNGS: Equal air entry with no crackles, wheeze, rhonchi or dullness. CVS: S1 and S2 normal with no audible murmur, regular rhythm. ABDOMEN: No hepatosplenomegaly, normal bowel sounds, no guarding or rigidity. SPINE: No scoliosis or deformity SKIN: No rashes CENTRAL NERVOUS SYSTEM: No focal deficits, tone is normal in all 4 extremities. EXTREMITIES: There is no peripheral edema. No clubbing, no cyanosis. Peripheral pulses are intact. - Labs CBC & Chem 7: 12/19/23 07:36 12/19/23 07:36 Labs: Abnormal Lab Results - Last 24 Hours (Table) 12/18/23 12/19/23 12/19/23 Range/Units 19:45 07:36 07:36 RBC 3.31 L (4.30-5.90) m/uL Hgb 9.6 L (13.0-17.5) gm/dL Hct 29.3 L (39.0-53.0) % PT 12.6 H (10.0-12.5) sec INR 1.2 H (<1.2) Sodium (137-145) mmol/L Chloride (98-107) mmol/L Creatinine (0.66-1.25) mg/dL Glucose (74-99) mg/dL POC Glucose (mg/dL) 131 H (70-110) mg/dL 12/19/23 Range/Units 07:36 RBC (4.30-5.90) m/uL Hgb (13.0-17.5) gm/dL Hct (39.0-53.0) % PT (10.0-12.5) sec INR (<1.2) Sodium 136 L (137-145) mmol/L Chloride 108 H (98-107) mmol/L Creatinine 0.65 L (0.66-1.25) mg/dL Glucose 118 H (74-99) mg/dL POC Glucose (mg/dL) (70-110) mg/dL Assessment and Plan Assessment: Postop day #5, status post aortic valve replacement, for severe aortic stenosis, secondary to bicuspid aortic valve Routine postoperative ventilator management Hypertension Hyperlipidemia Obstructive sleep apnea syndrome Obesity Plan: The patient was seen and evaluated Chest x-ray, labs and medications reviewed Currently stable and on room air Working well with the incentive spirometer Currently on Lovenox for bridge to warfarin Home once cleared by CT services I have personally seen and examined the patient, performed the documentation and the assessment and plan as written. Number of minutes spent on the visit: 10.
[2023-12-19 11:46] LABS: Glucose,Whole Blood 136 mg/dL (70-110)
--- NOTE | 2023-12-19 12:28 | P.PN ---
Subjective HISTORY OF PRESENT ILLNESS: Patient is status post aortic valve replacement with On-X mechanical valve. Postop day #3. Patient examined this morning. He is sitting up in the chair. Patient currently denies any chest pain or pressure. Denies any shortness of breath. Chest tube was discontinued this morning. Patient has been up ambulating in the hallway without difficulty. Telemetry reveals sinus mechanism. Vital signs are stable. 12/19/2023 Patient examined this morning. He is sitting up in the chair. He currently denies chest pain or pressure. He denies shortness of breath. He has been ambulating without difficulty. Vital signs are stable. Patient remains on Coumadin. INR today 1.2. PHYSICAL EXAM: VITAL SIGNS: Reviewed. GENERAL: Well-developed in no acute distress. NECK: Supple. No JVD or thyromegaly LUNGS: Respirations even and unlabored. Lungs essentially clear to auscultation bilaterally. HEART: Regular rate and rhythm. S1 and S2 heard. EXTREMITIES: Normal range of motion. No clubbing or cyanosis. Peripheral pulses intact. No lower extremity edema ASSESSMENT: Severe bicuspid aortic stenosis, status post mechanical aortic valve replacement with On-X valve Hypertension Hyperlipidemia Obstructive sleep apnea without CPAP use Morbid obesity: BMI 44.7 PLAN: Continue postoperative management per CT surgery Continue Coumadin. Monitor INR. Encourage use of incentive spirometer Increase activity as tolerated Continue telemetry monitoring Further recommendations pending patient course Nurse practitioner note has been reviewed by physician. Signing provider agrees with the documented findings, assessment, and plan of care documented by [employer] as a scribe. Objective - Vital Signs Vital signs: Vital Signs Temp 98.2 F 12/19/23 10:53 Pulse 73 12/19/23 12:03 Resp 18 12/19/23 12:03 BP 124/66 12/19/23 12:03 Pulse Ox 98 12/19/23 12:03 FiO2 4 12/14/23 18:00 Intake & Output 12/18/23 12/19/23 12/19/23 18:59 06:59 18:59 Intake Total 450 780 Output Total 700 Balance -250 780 Weight 166.4 kg Intake: Oral 450 780 Output: Urine 700 Other: Voiding Method Urinal Toilet Toilet Urinal Urinal ABP, PAP, CO, CI - Last Documented Arterial Blood Pressure 120/55 Pulmonary Artery Pressure 21/3 Cardiac Output 7.2 Cardiac Index 2.7 - Labs CBC & Chem 7: 12/19/23 07:36 12/19/23 07:36 Labs: Abnormal Lab Results - Last 24 Hours (Table) 12/18/23 12/19/23 12/19/23 Range/Units 19:45 07:36 07:36 RBC 3.31 L (4.30-5.90) m/uL Hgb 9.6 L (13.0-17.5) gm/dL Hct 29.3 L (39.0-53.0) % PT 12.6 H (10.0-12.5) sec INR 1.2 H (<1.2) Sodium (137-145) mmol/L Chloride (98-107) mmol/L Creatinine (0.66-1.25) mg/dL Glucose (74-99) mg/dL POC Glucose (mg/dL) 131 H (70-110) mg/dL 12/19/23 12/19/23 Range/Units 07:36 11:44 RBC (4.30-5.90) m/uL Hgb (13.0-17.5) gm/dL Hct (39.0-53.0) % PT (10.0-12.5) sec INR (<1.2) Sodium 136 L (137-145) mmol/L Chloride 108 H (98-107) mmol/L Creatinine 0.65 L (0.66-1.25) mg/dL Glucose 118 H (74-99) mg/dL POC Glucose (mg/dL) 136 H (70-110) mg/dL
--- NOTE | 2023-12-19 13:47 | P.PN ---
Subjective Progress Note Date: 12/19/23 Hospital course: Patient is a very pleasant 48-year-old male with a past medical history of bicuspid aortic valve with severe aortic stenosis, hypertension, hyperlipidemia, chronic diastolic heart failure, GERD, and obstructive sleep apnea. He is currently admitted under cardiothoracic surgery team status post mechanical aortic valve replacement. Surgical procedure was completed on 12/14/2023. Consulted for medical management throughout patient's hospitalization. Physical exam: Vital signs reviewed and stable. General: Nontoxic, no distress and appears stated age. Derm: Skin warm and dry, normal coloration for ethnicity. Head: Atraumatic, normocephalic and symmetric. Eyes: EOMs intact, no lid lag, and anicteric sclera Mouth: no lip lesions, mucus membranes moist Cardiovascular: regular rate and rhythm with normal S1S2, mechanical valve click noted, positive posterior tibial pulses bilaterally, and cap refill < 2 seconds. Postsurgical incision to midline intact with sutures in place, no signs of dehiscence or infection. Heart hugger in place. Lungs: Respirations even, regular, and unlabored on room air. Lungs CTA b ilaterally, no rhonchi, no rales, no wheezing, and no accessory muscle usage. Abdominal: soft, nontender to palpation, no guarding, no appreciable organomegaly Ext: ROM intact. No gross muscle atrophy, no edema, no contractures Neuro: Speech clear, face symmetrical and CN II-XII grossly intact with no noted focal neuro deficits Psych: Alert and oriented to person, place, time, and situation. Appropriate and pleasant affect. Assessment and Plan of Care: Severe symptomatic bicuspid aortic stenosis, status post mechanical aortic valve replacement Hypertension Dyslipidemia Pulmonary edema ELKE Hyperglycemia, A1c 5.5 Mild normocytic anemia, anticipated outcome of surgery Mild thrombocytopenia, anticipated outcome of surgery, resolved Mild hyponatremia, resolving -Cardiothoracic surgery following and discussed plan of care with cardiothoracic UTILITY SERVICE WORKER, continue aspirin 81 mg, atorvastatin 40 mg, metoprolol 25 mg twice daily, ezetimibe 10 mg nightly, given 20 mg IV Lasix once, continue on Coumadin, INR goal for On-X valve is 2.0-3.0, likely discharge home tomorrow with home care once INR therapeutic -Pain control per cardiothoracic surgery -Continue sliding scale insulin, monitor for hypoglycemia -Hyperglycemia likely from acute stress from surgery, does not need any antidiabetic medications at the time of discharge, outpatient follow-up with PCP -Pulmonology following, continue current therapy, encourage IS -Cardiology note reviewed, continue current therapy -Repeat CBC and BMP tomorrow Data and imaging reviewed: Morning labs reviewed. CBC showing stable normocytic anemia with hemoglobin of 9.6. Coagulation profile showing subtherapeutic INR of 1.2. BMP showing hyponatremia with sodium of 136 and hyperchloremia with chloride 108. Blood glucose 118. Magnesium normal findings at 2.0. Vital signs reviewed. Blood pressure 126/80, heart rate 75, respiratory rate 18, temp 98.2 F, and SpO2 of 96% on room air. Thank you for allowing us to participate in the care of this pleasant patient. Do not hesitate to contact us with questions. Someone can be reached from the [facility] hospitalist group all hours of the day at [phone] or via [employer]. Patient was seen independently by Nurse Pracitioner. This document was prepared using [employer] dictation software. Please allow for errors in fish bait picker, while rare they do occur. Objective - Vital Signs Vital signs: Vital Signs Temp 98.2 F 12/18/23 20:00 Pulse 70 12/19/23 04:00 Resp 18 12/19/23 04:00 BP 131/66 12/19/23 04:00 Pulse Ox 98 12/19/23 04:00 FiO2 4 12/14/23 18:00 Intake & Output 12/18/23 12/19/23 12/19/23 18:59 06:59 18:59 Intake Total 450 780 Output Total 700 Balance -250 780 Weight 166.4 kg Intake: Oral 450 780 Output: Urine 700 Other: Voiding Method Urinal Toilet Urinal ABP, PAP, CO, CI - Last Documented Arterial Blood Pressure 120/55 Pulmonary Artery Pressure 21/3 Cardiac Output 7.2 Cardiac Index 2.7 - Labs CBC & Chem 7: 12/19/23 07:36 12/19/23 07:36 Labs: Abnormal Lab Results - Last 24 Hours (Table) 12/18/23 12/18/23 12/18/23 Range/Units 07:07 11:15 19:45 RBC (4.30-5.90) m/uL Hgb (13.0-17.5) gm/dL Hct (39.0-53.0) % PT (10.0-12.5) sec INR (<1.2) BUN 22 H (9-20) mg/dL Glucose 127 H (74-99) mg/dL POC Glucose (mg/dL) 120 H 131 H (70-110) mg/dL 12/19/23 12/19/23 Range/Units 07:36 07:36 RBC 3.31 L (4.30-5.90) m/uL Hgb 9.6 L (13.0-17.5) gm/dL Hct 29.3 L (39.0-53.0) % PT 12.6 H (10.0-12.5) sec INR 1.2 H (<1.2) BUN (9-20) mg/dL Glucose (74-99) mg/dL POC Glucose (mg/dL) (70-110) mg/dL
[2023-12-19] MEDS: HYDROcodone/APAP 5-325MG 1 EACH TAB PO PRN (16:22)
[2023-12-19 16:39] LABS: Glucose,Whole Blood 116 mg/dL (70-110)
[2023-12-19] MEDS: WARFARIN 10 MG TAB PO ONE (17:57)
[2023-12-19 20:06] LABS: Glucose,Whole Blood 109 mg/dL (70-110)
[2023-12-20 05:56] LABS: Glucose,Whole Blood 109 mg/dL (70-110)
[2023-12-20] MEDS ORDERED: SENNOSIDES-DOCUSATE SODIUM 1 EACH TAB PO PRN (07:03)
--- NOTE | 2023-12-20 07:26 | P.PN ---
Subjective Progress Note Date: 12/20/23 Principal diagnosis: Severe symptomatic bicuspid aortic stenosis. History of hypertension, hyperlipidemia, morbid obesity, obstructive sleep apnea without home CPAP use, moderate restrictive lung disease, lifelong non-smoker, family history of premature coronary artery disease with father having myocardial infarction at 50 years old POD #6 Aortic valve replacement with 25 mm On-X mechanical valve, root enlargement with Hemashield patch ([place]), ligate left atrial appendage with 35mm AtriCure clip The patient was seen and examined sitting up in a recliner on the cardiac stepdown unit in no acute distress. Remains in sinus rhythm, hemodynamically stable. Currently on room air with oxygen saturation in the high 90s. Able to achieve 2000 mL on his incentive spirometry. Does complain of expected post surgical soreness which is controlled on current medication regimen. Patient has been ambulatory in the hallway without difficulty, showering daily. Coumadin continues to be dosed daily, goal INR 2-3 for the first 3 months, then 1.5-2 thereafter. Patient is anxious to go home, understands need to wait until INR is therapeutic. Discussed plan of care in detail with his yesterday. No other new concerns. Objective - Vital Signs Vital signs: Vital Signs Temp 97.5 F L 12/19/23 20:00 Pulse 73 12/20/23 02:00 Resp 18 12/20/23 02:00 BP 126/60 12/20/23 00:00 Pulse Ox 97 12/19/23 20:00 FiO2 4 12/14/23 18:00 Intake & Output 12/19/23 12/20/23 12/20/23 18:59 06:59 18:59 Intake Total 236 480 Output Total 1200 300 Balance -964 180 Weight 163.4 kg Intake: Oral 236 480 Output: Urine 1200 300 Other: Voiding Method Toilet Toilet Urinal Urinal # Voids 2 ABP, PAP, CO, CI - Last Documented Arterial Blood Pressure 120/55 Pulmonary Artery Pressure 21/3 Cardiac Output 7.2 Cardiac Index 2.7 - Exam CONSTITUTIONAL: Appears comfortable, cooperative, no acute distress RESPIRATORY: Lungs sounds diminished bilaterally. Respirations even, nonlabored. Currently on room air with oxygen saturation 97%. Able to achieve 2000 mL on incentive spirometry. Strong cough. CARDIOVASCULAR: S1, S2 present. Regular rate and rhythm, sinus rhythm on telemetry. Sternum stable. Palpable peripheral pulses bilaterally. Bilateral lower extremity edema present. No calf pain or tenderness noted. Heart hugger in place with patient demonstrating appropriate use. Antiembolism stockings, SCDs present. GASTROINTESTINAL: Abdomen soft, nontender, nondistended. Active bowel sounds present 4 quadrants. Tolerating diet. Positive large bowel movement 12/19/23 per patient GENITOURINARY: Continues to void clear, yellow urine INTEGUMENTARY: Skin is warm and dry with evidence of good perfusion. Anterior chest incision well approximated NEUROLOGIC: Cranial nerves II through XII intact MUSKULOSKELETAL: Able to move all extremities, strength equal bilaterally, gait normal PSYCHIATRIC: Alert and oriented to person place and time, appropriate affect, i ntact judgment and insight - Allied health notes Allied health notes reviewed: nursing - Labs CBC & Chem 7: 12/20/23 08:19 12/19/23 07:36 Labs: Abnormal Lab Results - Last 24 Hours (Table) 12/19/23 12/19/23 12/19/23 Range/Units 07:36 07:36 07:36 RBC 3.31 L (4.30-5.90) m/uL Hgb 9.6 L (13.0-17.5) gm/dL Hct 29.3 L (39.0-53.0) % PT 12.6 H (10.0-12.5) sec INR 1.2 H (<1.2) Sodium 136 L (137-145) mmol/L Chloride 108 H (98-107) mmol/L Creatinine 0.65 L (0.66-1.25) mg/dL Glucose 118 H (74-99) mg/dL POC Glucose (mg/dL) (70-110) mg/dL 12/19/23 12/19/23 Range/Units 11:44 16:36 RBC (4.30-5.90) m/uL Hgb (13.0-17.5) gm/dL Hct (39.0-53.0) % PT (10.0-12.5) sec INR (<1.2) Sodium (137-145) mmol/L Chloride (98-107) mmol/L Creatinine (0.66-1.25) mg/dL Glucose (74-99) mg/dL POC Glucose (mg/dL) 136 H 116 H (70-110) mg/dL - Imaging and Cardiology Chest x-ray: image reviewed Assessment and Plan Assessment: Severe symptomatic bicuspid aortic stenosis, status post mechanical aortic valve replacement History of hypertension Hyperlipidemia, treated, cholesterol 153, LDL 41, triglycerides 375 Morbid obesity Obstructive sleep apnea without home CPAP use Moderate restrictive lung disease, preoperative FEV1 59% of predicted Lifelong non-smoker Family history of premature coronary artery disease with father having myocardial infarction at 50 years old Plan: Continue to maximize medical therapy with low-dose aspirin, statin, beta vazquez. Will increase beta vazquez therapy as tolerated Encourage incentive spirometry use 10 times every hour while awake, bronchodilators per pulmonology Increase activity, ambulate as tolerated. PT/OT/cardiac rehab consulted Will monitor daily labs and x-rays. Electrolyte replacement per protocol GI/DVT prophylaxis Insulin management per internal medicine. Patient is not diabetic, preoperative hemoglobin A1c 5.5% Pain control per current medication regimen Continue to monitor and record strict accurate intake and output Daily weights Shower today and daily Continue Coumadin, therapeutic dosing with On-X valve is INR 2-3 for the first 3 months, then 1.5-2 thereafter Will discharge to home with home care once INR is therapeutic, we will continue to dose Coumadin until patient follows up with Dr. Lentz in the office More recommendations to follow based on patient's progress
--- NOTE | 2023-12-20 07:53 | XR ---
EXAMINATION TYPE: XR chest 2V DATE OF EXAM: 12/20/2023 COMPARISON: 12/19/2023 TECHNIQUE: PA and lateral views submitted. HISTORY: Postcardiac surgery FINDINGS: The heart is enlarged and there is median sternotomy changes. Bibasilar consolidation noted with smal l left pleural effusion. No sizable pneumothorax.. Osseous structures demonstrate hypertrophic and de generative changes of the spine. IMPRESSION: 1. Stable bilateral lower lobe atelectasis or infiltrate with small left pleural effusion.
[2023-12-20 08:34] LABS: HCT 29.3 % (39.0-53.0); HGB 9.5 gm/dL (13.0-17.5); Hypochromasia Slight; MCH 29.2 pg (25.0-35.0); MCHC 32.3 g/dL (31.0-37.0); MCV 90.7 fL (80.0-100.0); Mean Platelet Volume 8.3; Platelet Count 225 k/uL (150-450); RBC 3.23 m/uL (4.30-5.90); RDW 13.7 % (11.5-15.5); WBC 7.1 k/uL (3.8-10.6)
[2023-12-20 08:42] LABS: INR 1.4 (<1.2); Prothrombin Time 14.1 sec (10.0-12.5)
[2023-12-20 08:46] LABS: African American GFR (CKD) >90 (>60 ml/min/1.73 sqM); Anion Gap 4 mmol/L; Blood Urea Nitrogen 21 mg/dL (9-20); Calcium 8.6 mg/dL (8.4-10.2); Carbon Dioxide 26 mmol/L (22-30); Chloride 107 mmol/L (98-107); Glucose 114 mg/dL (74-99); Magnesium 1.9 mg/dL (1.6-2.3); Non-African American GFR(CKD) >90 (>60 ml/min/1.73 sqM); Potassium 4.4 mmol/L (3.5-5.1); Sodium 137 mmol/L (137-145)
--- NOTE | 2023-12-20 10:58 | P.PN ---
Subjective Progress Note Date: 12/20/23 Pulmonary/critical care consult dated December 14, 2023. 48-year-old male with history of bicuspid aortic valve and aortic stenosis. The patient is postop day #0, status post aortic valve replacement. The patient also had a root enlargement procedure. The patient is back in the intensive care unit, in room 266. He remains on the ventilator. Current ventilator settings of volume assist-control, rate 16, tidal volume 500, FiO2 100%, PEEP of 10. Cardiac output is 7.3 and index is 2.7. The patient has a right-sided chest tube and 2 mediastinal chest tubes. Pacer wires are noted. The patient is on propofol at 25 mcg/kg/min and nitroglycerin at 5 mcg/min. The patient is also getting saline at 50 cc an hour. Blood gases have not yet been done. Chest x-ray has not yet been done. The patient has a history of hyperlipidemia, hypertension, and sleep apnea syndrome. He is a lifelong non-smoker. Labs today include a blood gas, in the operating room with a pO2 of 269, pCO2 of 41, pH of 7.36. Blood glucose is 111. Progress note dated 12/15/2023. 48-year-old male postop day #1, status post aortic valve replacement for aortic stenosis secondary to bicuspid aortic valve. The patient is seen today in room 266. The patient is doing well. He is on 4 L of oxygen. Is getting saline at 30 mL an hour, and an insulin drip at 5.5 units an hour. He has no specific complaints, and continues to work on incentive spirometer.Current labs include a white count 8.8, hemoglobin 12.1, hematocrit 36.6, normal platelet count. Sodium 136, potassium 4.3, chlorides 109, CO2 19, BUN 19, creatinine 0.72. Calcium is 8. Magnesium 2.4 AST 63.Chest x-ray showed low lung volumes, bibasilar atelectasis. Progress note dated December 16, 2023. 48-year-old male postop day #2, status post aortic valve replacement. The patient had a bicuspid aortic valve with aortic stenosis. Currently, the patient is on room air. He is getting saline at 20 cc an hour. He is on an insulin drip at 5 units an hour. Clinically he is doing very well. White count 9.9, hemoglobin 10.7, hematocrit 31.7, platelet count 130,000. Sodium 134, potassium 4.1, chlorides 107, CO2 22, BUN 22, creatinine 0.69. Glucose 133. Calcium 8.2. Albumin 3.2. Chest x-ray shows low lung volumes, and some bibasilar atelectasis. Progress note dated December 17, 2023. 48-year-old male postop day #3, status post aortic valve replacement, for aortic stenosis, secondary to bicuspid aortic valve. The patient is seen today in room 381. He is on room air. No IV fluids. Clinically, the patient looks well and feels well. Current labs include a white count 7.8, hemoglobin 10.4, hematocrit 31.4, and a normal platelet count. Sodium 135, potassium 4.1, chlorides 105, CO2 26, BUN 23, and creatinine 0.78. Chest x-ray shows some generalized haziness and atelectasis, with low lung volumes. The patient is seen today December 18, 2023 in follow-up on the selective care unit. Postoperative day #4 following it aortic valve replacement. He is currently sitting up in a chair. Awake and alert in no acute distress. He is maintaining good O2 saturations in the 90s on room air. He is working well with the incentive spirometer. Chest x-ray reveals stable bilateral lower lobe atelectasis. No IV fluids. White count 5.9. Hemoglobin 10.4. Platelets 209. Sodium 139. Potassium 4.1. Bicarb 26. BUN 22. Creatinine 0.77. Glucose 127. He remains on bronchodilators. Heparin for DVT prophylaxis. Anticoagulated with warfarin. INR 1.0. The patient is seen today December 19, 2023 in follow-up on the selective care unit. Postoperative day #5. He is awake and alert in no acute distress. Sitting up in a chair at the bedside. He denies any worsening shortness of breath, cough or congestion. He is maintaining good O2 saturations in the 90s on room air. Chest x-ray reveals stable bilateral lower lobe atelectasis. He continues to work well with the incentive spirometer. He is currently on Lovenox 80 mg every 12 hours. The plan is to transition to warfarin. Current INR 1.2. White count 6.4. Hemoglobin 9.6. Platelets 242. Sodium 136. Potassium 4.6. Bicarb 24. BUN 18. Creatinine 0.65. Glucose 118. The patient is seen today December 20, 2023 in follow-up on the selective care unit. Postoperative day #6. He is sitting up in a chair at the bedside. Awake and alert in no acute distress. He denies any worsening shortness of breath, cough or congestion. He is maintaining good O2 saturations in the 90s on room air. Chest x-ray reveals stable bilateral lower lobe atelectasis. Small left pleural effusion. White count 7.1. Hemoglobin 9.5. Platelets 225. INR 1.4. Sodium 137. Potassium 4.4. Bicarb 26. BUN 21. Creatinine 0.7. Glucose 114. He is continued on DuoNeb inhalations. Continues on Lovenox as bridge to warfarin. Working well with the incentive spirometer. He has been up ambulating in the hallways. Objective - Vital Signs Vital signs: Vital Signs Temp 98.2 F 12/20/23 09:20 Pulse 76 12/20/23 09:20 Resp 16 12/20/23 09:20 BP 112/73 12/20/23 09:20 Pulse Ox 96 12/20/23 09:20 FiO2 4 12/14/23 18:00 Intake & Output 12/19/23 12/20/23 12/20/23 18:59 06:59 18:59 Intake Total 236 480 Output Total 1200 300 Balance -964 180 Weight 163.4 kg Intake: Oral 236 480 Output: Urine 1200 300 Other: Voiding Method Toilet Toilet Toilet Urinal Urinal Urinal # Voids 2 ABP, PAP, CO, CI - Last Documented Arterial Blood Pressure 120/55 Pulmonary Artery Pressure 21/3 Cardiac Output 7.2 Cardiac Index 2.7 - Exam GENERAL EXAM: Alert, very pleasant 48-year-old gentleman, up in a chair, on room air, in no apparent distress. HEAD: Normocephalic. EYES: Normal reaction of pupils, equal size. NOSE: Clear with pink turbinates. THROAT: No erythema or exudates. NECK: No masses, no JVD. CHEST: No chest wall deformity. Sternum stable. Heart hugger in place. LUNGS: Equal air entry with no crackles, wheeze, rhonchi or dullness. CVS: S1 and S2 normal with no audible murmur, regular rhythm. ABDOMEN: No hepatosplenomegaly, normal bowel sounds, no guarding or rigidity. SPINE: No scoliosis or deformity SKIN: No rashes CENTRAL NERVOUS SYSTEM: No focal deficits, tone is normal in all 4 extremities. EXTREMITIES: There is no peripheral edema. No clubbing, no cyanosis. Peripheral pulses are intact. - Labs CBC & Chem 7: 12/20/23 08:19 12/20/23 08:19 Labs: Abnormal Lab Results - Last 24 Hours (Table) 12/19/23 12/19/23 12/20/23 Range/Units 11:44 16:36 08:19 RBC 3.23 L (4.30-5.90) m/uL Hgb 9.5 L (13.0-17.5) gm/dL Hct 29.3 L (39.0-53.0) % PT (10.0-12.5) sec INR (<1.2) BUN (9-20) mg/dL Glucose (74-99) mg/dL POC Glucose (mg/dL) 136 H 116 H (70-110) mg/dL 12/20/23 12/20/23 Range/Units 08:19 08:19 RBC (4.30-5.90) m/uL Hgb (13.0-17.5) gm/dL Hct (39.0-53.0) % PT 14.1 H (10.0-12.5) sec INR 1.4 H (<1.2) BUN 21 H (9-20) mg/dL Glucose 114 H (74-99) mg/dL POC Glucose (mg/dL) (70-110) mg/dL Assessment and Plan Assessment: Postop day #6, status post aortic valve replacement, for severe aortic stenosis, secondary to bicuspid aortic valve Routine postoperative ventilator management Hypertension Hyperlipidemia Obstructive sleep apnea syndrome Obesity Plan: The patient was seen and evaluated Chest x-ray, labs and medications reviewed Currently stable and on room air Remains on bronchodilators Working well with the incentive spirometer Currently on Lovenox for bridge to warfarin He has been up ambulating in the hallway Home once cleared by CT services I have personally seen and examined the patient, performed the documentation and the assessment and plan as written. Number of minutes spent on the visit: 10.
[2023-12-20 11:38] LABS: Glucose,Whole Blood 122 mg/dL (70-110)
--- NOTE | 2023-12-20 13:59 | P.PN ---
Subjective HISTORY OF PRESENT ILLNESS: Patient is status post aortic valve replacement with On-X mechanical valve. Postop day #3. Patient examined this morning. He is sitting up in the chair. Patient currently denies any chest pain or pressure. Denies any shortness of breath. Chest tube was discontinued this morning. Patient has been up ambulating in the hallway without difficulty. Telemetry reveals sinus mechanism. Vital signs are stable. 12/19/2023 Patient examined this morning. He is sitting up in the chair. He currently denies chest pain or pressure. He denies shortness of breath. He has been ambulating without difficulty. Vital signs are stable. Patient remains on Coumadin. INR today 1.2. 12/20/2023 Patient examined this morning. He is sitting up in the chair. He currently denies chest pain or pressure. He denies shortness of breath. He has been ambulating without difficulty. Vital signs are stable. Patient remains on Coumadin. INR today 1.4. PHYSICAL EXAM: VITAL SIGNS: Reviewed. GENERAL: Well-developed in no acute distress. NECK: Supple. No JVD or thyromegaly LUNGS: Respirations even and unlabored. Lungs essentially clear to auscultation bilaterally. HEART: Regular rate and rhythm. S1 and S2 heard. EXTREMITIES: Normal range of motion. No clubbing or cyanosis. Peripheral pulses intact. No lower extremity edema ASSESSMENT: Severe bicuspid aortic stenosis, status post mechanical aortic valve replacement with On-X valve Hypertension Hyperlipidemia Obstructive sleep apnea without CPAP use Morbid obesity: BMI 44.7 PLAN: Continue postoperative management per CT surgery Continue Coumadin. Monitor INR. Encourage use of incentive spirometer Increase activity as tolerated Continue telemetry monitoring Further recommendations pending patient course Nurse practitioner note has been reviewed by physician. Signing provider agrees with the documented findings, assessment, and plan of care documented by VOLUNTEER SERVICES SPECIALIST as a scribe. Objective - Vital Signs Vital signs: Vital Signs Temp 98.3 F 12/20/23 11:30 Pulse 68 12/20/23 11:52 Resp 16 12/20/23 11:52 BP 117/72 12/20/23 11:30 Pulse Ox 98 12/20/23 11:30 FiO2 4 12/14/23 18:00 Intake & Output 12/19/23 12/20/23 12/20/23 18:59 06:59 18:59 Intake Total 236 480 Output Total 1200 300 Balance -964 180 Weight 163.4 kg Intake: Oral 236 480 Output: Urine 1200 300 Other: Voiding Method Toilet Toilet Toilet Urinal Urinal Urinal # Voids 2 ABP, PAP, CO, CI - Last Documented Arterial Blood Pressure 120/55 Pulmonary Artery Pressure 21/3 Cardiac Output 7.2 Cardiac Index 2.7 - Labs CBC & Chem 7: 12/20/23 08:19 12/20/23 08:19 Labs: Abnormal Lab Results - Last 24 Hours (Table) 12/19/23 12/20/23 12/20/23 Range/Units 16:36 08:19 08:19 RBC 3.23 L (4.30-5.90) m/uL Hgb 9.5 L (13.0-17.5) gm/dL Hct 29.3 L (39.0-53.0) % PT 14.1 H (10.0-12.5) sec INR 1.4 H (<1.2) BUN (9-20) mg/dL Glucose (74-99) mg/dL POC Glucose (mg/dL) 116 H (70-110) mg/dL 12/20/23 12/20/23 Range/Units 08:19 11:36 RBC (4.30-5.90) m/uL Hgb (13.0-17.5) gm/dL Hct (39.0-53.0) % PT (10.0-12.5) sec INR (<1.2) BUN 21 H (9-20) mg/dL Glucose 114 H (74-99) mg/dL POC Glucose (mg/dL) 122 H (70-110) mg/dL
--- NOTE | 2023-12-20 15:32 | P.PN ---
Subjective Progress Note Date: 12/20/23 Hospital course: Patient is a very pleasant 48-year-old male with a past medical history of bicuspid aortic valve with severe aortic stenosis, hypertension, hyperlipidemia, chronic diastolic heart failure, GERD, and obstructive sleep apnea. He is currently admitted under cardiothoracic surgery team status post mechanical aortic valve replacement. Surgical procedure was completed on 12/14/2023. Consulted for medical management throughout patient's hospitalization. Physical exam: Vital signs reviewed and stable. General: Nontoxic, no distress and appears stated age. Derm: Skin warm and dry, normal coloration for ethnicity. Head: Atraumatic, normocephalic and symmetric. Eyes: EOMs intact, no lid lag, and anicteric sclera Mouth: no lip lesions, mucus membranes moist Cardiovascular: regular rate and rhythm with normal S1S2, mechanical valve click noted, positive posterior tibial pulses bilaterally, and cap refill < 2 seconds. Postsurgical incision to midline intact with sutures in place, no signs of dehiscence or infection. Heart hugger in place. Lungs: Respirations even, regular, and unlabored on room air. Lungs CTA bilaterally, no rhonchi, no rales, no wheezing, and no accessory muscle usage. Abdominal: soft, nontender to palpation, no guarding, no appreciable organomegaly Ext: ROM intact. No gross muscle atrophy, no edema, no contractures Neuro: Speech clear, face symmetrical and CN II-XII grossly intact with no noted focal neuro deficits Psych: Alert and oriented to person, place, time, and situation. Appropriate and pleasant affect. Assessment and Plan of Care: Severe symptomatic bicuspid aortic stenosis, status post mechanical aortic valve replacement Hypertension Dyslipidemia Pulmonary edema ELKE Hyperglycemia, A1c 5.5 Mild normocytic anemia, anticipated outcome of surgery Mild thrombocytopenia, anticipated outcome of surgery, resolved Mild hyponatremia, resolving -Cardiothoracic surgery following and discussed plan of care with cardiothoracic ANALOG IC DESIGN ENGINEER, continue aspirin 81 mg, atorvastatin 40 mg, metoprolol 25 mg twice daily, ezetimibe 10 mg nightly, given 20 mg IV Lasix once, continue on Coumadin, INR goal for On-X valve is 2.0-3.0, likely discharge home tomorrow with home care once INR therapeutic -Pain control per cardiothoracic surgery -Continue sliding scale insulin, monitor for hypoglycemia -Hyperglycemia likely from acute stress from surgery, does not need any antidiabetic medications at the time of discharge, outpatient follow-up with PCP -Pulmonology following, continue current therapy, encourage IS -Cardiology note reviewed, continue current therapy -Repeat CBC and BMP tomorrow Data and imaging reviewed: Morning labs reviewed. CBC showing stable normocytic anemia with hemoglobin of 9.5. Coagulation profile showing subtherapeutic INR of 1.4. BMP showing mild prerenal azotemia with BUN of 21. Blood glucose 114. Magnesium 1.9. Vital signs reviewed. Blood pressure 112/73, heart rate 76, respiratory rate 16, temp 98.2 F, and SpO2 of 96% on room air. Thank you for allowing us to participate in the care of this pleasant patient. Do not hesitate to contact us with questions. Someone can be reached from the [facility] hospitalist group all hours of the day at [phone] or via [employer]. Patient was seen independently by Nurse Pracitioner. This document was prepared using [employer] dictation software. Please allow for errors in double ending machine operator, while rare they do occur. Objective - Vital Signs Vital signs: Vital Signs Temp 97.5 F L 12/19/23 20:00 Pulse 80 12/20/23 08:05 Resp 16 12/20/23 08:05 BP 130/78 12/20/23 04:00 Pulse Ox 95 12/20/23 07:52 FiO2 4 12/14/23 18:00 Intake & Output 12/19/23 12/20/23 12/20/23 18:59 06:59 18:59 Intake Total 236 480 Output Total 1200 300 Balance -964 180 Weight 163.4 kg Intake: Oral 236 480 Output: Urine 1200 300 Other: Voiding Method Toilet Toilet Urinal Urinal # Voids 2 ABP, PAP, CO, CI - Last Documented Arterial Blood Pressure 120/55 Pulmonary Artery Pressure 21/3 Cardiac Output 7.2 Cardiac Index 2.7 - Labs CBC & Chem 7: 12/20/23 08:19 12/20/23 08:19 Labs: Abnormal Lab Results - Last 24 Hours (Table) 12/19/23 12/19/23 12/19/23 Range/Units 07:36 11:44 16:36 RBC (4.30-5.90) m/uL Hgb (13.0-17.5) gm/dL Hct (39.0-53.0) % PT (10.0-12.5) sec INR (<1.2) Sodium 136 L (137-145) mmol/L Chloride 108 H (98-107) mmol/L Creatinine 0.65 L (0.66-1.25) mg/dL Glucose 118 H (74-99) mg/dL POC Glucose (mg/dL) 136 H 116 H (70-110) mg/dL 12/20/23 12/20/23 Range/Units 08:19 08:19 RBC 3.23 L (4.30-5.90) m/uL Hgb 9.5 L (13.0-17.5) gm/dL Hct 29.3 L (39.0-53.0) % PT 14.1 H (10.0-12.5) sec INR 1.4 H (<1.2) Sodium (137-145) mmol/L Chloride (98-107) mmol/L Creatinine (0.66-1.25) mg/dL Glucose (74-99) mg/dL POC Glucose (mg/dL) (70-110) mg/dL
[2023-12-20 16:33] LABS: Glucose,Whole Blood 98 mg/dL (70-110)
[2023-12-20] MEDS: WARFARIN 2 MG TAB PO ONE (17:06)
[2023-12-20] MEDS: WARFARIN 10 MG TAB PO ONE (17:06)
[2023-12-20] MEDS: ACETAMINOPHEN TAB 500 MG TAB PO PRN (19:57)
[2023-12-20 20:01] LABS: Glucose,Whole Blood 106 mg/dL (70-110)
[2023-12-21 06:05] LABS: Glucose,Whole Blood 113 mg/dL (70-110)
[2023-12-21 07:35] LABS: HCT 32.4 % (39.0-53.0); HGB 10.7 gm/dL (13.0-17.5); Hypochromasia Slight; MCH 29.5 pg (25.0-35.0); MCV 89.5 fL (80.0-100.0); Mean Platelet Volume 7.8; Platelet Count 329 k/uL (150-450); RBC 3.62 m/uL (4.30-5.90); RDW 13.4 % (11.5-15.5); WBC 8.9 k/uL (3.8-10.6)
[2023-12-21 07:41] LABS: INR 1.5 (<1.2); Prothrombin Time 15.4 sec (10.0-12.5)
--- NOTE | 2023-12-21 07:46 | XR ---
EXAMINATION TYPE: XR chest 2V DATE OF EXAM: 12/21/2023 COMPARISON: 12/20/2023 TECHNIQUE: PA and lateral views submitted. HISTORY: Postop CABG FINDINGS: The heart is enlarged and there is median sternotomy changes. Bibasilar consolidation noted with smal l left pleural effusion. No sizable pneumothorax.. Osseous structures demonstrate hypertrophic and de generative changes of the spine. IMPRESSION: 1. Stable bilateral lower lobe atelectasis or infiltrate with small left pleural effusion.
[2023-12-21 08:00] LABS: African American GFR (CKD) >90 (>60 ml/min/1.73 sqM); Anion Gap 7 mmol/L; Blood Urea Nitrogen 17 mg/dL (9-20); Calcium 8.8 mg/dL (8.4-10.2); Carbon Dioxide 25 mmol/L (22-30); Chloride 106 mmol/L (98-107); Glucose 101 mg/dL (74-99); Magnesium 2.1 mg/dL (1.6-2.3); Non-African American GFR(CKD) >90 (>60 ml/min/1.73 sqM); Potassium 4.9 mmol/L (3.5-5.1); Sodium 138 mmol/L (137-145)
--- NOTE | 2023-12-21 09:19 | P.PN ---
Subjective Progress Note Date: 12/21/23 Principal diagnosis: Severe symptomatic bicuspid aortic stenosis. History of hypertension, hyperlipidemia, morbid obesity, obstructive sleep apnea without home CPAP use, moderate restrictive lung disease, lifelong non-smoker, family history of premature coronary artery disease with father having myocardial infarction at 50 years old POD #7 Aortic valve replacement with 25 mm On-X mechanical valve, root enlargement with Hemashield patch ([place]ian), ligate left atrial appendage with 35mm AtriCure clip The patient was seen and examined sitting up in a recliner on the cardiac stepdown unit in no acute distress with present. Remains in sinus rhythm, hemodynamically stable. Currently on room air with oxygen saturation in the high 90s. Able to achieve 2000 mL on his incentive spirometry. Does complain of expected post surgical soreness which is controlled on current medication regimen. Patient has been ambulatory in the hallway without difficulty, showering daily. Coumadin continues to be dosed daily, goal INR 2-3 for the first 3 months, then 1.5-2 thereafter. Patient and his are anxious to go home, understands need to wait until INR is therapeutic. No other new concerns. Objective - Vital Signs Vital signs: Vital Signs Temp 98.2 F 12/21/23 03:10 Pulse 72 12/21/23 09:09 Resp 19 12/21/23 03:10 BP 132/81 12/21/23 03:10 Pulse Ox 97 12/21/23 03:10 FiO2 4 12/14/23 18:00 Intake & Output 12/20/23 12/21/23 12/21/23 18:59 06:59 18:59 Intake Total 720 Output Total 1000 300 Balance -280 -300 Weight 160.8 kg Intake: Oral 720 Output: Urine 1000 300 Other: Voiding Method Toilet Toilet Urinal Urinal ABP, PAP, CO, CI - Last Documented Arterial Blood Pressure 120/55 Pulmonary Artery Pressure 21/3 Cardiac Output 7.2 Cardiac Index 2.7 - Exam CONSTITUTIONAL: Appears comfortable, cooperative, no acute distress RESPIRATORY: Lungs sounds diminished bilaterally. Respirations even, nonlabored. Currently on room air with oxygen saturation 97%. Able to achieve 2000 mL on incentive spirometry. Strong cough. CARDIOVASCULAR: S1, S2 present. Regular rate and rhythm, sinus rhythm on telemetry. Sternum stable. Palpable peripheral pulses bilaterally. Bilateral lower extremity edema present. No calf pain or tenderness noted. Heart hugger in place with patient demonstrating appropriate use. Antiembolism stockings, SCDs present. GASTROINTESTINAL: Abdomen soft, nontender, nondistended. Active bowel sounds present 4 quadrants. Tolerating diet. Positive large bowel movement 12/19/23 per patient GENITOURINARY: Continues to void clear, yellow urine INTEGUMENTARY: Skin is warm and dry with evidence of good perfusion. Anterior chest incision well approximated NEUROLOGIC: Cranial nerves II through XII intact MUSKULOSKELETAL: Able to move all extremities, strength equal bilaterally, gait normal PSYCHIATRIC: Alert and oriented to person place and time, appropriate affect, intact judgment and insight - Allied health notes Allied health notes reviewed: nursing - Labs CBC & Chem 7: 12/21/23 06:34 12/21/23 06:34 Labs: Abnormal Lab Results - Last 24 Hours (Table) 12/20/23 12/21/23 12/21/23 Range/Units 11:36 06:04 06:34 RBC 3.62 L (4.30-5.90) m/uL Hgb 10.7 L (13.0-17.5) gm/dL Hct 32.4 L (39.0-53.0) % PT (10.0-12.5) sec INR (<1.2) Glucose (74-99) mg/dL POC Glucose (mg/dL) 122 H 113 H (70-110) mg/dL 12/21/23 12/21/23 Range/Units 06:34 06:34 RBC (4.30-5.90) m/uL Hgb (13.0-17.5) gm/dL Hct (39.0-53.0) % PT 15.4 H (10.0-12.5) sec INR 1.5 H (<1.2) Glucose 101 H (74-99) mg/dL POC Glucose (mg/dL) (70-110) mg/dL - Imaging and Cardiology Chest x-ray: report reviewed, image reviewed Assessment and Plan Assessment: Severe symptomatic bicuspid aortic stenosis, status post mechanical aortic valve replacement History of hypertension Hyperlipidemia, treated, cholesterol 153, LDL 41, triglycerides 375 Morbid obesity Obstructive sleep apnea without home CPAP use Moderate restrictive lung disease, preoperative FEV1 59% of predicted Lifelong non-smoker Family history of premature coronary artery disease with father having myocardial infarction at 50 years old Plan: Continue to maximize medical therapy with low-dose aspirin, statin, beta vazquez. Will increase beta vazquez therapy as tolerated Encourage incentive spirometry use 10 times every hour while awake, bronchodilators per pulmonology Increase activity, ambulate as tolerated. PT/OT/cardiac rehab consulted Will monitor daily labs and x-rays. Electrolyte replacement per protocol GI/DVT prophylaxis Insulin management per internal medicine. Patient is not diabetic, preoperative hemoglobin A1c 5.5% Pain control per current medication regimen Continue to monitor and record strict accurate intake and output Daily weights Shower daily Continue Coumadin, therapeutic dosing with On-X valve is INR 2-3 for the first 3 months, then 1.5-2 thereafter Will discharge to home with home care once INR is therapeutic, we will continue to dose Coumadin until patient follows up with Dr. Lentz in the office More recommendations to follow based on patient's progress
[2023-12-21 11:27] LABS: Glucose,Whole Blood 104 mg/dL (70-110)
--- NOTE | 2023-12-21 11:38 | P.PN ---
Subjective Progress Note Date: 12/21/23 Hospital course: Patient is a very pleasant 48-year-old male with a past medical history of bicuspid aortic valve with severe aortic stenosis, hypertension, hyperlipidemia, chronic diastolic heart failure, GERD, and obstructive sleep apnea. He is currently admitted under cardiothoracic surgery team status post mechanical aortic valve replacement. Surgical procedure was completed on 12/14/2023. Consulted for medical management throughout patient's hospitalization. Physical exam: Patient seen and fully evaluated at bedside this morning. Heart hugger remains in place. Patient reports doing well stating only mild postoperative pain. Denies having any other questions, needs, complaints or concerns at this time. Vital signs reviewed and stable. General: Nontoxic, no distress and appears stated age. Derm: Skin warm and dry, normal coloration for ethnicity. Head: Atraumatic, normocephalic and symmetric. Eyes: EOMs intact, no lid lag, and anicteric sclera Mouth: no lip lesions, mucus membranes moist Cardiovascular: regular rate and rhythm with normal S1S2, mechanical valve click noted, positive posterior tibial pulses bilaterally, and cap refill < 2 seconds. Postsurgical incision to midline intact with sutures in place, no signs of dehiscence or infection. Heart hugger in place. Lungs: Respirations even, regular, and unlabored on room air. Lungs CTA bilaterally, no rhonchi, no rales, no wheezing, and no accessory muscle usage. Abdominal: soft, nontender to palpation, no guarding, no appreciable organomegaly Ext: ROM intact. No gross muscle atrophy, no edema, no contractures Neuro: Speech clear, face symmetrical and CN II-XII grossly intact with no noted focal neuro deficits Psych: Alert and oriented to person, place, time, and situation. Appropriate and pleasant affect. Assessment and Plan of Care: Severe symptomatic bicuspid aortic stenosis, status post mechanical aortic valve replacement Hypertension Dyslipidemia Pulmonary edema ELKE Hyperglycemia, A1c 5.5 Mild normocytic anemia, anticipated outcome of surgery Mild thrombocytopenia, anticipated outcome of surgery, resolved Mild hyponatremia, resolving -Cardiothoracic surgery following and discussed plan of care with cardiothoracic METAL REFINER, continue aspirin 81 mg, atorvastatin 40 mg, metoprolol 25 mg twice daily, ezetimibe 10 mg nightly, given 20 mg IV Lasix once, continue on Coumadin, INR goal for On-X valve is 2.0-3.0, likely discharge home tomorrow with home care once INR therapeutic. INR currently 1.5. -Continue therapeutic Lovenox with Coumadin until INR is therapeutic. -Pain control per cardiothoracic surgery -Continue sliding scale insulin, monitor for hypoglycemia -Hyperglycemia likely from acute stress from surgery, does not need any antidiabetic medications at the time of discharge, outpatient follow-up with PCP -Pulmonology following, continue current therapy, encourage IS -Cardiology note reviewed, continue current therapy -Repeat CBC, BMP and PT/INR tomorrow morning. Data and imaging reviewed: Morning labs reviewed. CBC showing stable normocytic anemia with hemoglobin of 10.7. Coagulation profile showing subtherapeutic INR of 1.5. BMP unremarkable. Blood glucose 101. Magnesium 2.1. Vital signs reviewed. Blood pressure 109/75, heart rate 85, respiratory rate 18, temp 98.1 F, and SpO2 of 97% on room air. Thank you for allowing us to participate in the care of this pleasant patient. Do not hesitate to contact us with questions. Someone can be reached from the [facility] hospitalist group all hours of the day at [phone] or via [employer]. Patient was seen independently by Nurse Pracitioner. This document was prepared using [email or web address] dictation software. Please allow for errors in reshipping clerk, while rare they do occur. Objective - Vital Signs Vital signs: Vital Signs Temp 98.2 F 12/21/23 03:10 Pulse 67 12/21/23 03:10 Resp 19 12/21/23 03:10 BP 132/81 12/21/23 03:10 Pulse Ox 97 12/21/23 03:10 FiO2 4 12/14/23 18:00 Intake & Output 12/20/23 12/21/23 12/21/23 18:59 06:59 18:59 Intake Total 720 Output Total 1000 300 Balance -280 -300 Weight 160.8 kg Intake: Oral 720 Output: Urine 1000 300 Other: Voiding Method Toilet Toilet Urinal Urinal ABP, PAP, CO, CI - Last Documented Arterial Blood Pressure 120/55 Pulmonary Artery Pressure 21/3 Cardiac Output 7.2 Cardiac Index 2.7 - Labs CBC & Chem 7: 12/21/23 06:34 12/21/23 06:34 Labs: Abnormal Lab Results - Last 24 Hours (Table) 12/20/23 12/20/2324 Range/Units 08:19 08:19 08:19 RBC 3.23 L (4.30-5.90) m/uL Hgb 9.5 L (13.0-17.5) gm/dL Hct 29.3 L (39.0-53.0) % PT 14.1 H (10.0-12.5) sec INR 1.4 H (<1.2) BUN 21 H (9-20) mg/dL Glucose 114 H (74-99) mg/dL POC Glucose (mg/dL) (70-110) mg/dL 12/20/23 12/21/23 12/21/23 Range/Units 11:36 06:04 06:34 RBC 3.62 L (4.30-5.90) m/uL Hgb 10.7 L (13.0-17.5) gm/dL Hct 32.4 L (39.0-53.0) % PT (10.0-12.5) sec INR (<1.2) BUN (9-20) mg/dL Glucose (74-99) mg/dL POC Glucose (mg/dL) 122 H 113 H (70-110) mg/dL 12/21/23 Range/Units 06:34 RBC (4.30-5.90) m/uL Hgb (13.0-17.5) gm/dL Hct (39.0-53.0) % PT 15.4 H (10.0-12.5) sec INR 1.5 H (<1.2) BUN (9-20) mg/dL Glucose (74-99) mg/dL POC Glucose (mg/dL) (70-110) mg/dL
--- NOTE | 2023-12-21 13:00 | P.PN ---
Subjective HISTORY OF PRESENT ILLNESS: Patient is status post aortic valve replacement with On-X mechanical valve. Postop day #3. Patient examined this morning. He is sitting up in the chair. Patient currently denies any chest pain or pressure. Denies any shortness of breath. Chest tube was discontinued this morning. Patient has been up ambulating in the hallway without difficulty. Telemetry reveals sinus mechanism. Vital signs are stable. 12/19/2023 Patient examined this morning. He is sitting up in the chair. He currently denies chest pain or pressure. He denies shortness of breath. He has been ambulating without difficulty. Vital signs are stable. Patient remains on Coumadin. INR today 1.2. 12/20/2023 Patient examined this morning. He is sitting up in the chair. He currently denies chest pain or pressure. He denies shortness of breath. He has been ambulating without difficulty. Vital signs are stable. Patient remains on Coumadin. INR today 1.4. 12/21/2023 Patient examined this morning. He is sitting up in the chair. He currently denies chest pain or pressure. He denies shortness of breath. He has been ambulating without difficulty. Vital signs are stable. Patient remains on Coumadin. INR today 1.5. PHYSICAL EXAM: VITAL SIGNS: Reviewed. GENERAL: Well-developed in no acute distress. NECK: Supple. No JVD or thyromegaly LUNGS: Respirations even and unlabored. Lungs essentially clear to auscultation bilaterally. HEART: Regular rate and rhythm. S1 and S2 heard. EXTREMITIES: Normal range of motion. No clubbing or cyanosis. Peripheral pulses intact. No lower extremity edema ASSESSMENT: Severe bicuspid aortic stenosis, status post mechanical aortic valve replacement with On-X valve Hypertension Hyperlipidemia Obstructive sleep apnea without CPAP use Morbid obesity: BMI 44.7 PLAN: Continue postoperative management per CT surgery Continue Coumadin. Monitor INR. Encourage use of incentive spirometer Increase activity as tolerated Continue telemetry monitoring Further recommendations pending patient course Nurse practitioner note has been reviewed by physician. Signing provider agrees with the documented findings, assessment, and plan of care documented by VALVE LAPPER as a scribe. Objective - Vital Signs Vital signs: Vital Signs Temp 98.8 F 12/21/23 12:00 Pulse 72 12/21/23 12:00 Resp 18 12/21/23 12:00 BP 114/70 12/21/23 12:00 Pulse Ox 100 12/21/23 12:00 FiO2 4 12/14/23 18:00 Intake & Output 12/20/23 12/21/23 12/21/23 18:59 06:59 18:59 Intake Total 720 Output Total 1000 300 Balance -280 -300 Weight 160.8 kg Intake: Oral 720 Output: Urine 1000 300 Other: Voiding Method Toilet Toilet Toilet Urinal Urinal Urinal ABP, PAP, CO, CI - Last Documented Arterial Blood Pressure 120/55 Pulmonary Artery Pressure 21/3 Cardiac Output 7.2 Cardiac Index 2.7 - Labs CBC & Chem 7: 12/21/23 06:34 12/21/23 06:34 Labs: Abnormal Lab Results - Last 24 Hours (Table) 12/21/23 12/21/23 12/21/23 Range/Units 06:04 06:34 06:34 RBC 3.62 L (4.30-5.90) m/uL Hgb 10.7 L (13.0-17.5) gm/dL Hct 32.4 L (39.0-53.0) % PT 15.4 H (10.0-12.5) sec INR 1.5 H (<1.2) Glucose (74-99) mg/dL POC Glucose (mg/dL) 113 H (70-110) mg/dL 12/21/23 Range/Units 06:34 RBC (4.30-5.90) m/uL Hgb (13.0-17.5) gm/dL Hct (39.0-53.0) % PT (10.0-12.5) sec INR (<1.2) Glucose 101 H (74-99) mg/dL POC Glucose (mg/dL) (70-110) mg/dL
--- NOTE | 2023-12-21 13:03 | P.PN ---
Subjective Progress Note Date: 12/21/23 Pulmonary/critical care consult dated December 14, 2023. 48-year-old male with history of bicuspid aortic valve and aortic stenosis. The patient is postop day #0, status post aortic valve replacement. The patient also had a root enlargement procedure. The patient is back in the intensive care unit, in room 266. He remains on the ventilator. Current ventilator settings of volume assist-control, rate 16, tidal volume 500, FiO2 100%, PEEP of 10. Cardiac output is 7.3 and index is 2.7. The patient has a right-sided chest tube and 2 mediastinal chest tubes. Pacer wires are noted. The patient is on propofol at 25 mcg/kg/min and nitroglycerin at 5 mcg/min. The patient is also getting saline at 50 cc an hour. Blood gases have not yet been done. Chest x-ray has not yet been done. The patient has a history of hyperlipidemia, hypertension, and sleep apnea syndrome. He is a lifelong non-smoker. Labs today include a blood gas, in the operating room with a pO2 of 269, pCO2 of 41, pH of 7.36. Blood glucose is 111. Progress note dated 12/15/2023. 48-year-old male postop day #1, status post aortic valve replacement for aortic stenosis secondary to bicuspid aortic valve. The patient is seen today in room 266. The patient is doing well. He is on 4 L of oxygen. Is getting saline at 30 mL an hour, and an insulin drip at 5.5 units an hour. He has no specific complaints, and continues to work on incentive spirometer.Current labs include a white count 8.8, hemoglobin 12.1, hematocrit 36.6, normal platelet count. Sodium 136, potassium 4.3, chlorides 109, CO2 19, BUN 19, creatinine 0.72. Calcium is 8. Magnesium 2.4 AST 63.Chest x-ray showed low lung volumes, bibasilar atelectasis. Progress note dated December 16, 2023. 48-year-old male postop day #2, status post aortic valve replacement. The patient had a bicuspid aortic valve with aortic stenosis. Currently, the patient is on room air. He is getting saline at 20 cc an hour. He is on an insulin drip at 5 units an hour. Clinically he is doing very well. White count 9.9, hemoglobin 10.7, hematocrit 31.7, platelet count 130,000. Sodium 134, potassium 4.1, chlorides 107, CO2 22, BUN 22, creatinine 0.69. Glucose 133. Calcium 8.2. Albumin 3.2. Chest x-ray shows low lung volumes, and some bibasilar atelectasis. Progress note dated December 17, 2023. 48-year-old male postop day #3, status post aortic valve replacement, for aortic stenosis, secondary to bicuspid aortic valve. The patient is seen today in room 381. He is on room air. No IV fluids. Clinically, the patient looks well and feels well. Current labs include a white count 7.8, hemoglobin 10.4, hematocrit 31.4, and a normal platelet count. Sodium 135, potassium 4.1, chlorides 105, CO2 26, BUN 23, and creatinine 0.78. Chest x-ray shows some generalized haziness and atelectasis, with low lung volumes. The patient is seen today December 18, 2023 in follow-up on the selective care unit. Postoperative day #4 following it aortic valve replacement. He is currently sitting up in a chair. Awake and alert in no acute distress. He is maintaining good O2 saturations in the 90s on room air. He is working well with the incentive spirometer. Chest x-ray reveals stable bilateral lower lobe atelectasis. No IV fluids. White count 5.9. Hemoglobin 10.4. Platelets 209. Sodium 139. Potassium 4.1. Bicarb 26. BUN 22. Creatinine 0.77. Glucose 127. He remains on bronchodilators. Heparin for DVT prophylaxis. Anticoagulated with warfarin. INR 1.0. The patient is seen today December 19, 2023 in follow-up on the selective care unit. Postoperative day #5. He is awake and alert in no acute distress. Sitting up in a chair at the bedside. He denies any worsening shortness of breath, cough or congestion. He is maintaining good O2 saturations in the 90s on room air. Chest x-ray reveals stable bilateral lower lobe atelectasis. He continues to work well with the incentive spirometer. He is currently on Lovenox 80 mg every 12 hours. The plan is to transition to warfarin. Current INR 1.2. White count 6.4. Hemoglobin 9.6. Platelets 242. Sodium 136. Potassium 4.6. Bicarb 24. BUN 18. Creatinine 0.65. Glucose 118. The patient is seen today December 20, 2023 in follow-up on the selective care unit. Postoperative day #6. He is sitting up in a chair at the bedside. Awake and alert in no acute distress. He denies any worsening shortness of breath, cough or congestion. He is maintaining good O2 saturations in the 90s on room air. Chest x-ray reveals stable bilateral lower lobe atelectasis. Small left pleural effusion. White count 7.1. Hemoglobin 9.5. Platelets 225. INR 1.4. Sodium 137. Potassium 4.4. Bicarb 26. BUN 21. Creatinine 0.7. Glucose 114. He is continued on DuoNeb inhalations. Continues on Lovenox as bridge to warfarin. Working well with the incentive spirometer. He has been up ambulating in the hallways. The patient is seen today December 21, 2023 in follow-up on the selective care unit. He is currently sitting up in a chair. Awake and alert in no acute distress. Maintaining good O2 saturations in the 90s on room air. No IV fluids. He is tolerating his diet. His INR is 1.5 today. Chest x-ray reveals stable bilateral lower lobe atelectasis with small left effusion. White count 8.9. Hemoglobin 10.7. Platelets 325. INR 1.5. Sodium 138. Potassium 4.9. Bicarb 25. BUN 17. Creatinine 0.75. Glucose 101. Continues to work well with the incentive spirometer. Remains on bronchodilators. Therapeutic Lovenox until INR therapeutic. Objective - Vital Signs Vital signs: Vital Signs Temp 98.8 F 12/21/23 12:00 Pulse 72 12/21/23 12:00 Resp 18 12/21/23 12:00 BP 114/70 12/21/23 12:00 Pulse Ox 100 12/21/23 12:00 FiO2 4 12/14/23 18:00 Intake & Output 12/20/23 12/21/23 12/21/23 18:59 06:59 18:59 Intake Total 720 Output Total 1000 300 Balance -280 -300 Weight 160.8 kg Intake: Oral 720 Output: Urine 1000 300 Other: Voiding Method Toilet Toilet Toilet Urinal Urinal Urinal ABP, PAP, CO, CI - Last Documented Arterial Blood Pressure 120/55 Pulmonary Artery Pressure 21/3 Cardiac Output 7.2 Cardiac Index 2.7 - Exam GENERAL EXAM: Alert, 48-year-old gentleman, up in a chair, on room air, in no apparent distress. HEAD: Normocephalic. EYES: Normal reaction of pupils, equal size. NOSE: Clear with pink turbinates. THROAT: No erythema or exudates. NECK: No masses, no JVD. CHEST: No chest wall deformity. Sternum stable. Heart hugger in place. LUNGS: Equal air entry with no crackles, wheeze, rhonchi or dullness. CVS: S1 and S2 normal with no audible murmur, regular rhythm. ABDOMEN: No hepatosplenomegaly, normal bowel sounds, no guarding or rigidity. SPINE: No scoliosis or deformity SKIN: No rashes CENTRAL NERVOUS SYSTEM: No focal deficits, tone is normal in all 4 extremities. EXTREMITIES: There is no peripheral edema. No clubbing, no cyanosis. Peripheral pulses are intact. - Labs CBC & Chem 7: 12/21/23 06:34 12/21/23 06:34 Labs: Abnormal Lab Results - Last 24 Hours (Table) 12/21/23 12/21/23 12/21/23 Range/Units 06:04 06:34 06:34 RBC 3.62 L (4.30-5.90) m/uL Hgb 10.7 L (13.0-17.5) gm/dL Hct 32.4 L (39.0-53.0) % PT 15.4 H (10.0-12.5) sec INR 1.5 H (<1.2) Glucose (74-99) mg/dL POC Glucose (mg/dL) 113 H (70-110) mg/dL 12/21/23 Range/Units 06:34 RBC (4.30-5.90) m/uL Hgb (13.0-17.5) gm/dL Hct (39.0-53.0) % PT (10.0-12.5) sec INR (<1.2) Glucose 101 H (74-99) mg/dL POC Glucose (mg/dL) (70-110) mg/dL Assessment and Plan Assessment: Postop day #7, status post aortic valve replacement, for severe aortic stenosis, secondary to bicuspid aortic valve Routine postoperative ventilator management Hypertension Hyperlipidemia Obstructive sleep apnea syndrome Obesity Plan: The patient was seen and evaluated Chest x-ray, labs and medications reviewed Currently stable and on room air Working well with the incentive spirometer Remains on Lovenox for bridge to warfarin He has been up ambulating in the hallway Home once cleared by CT service I have personally seen and examined the patient, performed the documentation and the assessment and plan as written. Number of minutes spent on the visit: 10.
[2023-12-21 16:25] LABS: Glucose,Whole Blood 85 mg/dL (70-110)
[2023-12-21] MEDS: WARFARIN 7.5 MG TAB PO ONE (16:55)
[2023-12-21 20:02] LABS: Glucose,Whole Blood 106 mg/dL (70-110)
[2023-12-22 04:58] VITALS: RESP 18
[2023-12-22 06:03] LABS: Glucose,Whole Blood 113 mg/dL (70-110)
[2023-12-22 06:45] LABS: INR 1.7 (<1.2); Prothrombin Time 16.9 sec (10.0-12.5)
[2023-12-22 06:47] LABS: African American GFR (CKD) >90 (>60 ml/min/1.73 sqM); Anion Gap 4 mmol/L; Blood Urea Nitrogen 19 mg/dL (9-20); Calcium 8.4 mg/dL (8.4-10.2); Carbon Dioxide 23 mmol/L (22-30); Chloride 109 mmol/L (98-107); Glucose 106 mg/dL (74-99); Non-African American GFR(CKD) >90 (>60 ml/min/1.73 sqM); Potassium 4.6 mmol/L (3.5-5.1); Sodium 136 mmol/L (137-145)
[2023-12-22 08:20] VITALS: TEMP 97.5
[2023-12-22] MEDS ORDERED: ZINC OXIDE PASTE (Z-GUARD) 1 APPLIC TOPICAL PRN (08:33)
[2023-12-22 09:16] LABS: HCT 29.5 % (39.0-53.0); HGB 9.5 gm/dL (13.0-17.5); Hypochromasia Slight; MCHC 32.4 g/dL (31.0-37.0); MCV 89.6 fL (80.0-100.0); Mean Platelet Volume 9.5; Platelet Count 307 k/uL (150-450); Poikilocytosis Slight; RBC 3.29 m/uL (4.30-5.90); RDW 13.4 % (11.5-15.5); WBC 7.3 k/uL (3.8-10.6)
--- NOTE | 2023-12-22 11:32 | P.PN ---
Subjective HISTORY OF PRESENT ILLNESS: Patient is status post aortic valve replacement with On-X mechanical valve. Postop day #3. Patient examined this morning. He is sitting up in the chair. Patient currently denies any chest pain or pressure. Denies any shortness of breath. Chest tube was discontinued this morning. Patient has been up ambulating in the hallway without difficulty. Telemetry reveals sinus mechanism. Vital signs are stable. 12/19/2023 Patient examined this morning. He is sitting up in the chair. He currently denies chest pain or pressure. He denies shortness of breath. He has been ambulating without difficulty. Vital signs are stable. Patient remains on Coumadin. INR today 1.2. 12/20/2023 Patient examined this morning. He is sitting up in the chair. He currently denies chest pain or pressure. He denies shortness of breath. He has been ambulating without difficulty. Vital signs are stable. Patient remains on Coumadin. INR today 1.4. 12/21/2023 Patient examined this morning. He is sitting up in the chair. He currently denies chest pain or pressure. He denies shortness of breath. He has been ambulating without difficulty. Vital signs are stable. Patient remains on Coumadin. INR today 1.5. 12/22/2023 Patient examined this morning. He is sitting up in the chair. He currently denies chest pain or pressure. He denies shortness of breath. He has been ambulating without difficulty. Vital signs are stable. Patient remains on Coumadin. INR today 1.7. PHYSICAL EXAM: VITAL SIGNS: Reviewed. GENERAL: Well-developed in no acute distress. NECK: Supple. No JVD or thyromegaly LUNGS: Respirations even and unlabored. Lungs essentially clear to auscultation bilaterally. HEART: Regular rate and rhythm. S1 and S2 heard. EXTREMITIES: Normal range of motion. No clubbing or cyanosis. Peripheral pulses intact. No lower extremity edema ASSESSMENT: Severe bicuspid aortic stenosis, status post mechanical aortic valve replacement with On-X valve Hypertension Hyperlipidemia Obstructive sleep apnea without CPAP use Morbid obesity: BMI 44.7 PLAN: Continue postoperative management per CT surgery Continue Coumadin. Monitor INR. Encourage use of incentive spirometer Increase activity as tolerated Continue telemetry monitoring Stable for discharge home today from a cardiac standpoint Further recommendations pending patient course Nurse practitioner note has been reviewed by physician. Signing provider agrees with the documented findings, assessment, and plan of care documented by [employer] as a scribe. Objective - Vital Signs Vital signs: Vital Signs Temp 97.5 F L 12/22/23 08:00 Pulse 73 12/22/23 08:00 Resp 18 12/22/23 08:00 BP 119/73 12/22/23 08:00 Pulse Ox 99 12/22/23 08:00 FiO2 4 12/14/23 18:00 Intake & Output 12/21/23 12/22/23 12/22/23 18:59 06:59 18:59 Intake Total 240 40 Output Total 850 960 Balance -610 -920 Weight 161.8 kg Intake: Oral 240 40 Output: Urine 850 960 Other: Voiding Method Toilet Toilet Toilet Urinal Urinal Urinal # Voids 1 ABP, PAP, CO, CI - Last Documented Arterial Blood Pressure 120/55 Pulmonary Artery Pressure 21/3 Cardiac Output 7.2 Cardiac Index 2.7 - Labs CBC & Chem 7: 12/22/23 05:59 12/22/23 05:59 Labs: Abnormal Lab Results - Last 24 Hours (Table) 12/22/23 12/22/23 12/22/23 Range/Units 05:59 05:59 05:59 RBC 3.29 L (4.30-5.90) m/uL Hgb 9.5 L (13.0-17.5) gm/dL Hct 29.5 L (39.0-53.0) % PT 16.9 H (10.0-12.5) sec INR 1.7 H (<1.2) Sodium 136 L (137-145) mmol/L Chloride 109 H (98-107) mmol/L Creatinine 0.65 L (0.66-1.25) mg/dL Glucose 106 H (74-99) mg/dL POC Glucose (mg/dL) (70-110) mg/dL 12/22/23 Range/Units 06:02 RBC (4.30-5.90) m/uL Hgb (13.0-17.5) gm/dL Hct (39.0-53.0) % PT (10.0-12.5) sec INR (<1.2) Sodium (137-145) mmol/L Chloride (98-107) mmol/L Creatinine (0.66-1.25) mg/dL Glucose (74-99) mg/dL POC Glucose (mg/dL) 113 H (70-110) mg/dL
[2023-12-22 11:36] LABS: Glucose,Whole Blood 112 mg/dL (70-110)
--- NOTE | 2023-12-22 12:11 | P.PN ---
Subjective Progress Note Date: 12/22/23 Pulmonary/critical care consult dated December 14, 2023. 48-year-old male with history of bicuspid aortic valve and aortic stenosis. The patient is postop day #0, status post aortic valve replacement. The patient also had a root enlargement procedure. The patient is back in the intensive care unit, in room 266. He remains on the ventilator. Current ventilator settings of volume assist-control, rate 16, tidal volume 500, FiO2 100%, PEEP of 10. Cardiac output is 7.3 and index is 2.7. The patient has a right-sided chest tube and 2 mediastinal chest tubes. Pacer wires are noted. The patient is on propofol at 25 mcg/kg/min and nitroglycerin at 5 mcg/min. The patient is also getting saline at 50 cc an hour. Blood gases have not yet been done. Chest x-ray has not yet been done. The patient has a history of hyperlipidemia, hypertension, and sleep apnea syndrome. He is a lifelong non-smoker. Labs today include a blood gas, in the operating room with a pO2 of 269, pCO2 of 41, pH of 7.36. Blood glucose is 111. Progress note dated 12/15/2023. 48-year-old male postop day #1, status post aortic valve replacement for aortic stenosis secondary to bicuspid aortic valve. The patient is seen today in room 266. The patient is doing well. He is on 4 L of oxygen. Is getting saline at 30 mL an hour, and an insulin drip at 5.5 units an hour. He has no specific complaints, and continues to work on incentive spirometer.Current labs include a white count 8.8, hemoglobin 12.1, hematocrit 36.6, normal platelet count. Sodium 136, potassium 4.3, chlorides 109, CO2 19, BUN 19, creatinine 0.72. Calcium is 8. Magnesium 2.4 AST 63.Chest x-ray showed low lung volumes, bibasilar atelectasis. Progress note dated December 16, 2023. 48-year-old male postop day #2, status post aortic valve replacement. The patient had a bicuspid aortic valve with aortic stenosis. Currently, the patient is on room air. He is getting saline at 20 cc an hour. He is on an insulin drip at 5 units an hour. Clinically he is doing very well. White count 9.9, hemoglobin 10.7, hematocrit 31.7, platelet count 130,000. Sodium 134, potassium 4.1, chlorides 107, CO2 22, BUN 22, creatinine 0.69. Glucose 133. Calcium 8.2. Albumin 3.2. Chest x-ray shows low lung volumes, and some bibasilar atelectasis. Progress note dated December 17, 2023. 48-year-old male postop day #3, status post aortic valve replacement, for aortic stenosis, secondary to bicuspid aortic valve. The patient is seen today in room 381. He is on room air. No IV fluids. Clinically, the patient looks well and feels well. Current labs include a white count 7.8, hemoglobin 10.4, hematocrit 31.4, and a normal platelet count. Sodium 135, potassium 4.1, chlorides 105, CO2 26, BUN 23, and creatinine 0.78. Chest x-ray shows some generalized haziness and atelectasis, with low lung volumes. The patient is seen today December 18, 2023 in follow-up on the selective care unit. Postoperative day #4 following it aortic valve replacement. He is currently sitting up in a chair. Awake and alert in no acute distress. He is maintaining good O2 saturations in the 90s on room air. He is working well with the incentive spirometer. Chest x-ray reveals stable bilateral lower lobe atelectasis. No IV fluids. White count 5.9. Hemoglobin 10.4. Platelets 209. Sodium 139. Potassium 4.1. Bicarb 26. BUN 22. Creatinine 0.77. Glucose 127. He remains on bronchodilators. Heparin for DVT prophylaxis. Anticoagulated with warfarin. INR 1.0. The patient is seen today December 19, 2023 in follow-up on the selective care unit. Postoperative day #5. He is awake and alert in no acute distress. Sitting up in a chair at the bedside. He denies any worsening shortness of breath, cough or congestion. He is maintaining good O2 saturations in the 90s on room air. Chest x-ray reveals stable bilateral lower lobe atelectasis. He continues to work well with the incentive spirometer. He is currently on Lovenox 80 mg every 12 hours. The plan is to transition to warfarin. Current INR 1.2. White count 6.4. Hemoglobin 9.6. Platelets 242. Sodium 136. Potassium 4.6. Bicarb 24. BUN 18. Creatinine 0.65. Glucose 118. The patient is seen today December 20, 2023 in follow-up on the selective care unit. Postoperative day #6. He is sitting up in a chair at the bedside. Awake and alert in no acute distress. He denies any worsening shortness of breath, cough or congestion. He is maintaining good O2 saturations in the 90s on room air. Chest x-ray reveals stable bilateral lower lobe atelectasis. Small left pleural effusion. White count 7.1. Hemoglobin 9.5. Platelets 225. INR 1.4. Sodium 137. Potassium 4.4. Bicarb 26. BUN 21. Creatinine 0.7. Glucose 114. He is continued on DuoNeb inhalations. Continues on Lovenox as bridge to warfarin. Working well with the incentive spirometer. He has been up ambulating in the hallways. The patient is seen today December 21, 2023 in follow-up on the selective care unit. He is currently sitting up in a chair. Awake and alert in no acute distress. Maintaining good O2 saturations in the 90s on room air. No IV fluids. He is tolerating his diet. His INR is 1.5 today. Chest x-ray reveals stable bilateral lower lobe atelectasis with small left effusion. White count 8.9. Hemoglobin 10.7. Platelets 325. INR 1.5. Sodium 138. Potassium 4.9. Bicarb 25. BUN 17. Creatinine 0.75. Glucose 101. Continues to work well with the incentive spirometer. Remains on bronchodilators. Therapeutic Lovenox until INR therapeutic. The patient is seen today December 22, 2023 in follow-up on the selective care unit. Postoperative day #8. He is awake and alert in no acute distress. Sitting up in a chair. Denies any worsening shortness of breath, cough or congestion. INR is 1.7. White count 7.3. Hemoglobin 9.2. Platelets 307. Sodium 136. Potassium 4.6. Bicarb 23. Bicarb 19. Creatinine 0.65. Glucose 106. He remains on bronchodilators. Working well with the incentive spirometer. Objective - Vital Signs Vital signs: Vital Signs Temp 97.5 F L 12/22/23 08:00 Pulse 73 12/22/23 08:00 Resp 18 12/22/23 08:00 BP 119/73 12/22/23 08:00 Pulse Ox 99 12/22/23 08:00 FiO2 4 12/14/23 18:00 Intake & Output 12/21/23 12/22/23 12/22/23 18:59 06:59 18:59 Intake Total 240 40 Output Total 850 960 Balance -610 -920 Weight 161.8 kg Intake: Oral 240 40 Output: Urine 850 960 Other: Voiding Method Toilet Toilet Toilet Urinal Urinal Urinal # Voids 1 ABP, PAP, CO, CI - Last Documented Arterial Blood Pressure 120/55 Pulmonary Artery Pressure 21/3 Cardiac Output 7.2 Cardiac Index 2.7 - Exam GENERAL EXAM: Alert, very pleasant 48-year-old gentleman, up in a chair, on room air, in no apparent distress. HEAD: Normocephalic. EYES: Normal reaction of pupils, equal size. NOSE: Clear with pink turbinates. THROAT: No erythema or exudates. NECK: No masses, no JVD. CHEST: No chest wall deformity. Sternum stable. Heart hugger in place. LUNGS: Equal air entry with no crackles, wheeze, rhonchi or dullness. CVS: S1 and S2 normal with no audible murmur, regular rhythm. ABDOMEN: No hepatosplenomegaly, normal bowel sounds, no guarding or rigidity. SPINE: No scoliosis or deformity SKIN: No rashes CENTRAL NERVOUS SYSTEM: No focal deficits, tone is normal in all 4 extremities. EXTREMITIES: There is no peripheral edema. No clubbing, no cyanosis. Peripheral pulses are intact. - Labs CBC & Chem 7: 12/22/23 05:59 12/22/23 05:59 Labs: Abnormal Lab Results - Last 24 Hours (Table) 12/22/23 12/22/23 12/22/23 Range/Units 05:59 05:59 05:59 RBC 3.29 L (4.30-5.90) m/uL Hgb 9.5 L (13.0-17.5) gm/dL Hct 29.5 L (39.0-53.0) % PT 16.9 H (10.0-12.5) sec INR 1.7 H (<1.2) Sodium 136 L (137-145) mmol/L Chloride 109 H (98-107) mmol/L Creatinine 0.65 L (0.66-1.25) mg/dL Glucose 106 H (74-99) mg/dL POC Glucose (mg/dL) (70-110) mg/dL 12/22/23 12/22/23 Range/Units 06:02 11:35 RBC (4.30-5.90) m/uL Hgb (13.0-17.5) gm/dL Hct (39.0-53.0) % PT (10.0-12.5) sec INR (<1.2) Sodium (137-145) mmol/L Chloride (98-107) mmol/L Creatinine (0.66-1.25) mg/dL Glucose (74-99) mg/dL POC Glucose (mg/dL) 113 H 112 H (70-110) mg/dL Assessment and Plan Assessment: Postop day #8, status post aortic valve replacement, for severe aortic stenosis, secondary to bicuspid aortic valve Routine postoperative ventilator management Hypertension Hyperlipidemia Obstructive sleep apnea syndrome Obesity Plan: The patient was seen and evaluated Labs and medications reviewed Currently stable and on room air Working well with the incentive spirometer Remains on Lovenox for bridge to warfarin He has been up ambulating in the hallway INR 1.7. Plan is for possible discharge today I have personally seen and examined the patient, performed the documentation and the assessment and plan as written. Number of minutes spent on the visit: 10.
[2023-12-22 13:19] VITALS: BP 117/75; PULSE 61
--- NOTE | 2023-12-22 13:50 | P.DS ---
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: Stamp Mounter Consult: post cardiac surgery Do you want consulting provider notified?: Yes Consult Physician Routine Consulting Provider: Shabbir Glover Consult Reason/Comments: med [facility]; [facility] patient Do you want consulting provider notified?: Yes Primary care physician: [facility] Course: FINAL DIAGNOSIS: Severe symptomatic bicuspid aortic stenosis, status post mechanical aortic valve replacement History of hypertension Hyperlipidemia, treated, cholesterol 153, LDL 41, triglycerides 375 Morbid obesity with a BMI of 45.8 kg/m Obstructive sleep apnea without home CPAP use Moderate restrictive lung disease, preoperative FEV1 59% of predicted Lifelong non-smoker Family history of premature coronary artery disease with father having myocar dial infarction at 50 years old PRINCIPAL PROCEDURE: 1. Aortic valve replacement with a 25 mm On-X mechanical valve, root enlargement with a Hemashield patch ([place]) 2. Ligation of the left atrial appendage with a 35 mm AtriCure clip HISTORY OF PRESENT ILLNESS: This is a 48-year-old gentleman who follows outpatient with Dr. Oliver for internal medicine and Dr. Lentz for his cardiology care. The patient had a recent admission to the hospital on December 04, 2023 with complaints of progressive shortness of breath over a month long. Along with complaints of pain between his shoulder blades and some complaints of lower extremity edema. The patient has a known history of bicuspid aortic valve which has been followed closely by Dr. Lentz as an outpatient for some time. During the admission the patient underwent a twelve-lead EKG which demonstrated normal sinus rhythm with T wave inversions in lead I and aVL. A transthoracic 2D echocardiogram was completed which revealed a normal left ventricular systolic function with an ejection fraction of 60 to 65%, severe aortic valve stenosis with a peak/mean gradient 75/46 mmHg, and a peak velocity of 4.33 m/s. Due to the patient's presenting symptoms, known history of bicuspid aortic valve and findings on his transthoracic 2D echocardiogram the patient was recommended to undergo a cardiac catheterization and transesophageal echocardiogram. A cardiac catheterization was completed on December 04, 2023 which demonstrated severe aortic valve stenosis with a mean gradient of 56 mmHg, mild disease in the proximal right coronary artery, a dilated ascending aorta and elevated left ventricular end-diastolic pressure of 25 to 30 mmHg. The transesophageal echocardiogram completed on December 04, 2023 showed a normal ventricular size and systolic function, a heavily calcified aortic valve, bicuspid with severe aortic valve stenosis and a mean gradient of 42 mmHg, mild to moderate mitral valve and tricuspid valve regurgitation, and no pericardial effusion. Due to the findings on the above-mentioned studies a consult was placed to Dr. Man Banks from cardiothoracic surgery for further evaluation including surgical aortic valve replacement. Dr. Banks met with the patient, treatment options were discussed with the patient and his family present at his bedside, surgical aortic valve replacement was discussed including risks and benefits and the STS risk score. Knowing and understanding the risks the patient wished to proceed with the surgical option. HOSPITAL COURSE: On December 14, 2023 the patient was admitted to the hospital, and after obtaining consent was taken to the operating room where Dr. Man Banks performed an aortic valve replacement with a 25 mm On-X mechanical valve with root enlargement with a Hemashield patch. Upon completion of the surgery the patient was taken to the cardiovascular intensive care unit where he was recovered and monitored hemodynamically. He was extubated, all lines, and supportive drips were discontinued when appropriate and he was transferred to the third floor cardiac stepdown unit for further monitoring and rehabilitation. His oxygen was titrated down, he continued to work with physical/occupational therapy, cardiac rehabilitation, he was tolerating an oral diet, his pain was well-controlled and he was ready to be discharged home with [facility] home health care on postoperative day #8. He has received written and verbal instructions regarding his medications, activity restrictions, signs and symptoms requiring physician notification and his follow-up appointments. The importance of adherence to taking his Coumadin has been reinforced with the patient. Plan - Discharge Summary Discharge Rx Participant: No New Discharge Prescriptions: New Enoxaparin [Lovenox] 80 mg SQ Q12HR #7 each Acetaminophen Tab [Tylenol] 1,000 mg PO Q6HR PRN tab PRN Reason: Fever And/ Or Pain Warfarin [Coumadin] 10 mg PO DAILY #60 tab HYDROcodone/APAP 5-325MG [[place] 5-325] 1 each PO Q6HR PRN #12 tab PRN Reason: Pain Ezetimibe [Zetia] 10 mg PO HS #30 tab Continue Atorvastatin [Lipitor] 40 mg PO HS Escitalopram [Lexapro] 20 mg PO DAILY Pantoprazole [Protonix] 40 mg PO DAILY PRN PRN Reason: Heartburn Aspirin 81 mg PO DAILY #30 tab Metoprolol Tartrate [Lopressor] 25 mg PO BID #60 tab Discontinued Ezetimibe [Zetia] 10 mg PO HS Dapagliflozin Propanediol [Farxiga] 10 mg PO DAILY #30 tab Furosemide [Lasix] 40 mg PO DAILY #30 tab Discharge Medication List Atorvastatin [Lipitor] 40 mg PO HS 04/06/22 [History] Escitalopram [Lexapro] 20 mg PO DAILY 04/06/22 [History] Pantoprazole [Protonix] 40 mg PO DAILY PRN 12/04/23 [History] Aspirin 81 mg PO DAILY #30 tab 12/07/23 [Rx] Metoprolol Tartrate [Lopressor] 25 mg PO BID #60 tab 12/07/23 [Rx] Acetaminophen Tab [Tylenol] 1,000 mg PO Q6HR PRN tab 12/22/23 [Rx] Enoxaparin [Lovenox] 80 mg SQ Q12HR #7 each 12/22/23 [Rx] Ezetimibe [Zetia] 10 mg PO HS #30 tab 12/22/23 [Rx] HYDROcodone/APAP 5-325MG [[place] 5-325] 1 each PO Q6HR PRN #12 tab 12/22/23 [Rx] Warfarin [Coumadin] 10 mg PO DAILY #60 tab 12/22/23 [Rx] Follow up Appointment(s)/Referral(s): Henri Lentz MD [STAFF PHYSICIAN] - 12/27/23 3:45 pm Rehab [facility] ,Cardiac [NON-STAFF] - 4 Weeks (You will receive a phone call in approximately 4-6 weeks for evaluation for cardiac rehab) Michelle Pritchett NPC [REFERRING] - 12/28/23 11:00 am (Nurse practitioner for Dr. Borja) Man Banks MD [STAFF PHYSICIAN] - 01/04/24 2:15 pm Steve Gutierrez DO [Doctor of Osteopathic Medicine] - 12/28/23 9:15 am [facility] Visiting Nurse, [NON-STAFF] - 1-2 Days (You should be seen by nursing the day after discharge, then 2-3 times per week until you start cardiac rehab) Ambulatory/Diagnostic Orders: Complete Blood Count w/diff [LAB.AMB] Time Frame: 12/25/23, Facility: [facility], Location: Laboratory [facility] Comprehensive Metabolic Panel [LAB.AMB] Time Frame: 12/25/23, Facility: [facility], Location: Laboratory [facility] Prothrombin Time INR [LAB.AMB] Location: None Selected Patient Instructions/Handouts: Warfarin (By mouth), Vitamin K in Foods (DC) Activity/Diet/Wound Care/Special Instructions: DISCHARGE INSTRUCTIONS: 1. No driving for 4 weeks, or until physician gives their ok. 2. The patient should sleep in their own bed, no medical bed needed. 3. Stairs are not an issue. If the bedroom is upstairs, it is advised that the patient go up at night and down in the morning for the first week. Go slowly, using handrail and take 1 step at a time. 4. PRACHI hose are to be worn for 30 days post surgery or until physician discontinues. 5. Heart hugger is to be worn 100% of the time until physician discontinues.(except when showering) 6. No lifting, pushing, or pulling more than 10 pounds for 12 weeks. The physician will advise of any restriction changes. 7. The patient is expected to continue the prescribed walking program. 8. Continue pain control per as needed orders. 9. Continue with incentive spirometry and splinting/heart hugger until otherwise directed by the physician. 10. Must shower daily using liquid antibacterial soap 11. Routine sternal incision care. No powders, lotions, ointments on incisions. No dressings are necessary on incisions unless they are draining. Dermabond tape is to remain on sternal incision until surgeon follow-up. 12. Please call surgeon/GAME PRODUCER for temp greater than 101 F or purulent drainage from incisions. 13. You should weigh yourself daily, record and bring log with you to follow up appointments. 14. All prescriptions given by surgeon for 30 days. Refills need to be filled through accredited pharmacy technician/primary care physician. 15. A Red armband has been placed on the patient. It should be worn for 30 days post discharge from surgery and will be removed by the cardiac surgeons. If an ER visit is necessary, please make sure the number on the Red armband is called before going to ER. 16. You have been referred to and are expected to begin Cardiac Rehab in approximately 4-6 weeks. 17. Quitting smoking is the most important step you can take to improve your health. For additional information and assistance to quit smoking, please call the [place] tobacco quit line (2-521-VTDN-NOW/ ) or online: [email or web address] [email or web address] 18. Check PT and INR every Mondays and for Coumadin dosing. Please fax results to [phone] and [phone] Banks. Goal INR for the first 3 months is 2-3, after the 3 months goal rate is 1.5-2. Coumadin 10 mg today December 22, 2023, Coumadin 10 mg by mouth December 23, 2023, Coumadin 10 mg by mouth December 24, 2023, and on Monday, December 25, 2023 based on your INR results Coumadin dosing will be called to you. Continue Lovenox 80 mg subcutaneous every 12 hours as instructed. HOME HEALTH SERVICES TO PROVIDE: RN SKILLED HOME CARE SERVICES FOR POST-OP SURGICAL PATIENTS WITH THE FOLLOWING: Coronary Artery Bypass Surgery (CABG), Mitral Valve Replacement/Repair ( MVR), Aortic Valve Replacement/Repair (AVR) RN TO CONTINUE EDUCATION FROM ``ROAD TO A HEALTH HEART PATIENT EDUCATION MANUAL (GIVEN TO PATIENT IN THE HOSPITAL) MEDICATION RECONCILIATION WITH EDUCATION NEEDED ON FIRST HOME VISIT EMPHASIZE IMPORTANCE OF WEARING BREAST SUPPORT/HEART HUGGER ENCOURAGE USE OF INCENTIVE SPIROMETER 10 X EVERY HOUR WHILE AWAKE ENCOURAGE UTILIZATION OF LOWER EXTREMITY COMPRESSION STOCKINGS/PRACHI HOSE and ELEVATE LEGS ABOVE LEVEL OF HEART WHILE AT REST. ENCOURAGE AMBULATION 3-5x/day INCREASING TOLERATES, WHILE AVOIDING EXTREMES IN TEMPERATURE FREQUENCY: RN TO OPEN THE PATIENT WITHIN 24 HOURS OF DISCHARGE FROM THE HOSPITAL WITH TELEHEALTH INSTALLED AT [facility], RN TO VISIT 2-3 X A WEEK FOR 4 WEEKS ESTABLISHED BY PATIENT NEEDS. LABORATORY: CBC, CMP TO BE DRAWN ON THE THIRD DAY HOME, (RAN STAT) FAX RESULTS TO [phone]. For patients on Coumadin, PT/INR to be drawn every Monday and , ran as STAT, and results faxed to CV surgery at until follow up with cardiology, then results faxed to [facility] at [phone] for Coumadin dosing. *Avoid foods that are high in Vitamin K as these foods can counteract your Warfarin (Coumadin) and decrease your INR level. Some of these foods include (but not limited to) Leafy green vegetables such as spinach, broccoli, lettuce, and [place] sprouts as well as soybean and canola oil. TELEHEALTH PARAMETERS: WEIGHT: NOTIFY MD OF WEIGHT GAIN OF 2 LBS IN 24 HOURS OR 5 LBS IN ONE WEEK HR: NOTIFY MD OF HR <55 BPM OR HR>100 BPM BP: NOTIFY MD IF BP <90/55 OR BP>140/100 O2 SAT: NOTIFY MD IF PO2<93% ON ROOM AIR SEND TELEHEALTH REPORT TO DRAWER IN HAND AND CARDIOVASCULAR SURGEON THE FIRST WEEK OF CARE AND THEN BI-WEEKLY. PLEASE ADDITIONALLY COMMUNICATE ANY ABNORMALS AND NEW FINDINGS TO THE SURGEONS OFFICE. Discharge Disposition: HOME WITH HOME HEALTH SERVICES
--- NOTE | 2023-12-25 18:44 | CDI ---
Documentation Clarification Form Date: 12/25/2023 06:29:17 PM From: Rose Marie Le Phone: Admit Date: 12/14/2023 05:37:00 AM Patient Name: Sabino Bautista Visit Number: [id number] Discharge Date: 12/22/2023 03:21:00 PM ATTENTION: The Clinical Documentation Specialists (CDI) and [facility] Coding Staff appreciate your assistance in clarifying documentation. Please respond to the clarification below the line at the bottom and electronically sign. The CDI & [facility] Coding staff will review the response and follow-up if needed. Please note: Queries are made part of the Legal Health Record. If you have any questions, please contact the author of this message via ITS. Doctor/Provider: Anibal Parks Unspecified anemia is documented per 12/15 Progress Note. Additional specificity regarding the type of anemia is requested. History/Risk Factors: 48yo M, severe , secondary tobicuspid AV, HTN, HLD, ELKE, morbid obesity, dilated ascending aorta Clinical indicators: Hgb: 12/14 13.8- 12.4 12/15 10.7 12/16 10.4 12/17 10.4 12/18 9.6 12/19 9.5 12/20 10.7 12/21 9.5 Hct: 12/14 37.1-41.1 12/15 31.7 12/16 31.4 12/17 32.0 12/18 29.3- 32.0 Treatment: CT surgery note reviewed,continue ASA 81 mg, atorvastatin 40mg, metoprolol 25 mg twice daily, ezetimibe 10 mg nightly, given 20 mg IV Lasix once, started on Coumadin, INR goal 2.5-3, continue mediastinalCTfor another 24hrs,discontinueFoley catheter Please clarify the type and acuity of anemia: [ x ] Acute blood loss anemia [ ] Unable to determine [ ] Other, please specify (Template Last Revised: June 2020) CHRISTYD
== END 2023-12-22 15:21 | disposition home health service (06) | DRG 220 ==
LOC: 2ORMAIN 05:37 → 2SICU 13:09 → 3SCARD 12-16 15:45
PROVIDERS: ADMIT Thoracic Surgery (Cardiothoracic Vascular Surgery); ATTEND Thoracic Surgery (Cardiothoracic Vascular Surgery)
PROC: 02L70CK Occlusion of Left Atrial Appendage with Extraluminal Device, Open Approach (ICD-10-PCS; 2023-12-14)
PROC: B24BZZ4 Ultrasonography of Heart with Aorta, Transesophageal (ICD-10-PCS; 2023-12-14)
PROC: 5A1221Z Performance of Cardiac Output, Continuous (ICD-10-PCS; 2023-12-14)
PROC: 02RF0JZ Replacement of Aortic Valve with Synthetic Substitute, Open Approach (ICD-10-PCS; principal; 2023-12-14 08:00)
DX: Q23.1 Congenital insufficiency of aortic valve (principal); D62 Acute posthemorrhagic anemia; E87.1 Hypo-osmolality and hyponatremia; Z68.42 Body mass index [BMI] 45.0-49.9, adult; I50.32 Chronic diastolic (congestive) heart failure; D69.6 Thrombocytopenia, unspecified; I11.0 Hypertensive heart disease with heart failure; E66.01 Morbid (severe) obesity due to excess calories; I77.819 Aortic ectasia, unspecified site; R73.9 Hyperglycemia, unspecified; G47.33 Obstructive sleep apnea (adult) (pediatric); J98.4 Other disorders of lung; E78.5 Hyperlipidemia, unspecified; Z79.82 Long term (current) use of aspirin; Z79.84 Long term (current) use of oral hypoglycemic drugs; Z79.899 Other long term (current) drug therapy; Z82.49 Family history of ischemic heart disease and other diseases of the circulatory system
CPT/HCPCS: 71045; 71046; 80048; 80053; 82330; 82805; 83735; 85025; 85027; 85520; 85610; 85730; 86850; 86891; 86900; 86901; 86920; 88305; 88311; 94002; 94640; 94760

== ENCOUNTER → 2023-12-25 | Outpatient (CLI) | payer OTHER ==
[2023-12-25 16:33] LABS: Prothrombin Time 17.7 sec (10.0-12.5)
[2023-12-25 16:37] LABS: INR 1.7 (<1.2)
== END | disposition home or self-care (01) ==
LOC: LABWHC1 16:02
PROVIDERS: ATTEND Nurse Practitioner Acute Care
DX: Z79.01 Long term (current) use of anticoagulants (principal)
CPT/HCPCS: 36415; 85610

== ENCOUNTER → 2024-03-04 | Outpatient (CLI) | payer OTHER ==
--- NOTE | 2024-03-04 11:50 | XR ---
EXAMINATION TYPE: XR chest 2V DATE OF EXAM: 03/04/2024 COMPARISON: 12/21/2023 HISTORY: 48-year-old male I97.110 Post open heart TECHNIQUE: Frontal and lateral views FINDINGS: Median sternotomy changes. Heart borderline enlarged. Strandy atelectasis of the lower lungs. Trace b lunting of the bilateral costophrenic angles. No jody consolidation. IMPRESSION: Borderline cardiomegaly. Trace pleural effusions. [facility], , 03/04/2024 11:48 AM
== END | disposition home or self-care (01) ==
LOC: RADXRMAIN 09:41
PROVIDERS: ATTEND Nurse Practitioner Acute Care
DX: I97 Intraoperative and postprocedural complications and disorders of circulatory system, not elsewhere classified
CPT/HCPCS: 71046

== ENCOUNTER 2024-03-22 10:27 | Emergency (ER) | payer OTHER ==
--- NOTE | 2024-03-22 10:52 | ED ---
Extremity Problem HPI - General Chief complaint: Extremity Problem,Nontraumatic Stated complaint: Left leg possible blod clot Time Seen by Provider: 03/22/24 10:40 Source: patient, RN notes reviewed Mode of arrival: ambulatory Limitations: no limitations - History of Present Illness Initial comments: 8-year-old male with history of mechanical aortic valve replacement on warfarin presented to the emergency department chief complaint of left lower extremity edema, pain over the past few weeks that has been worsening. Patient states that he had an ultrasound completed a few months ago over the left lower extremity that was negative for DVT however he was informed that he has a Murillo's cyst. Denies chest pain, shortness of breath, difficulty breathing, heart palpitations, dizziness, lightheadedness or fatigue. Patient states that he has been taking his warfarin as prescribed - Related Data Home Medications Medication Instructions Recorded Confirmed Atorvastatin [Lipitor] 40 mg PO HS 04/06/22 12/14/23 Escitalopram [Lexapro] 20 mg PO DAILY 04/06/22 12/14/23 Pantoprazole [Protonix] 40 mg PO DAILY PRN 12/04/23 12/14/23 Previous Rx's Medication Instructions Recorded Aspirin 81 mg PO DAILY #30 tab 12/07/23 Metoprolol Tartrate [Lopressor] 25 mg PO BID #60 tab 12/07/23 Acetaminophen Tab [Tylenol] 1,000 mg PO Q6HR PRN tab 12/22/23 Enoxaparin [Lovenox] 80 mg SQ Q12HR #7 each 12/22/23 Ezetimibe [Zetia] 10 mg PO HS #30 tab 12/22/23 HYDROcodone/APAP 5-325MG [[place] 1 each PO Q6HR PRN #12 tab 12/22/23 5-325] Warfarin [Coumadin] 10 mg PO DAILY #60 tab 12/22/23 Enoxaparin [Lovenox] 80 mg SQ Q12H #8 each 12/25/23 Cephalexin [Keflex] 500 mg PO Q8HR 7 Days #21 cap 12/29/23 HYDROcodone/APAP 5-325MG [[place] 5] 1 each PO Q6HR PRN #12 tab 03/22/24 Allergies Allergy/AdvReac Type Severity Reaction Status Date / Time No Known Allergies Allergy Verified 03/22/24 10:37 Review of Systems ROS Statement: Those systems with pertinent positive or pertinent negative responses have been documented in the HPI. ROS Other: All systems not noted in ROS Statement are negative. Past Medical History Past Medical History: Hyperlipidemia, Hypertension, Sleep Apnea/CPAP/BIPAP Additional Past Medical History / Comment(s): Bicuspid aortic stenosis; patient does not use home CPAP,covid infection x2(2020,2022) History of Any Multi-Drug Resistant Organisms: None Reported Past Surgical History: Heart Catheterization Additional Past Surgical History / Comment(s): Open heart Past Anesthesia/Blood Transfusion Reactions: No Reported Reaction Additional Past Anesthesia/Blood Transfusion Reaction / Comment(s): no hx blood transfusion Past Psychological History: Anxiety Smoking Status: Never smoker Past Alcohol Use History: Occasional Past Drug Use History: None Reported - Past Family History Father Family Medical History: Cancer, Myocardial Infarction ([place]) Additional Family Medical History / Comment(s): Father had myocardial infarction at 50 years old General Exam Limitations: no limitations General appearance: alert, in no apparent distress Eye exam: Present: normal appearance, PERRL, EOMI. Absent: scleral icterus, conjunctival injection, periorbital swelling ENT exam: Present: normal exam, mucous membranes moist Neck exam: Present: normal inspection. Absent: tenderness, meningismus, lymphadenopathy Respiratory exam: Present: normal lung sounds bilaterally. Absent: respiratory distress, wheezes, rales, rhonchi, stridor Cardiovascular Exam: Present: regular rate, normal rhythm, normal heart sounds. Absent: systolic murmur, diastolic murmur, rubs, gallop, clicks GI/Abdominal exam: Present: soft, normal bowel sounds. Absent: distended, tenderness, guarding, rebound, rigid Left Lower Leg exam: Present: tenderness, swelling, ecchymosis (lateral ankle, posterior medial knee), erythema (mild diffuse) Neurovascular tendon exam: Present: no vascular compromise. Absent: pulse deficit (pedal pulse 2+), abnormal cap refill, motor deficit, sensory deficit Gait: observed and limited by pain Back exam: Present: normal inspection Neurological exam: Present: alert, oriented X3, CN II-XII intact Skin exam: Present: warm, dry, intact, normal color. Absent: rash Course Vital Signs 03/22/24 03/22/24 03/22/24 10:38 10:54 12:21 Temperature 98.2 F 97.6 F Pulse Rate 76 68 72 Respiratory 18 16 17 Rate Blood Pressure 125/78 120/76 119/71 O2 Sat by Pulse 98 97 96 Oximetry Medical Decision Making - Medical Decision Making Was pt. sent in by a medical professional or institution ([facility] Valle, WARP SCOURING VAT TENDER, urgent care, hospital, or custodial...) When possible be specific @ -No Did you speak to anyone other than the patient for history (EMS, parent, family, police, friend...)? What history was obtained from this source @ -No Did you review nursing and triage notes (agree or disagree)? Why? @ -I reviewed and agree with nursing and triage notes Were old charts reviewed (outside hosp., previous admission, EMS record, old EKG, old radiological studies, urgent care reports/EKG's, custodial records)? Report findings @ -No old charts were reviewed Differential Diagnosis (chest pain, altered mental status, abdominal pain women, abdominal pain men, vaginal bleeding, weakness, fever, dyspnea, syncope, headache, dizziness, GI bleed, back pain, seizure, CVA, palpatations, mental health, musculoskeletal)? @ -Differential Musculoskeletal Muscular strain, contusion, ligament sprain, fracture, arthritis, septic arthritis, bursitis, cellulitis, muscle spasm, nerve compression, DVT, arterial occlusion, herpes zoster, electrolyte abnormality, tumor.... This is not meant to be in all inclusive list EKG interpreted by me (3pts min.). @ -completed at 1137 sinus rhythm with a ventricular rate of 73, parable 160, QRS 98, QTc 413. No acute signs of ischemia. X-rays interpreted by me (1pt min.). @ -None done CT interpreted by me (1pt min.). @ -None done U/S interpreted by me (1pt. min.). @ -venous duplex ultrasound of the left lower extremity reveals negative for DVT with a gated fluid collection along the posterior upper calf measuring 10.4 x 4.7, 0.8 cm unclear represents hematoma, leaking Murillo's cyst or other fluid collection What testing was considered but not performed or refused? (CT, X-rays, U/S, labs)? Why? @ -None What meds were considered but not given or refused? Why? @ -None Did you discuss the management of the patient with other professionals (professionals i.e. Dr., PA, WARP SCOURING VAT TENDER, lab, RT, psych nurse, social services designee, cutting tool sharpener, teacher, railroad police officer, nurse outreach case manager)? Give summary @ -No Was smoking cessation discussed for >3mins.? @ -No Was critical care preformed (if so, how long)? @ -No Were there social determinants of health that impacted care today? How? (Homelessness, low income, unemployed, alcoholism, drug addiction, transportation, low edu. Level, literacy, decrease access to med. care, long term, rehab)? @ -No Was there de-escalation of care discussed even if they declined (Discuss DNR or withdrawal of care, Hospice)? DNR status @ -No What co-morbidities impacted this encounter? (DM, HTN, Smoking, COPD, CAD, Cancer, CVA, ARF, Chemo, Hep., AIDS, mental health diagnosis, sleep apnea, morbid obesity)? @ -None Was patient admitted / discharged? Hospital course, mention meds given and route, prescriptions, significant lab abnormalities, going to OR and other pertinent info. @ -Discharge. 48-year-old male with left lower extremity edema, pain and ecchymosis. On evaluation patient noted to have edema and ecchymosis to the left medial ankle and left medial knee. He also has approximately 2+ pitting edema. Pedal pulse intact. Patient states that pain is exacerbated with dorsiflexion of the foot and with ambulation. Was offered pain medication however he is declined this time. Ultrasound negative for DVT however there is measuring a leaking Murillo's cyst. Patient states he does have a history of a Murillo's cyst and this is consistent with his symptoms. Recommend that he continue supportive treatment at home such as wearing compression stockings any sent a prescription for pain medication to take as needed as well. Undiagnosed new problem with uncertain prognosis? @ -No Drug Therapy requiring intensive monitoring for toxicity (Heparin, Nitro, Insulin, Cardizem)? @ -No Were any procedures done? @ -No Diagnosis/symptom? @ -leaking bakers cyst Acute, or Chronic, or Acute on Chronic? @ -acute Uncomplicated (without systemic symptoms) or Complicated (systemic symptoms)? @ -uncomplicated Side effects of treatment? @ -No Exacerbation, Progression, or Severe Exacerbation? @ -No Poses a threat to life or bodily function? How? (Chest pain, [place], [place], pneumonia, PE, COPD, DKA, ARF, appy, cholecystitis, CVA, Diverticulitis, Homicidal, Suicidal, threat to staff... and all critical care pts) @ -No Disposition Clinical Impression: Murillo's cyst, ruptured Disposition: HOME SELF-CARE Condition: Good Instructions (If sedation given, give patient instructions): Murillo Cyst (ED) Additional Instructions: Please return to the Emergency Department if symptoms worsen or any other concerns. Recommend that you continue to wear compression stockings over the next few weeks in addition and to rest, elevate legs while not ambulating, you can take pain medication as needed. Prescriptions: HYDROcodone/APAP 5-325MG [[place] 5] 1 each PO Q6HR PRN #12 tab PRN Reason: Pain Is patient prescribed a controlled substance at d/c from ED?: No Referrals: Tone Borja MD [Primary Care Provider] - 1-2 days Time of Disposition: 12:02
--- NOTE | 2024-03-22 11:35 | US ---
EXAMINATION TYPE: US venous doppler duplex LE LT DATE OF EXAM: 03/22/2024 11:19 AM COMPARISON: 12/04/2023 CLINICAL INDICATION: Male, 48 years old with history of edema, pain, ecchymosis; Open heart in November, new onset , Pain, Swelling TECHNIQUE: The lower extremity deep venous system is examined utilizing real time linear array sonog rusty with graded compression, color doppler sonography, and spectral doppler. SIDE PERFORMED: Left FINDINGS: VESSELS IMAGED: Common Femoral Vein Deep Femoral Vein Greater Saphenous Vein * Femoral Vein Popliteal Vein Small Saphenous Vein * Proximal Calf Veins (* superficial vessels) Left Leg: Negative for DVT Steel Checker notes: Complex area seen from posterior popliteal fossa to mid calf measuring 10.4 x 1.8 x 4.7 cm IMPRESSION: 1. No evidence for DVT within the left lower extremity imaged from the groin to the upper calf. 2. Elongated fluid collection along the posterior upper calf measuring 10.4 x 4.7 x 1.8 cm. Unclear i f this represents a hematoma, leaking Murillo's cyst, or other fluid collection. Clinically correlate. [facility], , 03/22/2024 11:33 AM
[2024-03-22 12:23] VITALS: BP 119/71; PULSE 72; RESP 17; TEMP 97.6
== END 2024-03-22 12:23 | disposition home or self-care (01) ==
LOC: EC 10:27
DX: M66.0 Rupture of popliteal cyst (principal)
CPT/HCPCS: 93005; 99283

== ENCOUNTER → 2024-09-05 | Outpatient (CLI) | payer OTHER ==
--- NOTE | 2024-09-09 21:31 | P.PCN ---
Date of Procedure: 09/05/24 Operative Findings: Home sleep study report Date of service is 09/05/2024 History This is a 29-year-old male patient referred to me for sleep apnea evaluation. Patient is obese and he currently weighs 335 pounds. He has been losing weight over the past few years. His current body mass index is 43. He has a Mallampati class IV. Despite those anatomic features, he is asymptomatic. 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 His current Montebello score is a 2. No major hypersomnia or sleepiness during the day. No significant sleep fragmentation. 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 Physical findings The patient's height is 6 feet and 2 inches and her weight is 335 pounds with a BMI of 43 Technical description The [employer] ApneaLink system was used to complete his home sleep study. This is a type III home sleep study evaluation. The total recording duration was 9 hours and 45 minutes. The recording started at 9:06 PM and ended at 6:52 AM. There was a total of 9 hours and 33 minutes of flow evaluation and 8 hours and 54 minutes of oxygen saturation evaluation. Results Respiratory analysis showed a total of 51 obstructive apneas and 118 obstructive hypopneas. The resulting AHI was 17.7 consistent with mild obstructive sleep apnea. Oxygenation analysis The average pulse ox during sleep was 94%. The baseline pulse ox while awake was 96%. The lowest pulse ox recorded was 82%. The patient spent approximately 54 minutes of the sleep time below pulse ox of 89%. Cardiac summary Average heart rate was 63 with a minimum heart rate of 44 and a maximum heart r ate of 125 Assessment Obstructive sleep apnea, moderate in severity with an AHI of 17.7. Nocturnal oxygen desaturations with a minimum pulse ox of 82% and the patient's overall sleep time below 89% was in order of 54 minutes. 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 In light of his occupation, CPAP therapy is recommended despite the fact that the patient has no major hypersomnia or sleepiness. His disease is moderately severe with an AHI of 17. Would like to discuss those findings with the patient and proceed with a CPAP therapy Encourage weight loss Will follow
== END ==
LOC: 3 N SLEEP 17:04
PROVIDERS: ATTEND Internal Medicine Critical Care Medicine
DX: G47.33 Obstructive sleep apnea (adult) (pediatric) (principal); I35.0 Nonrheumatic aortic (valve) stenosis; E78.5 Hyperlipidemia, unspecified; E66.01 Morbid (severe) obesity due to excess calories; Z95.2 Presence of prosthetic heart valve; Z68.41 Body mass index [BMI] 40.0-44.9, adult

== ENCOUNTER → 2024-10-01 | Outpatient (CLI) | payer OTHER ==
[2024-10-01 15:06] LABS: ALT 30 U/L (10-49); AST 24 U/L (14-35); Albumin 4.3 g/dL (3.8-4.9); Albumin/Globulin Ratio 1.65 Ratio (1.60-3.17); Alkaline Phosphatase 108 U/L (41-126); BUN/Creat Ratio 14.75 Ratio (12.00-20.00); Blood Urea Nitrogen 11.8 mg/dL (9.0-27.0); Carbon Dioxide 23.3 mmol/L (21.6-31.8); Chloride 105 mmol/L (96-109); Chol/HDL Ratio 3.44 Ratio; Globulin 2.6 g/dL (1.6-3.3); Glucose 88 mg/dL (70-110); LDL Cholesterol,Calculated 76.9 mg/dL (0.0-131.0); Potassium 4.4 mmol/L (3.5-5.5); Sodium 140 mmol/L (135-145); Total Bilirubin 0.4 mg/dL (0.3-1.2); Total Protein 6.9 g/dL (6.2-8.2)
== END | disposition home or self-care (01) ==
LOC: LABWHC1 10:13
PROVIDERS: ATTEND Internal Medicine Interventional Cardiology
DX: E78.2 Mixed hyperlipidemia (principal)
CPT/HCPCS: 36415; 80053; 80061